=== PATIENT | male | born 1965 | race American Indian/Alaskan Native ===

== ENCOUNTER 2020-10-10 15:03 | Inpatient (IN) | payer OTHER, SELFPAY ==
[2020-10-10] MEDS ORDERED: LIDOCAINE VISCOUS 2% 15 ML ORAL LIQD PO ONE (16:29)
[2020-10-10] MEDS ORDERED: MORPHINE 4 MG/1 ML INJ IM ONE (16:30)
[2020-10-10] MEDS ORDERED: ONDANSETRON 4 MG/2 ML INJ IM ONE (16:30)
[2020-10-10] MEDS ORDERED: KETOROLAC 60 MG/2 ML INJ IM ONE (16:30)
--- NOTE | 2020-10-10 16:35 | Emergency Department Report ---
HPI - General Chief Complaint: Back Pain/Injury Time Seen by Provider: 10/10/20 16:15 - HPI HPI: Room 19 The patient is a 55-year-old male present with a chief complaint of sore throat and back pain. The patient was reportedly brought in from assisted living facility after complaining of back pain. The patient is nonverbal but is able to express his complaints through pointing and writing. Patient acknowledges he has lumbar back pain for between 3 to 6 months since a fall at that time. Patient also complains of a sore throat for approximately 2 weeks stating it hurts when he swallows. Patient acknowledges he has had a cough as well as a fever. Patient denies dysuria ED Past Medical Hx - Past Medical History Hx Diabetes: Yes Additional medical history: Pulmonary edema - Family History Family history: no significant - Social History Smoking Status: Unknown if ever smoked ED Review of Systems ROS: Stated complaint: BACK PAIN Other details as noted in HPI Comment: Unobtainable due to pts medical conditions (Nonverbal) Physical Exam - Physical Exam Vital Signs: Vital Signs 10/10/20 15:57 Temperature 98 F Pulse Rate 99 H Respiratory 16 Rate Blood Pressure 103/69 [left arm] O2 Sat by Pulse 99 Oximetry Physical Exam: GENERAL: The patient is well-developed thin kyphotic male lying on stretcher nonverbal not appearing to be in acute distress HEENT: Normocephalic. Atraumatic. Extraocular motions are intact. Patient has moist mucous membranes. Visualized portion of the oropharynx exhibits a pill erythema on the right side. No definite exudate appreciated NECK: Supple. Trachea midline CHEST/LUNGS: Clear to auscultation. There is no respiratory distress noted. HEART/CARDIOVASCULAR: Regular. There is no tachycardia. There is no gallop rub or murmur. ABDOMEN: Abdomen is soft, nontender. Patient has normal bowel sounds. There is no abdominal distention. SKIN: There is no rash. There is no edema. There is no diaphoresis. NEURO: The patient is awake and cooperative but nonverbal. MUSCULOSKELETAL: There is tenderness to palpation of the lumbar spine. No axial step-off. There is no evidence of acute injury. ED Course Vital Signs 10/10/20 15:57 Temperature 98 F Pulse Rate 99 H Respiratory 16 Rate Blood Pressure 103/69 [left arm] O2 Sat by Pulse 99 Oximetry ED Medical Decision Making - Lab Data Result diagrams: 10/10/20 16:31 10/10/20 16:31 Laboratory Tests 10/10/20 10/10/20 10/10/20 16:31 16:31 17:54 WBC 2.0 L RBC 2.64 L Hgb 8.0 L Hct 24.1 L MCV 91 MCH 30 MCHC 33 RDW 18.0 H Plt Count 134 L Add Manual Diff Complete Total Counted 100 Seg Neuts % (Manual) 86.0 H Lymphocytes % (Manual) 10.0 L Monocytes % (Manual) 2.0 Eosinophils % (Manual) 1.0 Basophils % (Manual) 1.0 Nucleated RBC % Not Reportable Seg Neutrophils # Man 1.7 L Band Neutrophils # 0.0 Lymphocytes # (Manual) 0.2 L Abs React Lymphs (Man) 0.0 Monocytes # (Manual) 0.0 Eosinophils # (Manual) 0.0 Basophils # (Manual) 0.0 Metamyelocytes # 0.0 Myelocytes # 0.0 Promyelocytes # 0.0 Blast Cells # 0.0 WBC Morphology Not Reportable Hypersegmented Neuts Not Reportable Hyposegmented Neuts Not Reportable Hypogranular Neuts Not Reportable Smudge Cells Not Reportable Toxic Granulation Not Reportable Toxic Vacuolation Not Reportable Dohle Bodies Not Reportable Pelger-Huet Anomaly Not Reportable Javon Rods Not Reportable Platelet Estimate Not Reportable Clumped Platelets Not Reportable Plt Clumps, EDTA Not Reportable Large Platelets Not Reportable Giant Platelets Not Reportable Platelet Satelliting Not Reportable Plt Morphology Comment Not Reportable RBC Morphology Not Reportable Dimorphic RBCs Not Reportable Polychromasia Not Reportable Hypochromasia Not Reportable Poikilocytosis Not Reportable Anisocytosis Rare Microcytosis Rare Macrocytosis Not Reportable Spherocytes Not Reportable Pappenheimer Bodies Not Reportable Sickle Cells Not Reportable Target Cells Not Reportable Tear Drop Cells Not Reportable Ovalocytes Not Reportable Helmet Cells Not Reportable [place] Bodies Not Reportable [place] Rings Not Reportable Drummond[place] Cells Not Reportable Bite Cells Not Reportable Crenated Cell Not Reportable Elliptocytes Not Reportable Acanthocytes (Spur) Not Reportable Rouleaux Not Reportable Hemoglobin C Crystals Not Reportable Schistocytes Rare Malaria parasites Not Reportable Lit Bodies Not Reportable Hem Pathologist Commnt No D-Dimer 2351.86 H Sodium 143 Potassium 5.6 H Chloride 113.3 H Carbon Dioxide 14 L Anion Gap 21 BUN 93 H Creatinine 2.5 H Estimated GFR 27 BUN/Creatinine Ratio 37 Glucose 82 Calcium 7.8 L - Radiology Data Radiology results: report reviewed (Chest x-ray, lateral soft tissue neck x-ray, lumbar spine x-ray), image reviewed (Chest x-ray, lateral soft tissue neck x- ray, lumbar spine x-ray) interpreted by me: Chest x-ray-left lower lobe opacity. No pneumothorax. Vertebral hardware in pl [address] Lateral soft tissue neck x-ray-no prevertebral swelling. No foreign body seen. Lumbar spine [id number] in place. No definite acute fractures visualized. Wedging of L4 [address] [address] XRay Report Signed Patient: CLARISSA MODI MR#: [id number] : 1965 Acct:[id number] Age/Sex: 55 / M ADM Date: 10/10/20 Loc: ED Attending Dr: Ordering Physician: SANDRA MUHAMMAD MD Date of Service: 10/10/20 Procedure(s): XR chest 1V ap Accession Number(s): [id number] cc: SANDRA MUHAMMAD MD Fluoro Time In Minutes: CHEST 1 VIEW 10/10/2020 4:07 PM INDICATION / CLINICAL INFORMATION: Cough. COMPARISON: None available. FINDINGS: SUPPORT DEVICES: None. HEART / MEDIASTINUM: No significant abnormality. LUNGS / PLEURA: Relatively dense opacity at the bases with changes being somewhat masslike on the left. No pneumothorax or pleural fluid. ADDITIONAL FINDINGS: No significant additional findings. IMPRESSION: Bibasilar opacity left greater than right worrisome for pneumonia in the setting of cough. Follow-up is recommended to ensure clearing and exclude an underlying mass. Signer Name: Brian Chao MD Signed: 10/10/2020 5:17 PM Workstation Name: [id number] Transcribed By: ES Dictated By: Brian Chao MD Electronically Authenticated By: Brian Chao MD Signed Date/Time: 10/10/201716 DD/ 10 TD/TT: Print Cancel [address] [address] XRay Report Signed Patient: CLARISSA MODI MR#: [id number] : 1965 Acct:[id number] Age/Sex: 55 / M ADM Date: 10/10/20 Loc: ED Attending Dr: Ordering Physician: SANDRA MUHAMMAD MD Date of Service: 10/10/20 Procedure(s): XR neck soft tissue Accession Number(s): [id number] cc: SANDRA MUHAMMAD MD Fluoro Time In Minutes: SOFT TISSUE NECK 2 VIEWS HISTORY: Odontophagia. FINDINGS: The soft tissues of the neck are unremarkable. There is no soft tissue gas or airway narrowing. Negative for radiopaque foreign body. A normal-appearing epiglottis is identified. IMPRESSION: Unremarkable soft tissue neck. Signer Name: Brian Chao MD Signed: 10/10/2020 5:13 PM Workstation Name: [email or web address] Transcribed By: ES Dictated By: Brian Chao MD Electronically Authenticated By: Brian Chao MD Signed Date/Time: 10/10/201712 DD/ 11 TD/TT: Print Cancel [address] [address] XRay Report Signed Patient: CLARISSA MODI MR#: [id number] : 1965 Acct:[id number] Age/Sex: 55 / M ADM Date: 10/10/20 Loc: ED Attending Dr: Ordering Physician: SANDRA MUHAMMAD MD Date of Service: 10/10/20 Procedure(s): XR spine lumbosacral 2-3V Accession Number(s): [id number] cc: SANDRA MUHAMMAD MD Fluoro Time In Minutes: LUMBAR SPINE 2 VIEWS INDICATION / CLINICAL INFORMATION: Pain, history of fall months ago COMPARISON: None available. FINDINGS: BONES / JOINT(S): Previous hardware placement at T10-T12. Vertebroplasty has been previously performed at L1 and L2. Prominent underlying osteopenia is present. There is mild wedging at the superior aspect of L3-L5 which is age indeterminate . SOFT TISSUES: No significant abnormality. ADDITIONAL FINDINGS: None. Signer Name: Brian Chao MD Signed: 10/10/2020 5:16 PM Workstation Name: [email or web address] Transcribed By: ES Dictated By: Brian Chao MD Electronically Authenticated By: Brian Chao MD Signed Date/Time: 10/10/201715 DD/ 12 TD/TT: Print Cancel - Differential Diagnosis Pharyngitis, epiglottitis, retropharyngeal abscess, subacute lumbar fractur Critical care attestation.: If time is entered above; I have spent that time in minutes in the direct care of this critically ill patient, excluding procedure time. ED Disposition Clinical Impression: Pneumonia, Suspected COVID-19 virus infection, Pancytopenia, Renal insufficiency, Hyperkalemia Disposition: OP ADMIT IP TO THIS HOSP Is pt being admited?: Yes Does the pt Need Aspirin: No Condition: Fair Instructions: Bacterial Pneumonia (ED) Referrals: PRIMARY CARE, [Primary Care Provider] - 3-5 Days Time of Disposition: 18:17 (Hospitalist paged (Dr. Dean))
[2020-10-10 16:41] LABS: Hematocrit 24.1 % (35.5-45.6); Mean Corpuscular HGB Conc 33 % (32-34); Mean Corpuscular Volume 91 fl (84-94); Platelet Count 134 K/mm3 (140-440); Red Blood Count 2.64 M/mm3 (3.65-5.03)
[2020-10-10 16:59] LABS: Calcium 7.8 mg/dL (8.4-10.2)
[2020-10-10 17:17] LABS: Anisocytosis RARE; Schistocytes Rare; Total Cells Counted 100
--- NOTE | 2020-10-10 17:18 | XRay Report ---
SOFT TISSUE NECK 2 VIEWS HISTORY: Odontophagia. FINDINGS: The soft tissues of the neck are unremarkable. There is no soft tissue gas or airway narrow ing. Negative for radiopaque foreign body. A normal-appearing epiglottis is identified. IMPRESSION: Unremarkable soft tissue neck. Signer Name: Brian Chao MD Signed: 10/10/2020 5:13 PM Workstation [facility]: [id number]
--- NOTE | 2020-10-10 17:20 | XRay Report ---
LUMBAR SPINE 2 VIEWS INDICATION / CLINICAL INFORMATION: Pain, history of fall months ago COMPARISON: None available. FINDINGS: BONES / JOINT(S): Previous hardware placement at T10-T12. Vertebroplasty has been previously performe d at L1 and L2. Prominent underlying osteopenia is present. There is mild wedging at the superior asp ect of L3-L5 which is age indeterminate. SOFT TISSUES: No significant abnormality. ADDITIONAL FINDINGS: None. Signer Name: Brian Chao MD Signed: 10/10/2020 5:16 PM Workstation Name: [id number]
--- NOTE | 2020-10-10 17:22 | XRay Report ---
CHEST 1 VIEW 10/10/2020 4:07 PM INDICATION / CLINICAL INFORMATION: Cough. COMPARISON: None available. FINDINGS: SUPPORT DEVICES: None. HEART / MEDIASTINUM: No significant abnormality. LUNGS / PLEURA: Relatively dense opacity at the bases with changes being somewhat masslike on the lef t. No pneumothorax or pleural fluid. ADDITIONAL FINDINGS: No significant additional findings. IMPRESSION: Bibasilar opacity left greater than right worrisome for pneumonia in the setting of cough . Follow-up is recommended to ensure clearing and exclude an underlying mass. Signer Name: Brian Chao MD Signed: 10/10/2020 5:17 PM Workstation Name: [id number]
[2020-10-10] MEDS ORDERED: INSULIN REGULAR, HUMAN 100 UNITS/1 ML IV ONE (17:34)
[2020-10-10] MEDS ORDERED: SODIUM POLYSTYRENE 15 GM/60 ML ORAL LIQD PO ONE (17:34)
[2020-10-10] MEDS ORDERED: DEXTROSE 50% IN WATER (25GM) 50 ML SYRINGE IV ONE (17:34)
[2020-10-10] MEDS ORDERED: cefTRIAXone/NS 1 GM/50 ML 1 GM/50 ML BAG IV ONE (17:35)
[2020-10-10] MEDS ORDERED: AZITHROMYCIN/NS 500 MG/250 ML 500 MG/250 ML BAG IV ONE (17:35)
[2020-10-10] MEDS ORDERED: CALCIUM GLUCONATE 1,000 MG in SODIUM CHLORIDE 0.9% 100 ML IV ONE (18:00)
[2020-10-10] MEDS ORDERED: SODIUM CHLORIDE 0.9% 1000 ML 1,000 ML ONE ×2 (19:19→19:23)
--- NOTE | 2020-10-10 19:45 | History and Physical Report ---
History of Present Illness Chief complaint: His back hurts and he has a sore throat and he is weak History of present illness: 55 YO Male Assisted Living Facility Resident with DM, Severe Malnutrition, who is nonverbal, and communicated by writing presents to ED for evaluation. Patient reports "sore throat and back pain". EMS was notified by assisted living facility staff. Upon arrival the patient was found to be in distress and subsequently transported to [facility] for further care and evaluation of the aforementioned symptoms. The patient was seen and evaluated in the emergency department. All lab and imaging studies reviewed. Patient underwent chest x- ray and was found to have bilateral pneumonia, acidosis, and acute kidney injury. Patient admitted to medical floor and initiated on pneumonia protocol as well as coronavirus protocol. No further history is obtainable. No prior admission for review. No medication listed at time of admission for reconciliation. No reports of fever, chills, chest pain, palpitations, productive cough, skin rash, recent ill contacts, or known exposure to COVID-19 as per assisted-living facility staff. Patient is able to maintain his airway without difficulty and has a positive gag reflex. Past History Past Medical History: diabetes, other (See HPI) Past Surgical History: No surgical history, Other (Reviewed) Social history: single. denies: smoking, alcohol abuse, prescription drug abuse Family history: hypertension Medications and Allergies Allergies Allergy/AdvReac Type Severity Reaction Status Date / Time No Known Allergies Allergy Unverified 10/10/20 15:05 Review of Systems ROS unobtainable: due to mental status Exam - Constitutional Vitals: Temp Pulse Resp BP Pulse Ox 98 F 99 H 16 103/69 99 10/10/20 15:57 10/10/20 15:57 10/10/20 15:57 10/10/20 15:57 10/10/20 15:57 General appearance: Present: mild distress, cachectic - EENT Eyes: Present: PERRL ENT: hearing intact, clear oral mucosa - Neck Neck: Present: supple, normal ROM - Respiratory Respiratory effort: normal Respiratory: bilateral: diminished, rhonchi - Cardiovascular Heart Sounds: Present: S1 & S2. Absent: rub, click - Extremities Extremities: pulses symmetrical, No edema Peripheral Pulses: within normal limits - Abdominal General gastrointestinal: Present: soft, non-tender, non-distended, normal bowel sounds Male genitourinary: Present: normal - Integumentary Integumentary: Present: clear, warm, dry - Musculoskeletal Musculoskeletal: gait normal, strength equal bilaterally - Psychiatric Psychiatric: appropriate mood/affect, intact judgment & insight - Neurologic Neurologic: CNII-XII intact, moves all extremities Results - Labs CBC & Chem 7: 10/10/20 16:31 10/10/20 17:54 Labs: Abnormal lab results 10/10/20 10/10/20 10/10/20 Range/Units 16:31 16:31 17:54 WBC 2.0 L (4.5-11.0) K/mm3 RBC 2.64 L (3.65-5.03) M/mm3 Hgb 8.0 L (11.8-15.2) gm/dl Hct 24.1 L (35.5-45.6) % RDW 18.0 H (13.2-15.2) % Plt Count 134 L (140-440) K/mm3 Seg Neuts % (Manual) 86.0 H (40.0-70.0) % Lymphocytes % (Manual) 10.0 L (13.4-35.0) % Seg Neutrophils # Man 1.7 L (1.8-7.7) K/mm3 Lymphocytes # (Manual) 0.2 L (1.2-5.4) K/mm3 D-Dimer 2351.86 H (0-234) ng/mlDDU Potassium 5.6 H (3.6-5.0) mmol/L Chloride 113.3 H (98-107) mmol/L Carbon Dioxide 14 L (22-30) mmol/L BUN 93 H (9-20) mg/dL Creatinine 2.5 H (0.8-1.3) mg/dL Calcium 7.8 L (8.4-10.2) mg/dL Assessment and Plan - Patient Problems (1) SIRS due to infectious process with organ dysfunction Current Visit: Yes Status: Acute Plan to address problem: CBC, CMP, IV fluid resuscitation therapy, IV antibiotic therapy, urinalysis, chest x-ray, blood cultures. (2) Acute kidney injury (NELSY) with acute tubular necrosis (ATN) Current Visit: Yes Status: Acute Plan to address problem: IV fluid resuscitation therapy as clinically indicated, encourage increased oral intake, BMP, repeat BMP in a.m. to monitor serum creatinine as well as GFR (3) Severe malnutrition Current Visit: Yes Status: Acute Plan to address problem: Encourage increased protein intake, dietary supplementation (4) Pneumonia Current Visit: Yes Status: Acute Plan to address problem: Pneumonia protocol: Chest x-ray, CBC, CMP, supplemental oxygen, nebulizer therapy, pulse oximetry. (5) Suspected COVID-19 virus infection Current Visit: Yes Status: Acute Plan to address problem: Coronavirus protocol: Contact precautions, isolation precautions, coronavirus PCR ordered and pending at time of admission, IV antibiotic therapy, IV steroid therapy. (6) DVT prophylaxis Current Visit: Yes Status: Acute Plan to address problem: SCDs bilateral lower extremities while in bed, patient is ambulatory
[2020-10-10] MEDS ORDERED: ONDANSETRON 4 MG/2 ML INJ IV PRN (19:46)
[2020-10-10] MEDS ORDERED: ALBUTEROL 2.5 MG/3 ML NEBU IH PRN (19:46)
[2020-10-10 20:08] LABS: C-Reactive Protein 5.6 mg/dL (0.00-1.30)
[2020-10-10] MEDS ORDERED: SODIUM CHLORIDE 0.9% 1000 ML 1,000 ML IV ONE ×2 (20:44)
[2020-10-10] MEDS ORDERED: NORepinephrine/NS 4 MG-250 ML 4 MG/250 ML BAG IV ONE (23:53)
[2020-10-11 06:03] LABS: Mean Corpuscular HGB Conc 32 % (32-34); Mean Corpuscular Volume 96 fl (84-94); Platelet Count 108 K/mm3 (140-440); Red Blood Count 2.31 M/mm3 (3.65-5.03); Red Cell Distribution Width 19.2 % (13.2-15.2)
[2020-10-11 06:17] LABS: Basophils % (Auto) 0.5 % (0.0-1.8); Eosinophils % (Auto) 1.6 % (0.0-4.3); Lymphocytes # (Auto) 0.1 K/mm3 (1.2-5.4); Lymphocytes % (Auto) 10.1 % (13.4-35.0); Monocytes % (Auto) 1.4 % (0.0-7.3)
[2020-10-11 06:23] LABS: Albumin 1.8 g/dL (3.9-5); Calcium 7.1 mg/dL (8.4-10.2)
--- NOTE | 2020-10-11 10:48 | Consultation ---
History of Present Illness - Reason for Consult Consult date: 10/11/20 COVID PUI Requesting physician: YANNI MOE - History of Present Illness The patient is a 55-year-old male with diabetes, malnutrition, resident of an assisted living facility was brought into the emergency room with complaints of sore throat and back pain. Chest x-ray showed bilateral pneumonia with labs showing evidence of acute kidney injury. Patient afebrile on admission, also not hypoxic. Labs showed leukopenia, hyperkalemia, creatinine 2.5, ferritin 08/17/2007, CRP 5.6, LDH 233, CRP 5.6 Review of Systems: reviewed in the chart, unable to obtain, minimize risk of transmission Past History Past Medical History: diabetes, other (See HPI) Past Surgical History: No surgical history, Other (Reviewed) Social history: single. denies: smoking, alcohol abuse, prescription drug abuse Family history: hypertension Medications and Allergies Allergies Allergy/AdvReac Type Severity Reaction Status Date / Time No Known Allergies Allergy Unverified 10/10/20 15:05 Active Meds: Active Medications Acetaminophen (Acetaminophen 325 Mg Tab) 650 mg PO Q4H PRN PRN Reason: Pain MILD(1-3)/Fever >100.5/KINNEY Albuterol (Albuterol 2.5 Mg/3 Ml Nebu) 2.5 mg IH Q4HRT PRN PRN Reason: Shortness Of Breath Ceftriaxone Sodium (Rocephin/Ns 2 Gm/100 Ml) 2 gm in 100 mls @ 200 mls/hr IV Q24H THEE; Protocol Azithromycin (Zithromax/Ns) 500 mg in 250 mls @ 250 mls/hr IV Q24H THEE; Protocol Methylprednisolone Sodium Succinate (Methylprednisolone Sod Succinate 40 Mg/1 Ml Inj) 40 mg IV Q8HR THEE Ondansetron HCl (Ondansetron 4 Mg/2 Ml Inj) 4 mg IV Q8H PRN PRN Reason: Nausea And Vomiting Sodium Chloride (Sodium Chloride 0.9% 10 Ml Flush Syringe) 10 ml IV BID THEE Sodium Chloride (Sodium Chloride 0.9% 10 Ml Flush Syringe) 10 ml IV PRN PRN PRN Reason: LINE FLUSH Physical Examination - Physical Exam Narrative exam: Physical Exam (reviewed in chart to minimize risk of transmission) Constitutional: deferred Head, Ears, Nose: deferred Eyes: deferred Neck: deferred Oral: deferred Cardiovascular: deferred Respiratory: deferred GI: deferred Musculoskeletal: deferred Skin: deferred Hem/Lymphatic: deferred Psych: deferred Neurological: deferred - Constitutional Vitals: Vital Signs Temp Pulse Resp BP Pulse Ox 98 F 72 9 L 107/76 100 10/10/20 15:57 10/11/20 10:01 10/11/20 10:01 10/11/20 10:01 10/11/20 10:01 Temperature -Last 24 Hours Temperature 98 F Results - Labs CBC & Chem 7: 10/11/20 05:40 10/11/20 05:40 Labs: Abnormal lab results 10/10/20 10/10/20 10/10/20 Range/Units 16:31 16:31 17:54 WBC 2.0 L (4.5-11.0) K/mm3 RBC 2.64 L (3.65-5.03) M/mm3 Hgb 8.0 L (11.8-15.2) gm/dl Hct 24.1 L (35.5-45.6) % MCV (84-94) fl RDW 18.0 H (13.2-15.2) % Plt Count 134 L (140-440) K/mm3 Lymph % (Auto) (13.4-35.0) % Lymph # (Auto) (1.2-5.4) K/mm3 Seg Neutrophils % (40.0-70.0) % Seg Neuts % (Manual) 86.0 H (40.0-70.0) % Lymphocytes % (Manual) 10.0 L (13.4-35.0) % Seg Neutrophils # (1.8-7.7) K/mm3 Seg Neutrophils # Man 1.7 L (1.8-7.7) K/mm3 Lymphocytes # (Manual) 0.2 L (1.2-5.4) K/mm3 D-Dimer 2351.86 H (0-234) ng/mlDDU Sodium (137-145) mmol/L Potassium 5.6 H (3.6-5.0) mmol/L Chloride 113.3 H (98-107) mmol/L Carbon Dioxide 14 L (22-30) mmol/L BUN 93 H (9-20) mg/dL Creatinine 2.5 H (0.8-1.3) mg/dL Calcium 7.8 L (8.4-10.2) mg/dL Ferritin (30.0-300.0) ng/mL AST (5-40) units/L ALT (7-56) units/L Alkaline Phosphatase (35-129) units/L Lactate Dehydrogenase (91-180) units/L C-Reactive Protein (0.00-1.30) mg/dL Albumin (3.9-5) g/dL 10/10/20 10/10/20 10/11/20 Range/Units 17:54 17:54 05:40 WBC 1.3 L* (4.5-11.0) K/mm3 RBC 2.31 L (3.65-5.03) M/mm3 Hgb 7.0 L (11.8-15.2) gm/dl Hct 22.0 L (35.5-45.6) % MCV 96 H (84-94) fl RDW 19.2 H (13.2-15.2) % Plt Count 108 L (140-440) K/mm3 Lymph % (Auto) 10.1 L (13.4-35.0) % Lymph # (Auto) 0.1 L (1.2-5.4) K/mm3 Seg Neutrophils % 86.4 H (40.0-70.0) % Seg Neuts % (Manual) (40.0-70.0) % Lymphocytes % (Manual) (13.4-35.0) % Seg Neutrophils # 1.1 L (1.8-7.7) K/mm3 Seg Neutrophils # Man (1.8-7.7) K/mm3 Lymphocytes # (Manual) (1.2-5.4) K/mm3 D-Dimer (0-234) ng/mlDDU Sodium (137-145) mmol/L Potassium (3.6-5.0) mmol/L Chloride (98-107) mmol/L Carbon Dioxide (22-30) mmol/L BUN (9-20) mg/dL Creatinine (0.8-1.3) mg/dL Calcium (8.4-10.2) mg/dL Ferritin 2608.0 H (30.0-300.0) ng/mL AST (5-40) units/L ALT (7-56) units/L Alkaline Phosphatase (35-129) units/L Lactate Dehydrogenase 233 H (91-180) units/L C-Reactive Protein 5.60 H (0.00-1.30) mg/dL Albumin (3.9-5) g/dL 10/11/20 Range/Units 05:40 WBC (4.5-11.0) K/mm3 RBC (3.65-5.03) M/mm3 Hgb (11.8-15.2) gm/dl Hct (35.5-45.6) % MCV (84-94) fl RDW (13.2-15.2) % Plt Count (140-440) K/mm3 Lymph % (Auto) (13.4-35.0) % Lymph # (Auto) (1.2-5.4) K/mm3 Seg Neutrophils % (40.0-70.0) % Seg Neuts % (Manual) (40.0-70.0) % Lymphocytes % (Manual) (13.4-35.0) % Seg Neutrophils # (1.8-7.7) K/mm3 Seg Neutrophils # Man (1.8-7.7) K/mm3 Lymphocytes # (Manual) (1.2-5.4) K/mm3 D-Dimer (0-234) ng/mlDDU Sodium 148 H (137-145) mmol/L Potassium (3.6-5.0) mmol/L Chloride 118.1 H (98-107) mmol/L Carbon Dioxide 16 L (22-30) mmol/L BUN 88 H (9-20) mg/dL Creatinine 2.7 H (0.8-1.3) mg/dL Calcium 7.1 L (8.4-10.2) mg/dL Ferritin (30.0-300.0) ng/mL AST 94 H (5-40) units/L ALT 198 H (7-56) units/L Alkaline Phosphatase 276 H (35-129) units/L Lactate Dehydrogenase (91-180) units/L C-Reactive Protein (0.00-1.30) mg/dL Albumin 1.8 L (3.9-5) g/dL - Imaging and Cardiology Chest x-ray: report reviewed, image reviewed (b/l PNA) Assessment and Plan Cultures: SARS CoV2 PCR: Pending HIV: Negative 10/10/2020 blood culture: In process A/P: 55-year-old male with diabetes, malnutrition, resident of an assisted living facility was brought into the emergency room with complaints of sore throat and back pain: #Bilateral pneumonia: Not hypoxic. Leukopenia. Agree with COVID-19 rule out. #Leukopenia: Etiology unclear. Baseline WBC is unknown. Could be related to acute infection. HIV negative. Also anemic with thrombocytopenia #NELSY: Renally dose antibiotics. #Transaminitis: With elevation of alkaline phosphatase. RUQ ultrasound ordered #Chronic malnutrition; BMI of 16.1 Recs: Follow-up COVID-19 PCR Empiric ceftriaxone, azithromycin for now Monitor WBC Follow-up cultures and procalcitonin RUQ ultrasound ordered If pancytopenia persists, consider hematology trupti Jane MD, FACP [facility] ([facility] O: [phone] F: [phone]
[2020-10-11 12:07] LABS: Bacteria,Urine 2+ /HPF (Negative); Bilirubin,Urine NEG (Negative); Blood,Urine SM (Negative); Color,Urine Yellow (Yellow); Mucus,Urine FEW /HPF; Urobilinogen,Urine < 2.0 mg/dL (<2.0)
--- NOTE | 2020-10-11 15:05 | Progress Note ---
Assessment and Plan - Patient Problems (1) SIRS due to infectious process with organ dysfunction Current Visit: Yes Status: Acute Plan to address problem: CBC, CMP, IV fluid resuscitation therapy, IV antibiotic therapy, urinalysis, chest x-ray, blood cultures. Continue IV fluids (2) Acute kidney injury (NELSY) with acute tubular necrosis (ATN) Current Visit: Yes Status: Acute Plan to address problem: IV fluids for now Started on IV half-normal saline at 125 cc an hour (3) Severe malnutrition Current Visit: Yes Status: Acute Plan to address problem: Encourage increased protein intake, dietary supplementation (4) Pneumonia Current Visit: Yes Status: Acute Plan to address problem: Pneumonia protocol: Chest x-ray, CBC, CMP, supplemental oxygen, nebulizer therap y, pulse oximetry. Continue Rocephin and Zithromax Coronavirus PCR negative (5) Suspected COVID-19 virus infection Current Visit: Yes Status: Acute Plan to address problem: Coronavirus PCR negative (6) DVT prophylaxis Current Visit: Yes Status: Acute Plan to address problem: SCDs bilateral lower extremities while in bed, patient is ambulatory Subjective Date of service: 10/11/20 Principal diagnosis: Altered sensorium Interval history: The patient is a 55-year-old male with diabetes, malnutrition, resident of an assisted living facility was brought into the emergency room with complaints of sore throat and back pain. Chest x-ray showed bilateral pneumonia with labs showing evidence of acute kidney injury. Patient afebrile on admission, also not hypoxic. Labs showed leukopenia, hyperkalemia, creatinine 2.5, ferritin 08/17/2007, CRP 5.6, LDH 233, CRP 5.6 10/11/2020 Covid test was negative 10/12/2020 Patient more alert and oriented Objective - Constitutional Vitals: Vital Signs - 12hr 10/11/20 10/11/20 10/11/20 03:16 03:30 03:46 Temperature Pulse Rate 67 63 66 Respiratory Rate Blood Pressure 107/71 117/75 102/71 O2 Sat by Pulse 100 100 Oximetry 10/11/20 10/11/20 10/11/20 04:00 04:16 04:31 Temperature Pulse Rate 66 72 68 Respiratory 17 19 Rate Blood Pressure 102/70 104/67 117/77 O2 Sat by Pulse 100 Oximetry 10/11/20 10/11/20 10/11/20 04:45 05:01 05:15 Temperature Pulse Rate 61 62 66 Respiratory Rate Blood Pressure 122/79 118/79 119/77 O2 Sat by Pulse Oximetry 10/11/20 10/11/20 10/11/20 05:31 05:45 06:01 Temperature Pulse Rate 66 62 64 Respiratory Rate Blood Pressure 122/79 122/79 110/75 O2 Sat by Pulse Oximetry 10/11/20 10/11/20 10/11/20 06:31 07:01 07:31 Temperature Pulse Rate 63 66 65 Respiratory 7 L Rate Blood Pressure 112/76 123/80 113/76 O2 Sat by Pulse Oximetry 10/11/20 10/11/20 10/11/20 08:30 08:31 09:01 Temperature 98.2 F Pulse Rate 65 70 Respiratory 7 L 10 L Rate Blood Pressure 118/79 116/76 O2 Sat by Pulse 100 100 Oximetry 10/11/20 10/11/20 10/11/20 09:31 10:01 10:31 Temperature Pulse Rate 71 72 71 Respiratory 11 L 9 L 12 Rate Blood Pressure 106/74 107/76 108/83 O2 Sat by Pulse 100 100 100 Oximetry 10/11/20 10/11/20 11:01 11:30 Temperature Pulse Rate 75 80 Respiratory 15 13 Rate Blood Pressure 113/76 107/76 O2 Sat by Pulse 100 100 Oximetry General appearance: Present: no acute distress, well-nourished - EENT Eyes: PERRL, EOM intact ENT: hearing intact, clear oral mucosa Ears: bilateral: normal - Neck Neck: supple, normal ROM - Respiratory Respiratory effort: normal Respiratory: bilateral: CTA - Breasts Breasts: normal - Cardiovascular Heart rate: 78 Rhythm: regular Heart Sounds: Present: S1 & S2. Absent: gallop, rub Extremities: pulses intact, No edema, normal color, Full ROM - Gastrointestinal General gastrointestinal: Present: soft, non-tender, non-distended, normal bowel sounds - Genitourinary Male genitourinary: normal - Integumentary Integumentary: clear, warm, dry - Musculoskeletal Musculoskeletal: 1, strength equal bilaterally - Neurologic Neurologic: moves all extremities - Psychiatric Psychiatric: memory intact, appropriate mood/affect, intact judgment & insight - Labs CBC & Chem 7: 10/12/20 06:18 10/12/20 06:18 Labs: Abnormal lab results 10/10/20 10/10/20 10/10/20 Range/Units 16:31 16:31 17:54 WBC 2.0 L (4.5-11.0) K/mm3 RBC 2.64 L (3.65-5.03) M/mm3 Hgb 8.0 L (11.8-15.2) gm/dl Hct 24.1 L (35.5-45.6) % MCV (84-94) fl RDW 18.0 H (13.2-15.2) % Plt Count 134 L (140-440) K/mm3 Lymph % (Auto) (13.4-35.0) % Lymph # (Auto) (1.2-5.4) K/mm3 Seg Neutrophils % (40.0-70.0) % Seg Neuts % (Manual) 86.0 H (40.0-70.0) % Lymphocytes % (Manual) 10.0 L (13.4-35.0) % Seg Neutrophils # (1.8-7.7) K/mm3 Seg Neutrophils # Man 1.7 L (1.8-7.7) K/mm3 Lymphocytes # (Manual) 0.2 L (1.2-5.4) K/mm3 D-Dimer 2351.86 H (0-234) ng/mlDDU Sodium (137-145) mmol/L Potassium 5.6 H (3.6-5.0) mmol/L Chloride 113.3 H (98-107) mmol/L Carbon Dioxide 14 L (22-30) mmol/L BUN 93 H (9-20) mg/dL Creatinine 2.5 H (0.8-1.3) mg/dL Calcium 7.8 L (8.4-10.2) mg/dL Ferritin (30.0-300.0) ng/mL AST (5-40) units/L ALT (7-56) units/L Alkaline Phosphatase (35-129) units/L Lactate Dehydrogenase (91-180) units/L C-Reactive Protein (0.00-1.30) mg/dL Albumin (3.9-5) g/dL Urine WBC (Auto) (0.0-6.0) /HPF 10/10/20 10/10/20 10/11/20 Range/Units 17:54 17:54 05:40 WBC 1.3 L* (4.5-11.0) K/mm3 RBC 2.31 L (3.65-5.03) M/mm3 Hgb 7.0 L (11.8-15.2) gm/dl Hct 22.0 L (35.5-45.6) % MCV 96 H (84-94) fl RDW 19.2 H (13.2-15.2) % Plt Count 108 L (140-440) K/mm3 Lymph % (Auto) 10.1 L (13.4-35.0) % Lymph # (Auto) 0.1 L (1.2-5.4) K/mm3 Seg Neutrophils % 86.4 H (40.0-70.0) % Seg Neuts % (Manual) (40.0-70.0) % Lymphocytes % (Manual) (13.4-35.0) % Seg Neutrophils # 1.1 L (1.8-7.7) K/mm3 Seg Neutrophils # Man (1.8-7.7) K/mm3 Lymphocytes # (Manual) (1.2-5.4) K/mm3 D-Dimer (0-234) ng/mlDDU Sodium (137-145) mmol/L Potassium (3.6-5.0) mmol/L Chloride (98-107) mmol/L Carbon Dioxide (22-30) mmol/L BUN (9-20) mg/dL Creatinine (0.8-1.3) mg/dL Calcium (8.4-10.2) mg/dL Ferritin 2608.0 H (30.0-300.0) ng/mL AST (5-40) units/L ALT (7-56) units/L Alkaline Phosphatase (35-129) units/L Lactate Dehydrogenase 233 H (91-180) units/L C-Reactive Protein 5.60 H (0.00-1.30) mg/dL Albumin (3.9-5) g/dL Urine WBC (Auto) (0.0-6.0) /HPF 10/11/20 10/11/20 Range/Units 05:40 Unknown WBC (4.5-11.0) K/mm3 RBC (3.65-5.03) M/mm3 Hgb (11.8-15.2) gm/dl Hct (35.5-45.6) % MCV (84-94) fl RDW (13.2-15.2) % Plt Count (140-440) K/mm3 Lymph % (Auto) (13.4-35.0) % Lymph # (Auto) (1.2-5.4) K/mm3 Seg Neutrophils % (40.0-70.0) % Seg Neuts % (Manual) (40.0-70.0) % Lymphocytes % (Manual) (13.4-35.0) % Seg Neutrophils # (1.8-7.7) K/mm3 Seg Neutrophils # Man (1.8-7.7) K/mm3 Lymphocytes # (Manual) (1.2-5.4) K/mm3 D-Dimer (0-234) ng/mlDDU Sodium 148 H (137-145) mmol/L Potassium (3.6-5.0) mmol/L Chloride 118.1 H (98-107) mmol/L Carbon Dioxide 16 L (22-30) mmol/L BUN 88 H (9-20) mg/dL Creatinine 2.7 H (0.8-1.3) mg/dL Calcium 7.1 L (8.4-10.2) mg/dL Ferritin (30.0-300.0) ng/mL AST 94 H (5-40) units/L ALT 198 H (7-56) units/L Alkaline Phosphatase 276 H (35-129) units/L Lactate Dehydrogenase (91-180) units/L C-Reactive Protein (0.00-1.30) mg/dL Albumin 1.8 L (3.9-5) g/dL Urine WBC (Auto) 36.0 H (0.0-6.0) /HPF
--- NOTE | 2020-10-11 16:54 | Vascular Lab Report ---
DUPLEX DOPPLER LOWER EXTREMITY VEINS, BILATERAL INDICATION / CLINICAL INFORMATION: Under suspicion for COVID pneumonia. Evaluate for DVT. TECHNIQUE: Duplex doppler imaging was performed through the veins of both lower extremities using rosa maria ous compression and other maneuvers. COMPARISON: None. FINDINGS: Right Common Femoral vein: Negative. Right Femoral vein: Negative. Right Popliteal vein: Negative. Right Calf veins: Negative. Left Common Femoral vein: Negative. Left Femoral vein: Negative. Left Popliteal vein: Negative. Left Calf veins: Negative. Additional findings: None. IMPRESSION: 1. No sonographic evidence for DVT in either lower extremity. Signer Name: Mel Lomeli MD Signed: 10/11/2020 4:49 PM Workstation Name: [id number]
--- NOTE | 2020-10-11 17:59 | Ultrasound Report ---
ULTRASOUND ABDOMEN, LIMITED (RIGHT UPPER QUADRANT) INDICATION: sepsis, elevated LFTs. COMPARISON: None available. FINDINGS: Pancreas: Visualized portion shows no significant abnormality. Liver: Normal. Gallbladder: Normal. Bile ducts: Normal. Common Bile Duct measures 2 mm. Free fluid: None. Additional Findings: Mild right-sided pelvicaliectasis and echogenic right kidney IMPRESSION: 1. Mild right pelvic caliectasis and echogenic right kidney characteristic for medical renal disease. Noncontrast abdominal and pelvic CT may be useful in order to exclude an obstructing kidney stone 2. No other sonographic abnormality of the right upper quadrant. Signer Name: Spencer Mack MD Signed: 10/11/2020 5:55 PM Workstation Name: [id number]
[2020-10-11] MEDS: cefTRIAXone/NS 2 GM/100 ML 2 GM/100 ML BAG IV SCH (19:50)
[2020-10-11] MEDS: AZITHROMYCIN/NS 500 MG/250 ML 500 MG/250 ML BAG IV SCH (20:21)
[2020-10-11] MEDS: methylPREDNISolone Sod Succinate 40 MG/1 ML INJ IV SCH (22:24)
[2020-10-12 07:00] LABS: Hematocrit 20.3 % (35.5-45.6); Hemoglobin 6.7 gm/dl (11.8-15.2); Mean Corpuscular HGB Conc 33 % (32-34); Mean Corpuscular Volume 91 fl (84-94); Platelet Count 109 K/mm3 (140-440); Red Blood Count 2.24 M/mm3 (3.65-5.03); Red Cell Distribution Width 19.2 % (13.2-15.2)
[2020-10-12 07:23] LABS: Albumin 1.7 g/dL (3.9-5); Calcium 6.7 mg/dL (8.4-10.2)
[2020-10-12] MEDS ORDERED: TBO-FILGRASTIM 300 MCG/0.5 ML SUB-Q ONE (10:48)
--- NOTE | 2020-10-12 11:03 | Progress Note ---
Assessment and Plan - Patient Problems (1) SIRS due to infectious process with organ dysfunction Current Visit: Yes Status: Acute Plan to address problem: CBC, CMP, IV fluid resuscitation therapy, IV antibiotic therapy, urinalysis, chest x-ray, blood cultures. Continue IV fluids (2) Acute kidney injury (NELSY) with acute tubular necrosis (ATN) Current Visit: Yes Status: Acute Plan to address problem: IV fluids for now Started on IV half-normal saline at 125 cc an hour Vasomotor nephropathy/ATN Recheck BUN/creatinine tomorrow (3) Severe malnutrition Current Visit: Yes Status: Acute Plan to address problem: Encourage increased protein intake, dietary supplementation (4) Pneumonia Current Visit: Yes Status: Acute Plan to address problem: Pneumonia protocol: Chest x-ray, CBC, CMP, supplemental oxygen, nebulizer therapy, pulse oximetry. Continue Rocephin and Zithromax Coronavirus PCR negative Transfer to non-Covid side of the floor (5) Suspected COVID-19 virus infection Current Visit: Yes Status: Acute Plan to address problem: Coronavirus PCR negative (6) DVT prophylaxis Current Visit: Yes Status: Acute Plan to address problem: SCDs bilateral lower extremities while in bed, patient is ambulatory Severe debility PT and OT requested Subjective Date of service: 10/12/20 Principal diagnosis: Altered sensorium Interval history: The patient is a 55-year-old male with diabetes, malnutrition, resident of an assisted living facility was brought into the emergency room with complaints of sore throat and back pain. Chest x-ray showed bilateral pneumonia with labs showing evidence of acute kidney injury. Patient afebrile on admission, also not hypoxic. Labs showed leukopenia, hyperkalemia, creatinine 2.5, ferritin 08/17/2007, CRP 5.6, LDH 233, CRP 5.6 10/11/2020 Covid test was negative 10/12/2020 Patient more alert and oriented Afebrile Objective - Constitutional Vitals: Vital Signs - 12hr 10/12/20 05:07 Temperature 97.6 F Pulse Rate 79 Respiratory 16 Rate Blood Pressure 102/70 O2 Sat by Pulse 100 Oximetry General appearance: Present: no acute distress, well-nourished - EENT Eyes: PERRL, EOM intact ENT: hearing intact, clear oral mucosa Ears: bilateral: normal - Neck Neck: supple, normal ROM - Respiratory Respiratory effort: normal Respiratory: bilateral: CTA - Breasts Breasts: normal - Cardiovascular Rhythm: regular Heart Sounds: Present: S1 & S2. Absent: gallop, rub Extremities: pulses intact, No edema, normal color, Full ROM - Gastrointestinal General gastrointestinal: Present: soft, non-tender, non-distended, normal bowel sounds - Genitourinary Male genitourinary: normal - Integumentary Integumentary: clear, warm, dry - Musculoskeletal Musculoskeletal: 1, strength equal bilaterally - Neurologic Neurologic: moves all extremities - Psychiatric Psychiatric: memory intact, appropriate mood/affect, intact judgment & insight - Labs CBC & Chem 7: 10/12/20 06:18 10/12/20 06:18 Labs: Abnormal lab results 10/11/20 10/11/20 10/12/20 Range/Units 21:10 Unknown 06:18 WBC 1.8 L* (4.5-11.0) K/mm3 RBC 2.24 L (3.65-5.03) M/mm3 Hgb 6.7 L (11.8-15.2) gm/dl Hct 20.3 L (35.5-45.6) % RDW 19.2 H (13.2-15.2) % Plt Count 109 L (140-440) K/mm3 Chloride (98-107) mmol/L Carbon Dioxide (22-30) mmol/L BUN (9-20) mg/dL Creatinine (0.8-1.3) mg/dL Glucose (75-100) mg/dL POC Glucose 166 H (70-105) mg/dL Calcium (8.4-10.2) mg/dL AST (5-40) units/L ALT (7-56) units/L Alkaline Phosphatase (35-129) units/L Albumin (3.9-5) g/dL Urine WBC (Auto) 36.0 H (0.0-6.0) /HPF 10/12/20 10/12/20 Range/Units 06:18 07:42 WBC (4.5-11.0) K/mm3 RBC (3.65-5.03) M/mm3 Hgb (11.8-15.2) gm/dl Hct (35.5-45.6) % RDW (13.2-15.2) % Plt Count (140-440) K/mm3 Chloride 114.8 H (98-107) mmol/L Carbon Dioxide 13 L (22-30) mmol/L BUN 92 H (9-20) mg/dL Creatinine 2.4 H (0.8-1.3) mg/dL Glucose 144 H (75-100) mg/dL POC Glucose 117 H (70-105) mg/dL Calcium 6.7 L (8.4-10.2) mg/dL AST 63 H (5-40) units/L ALT 155 H (7-56) units/L Alkaline Phosphatase 357 H (35-129) units/L Albumin 1.7 L (3.9-5) g/dL Urine WBC (Auto) (0.0-6.0) /HPF
[2020-10-12] MEDS: SODIUM CHLORIDE 0.45% 1000 ML 1,000 ML IV SCH ×2 (11:31→20:55)
[2020-10-12] MEDS: methylPREDNISolone Sod Succinate 40 MG/1 ML INJ IV SCH ×2 (15:13→21:35)
[2020-10-12] MEDS: cefTRIAXone/NS 2 GM/100 ML 2 GM/100 ML BAG IV SCH (20:51)
[2020-10-12] MEDS: AZITHROMYCIN/NS 500 MG/250 ML 500 MG/250 ML BAG IV SCH (21:36)
[2020-10-13] MEDS: methylPREDNISolone Sod Succinate 40 MG/1 ML INJ IV SCH ×4 (05:43→21:15)
[2020-10-13] MEDS: SODIUM CHLORIDE 0.45% 1000 ML 1,000 ML IV SCH ×2 (05:54→17:28)
[2020-10-13 09:15] LABS: Hematocrit 21.8 % (35.5-45.6); Mean Corpuscular HGB Conc 32 % (32-34); Mean Corpuscular Volume 93 fl (84-94); Platelet Count 109 K/mm3 (140-440); Red Blood Count 2.34 M/mm3 (3.65-5.03); Red Cell Distribution Width 19.4 % (13.2-15.2)
[2020-10-13 09:53] LABS: Albumin 1.6 g/dL (3.9-5); Calcium 6.5 mg/dL (8.4-10.2)
[2020-10-13 12:32] LABS: Total Cells Counted 100
[2020-10-13 12:48] LABS: Anisocytosis 1+; Platelet Estimate Consistent w Auto
[2020-10-13] MEDS: cefTRIAXone/NS 2 GM/100 ML 2 GM/100 ML BAG IV SCH (19:49)
[2020-10-13] MEDS: AZITHROMYCIN/NS 500 MG/250 ML 500 MG/250 ML BAG IV SCH (19:52)
[2020-10-14] MEDS: methylPREDNISolone Sod Succinate 40 MG/1 ML INJ IV SCH ×3 (05:12→21:05)
[2020-10-14] MEDS: SODIUM CHLORIDE 0.45% 1000 ML 1,000 ML IV SCH ×2 (05:56→13:20)
--- NOTE | 2020-10-14 07:25 | Progress Note ---
Assessment and Plan - Patient Problems (1) SIRS due to infectious process with organ dysfunction Current Visit: Yes Status: Acute Plan to address problem: CBC, CMP, IV fluid resuscitation therapy, IV antibiotic therapy, urinalysis, chest x-ray, blood cultures. Continue IV fluids (2) Acute kidney injury (NELSY) with acute tubular necrosis (ATN) Current Visit: Yes Status: Acute Plan to address problem: IV fluids for now Started on IV half-normal saline at 125 cc an hour Vasomotor nephropathy/ATN Recheck BUN/creatinine tomorrow bun/cr 93/2.5 to 61/1.5 (3) Severe malnutrition Current Visit: Yes Status: Acute Plan to address problem: Encourage increased protein intake, dietary supplementation (4) Pneumonia Current Visit: Yes Status: Acute Plan to address problem: Pneumonia protocol: Chest x-ray, CBC, CMP, supplemental oxygen, nebulizer therapy, pulse oximetry. Continue Rocephin and Zithromax Coronavirus PCR negative Transfer to non-Covid side of the floor (5) Suspected COVID-19 virus infection Current Visit: Yes Status: Acute Plan to address problem: Coronavirus PCR negative (6) DVT prophylaxis Current Visit: Yes Status: Acute Plan to address problem: SCDs bilateral lower extremities while in bed, patient is ambulatory Severe debility PT and OT requested Subjective Date of service: 10/13/20 Principal diagnosis: Altered sensorium Interval history: The patient is a 55-year-old male with diabetes, malnutrition, resident of an assisted living facility was brought into the emergency room with complaints of sore throat and back pain. Chest x-ray showed bilateral pneumonia with labs showing evidence of acute kidney injury. Patient afebrile on admission, also not hypoxic. Labs showed leukopenia, hyperkalemia, creatinine 2.5, ferritin 08/17/2007, CRP 5.6, LDH 233, CRP 5.6 10/11/2020 Covid test was negative 10/12/2020 Patient more alert and oriented Afebrile Objective - Constitutional Vitals: Vital Signs - 12hr 10/13/20 10/14/20 10/14/20 21:00 00:19 00:20 Temperature 98.0 F Pulse Rate 78 Respiratory 18 16 Rate Blood Pressure 137/94 O2 Sat by Pulse 95 Oximetry 10/14/20 04:56 Temperature 97.5 F L Pulse Rate 76 Respiratory 16 Rate Blood Pressure 122/85 O2 Sat by Pulse 99 Oximetry General appearance: Present: no acute distress, well-nourished - EENT Eyes: PERRL, EOM intact ENT: hearing intact, clear oral mucosa Ears: bilateral: normal - Neck Neck: supple, normal ROM - Respiratory Respiratory effort: normal Respiratory: bilateral: CTA - Breasts Breasts: normal - Cardiovascular Rhythm: regular Heart Sounds: Present: S1 & S2. Absent: gallop, rub Extremities: pulses intact, No edema, normal color, Full ROM - Gastrointestinal General gastrointestinal: Present: soft, non-tender, non-distended, normal bowel sounds - Genitourinary Male genitourinary: normal - Integumentary Integumentary: clear, warm, dry - Musculoskeletal Musculoskeletal: 1, strength equal bilaterally - Neurologic Neurologic: moves all extremities - Psychiatric Psychiatric: memory intact, appropriate mood/affect, intact judgment & insight - Labs CBC & Chem 7: 10/13/20 08:53 10/13/20 08:53 Labs: Abnormal lab results 10/13/20 10/13/20 Range/Units 08:53 08:53 WBC 3.0 L (4.5-11.0) K/mm3 RBC 2.34 L (3.65-5.03) M/mm3 Hgb 7.0 L (11.8-15.2) gm/dl Hct 21.8 L (35.5-45.6) % RDW 19.4 H (13.2-15.2) % Plt Count 109 L (140-440) K/mm3 Seg Neuts % (Manual) 99.0 H (40.0-70.0) % Nucleated RBC % 2.0 H (0.0-0.9) % Lymphocytes # (Manual) 0.0 L (1.2-5.4) K/mm3 Chloride 110.2 H (98-107) mmol/L Carbon Dioxide 17 L (22-30) mmol/L BUN 61 H (9-20) mg/dL Creatinine 1.5 H (0.8-1.3) mg/dL Glucose 104 H (75-100) mg/dL Calcium 6.5 L (8.4-10.2) mg/dL ALT 113 H (7-56) units/L Alkaline Phosphatase 292 H (35-129) units/L Albumin 1.6 L (3.9-5) g/dL
[2020-10-14] MEDS: ACETAMINOPHEN 325 MG TAB PO PRN (11:01)
--- NOTE | 2020-10-14 14:13 | Progress Note ---
Assessment and Plan Cultures: SARS CoV2 PCR: Negative HIV: Negative 10/10/2020 blood culture: Enterococcus species 2 out of 4 bottles 10/10/2020 urine culture: Magali A/P: 55-year-old male with diabetes, malnutrition, resident of an assisted living facility was brought into the emergency room with complaints of sore throat and back pain: #Enterococcus bacteremia: Source possibly for UTI ?. Should rule out endocarditis. #UTI: Urine culture grew Magali. Renal ultrasound with mild right pelvic caliectasis and echogenic right kidney. #Bilateral pneumonia: ?CAP vs aspiration. Not hypoxic. Leukopenia. SARS-CoV-2 PCR negative. Chest x-ray with bibasilar opacities left more than right. #Leukopenia: Improving, likely due to sepsis. Etiology unclear. Baseline WBC is unknown. HIV negative. Also anemic with thrombocytopenia #NELSY: Renally dose antibiotics. Improving. #Transaminitis: With elevation of alkaline phosphatase. RUQ ultrasound ordered #Chronic malnutrition; BMI of 16.1 Recs: -Repeat blood cultures -Obtain transthoracic echo, rule out endocarditis -Start vancomycin with PK consult, renally adjusted -Continue empiric ceftriaxone, azithromycin for now-total 5 days -Monitor WBC -Repeat procalcitonin -Fluconazole p.o. x3 days will follow María Lay MD [facility] ([facility]) Office [phone] Subjective Date of service: 10/14/20 Principal diagnosis: Altered sensorium Interval history: Patient is complaining of left-sided back pain, no fever Objective - Exam Narrative Exam: General appearance: Alert in NAD Eyes: anicteric sclerae, moist conjunctivae; no lid-lag; PERRLA HENT: Normocephalic, Atraumatic; normal external ears, nares open, oropharynx limited Neck: supple, tracheal midline, no JVD Lungs: Diminished breath sound bilaterally CV: RRR no murmur Abdomen: Nontender Extremities: no edema, no cyanosis Skin: No rash. Psych: no agitated Neuro: alert and oriented x 3. Moving all extermities - Constitutional Vitals: Vital Signs Temp Pulse Resp BP Pulse Ox 97.5 F L 84 18 104/69 100 10/14/20 12:06 10/14/20 12:06 10/14/20 12:06 10/14/20 12:06 10/14/20 12:06 Temperature -Last 24 Hours Temperature 97.5 F Temperature 97.5 F Temperature 98.0 F Temperature 97.2 F - Labs CBC & Chem 7: 10/13/20 08:53 10/13/20 08:53
[2020-10-14] MEDS ORDERED: VANCOMYCIN PHARMACY TO DOSE IV SCH (15:00)
[2020-10-14] MEDS ORDERED: VANCOMYCIN 1,250 MG in SODIUM CHLORIDE 0.9% 250ML 250 ML IV ONE (15:30)
[2020-10-14] MEDS: FLUCONAZOLE 200 MG TAB PO SCH (17:26)
[2020-10-14] MEDS: cefTRIAXone/NS 2 GM/100 ML 2 GM/100 ML BAG IV SCH (21:04)
[2020-10-14] MEDS: AZITHROMYCIN/NS 500 MG/250 ML 500 MG/250 ML BAG IV SCH (21:05)
[2020-10-15] MEDS: methylPREDNISolone Sod Succinate 40 MG/1 ML INJ IV SCH ×3 (05:36→22:39)
--- NOTE | 2020-10-15 07:31 | Progress Note ---
Assessment and Plan - Patient Problems (1) SIRS due to infectious process with organ dysfunction Current Visit: Yes Status: Acute Plan to address problem: CBC, CMP, IV fluid resuscitation therapy, IV antibiotic therapy, urinalysis, chest x-ray, blood cultures. Continue IV fluids (2) Acute kidney injury (NELSY) with acute tubular necrosis (ATN) Current Visit: Yes Status: Acute Plan to address problem: IV fluids for now Started on IV half-normal saline at 125 cc an hour Vasomotor nephropathy/ATN Recheck BUN/creatinine tomorrow Improved to 61/1.5 from 93/2.5 (3) Severe malnutrition Current Visit: Yes Status: Acute Plan to address problem: Encourage increased protein intake, dietary supplementation (4) Pneumonia Current Visit: Yes Status: Acute Plan to address problem: Pneumonia protocol: Chest x-ray, CBC, CMP, supplemental oxygen, nebulizer therapy, pulse oximetry. Continue Rocephin and Zithromax Coronavirus PCR negative Transfer to non-Covid side of the floor (5) Suspected COVID-19 virus infection Current Visit: Yes Status: Acute Plan to address problem: Coronavirus PCR negative (6) DVT prophylaxis Current Visit: Yes Status: Acute Plan to address problem: SCDs bilateral lower extremities while in bed, patient is ambulatory Severe debility PT and OT requested D/c when creatinine and debility improves Subjective Date of service: 10/14/20 Principal diagnosis: Altered sensorium Interval history: The patient is a 55-year-old male with diabetes, malnutrition, resident of an assisted living facility was brought into the emergency room with complaints of sore throat and back pain. Chest x-ray showed bilateral pneumonia with labs showing evidence of acute kidney injury. Patient afebrile on admission, also not hypoxic. Labs showed leukopenia, hyperkalemia, creatinine 2.5, ferritin 08/17/2007, CRP 5.6, LDH 233, CRP 5.6 10/11/2020 Covid test was negative 10/12/2020 Patient more alert and oriented Afebrile 10/13/20 Afebrile 10/14/20 Afebrile Objective - Constitutional Vitals: Vital Signs - 12hr 10/14/20 10/14/20 10/15/20 21:25 22:00 04:30 Temperature 97.5 F L 98.3 F Pulse Rate 79 80 Pulse Rate [ 84 Right Radial] Respiratory 16 20 20 Rate Blood Pressure 109/72 121/84 O2 Sat by Pulse 100 98 98 Oximetry General appearance: Present: no acute distress, well-nourished - EENT Eyes: PERRL, EOM intact ENT: hearing intact, clear oral mucosa Ears: bilateral: normal - Neck Neck: supple, normal ROM - Respiratory Respiratory effort: normal Respiratory: bilateral: CTA - Breasts Breasts: normal - Cardiovascular Heart rate: 76 Rhythm: regular Heart Sounds: Present: S1 & S2. Absent: gallop, rub Extremities: pulses intact, No edema, normal color, Full ROM - Gastrointestinal General gastrointestinal: Present: soft, non-tender, non-distended, normal bowel sounds - Genitourinary Male genitourinary: normal - Integumentary Integumentary: clear, warm, dry - Musculoskeletal Musculoskeletal: 1, strength equal bilaterally - Neurologic Neurologic: moves all extremities - Psychiatric Psychiatric: memory intact, appropriate mood/affect, intact judgment & insight - Labs CBC & Chem 7: 10/13/20 08:53 10/13/20 08:53
[2020-10-15 08:34] LABS: BUN/Creatinine Ratio 32; Blood Urea Nitrogen 32 mg/dL (9-20); Calcium 6.4 mg/dL (8.4-10.2); Hemolysis Index 7
[2020-10-15 08:43] LABS: Hematocrit 21.3 % (35.5-45.6); Mean Corpuscular HGB Conc 33 % (32-34); Mean Corpuscular Volume 91 fl (84-94); Platelet Count 105 K/mm3 (140-440); Red Blood Count 2.35 M/mm3 (3.65-5.03); Red Cell Distribution Width 18.9 % (13.2-15.2)
[2020-10-15] MEDS: FLUCONAZOLE 200 MG TAB PO SCH (09:42)
[2020-10-15] MEDS: SODIUM CHLORIDE 0.45% 1000 ML 1,000 ML IV SCH ×2 (09:43→22:49)
--- NOTE | 2020-10-15 11:02 | Progress Note ---
Assessment and Plan Cultures: SARS CoV2 PCR: Negative HIV: Negative 10/10/2020 blood culture: VRE 2 out of 4 bottles 10/10/2020 urine culture: Magali 10/14/2020 blood culture no growth today A/P: 55-year-old male with diabetes, malnutrition, resident of an assisted living facility was brought into the emergency room with complaints of sore throat and back pain: #VRE bacteremia: Source possibly for UTI ?. Should rule out endocarditis. #UTI: Urine culture grew Magali. Renal ultrasound with mild right pelvic caliectasis and echogenic right kidney. #Bilateral pneumonia: ?CAP vs aspiration. Not hypoxic. Leukopenia. SARS-CoV-2 PCR negative. Chest x-ray with bibasilar opacities left more than right. #Leukopenia: Improving, likely due to sepsis. Etiology unclear. Baseline WBC is unknown. HIV negative. Also anemic with thrombocytopenia #NELSY: Renally dose antibiotics. Improving. #Transaminitis: With elevation of alkaline phosphatase. RUQ ultrasound ordered #Chronic malnutrition; BMI of 16.1 Recs: -Follow-up repeat blood cultures -Obtain transthoracic echo, rule out endocarditis, pending -Stop vancomycin -Start daptomycin at 8 mg/kg daily, if endocarditis then will increase to 10 mg/kg daily -Cannot do linezolid due to pancytopenia -Continue empiric ceftriaxone, azithromycin for now-total 5 days -Fluconazole p.o. x3 days will follow María Lay MD [facility] ([facility]) Office [phone] Subjective Date of service: 10/15/20 Principal diagnosis: Altered sensorium Interval history: Patient feels better. no fever. Objective - Exam Narrative Exam: General appearance: Alert in NAD cachetic Eyes: anicteric sclerae, moist conjunctivae; no lid-lag; PERRLA HENT: Normocephalic, Atraumatic; normal external ears, nares open, oropharynx limited Neck: supple, tracheal midline, no JVD Lungs: Diminished breath sound bilaterally CV: RRR no murmur Abdomen: Nontender Extremities: left toes tenderness Skin: No rash. Psych: no agitated Neuro: alert and oriented x 3. Moving all extermities - Constitutional Vitals: Vital Signs Temp Pulse Resp BP Pulse Ox 98.3 F 80 20 121/84 98 10/15/20 04:30 10/15/20 04:30 10/15/20 04:30 10/15/20 04:30 10/15/20 04:30 Temperature -Last 24 Hours Temperature 98.3 F Temperature 97.5 F Temperature 97.4 F Temperature 97.5 F - Labs CBC & Chem 7: 10/15/20 07:57 10/15/20 07:57 Labs: Abnormal lab results 10/15/20 10/15/20 Range/Units 07:57 07:57 WBC 3.3 L (4.5-11.0) K/mm3 RBC 2.35 L (3.65-5.03) M/mm3 Hgb 7.0 L (11.8-15.2) gm/dl Hct 21.3 L (35.5-45.6) % RDW 18.9 H (13.2-15.2) % Plt Count 105 L (140-440) K/mm3 Chloride 112.8 H (98-107) mmol/L Carbon Dioxide 17 L (22-30) mmol/L BUN 32 H (9-20) mg/dL Glucose 125 H (75-100) mg/dL Calcium 6.4 L (8.4-10.2) mg/dL
[2020-10-15 11:06] LABS: Total Cells Counted 100
[2020-10-15 11:08] LABS: Hypochromasia Few; Platelet Estimate Consistent w Auto; Schistocytes Rare
--- NOTE | 2020-10-15 14:59 | Progress Note ---
Assessment and Plan Assessment and plan: -- SIRS due to infectious process with organ dysfunction Current Visit: Yes Status: Acute Plan to address problem: CBC, CMP, IV fluid resuscitation therapy, IV antibiotic therapy, urinalysis, chest x-ray, blood cultures. Continue IV fluids --VRE bacteremia; Current Visit: Yes Status: Acute Plan to address problem: Unable to treat with linezolid secondary to thrombocytopenia ID recommended daptomycin Closely monitor --UTI/ur cultures grew Magali Current Visit: Yes Status: Acute Plan to address problem: Continue Diflucan , supportive care --Acute kidney injury (NELSY) due to ATN Current Visit: Yes Status: Acute Plan to address problem: Resolved, closely monitor renal function Avoid nephrotoxins -- Severe malnutrition Current Visit: Yes Status: Acute Plan to address problem: Encourage increased protein intake, dietary supplementation --Pneumonia Current Visit: Yes Status: Acute Plan to address problem: Completed 5 days of Rocephin and Zithromax Coronavirus PCR negative Follow cultures -- COVID-19 negative Current Visit: Yes Status: Acute Plan to address problem: Coronavirus PCR negative -- DVT prophylaxis Current Visit: Yes Status: Acute Plan to address problem: SCDs bilateral lower extremities while in bed, patient is ambulatory We will closely monitor the patient and adjust management as needed Plan of care reviewed with the patient and his nurse History Interval history: I have seen and examined the patient at the bedside Patient's chart and medications reviewed Patient complains of some sore throat No nausea vomiting Vital signs noted Hospitalist Physical - Constitutional Vitals: Temp Pulse Resp BP Pulse Ox 98.3 F 80 20 121/84 98 10/15/20 04:30 10/15/20 04:30 10/15/20 04:30 10/15/20 04:30 10/15/20 04:30 General appearance: Present: no acute distress, well-nourished - EENT Eyes: Present: PERRL, EOM intact - Neck Neck: Present: supple, normal ROM - Respiratory Respiratory effort: normal Respiratory: bilateral: diminished, rhonchi, negative: rales, wheezing - Cardiovascular Rhythm: regular Heart Sounds: Present: S1 & S2 - Extremities Extremities: no ischemia, No edema - Abdominal General gastrointestinal: soft, non-tender, non-distended, normal bowel sounds - Integumentary Integumentary: Present: clear, warm - Psychiatric Psychiatric: appropriate mood/affect, cooperative - Neurologic Neurologic: CNII-XII intact, moves all extremities Results - Labs CBC & Chem 7: 10/15/20 07:57 10/15/20 07:57 Labs: Laboratory Last Values WBC 3.3 K/mm3 (4.5-11.0) L 10/15/20 07:57 RBC 2.35 M/mm3 (3.65-5.03) L 10/15/20 07:57 Hgb 7.0 gm/dl (11.8-15.2) L 10/15/20 07:57 Hct 21.3 % (35.5-45.6) L 10/15/20 07:57 MCV 91 fl (84-94) 10/15/20 07:57 MCH 30 pg (28-32) 10/15/20 07:57 MCHC 33 % (32-34) 10/15/20 07:57 RDW 18.9 % (13.2-15.2) H 10/15/20 07:57 Plt Count 105 K/mm3 (140-440) L 10/15/20 07:57 Lymph % (Auto) 10.1 % (13.4-35.0) L 10/11/20 05:40 [place] % (Auto) 1.4 % (0.0-7.3) 10/11/20 05:40 Eos % (Auto) 1.6 % (0.0-4.3) 10/11/20 05:40 Baso % (Auto) 0.5 % (0.0-1.8) 10/11/20 05:40 Lymph # (Auto) 0.1 K/mm3 (1.2-5.4) L 10/11/20 05:40 [place] # (Auto) 0.0 K/mm3 (0.0-0.8) 10/11/20 05:40 Eos # (Auto) 0.0 K/mm3 (0.0-0.4) 10/11/20 05:40 Baso # (Auto) 0.0 K/mm3 (0.0-0.1) 10/11/20 05:40 Add Manual Diff Complete 10/15/20 07:57 Total Counted 100 10/15/20 07:57 Seg Neutrophils % Facilities Maintenance Engineer 10/15/20 07:57 Seg Neuts % (Manual) 99.0 % (40.0-70.0) H 10/13/20 08:53 Lymphocytes % (Manual) 10.0 % (13.4-35.0) L 10/10/20 16:31 Monocytes % (Manual) 1.0 % (0.0-7.3) 10/13/20 08:53 Eosinophils % (Manual) 1.0 % (0.0-4.3) 10/10/20 16:31 Basophils % (Manual) 1.0 % (0.0-1.8) 10/10/20 16:31 Nucleated RBC % Not Reportable 10/15/20 07:57 Seg Neutrophils # 1.1 K/mm3 (1.8-7.7) L 10/11/20 05:40 Seg Neutrophils # Man 3.3 K/mm3 (1.8-7.7) 10/15/20 07:57 Band Neutrophils # 0.0 K/mm3 10/15/20 07:57 Lymphocytes # (Manual) 0.0 K/mm3 (1.2-5.4) L 10/15/20 07:57 Abs React Lymphs (Man) 0.0 K/mm3 10/15/20 07:57 Monocytes # (Manual) 0.0 K/mm3 (0.0-0.8) 10/15/20 07:57 Eosinophils # (Manual) 0.0 K/mm3 (0.0-0.4) 10/15/20 07:57 Basophils # (Manual) 0.0 K/mm3 (0.0-0.1) 10/15/20 07:57 Metamyelocytes # 0.0 K/mm3 10/15/20 07:57 Myelocytes # 0.0 K/mm3 10/15/20 07:57 Promyelocytes # 0.0 K/mm3 10/15/20 07:57 Blast Cells # 0.0 K/mm3 10/15/20 07:57 WBC Morphology Not Reportable 10/15/20 07:57 Hypersegmented Neuts Not Reportable 10/15/20 07:57 Hyposegmented Neuts Not Reportable 10/15/20 07:57 Hypogranular Neuts Not Reportable 10/15/20 07:57 Smudge Cells Not Reportable 10/15/20 07:57 Toxic Granulation Not Reportable 10/15/20 07:57 Toxic Vacuolation Not Reportable 10/15/20 07:57 Dohle Bodies Not Reportable 10/15/20 07:57 Pelger-Huet Anomaly Not Reportable 10/15/20 07:57 Javon Rods Not Reportable 10/15/20 07:57 Platelet Estimate Consistent w auto 10/15/20 07:57 Clumped Platelets Not Reportable 10/15/20 07:57 Plt Clumps, EDTA Not Reportable 10/15/20 07:57 Large Platelets Not Reportable 10/15/20 07:57 Giant Platelets Not Reportable 10/15/20 07:57 Platelet Satelliting Not Reportable 10/15/20 07:57 Plt Morphology Comment Not Reportable 10/15/20 07:57 RBC Morphology Not Reportable 10/15/20 07:57 Dimorphic RBCs Not Reportable 10/15/20 07:57 Polychromasia Not Reportable 10/15/20 07:57 Hypochromasia Few 10/15/20 07:57 Poikilocytosis Not Reportable 10/15/20 07:57 Anisocytosis Not Reportable 10/15/20 07:57 Microcytosis Not Reportable 10/15/20 07:57 Macrocytosis Not Reportable 10/15/20 07:57 Spherocytes Not Reportable 10/15/20 07:57 Pappenheimer Bodies Not Reportable 10/15/20 07:57 Sickle Cells Not Reportable 10/15/20 07:57 Target Cells Not Reportable 10/15/20 07:57 Tear Drop Cells Not Reportable 10/15/20 07:57 Ovalocytes Not Reportable 10/15/20 07:57 Helmet Cells Not Reportable 10/15/20 07:57 [place] Bodies Not Reportable 10/15/20 07:57 [place] Rings Not Reportable 10/15/20 07:57 [place] Cells Not Reportable 10/15/20 07:57 Bite Cells Not Reportable 10/15/20 07:57 Crenated Cell Not Reportable 10/15/20 07:57 Elliptocytes Not Reportable 10/15/20 07:57 Acanthocytes (Spur) Not Reportable 10/15/20 07:57 Rouleaux Not Reportable 10/15/20 07:57 Hemoglobin C Crystals Not Reportable 10/15/20 07:57 Schistocytes Rare 10/15/20 07:57 Malaria parasites Not Reportable 10/15/20 07:57 Lit Bodies Not Reportable 10/15/20 07:57 Hem Pathologist Commnt No 10/15/20 07:57 D-Dimer 2351.86 ng/mlDDU (0-234) H 10/10/20 17:54 Sodium 140 mmol/L (137-145) 10/15/20 07:57 Potassium 3.6 mmol/L (3.6-5.0) 10/15/20 07:57 Chloride 112.8 mmol/L (98-107) H 10/15/20 07:57 Carbon Dioxide 17 mmol/L (22-30) L 10/15/20 07:57 Anion Gap 14 mmol/L 10/15/20 07:57 BUN 32 mg/dL (9-20) H 10/15/20 07:57 Creatinine 1.0 mg/dL (0.8-1.3) 10/15/20 07:57 Estimated GFR > 60 ml/min 10/15/20 07:57 BUN/Creatinine Ratio 32 % 10/15/20 07:57 Glucose 125 mg/dL (75-100) H 10/15/20 07:57 POC Glucose 120 mg/dL (70-105) H 10/12/20 15:42 Calcium 6.4 mg/dL (8.4-10.2) L 10/15/20 07:57 Ferritin 2608.0 ng/mL (30.0-300.0) H 10/10/20 17:54 Total Bilirubin 0.20 mg/dL (0.1-1.2) 10/13/20 08:53 AST 37 units/L (5-40) 10/13/20 08:53 ALT 113 units/L (7-56) H 10/13/20 08:53 Alkaline Phosphatase 292 units/L (35-129) H 10/13/20 08:53 Lactate Dehydrogenase 233 units/L (91-180) H 10/10/20 17:54 C-Reactive Protein 5.60 mg/dL (0.00-1.30) H 10/10/20 17:54 Total Protein 7.8 g/dL (6.3-8.2) 10/13/20 08:53 Albumin 1.6 g/dL (3.9-5) L 10/13/20 08:53 Albumin/Globulin Ratio 0.3 % 10/13/20 08:53 Procalcitonin 0.61 ng/mL (<0.15) 10/14/20 14:54 Urine Color Yellow (Yellow) 10/11/20 Unknown Urine Turbidity Cloudy (Clear) 10/11/20 Unknown Urine pH 5.0 (5.0-7.0) 10/11/20 Unknown Ur Specific [place] 1.019 (1.003-1.030) 10/11/20 Unknown Urine Protein 30 mg/dl mg/dL (Negative) 10/11/20 Unknown Urine Glucose (UA) Neg mg/dL (Negative) 10/11/20 Unknown Urine Ketones Neg mg/dL (Negative) 10/11/20 Unknown Urine Blood Sm (Negative) 10/11/20 Unknown Urine Nitrite Neg (Negative) 10/11/20 Unknown Urine Bilirubin Neg (Negative) 10/11/20 Unknown Urine Urobilinogen < 2.0 mg/dL (<2.0) 10/11/20 Unknown Ur Leukocyte Esterase Tr (Negative) 10/11/20 Unknown Urine WBC (Auto) 36.0 /HPF (0.0-6.0) H 10/11/20 Unknown Urine RBC (Auto) 129.0 /HPF (0.0-6.0) 10/11/20 Unknown U Epithel Cells (Auto) 1.0 /HPF (0-13.0) 10/11/20 Unknown Urine Bacteria (Auto) 2+ /HPF (Negative) 10/11/20 Unknown Urine Mucus Few /HPF 10/11/20 Unknown Urine Yeast (Budding) 2+ /HPF 10/11/20 Unknown Coronavirus (PCR) Negative (Negative) 10/11/20 08:32 HIV 1&2 Antibody Rapid Non react (Non React) 10/10/20 17:54 HIV P24 Antigen Non react (Non React) 10/10/20 17:54 Blood Type B POSITIVE 10/11/20 13:07 Antibody Screen Negative 10/11/20 13:07 Microbiology: Microbiology 10/10/20 17:54 Peripheral/Venous Blood Culture - Preliminary Enterococcus Faecium 10/14/20 14:54 Peripheral/Venous Blood Culture - Preliminary Culture in Progress 10/14/20 14:54 Peripheral/Venous Blood Culture - Preliminary Culture in Progress 10/11/20 Unknown Urine,Clean Catch Urine Culture - Final Magali Albicans [place]/IV: Voiding Method Urinal Active Medications - Current Medications Current Medications: Generic Name Dose Route Start Last Admin Trade Name Freq PRN Reason Stop Dose Admin Acetaminophen 650 mg 10/10/20 19:46 10/14/20 11:01 Acetaminophen 325 Mg Tab PO 650 mg Q4H PRN Administration Pain MILD(1-3)/Fever >100.5/KINNEY Albuterol 2.5 mg 10/10/20 19:46 Albuterol 2.5 Mg/3 Ml Nebu IH Q4HRT PRN Shortness Of Breath Fluconazole 200 mg 10/14/20 15:00 10/15/20 09:42 Fluconazole 200 Mg Tab PO 10/17/20 14:59 200 mg QDAY THEE Administration Protocol Sodium Chloride 1,000 mls @ 125 mls/hr 10/12/20 11:00 10/15/20 09:43 Nacl 0.45% 1000 Ml IV 125 mls/hr DIRECT THEE Administration Daptomycin 560 mg/ Sodium 100 mls @ 200 mls/hr 10/15/20 12:30 10/15/20 13:05 Chloride IV 200 mls/hr Q24H THEE Administration Protocol Methylprednisolone Sodium Succinate 40 mg 10/10/20 22:00 10/15/20 14:54 Methylprednisolone Sod Succinate 40 Mg/1 Ml Inj IV 40 mg Q8HR THEE Administration Ondansetron HCl 4 mg 10/10/20 19:46 Ondansetron 4 Mg/2 Ml Inj IV Q8H PRN Nausea And Vomiting Phenol 1 spray 10/15/20 14:54 Phenol 1.4% 177 Ml Bottle MM PRN PRN Sore Throat Sodium Chloride 10 ml 10/10/20 22:00 10/15/20 13:02 Sodium Chloride 0.9% 10 Ml Flush Syringe IV Not Given BID THEE Sodium Chloride 10 ml 10/10/20 19:46 Sodium Chloride 0.9% 10 Ml Flush Syringe IV PRN PRN LINE FLUSH Nutrition/Malnutrition Assess - Dietary Evaluation Nutrition/Malnutrition Findings: Nutrition Notes Start: 10/11/20 12:16 Freq: Status: Active Protocol: Document 10/14/20 13:41 ERIC (Rec: 10/14/20 13:48 ERIC [id number]) Nutrition Notes Initial or Follow up Reassessment Current Diagnosis Acute Kidney Injury,Diabetes Other Pertinent Diagnosis SIRS, pneu, r/o COVID-19 Current Diet Consistent Carbohydrate Diet + Glucerna Labs/Tests BUN 61 Cr 1.5 Pertinent Medications reviewed Height 5 ft 6 in Weight 62.5 kg [place] Body Weight (kg) 64.54 BMI 22.2 Weight change and time frame Wt change noted Subjective/Other Information Spoke with pt via phone at 13: 39, however he tended to whisper. He reports "alright" appetite and unsure about receiving ONS. Percent of energy/protein needs met: 80% energy 85% pro (excludes ONS) Burn Absent Trauma Absent #1 Nutrition Diagnosis Malnutrition Diagnosis Progress(for reassessment Continues documentation) Is patient on ventilator? No Is Patient Ambulatory and/or Out of Bed Yes [facility] [ 1810.575 NUTR.[id number]] Kcal/Kg value to use for calculation 35 Approximate Energy Requirements Using 2188 kcal/Kg Calculation Used for Recommendations Kcal/kg Additional Notes Pro needs 1.2-1.5g/k-94g/ day Fluid needs 1ml/kcal Nutrition Intervention Change Diet Order: Continue current diet order Add Supplement/Snack (indicate name/kcal Glucerna TID /protein ) Provides kCal: 660 Provides Protein (gm) 30 Goal #1 PO intake of meals plus ONS to meet 75-100% energy and pro needs Goal #2 Wt maintenance and/or gain Follow-Up By: 10/17/20 Additional Comments F/U: intakes (meals, ONS)
[2020-10-15] MEDS ORDERED: VANCOMYCIN/NS 1 GM/250 ML 1 GM/250 ML BAG IV SCH (16:00)
[2020-10-15] MEDS: PHENOL 1.4% 177 ML BOTTLE MM PRN (22:48)
[2020-10-16] MEDS: methylPREDNISolone Sod Succinate 40 MG/1 ML INJ IV SCH ×3 (05:48→21:31)
[2020-10-16] MEDS: SODIUM CHLORIDE 0.45% 1000 ML 1,000 ML IV SCH ×3 (05:51→21:32)
[2020-10-16] MEDS: FLUCONAZOLE 200 MG TAB PO SCH (10:20)
--- NOTE | 2020-10-16 10:32 | Progress Note ---
Assessment and Plan Assessment and plan: --Sepsis due to persistent bacteremia Current Visit: Yes Status: Acute Plan to address problem: Continue daptomycin per ID Recommend FLORESITA to rule out endocarditis Cardiology consult requested FLORESITA . --VRE bacteremia; Current Visit: Yes Status: Acute Plan to address problem: Unable to treat with linezolid secondary to thrombocytopenia ID recommended daptomycin Closely monitor --Acute systolic CHF/ EF 20 to 25% antifailure medication with diuretic, beta-blockers, LALITHA inhibitors, input output monitoring, low-sodium diet,fluid restriction --History of recent spinal surgery: at [facility] T10 T12, L1-L2 surgery, surgical sutures on the back Wound care, continue antibiotics, request records from [facility] --UTI/ur cultures grew Magali Current Visit: Yes Status: Acute Plan to address problem: Continue Diflucan , supportive care/ --Acute kidney injury (NELSY) due to ATN Current Visit: Yes Status: Acute Plan to address problem: Resolved, closely monitor renal function Avoid nephrotoxins -- Severe malnutrition Current Visit: Yes Status: Acute Plan to address problem: Encourage increased protein intake, dietary supplementation --Pneumonia Current Visit: Yes Status: Acute Plan to address problem: Completed 5 days of Rocephin and Zithromax Coronavirus PCR negative Follow cultures -- COVID-19 negative Current Visit: Yes Status: Acute Plan to address problem: Coronavirus PCR negative -- DVT prophylaxis Current Visit: Yes Status: Acute Plan to address problem: SCDs bilateral lower extremities while in bed, patient is ambulatory We will closely monitor the patient and adjust management as needed Plan of care reviewed with the patient and his nurse I also discussed extensively with ID Dr. Lay 10/16/2020; sepsis secondary to VRE bacteremia, UTI and pneumonia Continue current antibiotics per ID, contact isolation due to VRE History Interval history: I have seen and examined the patient at the bedside Patient's chart and medications reviewed Patient complains of generalized weakness Looks chronically ill Vital signs noted Hospitalist Physical - Constitutional Vitals: Temp Pulse Resp BP Pulse Ox 97.4 F L 80 18 122/79 100 10/16/20 10:24 10/16/20 10:24 10/16/20 10:24 10/16/20 10:27 10/16/20 10:24 General appearance: Present: no acute distress, well-nourished, other (Cachectic chronically) - EENT Eyes: Present: PERRL, EOM intact - Neck Neck: Present: supple, normal ROM - Respiratory Respiratory effort: normal Respiratory: bilateral: diminished, negative: rales, rhonchi, wheezing - Cardiovascular Rhythm: regular Heart Sounds: Present: S1 & S2 - Extremities Extremities: no ischemia, No edema - Abdominal General gastrointestinal: soft, non-tender, non-distended, normal bowel sounds - Integumentary Integumentary: Present: clear, warm - Psychiatric Psychiatric: appropriate mood/affect, cooperative - Neurologic Neurologic: CNII-XII intact, moves all extremities Results - Labs CBC & Chem 7: 10/15/20 07:57 10/15/20 07:57 Labs: Laboratory Last Values WBC 3.3 K/mm3 (4.5-11.0) L 10/15/20 07:57 RBC 2.35 M/mm3 (3.65-5.03) L 10/15/20 07:57 Hgb 7.0 gm/dl (11.8-15.2) L 10/15/20 07:57 Hct 21.3 % (35.5-45.6) L 10/15/20 07:57 MCV 91 fl (84-94) 10/15/20 07:57 MCH 30 pg (28-32) 10/15/20 07:57 MCHC 33 % (32-34) 10/15/20 07:57 RDW 18.9 % (13.2-15.2) H 10/15/20 07:57 Plt Count 105 K/mm3 (140-440) L 10/15/20 07:57 Lymph % (Auto) 10.1 % (13.4-35.0) L 10/11/20 05:40 [place] % (Auto) 1.4 % (0.0-7.3) 10/11/20 05:40 Eos % (Auto) 1.6 % (0.0-4.3) 10/11/20 05:40 Baso % (Auto) 0.5 % (0.0-1.8) 10/11/20 05:40 Lymph # (Auto) 0.1 K/mm3 (1.2-5.4) L 10/11/20 05:40 [place] # (Auto) 0.0 K/mm3 (0.0-0.8) 10/11/20 05:40 Eos # (Auto) 0.0 K/mm3 (0.0-0.4) 10/11/20 05:40 Baso # (Auto) 0.0 K/mm3 (0.0-0.1) 10/11/20 05:40 Add Manual Diff Complete 10/15/20 07:57 Total Counted 100 10/15/20 07:57 Seg Neutrophils % [employer] 10/15/20 07:57 Seg Neuts % (Manual) 99.0 % (40.0-70.0) H 10/13/20 08:53 Lymphocytes % (Manual) 10.0 % (13.4-35.0) L 10/10/20 16:31 Monocytes % (Manual) 1.0 % (0.0-7.3) 10/13/20 08:53 Eosinophils % (Manual) 1.0 % (0.0-4.3) 10/10/20 16:31 Basophils % (Manual) 1.0 % (0.0-1.8) 10/10/20 16:31 Nucleated RBC % Not Reportable 10/15/20 07:57 Seg Neutrophils # 1.1 K/mm3 (1.8-7.7) L 10/11/20 05:40 Seg Neutrophils # Man 3.3 K/mm3 (1.8-7.7) 10/15/20 07:57 Band Neutrophils # 0.0 K/mm3 10/15/20 07:57 Lymphocytes # (Manual) 0.0 K/mm3 (1.2-5.4) L 10/15/20 07:57 Abs React Lymphs (Man) 0.0 K/mm3 10/15/20 07:57 Monocytes # (Manual) 0.0 K/mm3 (0.0-0.8) 10/15/20 07:57 Eosinophils # (Manual) 0.0 K/mm3 (0.0-0.4) 10/15/20 07:57 Basophils # (Manual) 0.0 K/mm3 (0.0-0.1) 10/15/20 07:57 Metamyelocytes # 0.0 K/mm3 10/15/20 07:57 Myelocytes # 0.0 K/mm3 10/15/20 07:57 Promyelocytes # 0.0 K/mm3 10/15/20 07:57 Blast Cells # 0.0 K/mm3 10/15/20 07:57 WBC Morphology Not Reportable 10/15/20 07:57 Hypersegmented Neuts Not Reportable 10/15/20 07:57 Hyposegmented Neuts Not Reportable 10/15/20 07:57 Hypogranular Neuts Not Reportable 10/15/20 07:57 Smudge Cells Not Reportable 10/15/20 07:57 Toxic Granulation Not Reportable 10/15/20 07:57 Toxic Vacuolation Not Reportable 10/15/20 07:57 Dohle Bodies Not Reportable 10/15/20 07:57 Pelger-Huet Anomaly Not Reportable 10/15/20 07:57 Javon Rods Not Reportable 10/15/20 07:57 Platelet Estimate Consistent w auto 10/15/20 07:57 Clumped Platelets Not Reportable 10/15/20 07:57 Plt Clumps, EDTA Not Reportable 10/15/20 07:57 Large Platelets Not Reportable 10/15/20 07:57 Giant Platelets Not Reportable 10/15/20 07:57 Platelet Satelliting Not Reportable 10/15/20 07:57 Plt Morphology Comment Not Reportable 10/15/20 07:57 RBC Morphology Not Reportable 10/15/20 07:57 Dimorphic RBCs Not Reportable 10/15/20 07:57 Polychromasia Not Reportable 10/15/20 07:57 Hypochromasia Few 10/15/20 07:57 Poikilocytosis Not Reportable 10/15/20 07:57 Anisocytosis Not Reportable 10/15/20 07:57 Microcytosis Not Reportable 10/15/20 07:57 Macrocytosis Not Reportable 10/15/20 07:57 Spherocytes Not Reportable 10/15/20 07:57 Pappenheimer Bodies Not Reportable 10/15/20 07:57 Sickle Cells Not Reportable 10/15/20 07:57 Target Cells Not Reportable 10/15/20 07:57 Tear Drop Cells Not Reportable 10/15/20 07:57 Ovalocytes Not Reportable 10/15/20 07:57 Helmet Cells Not Reportable 10/15/20 07:57 [place] Bodies Not Reportable 10/15/20 07:57 [place] Rings Not Reportable 10/15/20 07:57 Edna Cells Not Reportable 10/15/20 07:57 Bite Cells Not Reportable 10/15/20 07:57 Crenated Cell Not Reportable 10/15/20 07:57 Elliptocytes Not Reportable 10/15/20 07:57 Acanthocytes (Spur) Not Reportable 10/15/20 07:57 Rouleaux Not Reportable 10/15/20 07:57 Hemoglobin C Crystals Not Reportable 10/15/20 07:57 Schistocytes Rare 10/15/20 07:57 Malaria parasites Not Reportable 10/15/20 07:57 Lit Bodies Not Reportable 10/15/20 07:57 Hem Pathologist Commnt No 10/15/20 07:57 D-Dimer 2351.86 ng/mlDDU (0-234) H 10/10/20 17:54 Sodium 140 mmol/L (137-145) 10/15/20 07:57 Potassium 3.6 mmol/L (3.6-5.0) 10/15/20 07:57 Chloride 112.8 mmol/L (98-107) H 10/15/20 07:57 Carbon Dioxide 17 mmol/L (22-30) L 10/15/20 07:57 Anion Gap 14 mmol/L 10/15/20 07:57 BUN 32 mg/dL (9-20) H 10/15/20 07:57 Creatinine 1.0 mg/dL (0.8-1.3) 10/15/20 07:57 Estimated GFR > 60 ml/min 10/15/20 07:57 BUN/Creatinine Ratio 32 % 10/15/20 07:57 Glucose 125 mg/dL (75-100) H 10/15/20 07:57 POC Glucose 120 mg/dL (70-105) H 10/12/20 15:42 Calcium 6.4 mg/dL (8.4-10.2) L 10/15/20 07:57 Ferritin 2608.0 ng/mL (30.0-300.0) H 10/10/20 17:54 Total Bilirubin 0.20 mg/dL (0.1-1.2) 10/13/20 08:53 AST 37 units/L (5-40) 10/13/20 08:53 ALT 113 units/L (7-56) H 10/13/20 08:53 Alkaline Phosphatase 292 units/L (35-129) H 10/13/20 08:53 Lactate Dehydrogenase 233 units/L (91-180) H 10/10/20 17:54 Total Creatine Kinase 60 units/L (55-170) 10/16/20 08:16 C-Reactive Protein 5.60 mg/dL (0.00-1.30) H 10/10/20 17:54 Total Protein 7.8 g/dL (6.3-8.2) 10/13/20 08:53 Albumin 1.6 g/dL (3.9-5) L 10/13/20 08:53 Albumin/Globulin Ratio 0.3 % 10/13/20 08:53 Procalcitonin 0.61 ng/mL (<0.15) 10/14/20 14:54 Urine Color Yellow (Yellow) 10/11/20 Unknown Urine Turbidity Cloudy (Clear) 10/11/20 Unknown Urine pH 5.0 (5.0-7.0) 10/11/20 Unknown Ur Specific [place] 1.019 (1.003-1.030) 10/11/20 Unknown Urine Protein 30 mg/dl mg/dL (Negative) 10/11/20 Unknown Urine Glucose (UA) Neg mg/dL (Negative) 10/11/20 Unknown Urine Ketones Neg mg/dL (Negative) 10/11/20 Unknown Urine Blood Sm (Negative) 10/11/20 Unknown Urine Nitrite Neg (Negative) 10/11/20 Unknown Urine Bilirubin Neg (Negative) 10/11/20 Unknown Urine Urobilinogen < 2.0 mg/dL (<2.0) 10/11/20 Unknown Ur Leukocyte Esterase Tr (Negative) 10/11/20 Unknown Urine WBC (Auto) 36.0 /HPF (0.0-6.0) H 10/11/20 Unknown Urine RBC (Auto) 129.0 /HPF (0.0-6.0) 10/11/20 Unknown U Epithel Cells (Auto) 1.0 /HPF (0-13.0) 10/11/20 Unknown Urine Bacteria (Auto) 2+ /HPF (Negative) 10/11/20 Unknown Urine Mucus Few /HPF 10/11/20 Unknown Urine Yeast (Budding) 2+ /HPF 10/11/20 Unknown Coronavirus (PCR) Negative (Negative) 10/11/20 08:32 HIV 1&2 Antibody Rapid Non react (Non React) 10/10/20 17:54 HIV P24 Antigen Non react (Non React) 10/10/20 17:54 Blood Type B POSITIVE 10/11/20 13:07 Antibody Screen Negative 10/11/20 13:07 Microbiology: Microbiology 10/14/20 14:54 Peripheral/Venous Blood Culture - Preliminary NO GROWTH AFTER 24 HOURS 10/14/20 14:54 Peripheral/Venous Blood Culture - Preliminary NO GROWTH AFTER 24 HOURS 10/10/20 17:54 Peripheral/Venous Blood Culture - Preliminary Enterococcus Faecium [place]/IV: Voiding Method Urinal Active Medications - Current Medications Current Medications: Generic Name Dose Route Start Last Admin Trade Name Freq PRN Reason Stop Dose Admin Acetaminophen 650 mg 10/10/20 19:46 10/14/20 11:01 Acetaminophen 325 Mg Tab PO 650 mg Q4H PRN Administration Pain MILD(1-3)/Fever >100.5/KINNEY Albuterol 2.5 mg 10/10/20 19:46 Albuterol 2.5 Mg/3 Ml Nebu IH Q4HRT PRN Shortness Of Breath Fluconazole 200 mg 10/14/20 15:00 10/16/20 10:20 Fluconazole 200 Mg Tab PO 10/17/20 14:59 200 mg QDAY THEE Administration Protocol Sodium Chloride 1,000 mls @ 125 mls/hr 10/12/20 11:00 10/16/20 05:51 Nacl 0.45% 1000 Ml IV 125 mls/hr DIRECT THEE Administration Daptomycin 560 mg/ Sodium 100 mls @ 200 mls/hr 10/15/20 12:30 10/15/20 13:05 Chloride IV 200 mls/hr Q24H THEE Administration Protocol Methylprednisolone Sodium Succinate 40 mg 10/10/20 22:00 10/16/20 05:48 Methylprednisolone Sod Succinate 40 Mg/1 Ml Inj IV 40 mg Q8HR THEE Administration Ondansetron HCl 4 mg 10/10/20 19:46 Ondansetron 4 Mg/2 Ml Inj IV Q8H PRN Nausea And Vomiting Phenol 1 spray 10/15/20 14:54 10/15/20 22:48 Phenol 1.4% 177 Ml Bottle MM 1 spray PRN PRN Administration Sore Throat Sodium Chloride 10 ml 10/10/20 22:00 10/15/20 22:39 Sodium Chloride 0.9% 10 Ml Flush Syringe IV 10 ml BID THEE Administration Sodium Chloride 10 ml 10/10/20 19:46 Sodium Chloride 0.9% 10 Ml Flush Syringe IV PRN PRN LINE FLUSH Nutrition/Malnutrition Assess - Dietary Evaluation Nutrition/Malnutrition Findings: Nutrition Notes Start: 10/11/20 12:16 Freq: Status: Active Protocol: Document 10/14/20 13:41 ERIC (Rec: 10/14/20 13:48 ERIC [id number]) Nutrition Notes Initial or Follow up Reassessment Current Diagnosis Acute Kidney Injury,Diabetes Other Pertinent Diagnosis SIRS, pneu, r/o COVID-19 Current Diet Consistent Carbohydrate Diet + Glucerna Labs/Tests BUN 61 Cr 1.5 Pertinent Medications reviewed Height 5 ft 6 in Weight 62.5 kg [place] Body Weight (kg) 64.54 BMI 22.2 Weight change and time frame Wt change noted Subjective/Other Information Spoke with pt via phone at 13: 39, however he tended to whisper. He reports "alright" appetite and unsure about receiving ONS. Percent of energy/protein needs met: 80% energy 85% pro (excludes ONS) Burn Absent Trauma Absent #1 Nutrition Diagnosis Malnutrition Diagnosis Progress(for reassessment Continues documentation) Is patient on ventilator? No Is Patient Ambulatory and/or Out of Bed Yes REE-([facility]-ambulatory/OOB) [ 1810.575 [id number]] Kcal/Kg value to use for calculation 35 Approximate Energy Requirements Using 2188 kcal/Kg Calculation Used for Recommendations Kcal/kg Additional Notes Pro needs 1.2-1.5g/k-94g/ day Fluid needs 1ml/kcal Nutrition Intervention Change Diet Order: Continue current diet order Add Supplement/Snack (indicate name/kcal Glucerna TID /protein ) Provides kCal: 660 Provides Protein (gm) 30 Goal #1 PO intake of meals plus ONS to meet 75-100% energy and pro needs Goal #2 Wt maintenance and/or gain Follow-Up By: 10/17/20 Additional Comments F/U: intakes (meals, ONS)
--- NOTE | 2020-10-16 16:10 | Progress Note ---
Assessment and Plan Cultures: SARS CoV2 PCR: Negative HIV: Negative 10/10/2020 blood culture: VRE 2 out of 4 bottles 10/10/2020 urine culture: Magali 10/14/2020 blood culture no growth today 10/14/2020 blood culture: GPC 2 of 4 A/P: 55-year-old male with diabetes, malnutrition, resident of an assisted living facility was brought into the emergency room with complaints of sore throat and back pain: #VRE bacteremia: Very unclear source. ?recent T10-T12 fusion and L1-L2 surgery (noted surgical sutures on his back, pt is not able to elaborate, only reported surgery was done at [facility]. Should rule out endocarditis. Repeat blood cx positive. #UTI: Urine culture grew Magali. Renal ultrasound with mild right pelvic caliectasis and echogenic right kidney. #Bilateral pneumonia: ?CAP vs aspiration. Not hypoxic. Leukopenia. SARS-CoV-2 PCR negative. Chest x-ray with bibasilar opacities left more than right. #Leukopenia: Improving, likely due to sepsis. Etiology unclear. Baseline WBC is unknown. HIV negative. Also anemic with thrombocytopenia #NELSY: Renally dose antibiotics. Resolved. #Transaminitis: With elevation of alkaline phosphatase. RUQ ultrasound ordered #Chronic malnutrition; BMI of 16.1 Recs: -Cards for FLORESITA due to persistent blood cx positive and EF 20-25% ? endocarditis ? valve abscess -Request records from [facility] urgent -Obtain CT chest, abdomen and pelvis, bone window for hardware infection, discitis, abscess -Continue daptomycin at 8 mg/kg daily, if endocarditis then will increase to 10 mg/kg daily -Cannot do linezolid due to pancytopenia -Completed ceftriaxone, azithromycin for pneumonia -Completed Fluconazole p.o. x3 days for UTI -check HIV due to weight loss/ cachexia Discussed with Dr Eric will follow María Lay MD [facility] ([facility]) Office [phone] Subjective Date of service: 10/16/20 Principal diagnosis: Altered sensorium Interval history: Patient is more alert, c/o back pain, no fever Objective - Exam Narrative Exam: General appearance: Alert in NAD cachetic Eyes: anicteric sclerae, moist conjunctivae; no lid-lag; PERRLA HENT: Normocephalic, Atraumatic; normal external ears, nares open, oropharynx limited Neck: supple, tracheal midline, no JVD Lungs: Diminished breath sound bilaterally CV: RRR no murmur Abdomen: Nontender Extremities: left toes tenderness Skin: mid and lower back sutures parallel to the spine Psych: no agitated Neuro: alert and oriented x 3. Moving all extermities - Constitutional Vitals: Vital Signs Temp Pulse Resp BP Pulse Ox 97.4 F L 80 18 122/79 100 10/16/20 10:24 10/16/20 10:24 10/16/20 10:24 10/16/20 10:27 10/16/20 10:24 Temperature -Last 24 Hours Temperature 97.4 F Temperature 97.8 F Temperature 97.7 F Temperature 98.4 F - Labs CBC & Chem 7: 10/15/20 07:57 10/15/20 07:57
[2020-10-16] MEDS: PHENOL 1.4% 177 ML BOTTLE MM PRN (21:30)
[2020-10-17] MEDS: PHENOL 1.4% 177 ML BOTTLE MM PRN ×2 (04:38→22:55)
[2020-10-17] MEDS: SODIUM CHLORIDE 0.45% 1000 ML 1,000 ML IV SCH ×2 (06:15→22:55)
[2020-10-17] MEDS: methylPREDNISolone Sod Succinate 40 MG/1 ML INJ IV SCH ×3 (06:15→22:54)
--- NOTE | 2020-10-17 09:43 | Cat Scan Report ---
CT CHEST, ABDOMEN AND PELVIS WITH CONTRAST HISTORY: Severe sepsis and bacteremia COMPARISON: None TECHNIQUE: Routine chest, abdominal and pelvic CT exam performed following intravenous contrast admi nistration.. All CT scans at this location are performed using CT dose reduction for ALARA by means o f automated exposure control. FINDINGS: CT CHEST: Lungs: There are small left and tiny right pleural effusions with bibasilar atelectasis. There is ender e nodular enhancement along the margin of the left pleural effusion. There is no pneumothorax. Trachea and Bronchi: No significant abnormality. Heart and Pericardium: Mild coronary atherosclerotic calcifications. Vasculature: No significant abnormality. Lymphatics: No lymphadenopathy. CT ABDOMEN: Liver: No significant abnormality. Biliary: No significant abnormality. Spleen: No significant abnormality. Unenlarged. Pancreas: No significant abnormality. Adrenals: No significant abnormality. Kidneys: No significant abnormality. Lymphatics: No lymphadenopathy. Vasculature: No significant abnormality. Bowel/Peritoneum: No obstruction or free air. Small amount free fluid in the pelvis. No definite infl ammatory change. Diffuse subcutaneous anasarca. Normal appendix. CT PELVIC: : No significant abnormality. Lymphatics: No lymphadenopathy. Osseous Structures: There are multiple lucent lesions throughout the bones of the axial skeleton as w ell as diffuse osteopenia. There are multiple rib fractures bilaterally of varying age. There has bee n previous bone cage placement and fixation from the T10-T12 levels. There is a chronic pathologic fr acture of L5. Previous vertebroplasty at L1 and L2. Additional Findings: None IMPRESSION: 1. Multifocal lucent lesions and diffuse osteopenia in the visualized axial skeleton. Appearance is m ost suggestive of multiple myeloma. Diffuse metastatic disease could also produce this appearance. 2. Small left and tiny right pleural effusions. There is some nodular enhancement along the margin of the left pleural effusion that could indicate an infected or metastatic effusion. 3. Small amount of free fluid in pelvis is likely due to volume overload. There is also diffuse soft tissue anasarca. Signer Name: Alex Kim MD Signed: 10/17/2020 9:38 AM Workstation Name: [id number]
[2020-10-17] MEDS: FLUCONAZOLE 200 MG TAB PO SCH (10:15)
--- NOTE | 2020-10-17 10:48 | Progress Note ---
Assessment and Plan Assessment and plan: --Multiple myeloma vs metastatic disease Current Visit: Yes Status: Acute Plan to address problem: On CT chest/ abdomen and pelvis ,requested medical records from [facility] Patient unable to give proper history unable to contact family, --Sepsis due to persistent bacteremia Current Visit: Yes Status: Acute Plan to address problem: Continue daptomycin per ID Recommend FLORESITA to rule out endocarditis Cardiology consult requested FLORESITA . --VRE bacteremia; Current Visit: Yes Status: Acute Plan to address problem: Unable to treat with linezolid secondary to thrombocytopenia. ID recommended daptomycin Closely monitor --Acute systolic CHF/ EF 20 to 25% antifailure medication with diuretic, beta-blockers, LALITHA inhibitors, input output monitoring, low-sodium diet,fluid restriction --History of recent spinal surgery: at [facility] T10 T12, L1-L2 surgery, surgical sutures on the back Wound care, continue antibiotics, request records from [facility] --UTI/ur cultures grew Magali Current Visit: Yes Status: Acute Plan to address problem: Continue Diflucan , supportive care/ --Acute kidney injury (NELSY) due to ATN Current Visit: Yes Status: Acute Plan to address problem: Resolved, closely monitor renal function Avoid nephrotoxins -- Severe malnutrition Current Visit: Yes Status: Acute Plan to address problem: Encourage increased protein intake, dietary supplementation --Pneumonia Current Visit: Yes Status: Acute Plan to address problem: Completed 5 days of Rocephin and Zithromax Coronavirus PCR negative Follow cultures -- COVID-19 negative Current Visit: Yes Status: Acute Plan to address problem: Coronavirus PCR negative -- DVT prophylaxis Current Visit: Yes Status: Acute Plan to address problem: SCDs bilateral lower extremities while in bed, patient is ambulatory We will closely monitor the patient and adjust management as needed Plan of care reviewed with the patient and his nurse Fun House Attendant recommendations noted Follow cardiology evaluation recommendations 10/16/2020; sepsis secondary to VRE bacteremia, UTI and pneumonia Continue current antibiotics per ID, contact isolation due to VRE 10/17/2020; patient is more alert and awake today, feels better CT abdomen and pelvis findings noted continue current antibiotics Physical therapy, Occupational Therapy as tolerated History Interval history: I have seen and examined the patient at the bedside this morning Patient's chart and medications reviewed Patient is more alert and awake today Trying to communicate appropriately Has persistent bacteremia, on IV antibiotics Patient is afebrile Vital signs noted Hospitalist Physical - Constitutional Vitals: Temp Pulse Resp BP Pulse Ox 97.1 F L 88 16 113/75 98 10/16/20 22:19 10/16/20 22:19 10/16/20 22:19 10/16/20 22:19 10/16/20 22:19 General appearance: Present: no acute distress, cachectic, other (More alert and awake today) - EENT Eyes: Present: PERRL, EOM intact - Neck Neck: Present: supple, normal ROM - Respiratory Respiratory effort: normal Respiratory: bilateral: diminished, rhonchi, negative: rales, wheezing - Cardiovascular Rhythm: regular Heart Sounds: Present: S1 & S2 - Extremities Extremities: no ischemia, No edema - Abdominal General gastrointestinal: soft, non-tender, non-distended, normal bowel sounds - Integumentary Integumentary: Present: clear, warm - Psychiatric Psychiatric: appropriate mood/affect, cooperative - Neurologic Neurologic: CNII-XII intact, moves all extremities Results - Labs CBC & Chem 7: 10/15/20 07:57 10/15/20 07:57 Labs: Laboratory Last Values WBC 3.3 K/mm3 (4.5-11.0) L 10/15/20 07:57 RBC 2.35 M/mm3 (3.65-5.03) L 10/15/20 07:57 Hgb 7.0 gm/dl (11.8-15.2) L 10/15/20 07:57 Hct 21.3 % (35.5-45.6) L 10/15/20 07:57 MCV 91 fl (84-94) 10/15/20 07:57 MCH 30 pg (28-32) 10/15/20 07:57 MCHC 33 % (32-34) 10/15/20 07:57 RDW 18.9 % (13.2-15.2) H 10/15/20 07:57 Plt Count 105 K/mm3 (140-440) L 10/15/20 07:57 Lymph % (Auto) 10.1 % (13.4-35.0) L 10/11/20 05:40 [place] % (Auto) 1.4 % (0.0-7.3) 10/11/20 05:40 Eos % (Auto) 1.6 % (0.0-4.3) 10/11/20 05:40 Baso % (Auto) 0.5 % (0.0-1.8) 10/11/20 05:40 Lymph # (Auto) 0.1 K/mm3 (1.2-5.4) L 10/11/20 05:40 [place] # (Auto) 0.0 K/mm3 (0.0-0.8) 10/11/20 05:40 Eos # (Auto) 0.0 K/mm3 (0.0-0.4) 10/11/20 05:40 Baso # (Auto) 0.0 K/mm3 (0.0-0.1) 10/11/20 05:40 Add Manual Diff Complete 10/15/20 07:57 Total Counted 100 10/15/20 07:57 Seg Neutrophils % Crm Analyst 10/15/20 07:57 Seg Neuts % (Manual) 99.0 % (40.0-70.0) H 10/13/20 08:53 Lymphocytes % (Manual) 10.0 % (13.4-35.0) L 10/10/20 16:31 Monocytes % (Manual) 1.0 % (0.0-7.3) 10/13/20 08:53 Eosinophils % (Manual) 1.0 % (0.0-4.3) 10/10/20 16:31 Basophils % (Manual) 1.0 % (0.0-1.8) 10/10/20 16:31 Nucleated RBC % Not Reportable 10/15/20 07:57 Seg Neutrophils # 1.1 K/mm3 (1.8-7.7) L 10/11/20 05:40 Seg Neutrophils # Man 3.3 K/mm3 (1.8-7.7) 10/15/20 07:57 Band Neutrophils # 0.0 K/mm3 10/15/20 07:57 Lymphocytes # (Manual) 0.0 K/mm3 (1.2-5.4) L 10/15/20 07:57 Abs React Lymphs (Man) 0.0 K/mm3 10/15/20 07:57 Monocytes # (Manual) 0.0 K/mm3 (0.0-0.8) 10/15/20 07:57 Eosinophils # (Manual) 0.0 K/mm3 (0.0-0.4) 10/15/20 07:57 Basophils # (Manual) 0.0 K/mm3 (0.0-0.1) 10/15/20 07:57 Metamyelocytes # 0.0 K/mm3 10/15/20 07:57 Myelocytes # 0.0 K/mm3 10/15/20 07:57 Promyelocytes # 0.0 K/mm3 10/15/20 07:57 Blast Cells # 0.0 K/mm3 10/15/20 07:57 WBC Morphology Not Reportable 10/15/20 07:57 Hypersegmented Neuts Not Reportable 10/15/20 07:57 Hyposegmented Neuts Not Reportable 10/15/20 07:57 Hypogranular Neuts Not Reportable 10/15/20 07:57 Smudge Cells Not Reportable 10/15/20 07:57 Toxic Granulation Not Reportable 10/15/20 07:57 Toxic Vacuolation Not Reportable 10/15/20 07:57 Dohle Bodies Not Reportable 10/15/20 07:57 Pelger-Huet Anomaly Not Reportable 10/15/20 07:57 Javon Rods Not Reportable 10/15/20 07:57 Platelet Estimate Consistent w auto 10/15/20 07:57 Clumped Platelets Not Reportable 10/15/20 07:57 Plt Clumps, EDTA Not Reportable 10/15/20 07:57 Large Platelets Not Reportable 10/15/20 07:57 Giant Platelets Not Reportable 10/15/20 07:57 Platelet Satelliting Not Reportable 10/15/20 07:57 Plt Morphology Comment Not Reportable 10/15/20 07:57 RBC Morphology Not Reportable 10/15/20 07:57 Dimorphic RBCs Not Reportable 10/15/20 07:57 Polychromasia Not Reportable 10/15/20 07:57 Hypochromasia Few 10/15/20 07:57 Poikilocytosis Not Reportable 10/15/20 07:57 Anisocytosis Not Reportable 10/15/20 07:57 Microcytosis Not Reportable 10/15/20 07:57 Macrocytosis Not Reportable 10/15/20 07:57 Spherocytes Not Reportable 10/15/20 07:57 Pappenheimer Bodies Not Reportable 10/15/20 07:57 Sickle Cells Not Reportable 10/15/20 07:57 Target Cells Not Reportable 10/15/20 07:57 Tear Drop Cells Not Reportable 10/15/20 07:57 Ovalocytes Not Reportable 10/15/20 07:57 Helmet Cells Not Reportable 10/15/20 07:57 [place] Bodies Not Reportable 10/15/20 07:57 [place] Rings Not Reportable 10/15/20 07:57 Edna Cells Not Reportable 10/15/20 07:57 Bite Cells Not Reportable 10/15/20 07:57 Crenated Cell Not Reportable 10/15/20 07:57 Elliptocytes Not Reportable 10/15/20 07:57 Acanthocytes (Spur) Not Reportable 10/15/20 07:57 Rouleaux Not Reportable 10/15/20 07:57 Hemoglobin C Crystals Not Reportable 10/15/20 07:57 Schistocytes Rare 10/15/20 07:57 Malaria parasites Not Reportable 10/15/20 07:57 Lit Bodies Not Reportable 10/15/20 07:57 Hem Pathologist Commnt No 10/15/20 07:57 D-Dimer 2351.86 ng/mlDDU (0-234) H 10/10/20 17:54 Sodium 140 mmol/L (137-145) 10/15/20 07:57 Potassium 3.6 mmol/L (3.6-5.0) 10/15/20 07:57 Chloride 112.8 mmol/L (98-107) H 10/15/20 07:57 Carbon Dioxide 17 mmol/L (22-30) L 10/15/20 07:57 Anion Gap 14 mmol/L 10/15/20 07:57 BUN 32 mg/dL (9-20) H 10/15/20 07:57 Creatinine 1.0 mg/dL (0.8-1.3) 10/15/20 07:57 Estimated GFR > 60 ml/min 10/15/20 07:57 BUN/Creatinine Ratio 32 % 10/15/20 07:57 Glucose 125 mg/dL (75-100) H 10/15/20 07:57 POC Glucose 120 mg/dL (70-105) H 10/12/20 15:42 Calcium 6.4 mg/dL (8.4-10.2) L 10/15/20 07:57 Ferritin 2608.0 ng/mL (30.0-300.0) H 10/10/20 17:54 Total Bilirubin 0.20 mg/dL (0.1-1.2) 10/13/20 08:53 AST 37 units/L (5-40) 10/13/20 08:53 ALT 113 units/L (7-56) H 10/13/20 08:53 Alkaline Phosphatase 292 units/L (35-129) H 10/13/20 08:53 Lactate Dehydrogenase 233 units/L (91-180) H 10/10/20 17:54 Total Creatine Kinase 60 units/L (55-170) 10/16/20 08:16 C-Reactive Protein 0.40 mg/dL (0.00-1.30) 10/16/20 17:23 Total Protein 7.8 g/dL (6.3-8.2) 10/13/20 08:53 Albumin 1.6 g/dL (3.9-5) L 10/13/20 08:53 Albumin/Globulin Ratio 0.3 % 10/13/20 08:53 Procalcitonin 0.61 ng/mL (<0.15) 10/14/20 14:54 Urine Color Yellow (Yellow) 10/11/20 Unknown Urine Turbidity Cloudy (Clear) 10/11/20 Unknown Urine pH 5.0 (5.0-7.0) 10/11/20 Unknown Ur Specific [place] 1.019 (1.003-1.030) 10/11/20 Unknown Urine Protein 30 mg/dl mg/dL (Negative) 10/11/20 Unknown Urine Glucose (UA) Neg mg/dL (Negative) 10/11/20 Unknown Urine Ketones Neg mg/dL (Negative) 10/11/20 Unknown Urine Blood Sm (Negative) 10/11/20 Unknown Urine Nitrite Neg (Negative) 10/11/20 Unknown Urine Bilirubin Neg (Negative) 10/11/20 Unknown Urine Urobilinogen < 2.0 mg/dL (<2.0) 10/11/20 Unknown Ur Leukocyte Esterase Tr (Negative) 10/11/20 Unknown Urine WBC (Auto) 36.0 /HPF (0.0-6.0) H 10/11/20 Unknown Urine RBC (Auto) 129.0 /HPF (0.0-6.0) 10/11/20 Unknown U Epithel Cells (Auto) 1.0 /HPF (0-13.0) 10/11/20 Unknown Urine Bacteria (Auto) 2+ /HPF (Negative) 10/11/20 Unknown Urine Mucus Few /HPF 10/11/20 Unknown Urine Yeast (Budding) 2+ /HPF 10/11/20 Unknown Coronavirus (PCR) Negative (Negative) 10/11/20 08:32 HIV 1&2 Antibody Rapid Non react (Non React) 10/16/20 17:23 HIV P24 Antigen Non react (Non React) 10/16/20 17:23 Blood Type B POSITIVE 10/11/20 13:07 Antibody Screen Negative 10/11/20 13:07 Microbiology: Microbiology 10/14/20 14:54 Peripheral/Venous Blood Culture - Preliminary NO GROWTH AFTER 48 HOURS 10/14/20 14:54 Peripheral/Venous Blood Culture - Preliminary 10/10/20 17:54 Peripheral/Venous Blood Culture - Preliminary Enterococcus Faecium [place]/IV: Voiding Method Indwelling Catheter Active Medications - Current Medications Current Medications: Generic Name Dose Route Start Last Admin Trade Name Freq PRN Reason Stop Dose Admin Acetaminophen 650 mg 10/10/20 19:46 10/14/20 11:01 Acetaminophen 325 Mg Tab PO 650 mg Q4H PRN Administration Pain MILD(1-3)/Fever >100.5/KINNEY Albuterol 2.5 mg 10/10/20 19:46 Albuterol 2.5 Mg/3 Ml Nebu IH Q4HRT PRN Shortness Of Breath Fluconazole 200 mg 10/14/20 15:00 10/17/20 10:15 Fluconazole 200 Mg Tab PO 10/17/20 14:59 200 mg QDAY THEE Administration Protocol Sodium Chloride 1,000 mls @ 125 mls/hr 10/12/20 11:00 10/17/20 06:15 Nacl 0.45% 1000 Ml IV 125 mls/hr DIRECT THEE Administration Daptomycin 560 mg/ Sodium 100 mls @ 200 mls/hr 10/15/20 12:30 10/16/20 12:53 Chloride IV 200 mls/hr Q24H THEE Administration Protocol Methylprednisolone Sodium Succinate 40 mg 10/10/20 22:00 10/17/20 06:15 Methylprednisolone Sod Succinate 40 Mg/1 Ml Inj IV 40 mg Q8HR THEE Administration Ondansetron HCl 4 mg 10/10/20 19:46 Ondansetron 4 Mg/2 Ml Inj IV Q8H PRN Nausea And Vomiting Phenol 1 spray 10/15/20 14:54 10/17/20 04:38 Phenol 1.4% 177 Ml Bottle MM 1 spray PRN PRN Administration Sore Throat Sodium Chloride 10 ml 10/10/20 22:00 10/17/20 10:15 Sodium Chloride 0.9% 10 Ml Flush Syringe IV 10 ml BID THEE Administration Sodium Chloride 10 ml 10/10/20 19:46 Sodium Chloride 0.9% 10 Ml Flush Syringe IV PRN PRN LINE FLUSH Nutrition/Malnutrition Assess - Dietary Evaluation Nutrition/Malnutrition Findings: Nutrition Notes Start: 10/11/20 12:16 Freq: Status: Active Protocol: Document 10/14/20 13:41 ERIC (Rec: 10/14/20 13:48 ERIC [id number]) Nutrition Notes Initial or Follow up Reassessment Current Diagnosis Acute Kidney Injury,Diabetes Other Pertinent Diagnosis SIRS, pneu, r/o COVID-19 Current Diet Consistent Carbohydrate Diet + Glucerna Labs/Tests BUN 61 Cr 1.5 Pertinent Medications reviewed Height 5 ft 6 in Weight 62.5 kg [place] Body Weight (kg) 64.54 BMI 22.2 Weight change and time frame Wt change noted Subjective/Other Information Spoke with pt via phone at 13: 39, however he tended to whisper. He reports "alright" appetite and unsure about receiving ONS. Percent of energy/protein needs met: 80% energy 85% pro (excludes ONS) Burn Absent Trauma Absent #1 Nutrition Diagnosis Malnutrition Diagnosis Progress(for reassessment Continues documentation) Is patient on ventilator? No Is Patient Ambulatory and/or Out of Bed Yes REE-([place] or-ambulatory/OOB) [ 1810.575 [id number]] Kcal/Kg value to use for calculation 35 Approximate Energy Requirements Using 2188 kcal/Kg Calculation Used for Recommendations Kcal/kg Additional Notes Pro needs 1.2-1.5g/k-94g/ day Fluid needs 1ml/kcal Nutrition Intervention Change Diet Order: Continue current diet order Add Supplement/Snack (indicate name/kcal Glucerna TID /protein ) Provides kCal: 660 Provides Protein (gm) 30 Goal #1 PO intake of meals plus ONS to meet 75-100% energy and pro needs Goal #2 Wt maintenance and/or gain Follow-Up By: 10/17/20 Additional Comments F/U: intakes (meals, ONS)
--- NOTE | 2020-10-17 11:48 | Consultation ---
History of Present Illness Consult date: 10/17/20 Consult reason: congestive heart failure, other (r/o Endocarditis) History of present illness: Patient is a frail, 55-year old M admitted to this hospital with pneumonia and bacteremia of unclear source. COVID 19 test was negative. Initial labs shows multiple metabolic abnormalities including severe leukopenia, anemia with a HCT 21.3, low platelets, and acute renal failure. Infectious disease is following and requests a FLORESITA for rule out endocarditis due to persistent positive blood cultures. An echocardiogram this admission showed a dilated left ventricular, decrease systolic function, ejection fraction 20-25%. The duration of this cardiomyopathy is uncertain. Patient denies prior cardiac history and denies prior cardiac workup. Denies chest pain, denies unusual shortness of breath and there is no edema. Past History Past Medical History: diabetes Past Surgical History: No surgical history Social history: single. denies: smoking, alcohol abuse, prescription drug abuse Family history: hypertension Medications and Allergies Allergies Allergy/AdvReac Type Severity Reaction Status Date / Time No Known Allergies Allergy Verified 10/14/20 21:11 Home Medications Medication Instructions Recorded Confirmed Last Taken Type No Known Home Medications [No 10/11/20 10/11/20 Unknown History Reported Home Medications] Active Meds: Active Medications Acetaminophen (Acetaminophen 325 Mg Tab) 650 mg PO Q4H PRN PRN Reason: Pain MILD(1-3)/Fever >100.5/KINNEY Last Admin: 10/14/20 11:01 Dose: 650 mg Documented by: Albuterol (Albuterol 2.5 Mg/3 Ml Nebu) 2.5 mg IH Q4HRT PRN PRN Reason: Shortness Of Breath Fluconazole (Fluconazole 200 Mg Tab) 200 mg PO QDAY THEE; Protocol Stop: 10/17/20 14:59 Last Admin: 10/17/20 10:15 Dose: 200 mg Documented by: Sodium Chloride (Nacl 0.45% 1000 Ml) 1,000 mls @ 125 mls/hr IV DIRECT THEE Last Admin: 10/17/20 06:15 Dose: 125 mls/hr Documented by: Daptomycin 560 mg/ Sodium (Chloride) 100 mls @ 200 mls/hr IV Q24H THEE; Protocol Last Admin: 10/16/20 12:53 Dose: 200 mls/hr Documented by: Methylprednisolone Sodium Succinate (Methylprednisolone Sod Succinate 40 Mg/1 Ml Inj) 40 mg IV Q8HR [facility] Last Admin: 10/17/20 06:15 Dose: 40 mg Documented by: Ondansetron HCl (Ondansetron 4 Mg/2 Ml Inj) 4 mg IV Q8H PRN PRN Reason: Nausea And Vomiting Phenol (Phenol 1.4% 177 Ml Bottle) 1 spray MM PRN PRN PRN Reason: Sore Throat Last Admin: 10/17/20 04:38 Dose: 1 spray Documented by: Sodium Chloride (Sodium Chloride 0.9% 10 Ml Flush Syringe) 10 ml IV BID [facility] Last Admin: 10/17/20 10:15 Dose: 10 ml Documented by: Sodium Chloride (Sodium Chloride 0.9% 10 Ml Flush Syringe) 10 ml IV PRN PRN PRN Reason: LINE FLUSH Review of Systems Cardiovascular: no chest pain, no palpitations, no edema, no syncope, no lightheadedness, no shortness of breath, no dyspnea on exertion Physical Examination Vital Signs Temp Pulse Resp BP Pulse Ox 98 F 99 H 16 103/69 99 10/10/20 15:57 10/10/20 15:57 10/10/20 15:57 10/10/20 15:57 10/10/20 15:57 General appearance: no acute distress, cachectic HEENT: Positive: PERRL Neck: Positive: trachea midline Cardiac: Positive: Reg Rate and Rhythm Lungs: Positive: Decreased Breath Sounds Neuro: Positive: Weakness Extremities: Absent: edema Results 10/15/20 07:57 10/15/20 07:57 Assessment and Plan Dilated Cardiomyopathy, uncertain duration LVEF 20-25% by echo this admission Pancytopenia Bacteremia Pneumonia negative COVID 19 test Malnutrition GDMT for dilated cardiomyopathy as toleratead. Will arrange a FLORESITA to be done tomorrow for rule out endocarditis.
--- NOTE | 2020-10-17 15:39 | Progress Note ---
Assessment and Plan Cultures: SARS CoV2 PCR: Negative HIV: Negative 10/10/2020 blood culture: VRE 2 out of 4 bottles 10/10/2020 urine culture: Magali 10/14/2020 blood culture no growth today 10/14/2020 blood culture: GPC 3 of 4 A/P: 55-year-old male with diabetes, malnutrition, resident of an assisted living facility was brought into the emergency room with complaints of sore throat and back pain: #VRE bacteremia: Very unclear source. ?recent T10-T12 fusion and L1-L2 surgery (noted surgical sutures on his back, pt is not able to elaborate, only reported surgery was done at [facility]. Should rule out endocarditis. Repeat blood cx positive. CT shows a bone cage and fixation from T10-T12, chronic pathologic fracture L5. No obvious discitis, osteomyelitis, abscess. #UTI: Urine culture grew Magali. Renal ultrasound with mild right pelvic caliectasis and echogenic right kidney. #Bilateral pneumonia: ?CAP vs aspiration. Not hypoxic. Leukopenia. SARS-CoV-2 PCR negative. Chest x-ray with bibasilar opacities left more than right. #Pancytopenia: suspect multiple myeloma. CT with multifocal lucent lesions, L5 pathologic fracture. Baseline WBC is unknown. HIV negative x 2 . #NELSY: Renally dose antibiotics. Resolved. #Transaminitis: With elevation of alkaline phosphatase. RUQ ultrasound ordered #Chronic malnutrition; BMI of 16.1 Recs: -Repeat blood cx today -Hem consult re: pancytopenia, suspect MM -Cards for FLORESITA due to persistent blood cx positive and EF 20-25% ? endocarditis ? valve abscess -Ordered MRI lumbar and thoracic spine eval for abscess/osteo/discitis -Ordered CT head-patient c/o headache and double vision -Request records from [facility] urgent - pending -Continue daptomycin at 8 mg/kg daily, if endocarditis then will increase to 10 mg/kg daily -Cannot do linezolid due to pancytopenia -Completed ceftriaxone, azithromycin for pneumonia -Completed Fluconazole p.o. x3 days for UTI -Anticipate to d/c on daptomycin 600 mg IV daily total 14 days, may need to be extended Discussed with Dr Eric will follow María Lay MD [facility] ([facility]) Office [phone] Subjective Date of service: 10/17/20 Principal diagnosis: Altered sensorium Interval history: Patient is more alert, c/o back pain, headache and double vision. No fever. Objective - Exam Narrative Exam: General appearance: Alert in NAD cachetic Eyes: anicteric sclerae, moist conjunctivae; no lid-lag; PERRLA HENT: Normocephalic, Atraumatic; normal external ears, nares open, oropharynx limited Neck: supple, tracheal midline, no JVD Lungs: Diminished breath sound bilaterally CV: RRR no murmur Abdomen: Nontender Extremities: left toes tenderness Skin: mid and lower back sutures parallel to the spine Psych: no agitated Neuro: alert and oriented x 3. Moving all extermities - Constitutional Vitals: Vital Signs Temp Pulse Resp BP Pulse Ox 97.9 F 87 19 111/79 100 10/17/20 12:33 10/17/20 12:33 10/17/20 12:33 10/17/20 12:33 10/17/20 12:33 Temperature -Last 24 Hours Temperature 97.9 F Temperature 97.7 F Temperature 97.1 F - Labs CBC & Chem 7: 10/15/20 07:57 10/15/20 07:57
[2020-10-17] MEDS: carvediloL 3.125 MG TAB PO SCH (22:54)
[2020-10-18 06:36] LABS: Hematocrit 20.8 % (35.5-45.6); Mean Corpuscular HGB Conc 34 % (32-34); Mean Corpuscular Volume 91 fl (84-94); Platelet Count 102 K/mm3 (140-440); Red Blood Count 2.29 M/mm3 (3.65-5.03); Red Cell Distribution Width 18.9 % (13.2-15.2)
[2020-10-18 06:54] LABS: Alanine Aminotransferase 187 units/L (7-56); Albumin 1.7 g/dL (3.9-5); Blood Urea Nitrogen 18 mg/dL (9-20); Calcium 6.1 mg/dL (8.4-10.2); Hemolysis Index 7
[2020-10-18 06:56] LABS: BUN/Creatinine Ratio 30
[2020-10-18] MEDS ORDERED: propofoL 200 MG/20 ML VIAL IV ONE ×2 (07:36)
[2020-10-18] MEDS: methylPREDNISolone Sod Succinate 40 MG/1 ML INJ IV SCH ×3 (07:47→21:49)
[2020-10-18] MEDS: SODIUM CHLORIDE 0.9% 1000 ML 1,000 ML IV SCH ×2 (07:50→11:36)
--- NOTE | 2020-10-18 07:59 | Anesthesia Consultation ---
Anesthesia Consult and Med Hx Date of service: 10/18/20 - Airway Anesthetic Teeth Evaluation: Poor (some missing teeth) ROM Head & Neck: Adequate Mental/Hyoid Distance: Adequate Mallampati Class: Class II Intubation Access Assessment: Probably Good - Pre-Operative Health Status ASA Pre-Surgery Classification: ASA4 Proposed Anesthetic Plan: MAC - Pulmonary Hx Pneumonia: Yes - Cardiovascular System Hx Hypertension: Yes Hx Coronary Artery Disease: No (dilated cardiomyopathy EF 20-25%) - Central Nervous System Hx Back Pain: Yes Hx Psychiatric Problems: Yes (nonverbal) - Gastrointestinal Hx Gastroesophageal Reflux Disease: Yes - Endocrine Hx End Stage Renal Disease: No (eleveted BUN) Hx Non-Insulin Dependent Diabetes: Yes - Other Systems Hx Obesity: No (cachectic)
--- NOTE | 2020-10-18 07:59 | Anesthesia Day of Surgery ---
Anesthesia Day of Surgery - Day of Surgery Patient Examined: Yes Patient H&P Reviewed: Yes Patient is NPO: Yes
[2020-10-18] MEDS ORDERED: BENZOCAINE 20% TOP SPRAY 0.5 ML UNIT DOSE MM NR (08:00)
[2020-10-18 09:15] LABS: Anisocytosis 1+; Total Cells Counted 100
[2020-10-18 09:16] LABS: Platelet Estimate Consistent w Auto
--- NOTE | 2020-10-18 09:19 | Post Anesthesia Evaluation ---
- Post Anesthesia Evaluation Patient Participated: Yes Airway Patent: Yes Stable Respiratory Function: Yes Nausea/Vomiting: No Temp > 96.8F: Yes Pain Manageable: Yes Adequeate Hydration: Yes Anesthesia Complications: No Block Receding Appropriately: Not Applicable Patient on Ventilator: No
--- NOTE | 2020-10-18 10:52 | Progress Note ---
Assessment and Plan Dilated Cardiomyopathy, uncertain duration LVEF 20-25% by echo this admission Pancytopenia Bacteremia FLORESITA done today: no evidence of vegetations Pneumonia negative COVID 19 test Malnutrition Continue GDMT for dilated cardiomyopathy as tolerated. Otherwise, conservative cardiac management. Subjective Date of service: 10/18/20 Principal diagnosis: Altered sensorium Interval history: FLORESITA was completed without complications, showing no evidence of vegetations. Objective Vital Signs Temp Temp Pulse Pulse Pulse Resp Resp 10/18/20 08:50 67 15 10/18/20 08:35 76 19 10/18/20 08:20 97.7 F 73 19 10/18/20 08:10 64 10/18/20 05:58 97.8 F 65 16 10/17/20 22:20 98.5 F 77 16 10/17/20 17:24 98.0 F 19 10/17/20 12:33 97.9 F 87 19 Resp BP BP BP Pulse Ox Pulse Ox Pulse Ox 10/18/20 08:50 144/87 100 10/18/20 08:35 121/86 100 10/18/20 08:20 114/79 100 10/18/20 08:10 18 139/91 100 10/18/20 05:58 119/79 99 10/17/20 22:20 118/78 100 10/17/20 17:24 117/80 94 10/17/20 12:33 111/79 100 - Physical Examination General: No Apparent Distress, Cachectic HEENT: Positive: PERRL Neck: Positive: trachea midline Cardiac: Positive: Reg Rate and Rhythm Lungs: Positive: Decreased Breath Sounds Neuro: Positive: Weakness Extremities: Absent: edema - Labs and Meds Cardiac Enzymes 10/18/20 Range/Units 06:04 AST 52 H (5-40) units/L CBC 10/18/20 Range/Units 06:04 WBC 3.2 L (4.5-11.0) K/mm3 RBC 2.29 L (3.65-5.03) M/mm3 Hgb 7.0 L (11.8-15.2) gm/dl Hct 20.8 L (35.5-45.6) % Plt Count 102 L (140-440) K/mm3 Comprehensive Metabolic Panel 10/18/20 Range/Units 06:04 Sodium 136 L (137-145) mmol/L Potassium 3.5 L (3.6-5.0) mmol/L Chloride 108.4 H (98-107) mmol/L Carbon Dioxide 18 L (22-30) mmol/L BUN 18 (9-20) mg/dL Creatinine 0.6 L (0.8-1.3) mg/dL Glucose 132 H (75-100) mg/dL Calcium 6.1 L (8.4-10.2) mg/dL AST 52 H (5-40) units/L ALT 187 H (7-56) units/L Alkaline Phosphatase 267 H (35-129) units/L Total Protein 5.9 L D (6.3-8.2) g/dL Albumin 1.7 L (3.9-5) g/dL
--- NOTE | 2020-10-18 11:29 | Electrocardiograph Report ---
[facility] Test Date: 2020-10-17 Test Time: 12:19:05 Pat Name: CLARISSA MODI Department: Room: A387 1 Gender: M Gasket Former: KELI : 1965 Requested By: JOSE LUIS CAMPBELL Order Number: [id number] Reading MD: Alexis Owens Measurements Intervals [place] Rate: 83 P: 35 DC: 146 QRS: 5 QRSD: 86 T: -59 QT: 383 QTc: 450 Interpretive Statements Sinus rhythm No previous ECG available for comparison Electronically Signed On 10-18-2020 11:28:39 EDT by Alexis Owens
[2020-10-18] MEDS: carvediloL 3.125 MG TAB PO SCH ×2 (11:34→21:49)
[2020-10-18] MEDS: LISINOPRIL 5 MG TAB PO SCH (11:34)
--- NOTE | 2020-10-18 11:48 | Magnetic Resonance Report ---
MRI LUMBAR SPINE WITHOUT AND WITH CONTRAST 10/18/2020 INDICATION / CLINICAL INFORMATION: peristent VRE bacteremia of unclear source. Back pain. Clariscan 12 cc IV COMPARISON: CT abdomen 10/17/2020 FINDINGS: GENERAL OBSERVATIONS: Unenhanced and enhanced MR images of the lumbar spine were obtained. As seen on the abdominal CT, there is been prior procedures. There is been a laminectomy and fusion from T11 through L1, with vertebral body spacer spanning the T12 level. Bilateral pedicle screws are present at T11 and L1. Chronic compression deformities and evidence of prior vertebroplasty procedure is noted at the L2 and L3 levels. There is prominent compression deformity of the L5 vertebral body, with underlying bone marrow signal consistent with acute compression deformity and/or underlying lesion. There is no evidence of inflammatory change. There is no evidence of osteomyelitis. There is no evide nce of paraspinal or epidural fluid collection. [id number] disc ANALYSIS: L5-S1: Moderate diffuse disc bulging and facet degenerative changes. There is no evidence of signific ant central canal narrowing. L4-5: Mild symmetric diffuse disc bulging. L3-4: Mild symmetric diffuse disc bulging. L2-3: Mild symmetric diffuse disc bulging. BONE MARROW: In addition to the postoperative changes and L5 abnormality described above, bone marrow signal heterogeneity is present, which corresponds to the multiple there is a small lucency seen on the abdominal CT. This is consistent with multiple myeloma or metastatic disease. SPINAL CORD/CAUDA EQUINA: Unremarkable PARASPINAL SOFT TISSUES: No significant abnormality. IMPRESSION: Postoperative and degenerative changes. Compression deformities at several levels, most prominently a t L5. No evidence of stenosis or direct nerve root compression. No evidence of inflammation or infection. Lumbar Signer Name: Chandana Guallpa MD Signed: 10/18/2020 11:42 AM Workstation Name: [email or web address]
--- NOTE | 2020-10-18 12:34 | Cat Scan Report ---
CT HEAD WITHOUT CONTRAST INDICATION / CLINICAL INFORMATION: patient with AMS, headache and double vision. TECHNIQUE: All CT scans at this location are performed using CT dose reduction for ALARA by means of automated e xposure control. COMPARISON: None available. FINDINGS: HEMORRHAGE: No evidence of intracranial hemorrhage or extra-axial fluid collection. EXTRA-AXIAL SPACES: Cortical sulci, sylvian fissures and basilar cisterns have an unremarkable appear ance. VENTRICULAR SYSTEM: The third and lateral ventricles are of normal size and configuration. CEREBRAL PARENCHYMA: No areas of abnormal brain parenchymal attenuation are identified. There is no i ndication of recent infarction. MIDLINE SHIFT OR HERNIATION: There is no mass effect. CEREBELLUM / BRAINSTEM: Brainstem and cerebellum have an unremarkable appearance. MIDLINE STRUCTURES:No abnormalities of the pituitary gland or pineal region are identified. INTRACRANIAL VESSELS:No abnormalities are identified on this noncontrast head CT. ORBITS: visualized portions of the orbits have an unremarkable appearance. SOFT TISSUES of HEAD: No significant abnormality. CALVARIUM: Evaluation of bone windows reveals no abnormalities. PARANASAL SINUSES / MASTOID AIR CELLS: Visualized portions of the paranasal sinuses are free from inf lammatory mucosal disease. Mastoid air cells are normally pneumatized. IMPRESSION: 1. No intracranial abnormality identified on head CT without contrast.. Signer Name: Aaron Beach MD Signed: 10/18/2020 12:29 PM Workstation Name: [id number]
--- NOTE | 2020-10-18 14:14 | Progress Note ---
Assessment and Plan Cultures: SARS CoV2 PCR: Negative HIV: Negative 10/10/2020 blood culture: VRE 2 out of 4 bottles 10/10/2020 urine culture: Magali 10/14/2020 blood culture no growth today 10/14/2020 blood culture: GPC 3 of 4 A/P: 55-year-old male with diabetes, malnutrition, resident of an assisted living facility was brought into the emergency room with complaints of sore throat and back pain: #VRE bacteremia: Very unclear source. ?recent T10-T12 fusion and L1-L2 surgery (noted surgical sutures on his back, pt is not able to elaborate, only reported surgery was done at [facility]. Should rule out endocarditis. FLORESITA negative. Repeat blood cx positive. CT shows a bone cage and fixation from T10-T12, c hronic pathologic fracture L5. No obvious discitis, osteomyelitis, abscess. MRI no abscess, discitis, osteomyelitis +compression deformities at several levels, mainly L5. #UTI: Urine culture grew Magali. Renal ultrasound with mild right pelvic caliectasis and echogenic right kidney. #Bilateral pneumonia: ?CAP vs aspiration. Not hypoxic. Leukopenia. SARS-CoV-2 PCR negative. Chest x-ray with bibasilar opacities left more than right. #Pancytopenia: suspect multiple myeloma. CT with multifocal lucent lesions, L5 pathologic fracture. Baseline WBC is unknown. HIV negative x 2 . #NELSY: Renally dose antibiotics. Resolved. #Transaminitis: With elevation of alkaline phosphatase. RUQ ultrasound ordered #Chronic malnutrition; BMI of 16.1. HIV neg x 2. #Headache, double vision: resolved. CT head unremarkable. Recs: -Repeat blood cx today- ordered -Hem consult re: pancytopenia, suspect MM -Request records from [facility] urgent - pending/discussed with accredited legal secretary -Continue daptomycin at 8 mg/kg daily -Cannot do linezolid due to pancytopenia -Completed ceftriaxone, azithromycin for pneumonia -Completed Fluconazole p.o. x3 days for UTI -Anticipate to d/c on daptomycin 600 mg IV daily total 14 days till 11/01/2020. Order sent to housing case manager. F/u repeat blood cx today, if positive duration may change. Discussed with Dr Eric will follow María Lay MD [facility] ([facility]) Office [phone] Subjective Date of service: 10/18/20 Principal diagnosis: Altered sensorium Interval history: Patient feels ok, c/o back pain. No fever. Objective - Exam Narrative Exam: General appearance: Alert in NAD cachetic Eyes: anicteric sclerae, moist conjunctivae; no lid-lag; PERRLA HENT: Normocephalic, Atraumatic; normal external ears, nares open, oropharynx limited Neck: supple, tracheal midline, no JVD Lungs: Diminished breath sound bilaterally CV: RRR no murmur Abdomen: Nontender Extremities: left toes tenderness Skin: mid and lower back sutures parallel to the spine Psych: no agitated Neuro: alert and oriented x 3. Moving all extermities - Constitutional Vitals: Vital Signs Temp Pulse Resp BP Pulse Ox 97.7 F 80 18 125/89 100 10/18/20 08:20 10/18/20 11:34 10/18/20 10:00 10/18/20 11:34 10/18/20 08:50 Temperature -Last 24 Hours Temperature [Post-Procedure] 97.7 F Temperature 97.8 F Temperature 98.5 F Temperature 98.0 F - Labs CBC & Chem 7: 10/18/20 06:04 10/18/20 06:04 Labs: Abnormal lab results 10/18/20 10/18/20 Range/Units 06:04 06:04 WBC 3.2 L (4.5-11.0) K/mm3 RBC 2.29 L (3.65-5.03) M/mm3 Hgb 7.0 L (11.8-15.2) gm/dl Hct 20.8 L (35.5-45.6) % RDW 18.9 H (13.2-15.2) % Plt Count 102 L (140-440) K/mm3 Seg Neuts % (Manual) 97.0 H (40.0-70.0) % Nucleated RBC % 15.0 H (0.0-0.9) % Lymphocytes # (Manual) 0.0 L (1.2-5.4) K/mm3 Sodium 136 L (137-145) mmol/L Potassium 3.5 L (3.6-5.0) mmol/L Chloride 108.4 H (98-107) mmol/L Carbon Dioxide 18 L (22-30) mmol/L Creatinine 0.6 L (0.8-1.3) mg/dL Glucose 132 H (75-100) mg/dL Calcium 6.1 L (8.4-10.2) mg/dL Magnesium 1.20 L (1.7-2.3) mg/dL AST 52 H (5-40) units/L ALT 187 H (7-56) units/L Alkaline Phosphatase 267 H (35-129) units/L Total Protein 5.9 L D (6.3-8.2) g/dL Albumin 1.7 L (3.9-5) g/dL
--- NOTE | 2020-10-18 16:08 | Magnetic Resonance Report ---
MRI THORACIC SPINE 10/18/2020 INDICATION / CLINICAL INFORMATION: peristent VRE bacteremia of unclear source. COMPARISON: CT chest 10/17/2020 FINDINGS: GENERAL OBSERVATIONS: Unenhanced and enhanced MR images of the thoracic spine were obtained. There is been prior surgical fusion from T10 to T12, with spacer spanning T11 vertebral body. There is evidence of compression deformity at the T6 level, which is lost approximately 40% of its he ight. Bone marrow signal changes suggest acute compression deformity with the presence of an underlyi ng lesion. There is also some mild compression of the upper endplate of the T4 vertebral body, with bone marrow signal change consistent with bone marrow edema and recent compression deformity. There is bone marrow lesion at the T9 vertebral body level, and some smaller areas of bone marrow sig nal abnormality at T8, T4. It should be consistent with metastatic disease or myeloma. There is no evidence of spinal cord compression or intrinsic spinal cord abnormality. There is no beatriz dence of epidural fluid or soft tissue abnormality. Postcontrast images demonstrate no evidence of epidural or spinal cord enhancement. There is no evidence of inflammatory change or infection. PARASPINAL SOFT TISSUES: No significant abnormality. Small bilateral pleural effusions are noted, only partially imaged on this spine protocol. IMPRESSION: No evidence of spinal cord compression or intrinsic spinal cord abnormality. Signer Name: Chandana Guallpa MD Signed: 10/18/2020 4:03 PM Workstation Name: [id number]
[2020-10-18] MEDS: ASPIRIN EC 81 MG TAB PO SCH (18:03)
[2020-10-18] MEDS: SPIRONOLACTONE 25 MG TAB PO SCH (18:06)
--- NOTE | 2020-10-18 18:15 | Progress Note ---
Assessment and Plan Assessment and plan: --Sepsis due to persistent bacteremia Current Visit: Yes Status: Acute Continue daptomycin per ID FLORESITA negative for endocarditis Cardiology consult appreciated --VRE bacteremia; Current Visit: Yes Status: Acute Unable to treat with linezolid secondary to thrombocytopenia. ID recommended daptomycin for total 14 days ending 11/01/2020 --Acute systolic CHF/ EF 20 to 25% Current Visit: Yes Status: Acute antifailure medication with diuretic, beta-blockers, LALITHA inhibitors, input output monitoring, low-sodium diet,fluid restriction. Cardiology consult noted and appreciated --History of recent spinal surgery: at [facility] Current Visit: Yes Status: chr T10 T12, L1-L2 surgery, surgical sutures on the back Wound care, continue antibiotics, request records from [facility] --UTI/ur cultures grew Magali Current Visit: Yes Status: Acute Continue Diflucan , supportive care/ --Acute kidney injury (NELSY) due to ATN Current Visit: Yes Status: Acute Resolved, closely monitor renal function Avoid nephrotoxins --Multiple myeloma vs metastatic disease[on CT chest and abdomen] Current Visit: Yes Status: Acute requested medical records from [facility] Patient unable to give proper history unable to contact family, Hematology consult inpatient versus outpatient -- Severe protein calorie malnutrition Current Visit: Yes Status: Acute Albumin 1.7 nutrition supplements ,, nutrition consult --Pneumonia Current Visit: Yes Status: Acute Completed 5 days of Rocephin and Zithromax Coronavirus PCR negative Follow cultures -- COVID-19 negative Current Visit: Yes Status: Acute Coronavirus PCR negative -- DVT prophylaxis Current Visit: Yes Status: Acute SCDs bilateral lower extremities while in bed, patient is ambulatory We will closely monitor the patient and adjust management as needed Plan of care reviewed with the patient and his nurse [employer] recommendations noted Follow cardiology evaluation recommendations 10/16/2020; sepsis secondary to VRE bacteremia, UTI and pneumonia Continue current antibiotics per ID, contact isolation due to VRE 10/17/2020; patient is more alert and awake today, feels better CT abdomen and pelvis findings noted continue current antibiotics Physical therapy, Occupational Therapy as tolerated 10/18/2020; cardiology evaluations appreciated FLORESITA negative for endocarditis, cardiology started goal-directed CHF treatment History Interval history: I have seen and examined the patient at the bedside Patient feels slightly better more alert and awake cheerful Not in acute distress However patient has persistent bacteremia on antibiotics Still awaiting records from [facility] Vital signs noted Hospitalist Physical - Constitutional Vitals: Temp Pulse Resp BP Pulse Ox 98.0 F 74 18 99/69 100 10/18/20 11:32 10/18/20 18:06 10/18/20 11:32 10/18/20 18:06 10/18/20 11:32 General appearance: Present: no acute distress, cachectic, other (More alert and awake today) - EENT Eyes: Present: PERRL, EOM intact - Neck Neck: Present: supple, normal ROM - Respiratory Respiratory effort: normal Respiratory: bilateral: diminished, negative: rales, rhonchi, wheezing - Cardiovascular Rhythm: regular Heart Sounds: Present: S1 & S2 - Extremities Extremities: no ischemia, No edema - Abdominal General gastrointestinal: soft, non-tender, non-distended, normal bowel sounds - Integumentary Integumentary: Present: clear, warm - Psychiatric Psychiatric: appropriate mood/affect, cooperative - Neurologic Neurologic: CNII-XII intact, moves all extremities Results - Labs CBC & Chem 7: 10/18/20 06:04 10/18/20 06:04 Labs: Laboratory Last Values WBC 3.2 K/mm3 (4.5-11.0) L 10/18/20 06:04 RBC 2.29 M/mm3 (3.65-5.03) L 10/18/20 06:04 Hgb 7.0 gm/dl (11.8-15.2) L 10/18/20 06:04 Hct 20.8 % (35.5-45.6) L 10/18/20 06:04 MCV 91 fl (84-94) 10/18/20 06:04 MCH 31 pg (28-32) 10/18/20 06:04 MCHC 34 % (32-34) 10/18/20 06:04 RDW 18.9 % (13.2-15.2) H 10/18/20 06:04 Plt Count 102 K/mm3 (140-440) L 10/18/20 06:04 Lymph % (Auto) 10.1 % (13.4-35.0) L 10/11/20 05:40 [place] % (Auto) 1.4 % (0.0-7.3) 10/11/20 05:40 Eos % (Auto) 1.6 % (0.0-4.3) 10/11/20 05:40 Baso % (Auto) 0.5 % (0.0-1.8) 10/11/20 05:40 Lymph # (Auto) 0.1 K/mm3 (1.2-5.4) L 10/11/20 05:40 [place] # (Auto) 0.0 K/mm3 (0.0-0.8) 10/11/20 05:40 Eos # (Auto) 0.0 K/mm3 (0.0-0.4) 10/11/20 05:40 Baso # (Auto) 0.0 K/mm3 (0.0-0.1) 10/11/20 05:40 Add Manual Diff Complete 10/18/20 06:04 Total Counted 100 10/18/20 06:04 Seg Neutrophils % [employer] 10/18/20 06:04 Seg Neuts % (Manual) 97.0 % (40.0-70.0) H 10/18/20 06:04 Lymphocytes % (Manual) 10.0 % (13.4-35.0) L 10/10/20 16:31 Monocytes % (Manual) 3.0 % (0.0-7.3) 10/18/20 06:04 Eosinophils % (Manual) 1.0 % (0.0-4.3) 10/10/20 16:31 Basophils % (Manual) 1.0 % (0.0-1.8) 10/10/20 16:31 Nucleated RBC % 15.0 % (0.0-0.9) H 10/18/20 06:04 Seg Neutrophils # 1.1 K/mm3 (1.8-7.7) L 10/11/20 05:40 Seg Neutrophils # Man 3.1 K/mm3 (1.8-7.7) 10/18/20 06:04 Band Neutrophils # 0.0 K/mm3 10/18/20 06:04 Lymphocytes # (Manual) 0.0 K/mm3 (1.2-5.4) L 10/18/20 06:04 Abs React Lymphs (Man) 0.0 K/mm3 10/18/20 06:04 Monocytes # (Manual) 0.1 K/mm3 (0.0-0.8) 10/18/20 06:04 Eosinophils # (Manual) 0.0 K/mm3 (0.0-0.4) 10/18/20 06:04 Basophils # (Manual) 0.0 K/mm3 (0.0-0.1) 10/18/20 06:04 Metamyelocytes # 0.0 K/mm3 10/18/20 06:04 Myelocytes # 0.0 K/mm3 10/18/20 06:04 Promyelocytes # 0.0 K/mm3 10/18/20 06:04 Blast Cells # 0.0 K/mm3 10/18/20 06:04 WBC Morphology Not Reportable 10/18/20 06:04 Hypersegmented Neuts Not Reportable 10/18/20 06:04 Hyposegmented Neuts Not Reportable 10/18/20 06:04 Hypogranular Neuts Not Reportable 10/18/20 06:04 Smudge Cells Not Reportable 10/18/20 06:04 Toxic Granulation Not Reportable 10/18/20 06:04 Toxic Vacuolation Not Reportable 10/18/20 06:04 Dohle Bodies Not Reportable 10/18/20 06:04 Pelger-Huet Anomaly Not Reportable 10/18/20 06:04 Javon Rods Not Reportable 10/18/20 06:04 Platelet Estimate Consistent w auto 10/18/20 06:04 Clumped Platelets Not Reportable 10/18/20 06:04 Plt Clumps, EDTA Not Reportable 10/18/20 06:04 Large Platelets Not Reportable 10/18/20 06:04 Giant Platelets Not Reportable 10/18/20 06:04 Platelet Satelliting Not Reportable 10/18/20 06:04 Plt Morphology Comment Not Reportable 10/18/20 06:04 RBC Morphology Not Reportable 10/18/20 06:04 Dimorphic RBCs Not Reportable 10/18/20 06:04 Polychromasia Not Reportable 10/18/20 06:04 Hypochromasia Not Reportable 10/18/20 06:04 Poikilocytosis Not Reportable 10/18/20 06:04 Anisocytosis 1+ 10/18/20 06:04 Microcytosis Not Reportable 10/18/20 06:04 Macrocytosis Not Reportable 10/18/20 06:04 Spherocytes Not Reportable 10/18/20 06:04 Pappenheimer Bodies Not Reportable 10/18/20 06:04 Sickle Cells Not Reportable 10/18/20 06:04 Target Cells Not Reportable 10/18/20 06:04 Tear Drop Cells Not Reportable 10/18/20 06:04 Ovalocytes Not Reportable 10/18/20 06:04 Helmet Cells Not Reportable 10/18/20 06:04 [place] Bodies Not Reportable 10/18/20 06:04 [place] Rings Not Reportable 10/18/20 06:04 Edna Cells Not Reportable 10/18/20 06:04 Bite Cells Not Reportable 10/18/20 06:04 Crenated Cell Not Reportable 10/18/20 06:04 Elliptocytes Not Reportable 10/18/20 06:04 Acanthocytes (Spur) Not Reportable 10/18/20 06:04 Rouleaux Not Reportable 10/18/20 06:04 Hemoglobin C Crystals Not Reportable 10/18/20 06:04 Schistocytes Not Reportable 10/18/20 06:04 Malaria parasites Not Reportable 10/18/20 06:04 Lit Bodies Not Reportable 10/18/20 06:04 Hem Pathologist Commnt No 10/18/20 06:04 D-Dimer 2351.86 ng/mlDDU (0-234) H 10/10/20 17:54 Sodium 136 mmol/L (137-145) L 10/18/20 06:04 Potassium 3.5 mmol/L (3.6-5.0) L 10/18/20 06:04 Chloride 108.4 mmol/L (98-107) H 10/18/20 06:04 Carbon Dioxide 18 mmol/L (22-30) L 10/18/20 06:04 Anion Gap 13 mmol/L 10/18/20 06:04 BUN 18 mg/dL (9-20) 10/18/20 06:04 Creatinine 0.6 mg/dL (0.8-1.3) L 10/18/20 06:04 Estimated GFR > 60 ml/min 10/18/20 06:04 BUN/Creatinine Ratio 30 % 10/18/20 06:04 Glucose 132 mg/dL (75-100) H 10/18/20 06:04 POC Glucose 120 mg/dL (70-105) H 10/12/20 15:42 Calcium 6.1 mg/dL (8.4-10.2) L 10/18/20 06:04 Magnesium 1.20 mg/dL (1.7-2.3) L 10/18/20 06:04 Ferritin 2608.0 ng/mL (30.0-300.0) H 10/10/20 17:54 Total Bilirubin 0.20 mg/dL (0.1-1.2) 10/18/20 06:04 AST 52 units/L (5-40) H 10/18/20 06:04 ALT 187 units/L (7-56) H 10/18/20 06:04 Alkaline Phosphatase 267 units/L (35-129) H 10/18/20 06:04 Lactate Dehydrogenase 233 units/L (91-180) H 10/10/20 17:54 Total Creatine Kinase 60 units/L (55-170) 10/16/20 08:16 C-Reactive Protein 0.40 mg/dL (0.00-1.30) 10/16/20 17:23 Total Protein 5.9 g/dL (6.3-8.2) L D 10/18/20 06:04 Albumin 1.7 g/dL (3.9-5) L 10/18/20 06:04 Albumin/Globulin Ratio 0.4 % 10/18/20 06:04 Procalcitonin 0.61 ng/mL (<0.15) 10/14/20 14:54 Urine Color Yellow (Yellow) 10/11/20 Unknown Urine Turbidity Cloudy (Clear) 10/11/20 Unknown Urine pH 5.0 (5.0-7.0) 10/11/20 Unknown Ur Specific Norden 1.019 (1.003-1.030) 10/11/20 Unknown Urine Protein 30 mg/dl mg/dL (Negative) 10/11/20 Unknown Urine Glucose (UA) Neg mg/dL (Negative) 10/11/20 Unknown Urine Ketones Neg mg/dL (Negative) 10/11/20 Unknown Urine Blood Sm (Negative) 10/11/20 Unknown Urine Nitrite Neg (Negative) 10/11/20 Unknown Urine Bilirubin Neg (Negative) 10/11/20 Unknown Urine Urobilinogen < 2.0 mg/dL (<2.0) 10/11/20 Unknown Ur Leukocyte Esterase Tr (Negative) 10/11/20 Unknown Urine WBC (Auto) 36.0 /HPF (0.0-6.0) H 10/11/20 Unknown Urine RBC (Auto) 129.0 /HPF (0.0-6.0) 10/11/20 Unknown U Epithel Cells (Auto) 1.0 /HPF (0-13.0) 10/11/20 Unknown Urine Bacteria (Auto) 2+ /HPF (Negative) 10/11/20 Unknown Urine Mucus Few /HPF 10/11/20 Unknown Urine Yeast (Budding) 2+ /HPF 10/11/20 Unknown Coronavirus (PCR) Negative (Negative) 10/11/20 08:32 HIV 1&2 Antibody Rapid Non react (Non React) 10/16/20 17:23 HIV P24 Antigen Non react (Non React) 10/16/20 17:23 Blood Type B POSITIVE 10/11/20 13:07 Antibody Screen Negative 10/11/20 13:07 Microbiology: Microbiology 10/18/20 15:04 Peripheral/Venous Blood Culture - Preliminary Culture in Progress 10/18/20 15:04 Peripheral/Venous Blood Culture - Preliminary Culture in Progress [place]/IV: Voiding Method Indwelling Catheter Active Medications - Current Medications Current Medications: Generic Name Dose Route Start Last Admin Trade Name Freq PRN Reason Stop Dose Admin Acetaminophen 650 mg 10/10/20 19:46 10/14/20 11:01 Acetaminophen 325 Mg Tab PO 650 mg Q4H PRN Administration Pain MILD(1-3)/Fever >100.5/KINNEY Albuterol 2.5 mg 10/10/20 19:46 Albuterol 2.5 Mg/3 Ml Nebu IH Q4HRT PRN Shortness Of Breath Aspirin 81 mg 10/18/20 15:00 10/18/20 18:03 Aspirin Ec 81 Mg Tab PO 81 mg QDAY THEE Administration Carvedilol 3.125 mg 10/17/20 22:00 10/18/20 11:34 Carvedilol 3.125 Mg Tab PO 3.125 mg BID THEE Administration Sodium Chloride 1,000 mls @ 125 mls/hr 10/12/20 11:00 10/17/20 22:55 Nacl 0.45% 1000 Ml IV 125 mls/hr DIRECT THEE Administration Daptomycin 560 mg/ Sodium 100 mls @ 200 mls/hr 10/15/20 12:30 10/18/20 11:35 Chloride IV 200 mls/hr Q24H THEE Administration Protocol Sodium Chloride 1,000 mls @ 42 mls/hr 10/18/20 07:30 10/18/20 11:36 Nacl 0.9% 1000 Ml IV 10/19/20 07:29 42 mls/hr DIRECT THEE Administration Lisinopril 2.5 mg 10/18/20 10:00 10/18/20 11:34 Lisinopril 5 Mg Tab PO 2.5 mg QDAY THEE Administration Methylprednisolone Sodium Succinate 40 mg 10/10/20 22:00 10/18/20 13:30 Methylprednisolone Sod Succinate 40 Mg/1 Ml Inj IV 40 mg Q8HR THEE Administration Ondansetron HCl 4 mg 10/10/20 19:46 Ondansetron 4 Mg/2 Ml Inj IV Q8H PRN Nausea And Vomiting Phenol 1 spray 10/15/20 14:54 10/17/20 22:55 Phenol 1.4% 177 Ml Bottle MM 1 spray PRN PRN Administration Sore Throat Sodium Chloride 10 ml 10/10/20 22:00 10/18/20 11:34 Sodium Chloride 0.9% 10 Ml Flush Syringe IV 10 ml BID THEE Administration Sodium Chloride 10 ml 10/10/20 19:46 Sodium Chloride 0.9% 10 Ml Flush Syringe IV PRN PRN LINE FLUSH Spironolactone 25 mg 10/18/20 15:00 10/18/20 18:06 Spironolactone 25 Mg Tab PO Not Given QDAY THEE Nutrition/Malnutrition Assess - Dietary Evaluation Nutrition/Malnutrition Findings: Nutrition Notes Start: 10/11/20 12:16 Freq: Status: Active Protocol: Document 10/17/20 12:36 (Rec: 10/17/20 13:20 [email or web address]) Nutrition Notes Initial or Follow up Reassessment Current Diagnosis Acute Kidney Injury,Diabetes Other Pertinent Diagnosis SIRS, pneu, r/o COVID-19 Current Diet Consistent Carbohydrate Diet + Glucerna Labs/Tests 10/15: BUN 32 Pertinent Medications 1/2 NS at 125 ml/hr Height 5 ft 6 in Weight 69.5 kg Hydro Body Weight (kg) 64.54 BMI 24.7 Weight change and time frame Wt change noted. Will follow for trends Subjective/Other Information Pt did not answer phone. RN reports pt intake is "fair" and noted Glucerna not yet consumed. RN unsure of ONS intakes from yesterday. Percent of energy/protein needs met: 72%/81% (excludes ONS) Burn Absent Trauma Absent Current % PO Fair (50-74%) Minimum of two criteria Yes Body Fat Depletion Moderate depletion (severe) Protein-Calorie Malnutrition Severe #1 Nutrition Diagnosis Malnutrition Diagnosis Progress(for reassessment Continues documentation) Is patient on ventilator? No Is Patient Ambulatory and/or Out of Bed Yes REE-(Beadle-St. Jeor-ambulatory/OOB) [ 1901.575 [id number]] Kcal/Kg value to use for calculation 31 Approximate Energy Requirements Using 2155 kcal/Kg Calculation Used for Recommendations Kcal/kg Additional Notes Pro needs 1.2-1.5g/k-104g /day Fluid needs 1ml/kcal Nutrition Intervention Change Diet Order: Continue current diet order Add Supplement/Snack (indicate name/kcal Glucerna TID /protein ) Provides kCal: 660 Provides Protein (gm) 30 Goal #1 PO intake of meals plus ONS to meet 75-100% energy and pro needs Goal #2 Wt maintenance and/or gain Follow-Up By: 10/21/20 Additional Comments FU for intakes
[2020-10-18] MEDS ORDERED: POTASSIUM CHLORIDE ER 20 MEQ TAB PO ONE (18:31)
[2020-10-18] MEDS ORDERED: MAGNESIUM SULFATE 4 GM/100 ML BAG IV ONE (18:31)
[2020-10-18] MEDS: PHENOL 1.4% 177 ML BOTTLE MM PRN (21:53)
[2020-10-19] MEDS: ACETAMINOPHEN 325 MG TAB PO PRN (05:48)
[2020-10-19] MEDS: methylPREDNISolone Sod Succinate 40 MG/1 ML INJ IV SCH ×3 (05:48→22:13)
--- NOTE | 2020-10-19 09:53 | Progress Note ---
Assessment and Plan Assessment and plan: --Sepsis due to persistent bacteremia Current Visit: Yes Status: Acute Continue daptomycin per ID FLORESITA negative for endocarditis Cardiology consult appreciated --VRE bacteremia; Current Visit: Yes Status: Acute Unable to treat with linezolid secondary to thrombocytopenia. ID recommended daptomycin for total 14 days ending 11/01/2020 --Acute systolic CHF/ EF 20 to 25% Current Visit: Yes Status: Acute antifailure medication with diuretic, beta-blockers, LALITHA inhibitors, input output monitoring, low-sodium diet,fluid restriction. Cardiology consult noted and appreciated --History of recent spinal surgery: at [facility] Current Visit: Yes Status: chr T10 T12, L1-L2 surgery, surgical sutures on the back Wound care, continue antibiotics, request records from [facility] --UTI/ur cultures grew Magali Current Visit: Yes Status: Acute Continue Diflucan , supportive care/ --Acute kidney injury (NELSY) due to ATN Current Visit: Yes Status: Acute Resolved, closely monitor renal function Avoid nephrotoxins --Multiple myeloma vs metastatic disease[on CT chest and abdomen] Current Visit: Yes Status: Acute requested medical records from [facility] Patient unable to give proper history unable to contact family, Hematology consult inpatient versus outpatient -- Severe protein calorie malnutrition Current Visit: Yes Status: Acute Albumin 1.7 nutrition supplements ,, nutrition consult --Pneumonia Current Visit: Yes Status: Acute Completed 5 days of Rocephin and Zithromax Coronavirus PCR negative Follow cultures -- COVID-19 negative Current Visit: Yes Status: Acute Coronavirus PCR negative -- DVT prophylaxis Current Visit: Yes Status: Acute SCDs bilateral lower extremities while in bed, patient is ambulatory We will closely monitor the patient and adjust management as needed Plan of care reviewed with the patient and his nurse Wool Hat Flanger recommendations noted Follow cardiology evaluation recommendations 10/16/2020; sepsis secondary to VRE bacteremia, UTI and pneumonia Continue current antibiotics per ID, contact isolation due to VRE 10/17/2020; patient is more alert and awake today, feels better CT abdomen and pelvis findings noted continue current antibiotics Physical therapy, Occupational Therapy as tolerated 10/18/2020; cardiology evaluations appreciated FLORESITA negative for endocarditis, cardiology started goal-directed CHF treatment 10/19/2020; persistent bacteremia, FLORESITA negative for endocarditis Continue ID cardiology recommendations Patient complains of some sore throat, Cepacol throat spray and Cepacol lozenges History Interval history: I have seen and examined the patient at the bedside Patient's chart and medications reviewed Persistent bacteremia FLORESITA negative for endocarditis Patient feels slightly better still has sore throat Hospitalist Physical - Constitutional Vitals: Temp Pulse Resp BP Pulse Ox 97.4 F L 75 18 121/63 100 10/19/20 05:47 10/19/20 05:47 10/19/20 05:47 10/19/20 05:47 10/19/20 05:47 General appearance: Present: no acute distress, cachectic, other (More alert and awake today) - EENT Eyes: Present: PERRL, EOM intact - Neck Neck: Present: supple, normal ROM - Respiratory Respiratory effort: normal Respiratory: bilateral: diminished, negative: rales, rhonchi - Cardiovascular Rhythm: regular Heart Sounds: Present: S1 & S2 - Extremities Extremities: no ischemia, pulses intact - Abdominal General gastrointestinal: soft, non-tender, non-distended, normal bowel sounds - Integumentary Integumentary: Present: clear, warm - Psychiatric Psychiatric: appropriate mood/affect, cooperative - Neurologic Neurologic: CNII-XII intact, moves all extremities Results - Labs CBC & Chem 7: 10/18/20 06:04 10/19/20 10:19 Labs: Laboratory Last Values WBC 3.2 K/mm3 (4.5-11.0) L 10/18/20 06:04 RBC 2.29 M/mm3 (3.65-5.03) L 10/18/20 06:04 Hgb 7.0 gm/dl (11.8-15.2) L 10/18/20 06:04 Hct 20.8 % (35.5-45.6) L 10/18/20 06:04 MCV 91 fl (84-94) 10/18/20 06:04 MCH 31 pg (28-32) 10/18/20 06:04 MCHC 34 % (32-34) 10/18/20 06:04 RDW 18.9 % (13.2-15.2) H 10/18/20 06:04 Plt Count 102 K/mm3 (140-440) L 10/18/20 06:04 Lymph % (Auto) 10.1 % (13.4-35.0) L 10/11/20 05:40 [place] % (Auto) 1.4 % (0.0-7.3) 10/11/20 05:40 Eos % (Auto) 1.6 % (0.0-4.3) 10/11/20 05:40 Baso % (Auto) 0.5 % (0.0-1.8) 10/11/20 05:40 Lymph # (Auto) 0.1 K/mm3 (1.2-5.4) L 10/11/20 05:40 [place] # (Auto) 0.0 K/mm3 (0.0-0.8) 10/11/20 05:40 Eos # (Auto) 0.0 K/mm3 (0.0-0.4) 10/11/20 05:40 Baso # (Auto) 0.0 K/mm3 (0.0-0.1) 10/11/20 05:40 Add Manual Diff Complete 10/18/20 06:04 Total Counted 100 10/18/20 06:04 Seg Neutrophils % [facility] 10/18/20 06:04 Seg Neuts % (Manual) 97.0 % (40.0-70.0) H 10/18/20 06:04 Lymphocytes % (Manual) 10.0 % (13.4-35.0) L 10/10/20 16:31 Monocytes % (Manual) 3.0 % (0.0-7.3) 10/18/20 06:04 Eosinophils % (Manual) 1.0 % (0.0-4.3) 10/10/20 16:31 Basophils % (Manual) 1.0 % (0.0-1.8) 10/10/20 16:31 Nucleated RBC % 15.0 % (0.0-0.9) H 10/18/20 06:04 Seg Neutrophils # 1.1 K/mm3 (1.8-7.7) L 10/11/20 05:40 Seg Neutrophils # Man 3.1 K/mm3 (1.8-7.7) 10/18/20 06:04 Band Neutrophils # 0.0 K/mm3 10/18/20 06:04 Lymphocytes # (Manual) 0.0 K/mm3 (1.2-5.4) L 10/18/20 06:04 Abs React Lymphs (Man) 0.0 K/mm3 10/18/20 06:04 Monocytes # (Manual) 0.1 K/mm3 (0.0-0.8) 10/18/20 06:04 Eosinophils # (Manual) 0.0 K/mm3 (0.0-0.4) 10/18/20 06:04 Basophils # (Manual) 0.0 K/mm3 (0.0-0.1) 10/18/20 06:04 Metamyelocytes # 0.0 K/mm3 10/18/20 06:04 Myelocytes # 0.0 K/mm3 10/18/20 06:04 Promyelocytes # 0.0 K/mm3 10/18/20 06:04 Blast Cells # 0.0 K/mm3 10/18/20 06:04 WBC Morphology Not Reportable 10/18/20 06:04 Hypersegmented Neuts Not Reportable 10/18/20 06:04 Hyposegmented Neuts Not Reportable 10/18/20 06:04 Hypogranular Neuts Not Reportable 10/18/20 06:04 Smudge Cells Not Reportable 10/18/20 06:04 Toxic Granulation Not Reportable 10/18/20 06:04 Toxic Vacuolation Not Reportable 10/18/20 06:04 Dohle Bodies Not Reportable 10/18/20 06:04 Pelger-Huet Anomaly Not Reportable 10/18/20 06:04 Javon Rods Not Reportable 10/18/20 06:04 Platelet Estimate Consistent w auto 10/18/20 06:04 Clumped Platelets Not Reportable 10/18/20 06:04 Plt Clumps, EDTA Not Reportable 10/18/20 06:04 Large Platelets Not Reportable 10/18/20 06:04 Giant Platelets Not Reportable 10/18/20 06:04 Platelet Satelliting Not Reportable 10/18/20 06:04 Plt Morphology Comment Not Reportable 10/18/20 06:04 RBC Morphology Not Reportable 10/18/20 06:04 Dimorphic RBCs Not Reportable 10/18/20 06:04 Polychromasia Not Reportable 10/18/20 06:04 Hypochromasia Not Reportable 10/18/20 06:04 Poikilocytosis Not Reportable 10/18/20 06:04 Anisocytosis 1+ 10/18/20 06:04 Microcytosis Not Reportable 10/18/20 06:04 Macrocytosis Not Reportable 10/18/20 06:04 Spherocytes Not Reportable 10/18/20 06:04 Pappenheimer Bodies Not Reportable 10/18/20 06:04 Sickle Cells Not Reportable 10/18/20 06:04 Target Cells Not Reportable 10/18/20 06:04 Tear Drop Cells Not Reportable 10/18/20 06:04 Ovalocytes Not Reportable 10/18/20 06:04 Helmet Cells Not Reportable 10/18/20 06:04 Arora-Branford Bodies Not Reportable 10/18/20 06:04 Galax Rings Not Reportable 10/18/20 06:04 Edna Cells Not Reportable 10/18/20 06:04 Bite Cells Not Reportable 10/18/20 06:04 Crenated Cell Not Reportable 10/18/20 06:04 Elliptocytes Not Reportable 10/18/20 06:04 Acanthocytes (Spur) Not Reportable 10/18/20 06:04 Rouleaux Not Reportable 10/18/20 06:04 Hemoglobin C Crystals Not Reportable 10/18/20 06:04 Schistocytes Not Reportable 10/18/20 06:04 Malaria parasites Not Reportable 10/18/20 06:04 Lit Bodies Not Reportable 10/18/20 06:04 Hem Pathologist Commnt No 10/18/20 06:04 D-Dimer 2351.86 ng/mlDDU (0-234) H 10/10/20 17:54 Sodium 136 mmol/L (137-145) L 10/18/20 06:04 Potassium 3.5 mmol/L (3.6-5.0) L 10/18/20 06:04 Chloride 108.4 mmol/L (98-107) H 10/18/20 06:04 Carbon Dioxide 18 mmol/L (22-30) L 10/18/20 06:04 Anion Gap 13 mmol/L 10/18/20 06:04 BUN 18 mg/dL (9-20) 10/18/20 06:04 Creatinine 0.6 mg/dL (0.8-1.3) L 10/18/20 06:04 Estimated GFR > 60 ml/min 10/18/20 06:04 BUN/Creatinine Ratio 30 % 10/18/20 06:04 Glucose 132 mg/dL (75-100) H 10/18/20 06:04 POC Glucose 120 mg/dL (70-105) H 10/12/20 15:42 Calcium 6.1 mg/dL (8.4-10.2) L 10/18/20 06:04 Magnesium 1.20 mg/dL (1.7-2.3) L 10/18/20 06:04 Ferritin 2608.0 ng/mL (30.0-300.0) H 10/10/20 17:54 Total Bilirubin 0.20 mg/dL (0.1-1.2) 10/18/20 06:04 AST 52 units/L (5-40) H 10/18/20 06:04 ALT 187 units/L (7-56) H 10/18/20 06:04 Alkaline Phosphatase 267 units/L (35-129) H 10/18/20 06:04 Lactate Dehydrogenase 233 units/L (91-180) H 10/10/20 17:54 Total Creatine Kinase 60 units/L (55-170) 10/16/20 08:16 C-Reactive Protein 0.40 mg/dL (0.00-1.30) 10/16/20 17:23 Total Protein 5.9 g/dL (6.3-8.2) L D 10/18/20 06:04 Albumin 1.7 g/dL (3.9-5) L 10/18/20 06:04 Albumin/Globulin Ratio 0.4 % 10/18/20 06:04 Procalcitonin 0.61 ng/mL (<0.15) 10/14/20 14:54 Urine Color Yellow (Yellow) 10/11/20 Unknown Urine Turbidity Cloudy (Clear) 10/11/20 Unknown Urine pH 5.0 (5.0-7.0) 10/11/20 Unknown Ur Specific [place] 1.019 (1.003-1.030) 10/11/20 Unknown Urine Protein 30 mg/dl mg/dL (Negative) 10/11/20 Unknown Urine Glucose (UA) Neg mg/dL (Negative) 10/11/20 Unknown Urine Ketones Neg mg/dL (Negative) 10/11/20 Unknown Urine Blood Sm (Negative) 10/11/20 Unknown Urine Nitrite Neg (Negative) 10/11/20 Unknown Urine Bilirubin Neg (Negative) 10/11/20 Unknown Urine Urobilinogen < 2.0 mg/dL (<2.0) 10/11/20 Unknown Ur Leukocyte Esterase Tr (Negative) 10/11/20 Unknown Urine WBC (Auto) 36.0 /HPF (0.0-6.0) H 10/11/20 Unknown Urine RBC (Auto) 129.0 /HPF (0.0-6.0) 10/11/20 Unknown U Epithel Cells (Auto) 1.0 /HPF (0-13.0) 10/11/20 Unknown Urine Bacteria (Auto) 2+ /HPF (Negative) 10/11/20 Unknown Urine Mucus Few /HPF 10/11/20 Unknown Urine Yeast (Budding) 2+ /HPF 10/11/20 Unknown Coronavirus (PCR) Negative (Negative) 10/11/20 08:32 HIV 1&2 Antibody Rapid Non react (Non React) 10/16/20 17:23 HIV P24 Antigen Non react (Non React) 10/16/20 17:23 Blood Type B POSITIVE 10/11/20 13:07 Antibody Screen Negative 10/11/20 13:07 Microbiology: Microbiology 10/18/20 15:04 Peripheral/Venous Blood Culture - Preliminary Culture in Progress 10/18/20 15:04 Peripheral/Venous Blood Culture - Preliminary Culture in Progress [place]/IV: Voiding Method Indwelling Catheter Active Medications - Current Medications Current Medications: Generic Name Dose Route Start Last Admin Trade Name Freq PRN Reason Stop Dose Admin Acetaminophen 650 mg 10/10/20 19:46 10/19/20 05:48 Acetaminophen 325 Mg Tab PO 650 mg Q4H PRN Administration Pain MILD(1-3)/Fever >100.5/KINNEY Albuterol 2.5 mg 10/10/20 19:46 Albuterol 2.5 Mg/3 Ml Nebu IH Q4HRT PRN Shortness Of Breath Aspirin 81 mg 10/18/20 15:00 10/18/20 18:03 Aspirin Ec 81 Mg Tab PO 81 mg QDAY THEE Administration Carvedilol 3.125 mg 10/17/20 22:00 10/18/20 21:49 Carvedilol 3.125 Mg Tab PO 3.125 mg BID THEE Administration Sodium Chloride 1,000 mls @ 125 mls/hr 10/12/20 11:00 10/17/20 22:55 Nacl 0.45% 1000 Ml IV 125 mls/hr DIRECT THEE Administration Daptomycin 560 mg/ Sodium 100 mls @ 200 mls/hr 10/15/20 12:30 10/18/20 11:35 Chloride IV 200 mls/hr Q24H THEE Administration Protocol Lisinopril 2.5 mg 10/18/20 10:00 10/18/20 11:34 Lisinopril 5 Mg Tab PO 2.5 mg QDAY THEE Administration Methylprednisolone Sodium Succinate 40 mg 10/10/20 22:00 10/19/20 05:48 Methylprednisolone Sod Succinate 40 Mg/1 Ml Inj IV 40 mg Q8HR THEE Administration Ondansetron HCl 4 mg 10/10/20 19:46 Ondansetron 4 Mg/2 Ml Inj IV Q8H PRN Nausea And Vomiting Phenol 1 spray 10/15/20 14:54 10/18/20 21:53 Phenol 1.4% 177 Ml Bottle MM 1 spray PRN PRN Administration Sore Throat Sodium Chloride 10 ml 10/10/20 22:00 10/18/20 21:49 Sodium Chloride 0.9% 10 Ml Flush Syringe IV 10 ml BID THEE Administration Sodium Chloride 10 ml 10/10/20 19:46 Sodium Chloride 0.9% 10 Ml Flush Syringe IV PRN PRN LINE FLUSH Spironolactone 25 mg 10/18/20 15:00 10/18/20 18:06 Spironolactone 25 Mg Tab PO Not Given QDAY THEE Nutrition/Malnutrition Assess - Dietary Evaluation Nutrition/Malnutrition Findings: Nutrition Notes Start: 10/11/20 12:16 Freq: Status: Active Protocol: Document 10/17/20 12:36 (Rec: 10/17/20 13:20 [id number]) Nutrition Notes Initial or Follow up Reassessment Current Diagnosis Acute Kidney Injury,Diabetes Other Pertinent Diagnosis SIRS, pneu, r/o COVID-19 Current Diet Consistent Carbohydrate Diet + Glucerna Labs/Tests 10/15: BUN 32 Pertinent Medications 1/2 NS at 125 ml/hr Height 5 ft 6 in Weight 69.5 kg [place] Body Weight (kg) 64.54 BMI 24.7 Weight change and time frame Wt change noted. Will follow for trends Subjective/Other Information Pt did not answer phone. RN reports pt intake is "fair" and noted Glucerna not yet consumed. RN unsure of ONS intakes from yesterday. Percent of energy/protein needs met: 72%/81% (excludes ONS) Burn Absent Trauma Absent Current % PO Fair (50-74%) Minimum of two criteria Yes Body Fat Depletion Moderate depletion (severe) Protein-Calorie Malnutrition Severe #1 Nutrition Diagnosis Malnutrition Diagnosis Progress(for reassessment Continues documentation) Is patient on ventilator? No Is Patient Ambulatory and/or Out of Bed Yes REE-([facility]-ambulatory/OOB) [ 1901.575 [id number]] Kcal/Kg value to use for calculation 31 Approximate Energy Requirements Using 2155 kcal/Kg Calculation Used for Recommendations Kcal/kg Additional Notes Pro needs 1.2-1.5g/k-104g /day Fluid needs 1ml/kcal Nutrition Intervention Change Diet Order: Continue current diet order Add Supplement/Snack (indicate name/kcal Glucerna TID /protein ) Provides kCal: 660 Provides Protein (gm) 30 Goal #1 PO intake of meals plus ONS to meet 75-100% energy and pro needs Goal #2 Wt maintenance and/or gain Follow-Up By: 10/21/20 Additional Comments FU for intakes
--- NOTE | 2020-10-19 10:32 | Progress Note ---
Assessment and Plan 1. Chronic combined systolic and diastolic heart failure 2. Dilated cardiomyopathy left ventricular ejection fraction 20 to 25% 3. Bilateral pneumonitis 4. Chronic malnutrition 5. Altered mental status Plan. Continue guideline directed medical therapy for chronic combined systolic diastolic heart failure management of infectious process and pneumonia as per infectious disease note. Subjective Date of service: 10/19/20 Principal diagnosis: Altered sensorium Interval history: Patient is alert, ill looking and communicates poorly. Denies any specific symptoms Objective Vital Signs Temp Pulse Resp BP BP Pulse Ox 10/19/20 05:47 97.4 F L 75 18 121/63 100 10/18/20 21:49 80 10/18/20 21:41 97.4 F L 78 18 102/67 100 10/18/20 18:06 74 99/69 10/18/20 11:34 80 125/89 10/18/20 11:32 98.0 F 79 18 125/89 100 - Physical Examination General: No Apparent Distress, Cachectic HEENT: Positive: PERRL, Mucus Membranes Moist Neck: Positive: trachea midline. Negative: JVD/HJR Cardiac: Positive: Regular Rate, irregularly irregular, S3, PMI, Dilated, Laterally Displaced Lungs: Positive: clear to auscultation, No Wheeze, Rales, Rhonchi Neuro: Positive: Weakness Abdomen: Positive: Soft, Active Bowel Sounds Extremities: Absent: edema
[2020-10-19] MEDS: SPIRONOLACTONE 25 MG TAB PO SCH (11:00)
[2020-10-19] MEDS: carvediloL 3.125 MG TAB PO SCH ×2 (11:00→22:13)
[2020-10-19] MEDS: LISINOPRIL 5 MG TAB PO SCH (11:01)
[2020-10-19] MEDS: ASPIRIN EC 81 MG TAB PO SCH (11:06)
[2020-10-20] MEDS: methylPREDNISolone Sod Succinate 40 MG/1 ML INJ IV SCH ×3 (05:36→21:12)
[2020-10-20 05:47] LABS: Hemoglobin 6.4 gm/dl (11.8-15.2); Mean Corpuscular HGB Conc 34 % (32-34); Mean Corpuscular Volume 91 fl (84-94); Platelet Count 108 K/mm3 (140-440); Red Cell Distribution Width 18.9 % (13.2-15.2)
[2020-10-20 06:00] LABS: Alanine Aminotransferase 267 units/L (7-56); Albumin 1.7 g/dL (3.9-5); Blood Urea Nitrogen 15 mg/dL (9-20); Hemolysis Index 7
[2020-10-20 06:01] LABS: BUN/Creatinine Ratio 25
[2020-10-20 06:03] LABS: Hematocrit 19.1 % (35.5-45.6)
[2020-10-20] MEDS ORDERED: SODIUM CHLORIDE 0.9% 500 ML 500 ML IV ONE (06:09)
[2020-10-20 07:03] LABS: Total Cells Counted 100
[2020-10-20 07:04] LABS: Anisocytosis 1+; Platelet Estimate Consistent w Auto
[2020-10-20] MEDS: SPIRONOLACTONE 25 MG TAB PO SCH (10:02)
[2020-10-20] MEDS: LISINOPRIL 5 MG TAB PO SCH (10:02)
[2020-10-20] MEDS: carvediloL 3.125 MG TAB PO SCH ×2 (10:02→21:11)
[2020-10-20] MEDS: ASPIRIN EC 81 MG TAB PO SCH (10:07)
[2020-10-20] MEDS: BENZOCAINE/MENTHOL LOZENGE MM PRN ×2 (10:12→18:33)
--- NOTE | 2020-10-20 10:27 | Progress Note ---
Assessment and Plan 1. Chronic combined systolic and diastolic heart failure 2. Dilated cardiomyopathy left ventricular ejection fraction 20 to 25% 3. Bilateral pneumonitis 4. Chronic malnutrition 5. Altered mental status Plan. Continue guideline directed medical therapy for chronic combined systolic diastolic heart failure management of infectious process and pneumonia as per infectious disease note. Subjective Date of service: 10/20/20 Principal diagnosis: Altered sensorium Interval history: Patient is alert, ill looking and communicates poorly. Denies any specific symptoms Objective Vital Signs Temp Pulse Resp Resp BP BP Pulse Ox 10/20/20 08:48 97.8 F 77 20 112/72 100 10/20/20 06:02 97.9 F 71 20 120/72 98 10/19/20 22:13 67 115/76 10/19/20 22:03 97.8 F 67 18 115/76 100 10/19/20 22:00 17 18 100 10/19/20 18:42 97.7 F 52 L 20 133/80 97 10/19/20 11:01 115/69 10/19/20 11:00 115/69 10/19/20 10:58 20 10/19/20 10:57 97.5 F L 66 115/69 92 - Physical Examination General: No Apparent Distress, Cachectic HEENT: Positive: PERRL, Mucus Membranes Moist Neck: Positive: trachea midline. Negative: JVD/HJR Cardiac: Positive: Regular Rate, S1/S2, S3, PMI, Dilated, Laterally Displaced Lungs: Positive: clear to auscultation, No Wheeze, Rales, Rhonchi Neuro: Positive: Weakness Abdomen: Positive: Soft, Active Bowel Sounds Extremities: Absent: edema - Labs and Meds Cardiac Enzymes 10/20/20 Range/Units 04:51 AST 71 H (5-40) units/L CBC 10/20/20 Range/Units 04:51 WBC 4.1 L (4.5-11.0) K/mm3 RBC 2.10 L (3.65-5.03) M/mm3 Hgb 6.4 L (11.8-15.2) gm/dl Hct 19.1 L* (35.5-45.6) % Plt Count 108 L (140-440) K/mm3 Comprehensive Metabolic Panel 10/19/20 10/20/20 Range/Units 10:19 04:51 Sodium 139 (137-145) mmol/L Potassium 3.7 3.8 (3.6-5.0) mmol/L Chloride 108.5 H (98-107) mmol/L Carbon Dioxide 20 L (22-30) mmol/L BUN 15 (9-20) mg/dL Creatinine 0.6 L (0.8-1.3) mg/dL Glucose 150 H (75-100) mg/dL Calcium 6.0 L (8.4-10.2) mg/dL AST 71 H (5-40) units/L ALT 267 H (7-56) units/L Alkaline Phosphatase 318 H (35-129) units/L Total Protein 5.9 L (6.3-8.2) g/dL Albumin 1.7 L (3.9-5) g/dL
[2020-10-20] MEDS ORDERED: SODIUM CHLORIDE 0.9% 500 ML 500 ML ONE (11:37)
--- NOTE | 2020-10-20 13:13 | Progress Note ---
Assessment and Plan Cultures: SARS CoV2 PCR: Negative HIV: Negative 10/10/2020 blood culture: VRE 2 out of 4 bottles 10/10/2020 urine culture: Magali 10/14/2020 blood culture no growth today 10/14/2020 blood culture: GPC 3 of 4 10/18/2020 blood culture: No growth today A/P: 55-year-old male with diabetes, malnutrition, resident of an assisted living facility was brought into the emergency room with complaints of sore throat and back pain: #VRE bacteremia: Very unclear source. ?recent T10-T12 fusion and L1-L2 surgery (noted surgical sutures on his back, pt is not able to elaborate, only reported surgery was done at [facility]. FLORESITA negative. Repeat blood cx 10/14 positive. Repeat blood cx 10/[address] shows a bone cage and fixation from T10-T12, chronic pathologic fracture L5. No obvious discitis, osteomyelitis, abscess. MRI no abscess, discitis, osteomyelitis +compression deformities at several levels, mainly L5. #UTI: Urine culture grew Magali. Renal ultrasound with mild right pelvic caliectasis and echogenic right kidney. #Bilateral pneumonia: ?CAP vs aspiration. Not hypoxic. Leukopenia. SARS-CoV-2 PCR negative. Chest x-ray with bibasilar opacities left more than right. #Pancytopenia: suspect multiple myeloma. CT with multifocal lucent lesions, L5 pathologic fracture. Baseline WBC is unknown. HIV negative x 2 . Severe anemia now receiving blood transfusions. #NELSY: Renally dose antibiotics. Resolved. #Transaminitis: With elevation of alkaline phosphatase. RUQ ultrasound ordered #Chronic malnutrition; BMI of 16.1. HIV neg x 2. #Headache, double vision: resolved. CT head unremarkable. Recs: -Hem consult re: pancytopenia, suspect MM now with severe anemia -Request records from [facility] urgent - pending/discussed with accordion maker -Continue daptomycin at 8 mg/kg daily -Cannot do linezolid due to pancytopenia -Completed ceftriaxone, azithromycin for pneumonia -Completed Fluconazole p.o. x3 days for UTI -Anticipate to d/c on daptomycin 600 mg IV daily total 14 days till 11/01/2020. Order sent to mattress spring encaser. will follow María Lay MD [facility] ([facility]) Office [phone] Subjective Date of service: 10/20/20 Principal diagnosis: Altered sensorium Interval history: Patient feels ok, remains c/o back pain. No fever. Received blood transfusion Objective - Exam Narrative Exam: General appearance: Alert in NAD cachetic Eyes: anicteric sclerae, moist conjunctivae; no lid-lag; PERRLA HENT: Normocephalic, Atraumatic; normal external ears, nares open, oropharynx limited Neck: supple, tracheal midline, no JVD Lungs: Diminished breath sound bilaterally CV: RRR no murmur Abdomen: Nontender Extremities: left toes tenderness Skin: mid and lower back sutures parallel to the spine Psych: no agitated Neuro: alert and oriented x 3. Moving all extermities - Constitutional Vitals: Vital Signs Temp Pulse Resp BP Pulse Ox 98.6 F 70 20 130/91 99 10/20/20 12:35 10/20/20 12:35 10/20/20 12:35 10/20/20 12:35 10/20/20 12:35 Temperature -Last 24 Hours Temperature 98.6 F Temperature 98.7 F Temperature 97.8 F Temperature 97.9 F Temperature 97.8 F Temperature 97.7 F - Labs CBC & Chem 7: 10/20/20 04:51 10/20/20 04:51 Labs: Abnormal lab results 10/20/20 10/20/20 10/20/20 Range/Units 04:51 04:51 06:26 WBC 4.1 L (4.5-11.0) K/mm3 RBC 2.10 L (3.65-5.03) M/mm3 Hgb 6.4 L (11.8-15.2) gm/dl Hct 19.1 L* (35.5-45.6) % RDW 18.9 H (13.2-15.2) % Plt Count 108 L (140-440) K/mm3 Seg Neuts % (Manual) 98.0 H (40.0-70.0) % Lymphocytes % (Manual) 2.0 L (13.4-35.0) % Nucleated RBC % 6.0 H (0.0-0.9) % Lymphocytes # (Manual) 0.1 L (1.2-5.4) K/mm3 Chloride 108.5 H (98-107) mmol/L Carbon Dioxide 20 L (22-30) mmol/L Creatinine 0.6 L (0.8-1.3) mg/dL Glucose 150 H (75-100) mg/dL Calcium 6.0 L (8.4-10.2) mg/dL AST 71 H (5-40) units/L ALT 267 H (7-56) units/L Alkaline Phosphatase 318 H (35-129) units/L Total Protein 5.9 L (6.3-8.2) g/dL Albumin 1.7 L (3.9-5) g/dL Crossmatch See Detail
--- NOTE | 2020-10-20 17:41 | Progress Note ---
Assessment and Plan Assessment and plan: --Anemia; Hb 6.4 today baseline 7.0 Current Visit: Yes Status: Acute type and cross, transfuse 1 unit PRBC, check H&H, transfuse additional as needed Hematology consult --Sepsis due to persistent bacteremia Current Visit: Yes Status: Acute Continue daptomycin per ID FLORESITA negative for endocarditis Cardiology consult appreciated --VRE bacteremia; Current Visit: Yes Status: Acute Unable to treat with linezolid secondary to thrombocytopenia. ID recommended daptomycin for total 14 days ending 11/01/2020 --Pancytopenia; Current Visit: Yes Status: Acute probably due to underlying HIV/sepsis/persistent bacteremia Treat the underlying cause Hematology consult inpatient versus outpatient --Acute systolic CHF/ EF 20 to 25% Current Visit: Yes Status: Acute antifailure medication with diuretic, beta-blockers, LALITHA inhibitors, input output monitoring, low-sodium diet,fluid restriction. Cardiology consult noted and appreciated --History of recent spinal surgery: at [facility] Current Visit: Yes Status: chr T10 T12, L1-L2 surgery, surgical sutures on the back Wound care, continue antibiotics, request records from [facility] --UTI/ur cultures grew Magali Current Visit: Yes Status: Acute Continue Diflucan , supportive care/ --Acute kidney injury (NELSY) due to ATN Current Visit: Yes Status: Acute Resolved, closely monitor renal function Avoid nephrotoxins --Multiple myeloma vs metastatic disease[on CT chest and abdomen] Current Visit: Yes Status: Acute requested medical records from [facility] Patient unable to give proper history unable to contact family, Hematology consult inpatient versus outpatient -- Severe protein calorie malnutrition Current Visit: Yes Status: Acute Albumin 1.7 nutrition supplements ,, nutrition consult --Pneumonia Current Visit: Yes Status: Acute Completed 5 days of Rocephin and Zithromax Coronavirus PCR negative Follow cultures -- COVID-19 negative Current Visit: Yes Status: Acute Coronavirus PCR negative -- DVT prophylaxis Current Visit: Yes Status: Acute SCDs bilateral lower extremities while in bed, patient is ambulatory We will closely monitor the patient and adjust management as needed Plan of care reviewed with the patient and his nurse Sales Special Agent recommendations noted Follow cardiology evaluation recommendations 10/16/2020; sepsis secondary to VRE bacteremia, UTI and pneumonia Continue current antibiotics per ID, contact isolation due to VRE 10/17/2020; patient is more alert and awake today, feels better CT abdomen and pelvis findings noted continue current antibiotics Physical therapy, Occupational Therapy as tolerated 10/18/2020; cardiology evaluations appreciated FLORESITA negative for endocarditis, cardiology started goal-directed CHF treatment 10/19/2020; persistent bacteremia, FLORESITA negative for endocarditis Continue ID cardiology recommendations Patient complains of some sore throat, Cepacol throat spray and Cepacol lozenges 10/20/2020; anemia, hemoglobin 6.4, transfuse 1 unit PRBC Closely monitor H&H transfuse additional PRBC as needed Pancytopenia, hematology consult inpatient versus outpatient History Interval history: I have seen and examined the patient at the bedside Patient's chart and medications reviewed Persistent bacteremia FLORESITA negative for endocarditis Anemia, Hb of 6.4 Patient needs 1 unit PRBC transfusion Hospitalist Physical - Constitutional Vitals: Temp Pulse Resp BP Pulse Ox 98.5 F 71 20 128/87 99 10/20/20 15:35 10/20/20 15:35 10/20/20 15:35 10/20/20 15:35 10/20/20 15:35 General appearance: Present: no acute distress, cachectic, other (More alert and awake today) - EENT Eyes: Present: PERRL, EOM intact - Neck Neck: Present: supple, normal ROM - Respiratory Respiratory effort: normal Respiratory: bilateral: diminished, negative: rales, rhonchi, wheezing - Cardiovascular Rhythm: regular Heart Sounds: Present: S1 & S2 - Extremities Extremities: no ischemia, No edema - Abdominal General gastrointestinal: soft, non-tender, non-distended, normal bowel sounds - Integumentary Integumentary: Present: clear, warm - Psychiatric Psychiatric: appropriate mood/affect, cooperative - Neurologic Neurologic: CNII-XII intact, moves all extremities Results - Labs CBC & Chem 7: 10/21/20 04:33 10/21/20 04:33 Labs: Laboratory Last Values WBC 4.1 K/mm3 (4.5-11.0) L 10/20/20 04:51 RBC 2.10 M/mm3 (3.65-5.03) L 10/20/20 04:51 Hgb 6.4 gm/dl (11.8-15.2) L 10/20/20 04:51 Hct 19.1 % (35.5-45.6) L* 10/20/20 04:51 MCV 91 fl (84-94) 10/20/20 04:51 MCH 31 pg (28-32) 10/20/20 04:51 MCHC 34 % (32-34) 10/20/20 04:51 RDW 18.9 % (13.2-15.2) H 10/20/20 04:51 Plt Count 108 K/mm3 (140-440) L 10/20/20 04:51 Lymph % (Auto) 10.1 % (13.4-35.0) L 10/11/20 05:40 [place] % (Auto) 1.4 % (0.0-7.3) 10/11/20 05:40 Eos % (Auto) 1.6 % (0.0-4.3) 10/11/20 05:40 Baso % (Auto) 0.5 % (0.0-1.8) 10/11/20 05:40 Lymph # (Auto) 0.1 K/mm3 (1.2-5.4) L 10/11/20 05:40 [place] # (Auto) 0.0 K/mm3 (0.0-0.8) 10/11/20 05:40 Eos # (Auto) 0.0 K/mm3 (0.0-0.4) 10/11/20 05:40 Baso # (Auto) 0.0 K/mm3 (0.0-0.1) 10/11/20 05:40 Add Manual Diff Complete 10/20/20 04:51 Total Counted 100 10/20/20 04:51 Seg Neutrophils % Steam Box Tender 10/20/20 04:51 Seg Neuts % (Manual) 98.0 % (40.0-70.0) H 10/20/20 04:51 Lymphocytes % (Manual) 2.0 % (13.4-35.0) L 10/20/20 04:51 Monocytes % (Manual) 3.0 % (0.0-7.3) 10/18/20 06:04 Eosinophils % (Manual) 1.0 % (0.0-4.3) 10/10/20 16:31 Basophils % (Manual) 1.0 % (0.0-1.8) 10/10/20 16:31 Nucleated RBC % 6.0 % (0.0-0.9) H 10/20/20 04:51 Seg Neutrophils # 1.1 K/mm3 (1.8-7.7) L 10/11/20 05:40 Seg Neutrophils # Man 4.0 K/mm3 (1.8-7.7) 10/20/20 04:51 Band Neutrophils # 0.0 K/mm3 10/20/20 04:51 Lymphocytes # (Manual) 0.1 K/mm3 (1.2-5.4) L 10/20/20 04:51 Abs React Lymphs (Man) 0.0 K/mm3 10/20/20 04:51 Monocytes # (Manual) 0.0 K/mm3 (0.0-0.8) 10/20/20 04:51 Eosinophils # (Manual) 0.0 K/mm3 (0.0-0.4) 10/20/20 04:51 Basophils # (Manual) 0.0 K/mm3 (0.0-0.1) 10/20/20 04:51 Metamyelocytes # 0.0 K/mm3 10/20/20 04:51 Myelocytes # 0.0 K/mm3 10/20/20 04:51 Promyelocytes # 0.0 K/mm3 10/20/20 04:51 Blast Cells # 0.0 K/mm3 10/20/20 04:51 WBC Morphology Not Reportable 10/20/20 04:51 Hypersegmented Neuts Not Reportable 10/20/20 04:51 Hyposegmented Neuts Not Reportable 10/20/20 04:51 Hypogranular Neuts Not Reportable 10/20/20 04:51 Smudge Cells Not Reportable 10/20/20 04:51 Toxic Granulation Not Reportable 10/20/20 04:51 Toxic Vacuolation Not Reportable 10/20/20 04:51 Dohle Bodies Not Reportable 10/20/20 04:51 Pelger-Huet Anomaly Not Reportable 10/20/20 04:51 Javon Rods Not Reportable 10/20/20 04:51 Platelet Estimate Consistent w auto 10/20/20 04:51 Clumped Platelets Not Reportable 10/20/20 04:51 Plt Clumps, EDTA Not Reportable 10/20/20 04:51 Large Platelets Not Reportable 10/20/20 04:51 Giant Platelets Not Reportable 10/20/20 04:51 Platelet Satelliting Not Reportable 10/20/20 04:51 Plt Morphology Comment Not Reportable 10/20/20 04:51 RBC Morphology Not Reportable 10/20/20 04:51 Dimorphic RBCs Not Reportable 10/20/20 04:51 Polychromasia Not Reportable 10/20/20 04:51 Hypochromasia Not Reportable 10/20/20 04:51 Poikilocytosis Not Reportable 10/20/20 04:51 Anisocytosis 1+ 10/20/20 04:51 Microcytosis Not Reportable 10/20/20 04:51 Macrocytosis Not Reportable 10/20/20 04:51 Spherocytes Not Reportable 10/20/20 04:51 Pappenheimer Bodies Not Reportable 10/20/20 04:51 Sickle Cells Not Reportable 10/20/20 04:51 Target Cells Not Reportable 10/20/20 04:51 Tear Drop Cells Not Reportable 10/20/20 04:51 Ovalocytes Not Reportable 10/20/20 04:51 Helmet Cells Not Reportable 10/20/20 04:51 [place] Bodies Not Reportable 10/20/20 04:51 [place] Rings Not Reportable 10/20/20 04:51 Edna Cells Not Reportable 10/20/20 04:51 Bite Cells Not Reportable 10/20/20 04:51 Crenated Cell Not Reportable 10/20/20 04:51 Elliptocytes Not Reportable 10/20/20 04:51 Acanthocytes (Spur) Not Reportable 10/20/20 04:51 Rouleaux Not Reportable 10/20/20 04:51 Hemoglobin C Crystals Not Reportable 10/20/20 04:51 Schistocytes Not Reportable 10/20/20 04:51 Malaria parasites Not Reportable 10/20/20 04:51 Lit Bodies Not Reportable 10/20/20 04:51 Hem Pathologist Commnt No 10/20/20 04:51 D-Dimer 2351.86 ng/mlDDU (0-234) H 10/10/20 17:54 Sodium 139 mmol/L (137-145) 10/20/20 04:51 Potassium 3.8 mmol/L (3.6-5.0) 10/20/20 04:51 Chloride 108.5 mmol/L (98-107) H 10/20/20 04:51 Carbon Dioxide 20 mmol/L (22-30) L 10/20/20 04:51 Anion Gap 14 mmol/L 10/20/20 04:51 BUN 15 mg/dL (9-20) 10/20/20 04:51 Creatinine 0.6 mg/dL (0.8-1.3) L 10/20/20 04:51 Estimated GFR > 60 ml/min 10/20/20 04:51 BUN/Creatinine Ratio 25 % 10/20/20 04:51 Glucose 150 mg/dL (75-100) H 10/20/20 04:51 POC Glucose 120 mg/dL (70-105) H 10/12/20 15:42 Calcium 6.0 mg/dL (8.4-10.2) L 10/20/20 04:51 Magnesium 1.50 mg/dL (1.7-2.3) L 10/19/20 10:19 Ferritin 2608.0 ng/mL (30.0-300.0) H 10/10/20 17:54 Total Bilirubin < 0.20 mg/dL (0.1-1.2) 10/20/20 04:51 AST 71 units/L (5-40) H 10/20/20 04:51 ALT 267 units/L (7-56) H 10/20/20 04:51 Alkaline Phosphatase 318 units/L (35-129) H 10/20/20 04:51 Lactate Dehydrogenase 233 units/L (91-180) H 10/10/20 17:54 Total Creatine Kinase 60 units/L (55-170) 10/16/20 08:16 C-Reactive Protein 0.40 mg/dL (0.00-1.30) 10/16/20 17:23 Total Protein 5.9 g/dL (6.3-8.2) L 10/20/20 04:51 Albumin 1.7 g/dL (3.9-5) L 10/20/20 04:51 Albumin/Globulin Ratio 0.4 % 10/20/20 04:51 Procalcitonin 0.61 ng/mL (<0.15) 10/14/20 14:54 Urine Color Yellow (Yellow) 10/11/20 Unknown Urine Turbidity Cloudy (Clear) 10/11/20 Unknown Urine pH 5.0 (5.0-7.0) 10/11/20 Unknown Ur Specific [place] 1.019 (1.003-1.030) 10/11/20 Unknown Urine Protein 30 mg/dl mg/dL (Negative) 10/11/20 Unknown Urine Glucose (UA) Neg mg/dL (Negative) 10/11/20 Unknown Urine Ketones Neg mg/dL (Negative) 10/11/20 Unknown Urine Blood Sm (Negative) 10/11/20 Unknown Urine Nitrite Neg (Negative) 10/11/20 Unknown Urine Bilirubin Neg (Negative) 10/11/20 Unknown Urine Urobilinogen < 2.0 mg/dL (<2.0) 10/11/20 Unknown Ur Leukocyte Esterase Tr (Negative) 10/11/20 Unknown Urine WBC (Auto) 36.0 /HPF (0.0-6.0) H 10/11/20 Unknown Urine RBC (Auto) 129.0 /HPF (0.0-6.0) 10/11/20 Unknown U Epithel Cells (Auto) 1.0 /HPF (0-13.0) 10/11/20 Unknown Urine Bacteria (Auto) 2+ /HPF (Negative) 10/11/20 Unknown Urine Mucus Few /HPF 10/11/20 Unknown Urine Yeast (Budding) 2+ /HPF 10/11/20 Unknown Coronavirus (PCR) Negative (Negative) 10/11/20 08:32 HIV 1&2 Antibody Rapid Non react (Non React) 10/16/20 17:23 HIV P24 Antigen Non react (Non React) 10/16/20 17:23 Blood Type B POSITIVE 10/20/20 06:26 Antibody Screen Negative 10/20/20 06:26 Crossmatch See Detail 10/20/20 06:26 Microbiology: Microbiology 10/10/20 17:54 Peripheral/Venous Blood Culture - Final Enterococcus Faecium 10/18/20 19:50 Urine,Clean Catch Urine Culture - Preliminary 10/18/20 15:04 Peripheral/Venous Blood Culture - Preliminary NO GROWTH AFTER 48 HOURS 10/18/20 15:04 Peripheral/Venous Blood Culture - Preliminary NO GROWTH AFTER 48 HOURS 10/10/20 17:54 Peripheral/Venous Blood Culture - Preliminary Enterococcus Faecium 10/14/20 14:54 Peripheral/Venous Blood Culture - Preliminary 10/14/20 14:54 Peripheral/Venous Blood Culture - Preliminary [place]/IV: Voiding Method Indwelling Catheter Active Medications - Current Medications Current Medications: Generic Name Dose Route Start Last Admin Trade Name Freq PRN Reason Stop Dose Admin Acetaminophen 650 mg 10/10/20 19:46 10/19/20 05:48 Acetaminophen 325 Mg Tab PO 650 mg Q4H PRN Administration Pain MILD(1-3)/Fever >100.5/KINNEY Albuterol 2.5 mg 10/10/20 19:46 Albuterol 2.5 Mg/3 Ml Nebu IH Q4HRT PRN Shortness Of Breath Aspirin 81 mg 10/18/20 15:00 10/20/20 10:07 Aspirin Ec 81 Mg Tab PO 81 mg QDAY THEE Administration Benzocaine/Menthol 1 each 10/19/20 17:49 10/20/20 10:12 Benzocaine/Menthol Lozenge MM 1 each Q2HR PRN Administration Sore Throat Carvedilol 3.125 mg 10/17/20 22:00 10/20/20 10:02 Carvedilol 3.125 Mg Tab PO Not Given BID THEE Sodium Chloride 1,000 mls @ 125 mls/hr 10/12/20 11:00 10/17/20 22:55 Nacl 0.45% 1000 Ml IV 125 mls/hr DIRECT THEE Administration Daptomycin 560 mg/ Sodium 100 mls @ 200 mls/hr 10/15/20 12:30 10/20/20 16:01 Chloride IV 200 mls/hr Q24H THEE Administration Protocol Lisinopril 2.5 mg 10/18/20 10:00 10/20/20 10:02 Lisinopril 5 Mg Tab PO Not Given QDAY THEE Methylprednisolone Sodium Succinate 40 mg 10/10/20 22:00 10/20/20 16:01 Methylprednisolone Sod Succinate 40 Mg/1 Ml Inj IV Not Given Q8HR THEE Ondansetron HCl 4 mg 10/10/20 19:46 Ondansetron 4 Mg/2 Ml Inj IV Q8H PRN Nausea And Vomiting Phenol 1 spray 10/15/20 14:54 10/18/20 21:53 Phenol 1.4% 177 Ml Bottle MM 1 spray PRN PRN Administration Sore Throat Sodium Chloride 10 ml 10/10/20 22:00 10/20/20 10:08 Sodium Chloride 0.9% 10 Ml Flush Syringe IV 10 ml BID THEE Administration Sodium Chloride 10 ml 10/10/20 19:46 Sodium Chloride 0.9% 10 Ml Flush Syringe IV PRN PRN LINE FLUSH Spironolactone 25 mg 10/18/20 15:00 10/20/20 10:02 Spironolactone 25 Mg Tab PO Not Given QDAY THEE Nutrition/Malnutrition Assess - Dietary Evaluation Nutrition/Malnutrition Findings: Nutrition Notes Start: 10/11/20 12:16 Freq: Status: Active Protocol: Document 10/17/20 12:36 (Rec: 10/17/20 13:20 [id number]) Nutrition Notes Initial or Follow up Reassessment Current Diagnosis Acute Kidney Injury,Diabetes Other Pertinent Diagnosis SIRS, pneu, r/o COVID-19 Current Diet Consistent Carbohydrate Diet + Glucerna Labs/Tests 10/15: BUN 32 Pertinent Medications 1/2 NS at 125 ml/hr Height 5 ft 6 in Weight 69.5 kg [place] Body Weight (kg) 64.54 BMI 24.7 Weight change and time frame Wt change noted. Will follow for trends Subjective/Other Information Pt did not answer phone. RN reports pt intake is "fair" and noted Glucerna not yet consumed. RN unsure of ONS intakes from yesterday. Percent of energy/protein needs met: 72%/81% (excludes ONS) Burn Absent Trauma Absent Current % PO Fair (50-74%) Minimum of two criteria Yes Body Fat Depletion Moderate depletion (severe) Protein-Calorie Malnutrition Severe #1 Nutrition Diagnosis Malnutrition Diagnosis Progress(for reassessment Continues documentation) Is patient on ventilator? No Is Patient Ambulatory and/or Out of Bed Yes [facility]) [ [id number] [id number]] Kcal/Kg value to use for calculation 31 Approximate Energy Requirements Using 2155 kcal/Kg Calculation Used for Recommendations Kcal/kg Additional Notes Pro needs 1.2-1.5g/k-104g /day Fluid needs 1ml/kcal Nutrition Intervention Change Diet Order: Continue current diet order Add Supplement/Snack (indicate name/kcal Glucerna TID /protein ) Provides kCal: 660 Provides Protein (gm) 30 Goal #1 PO intake of meals plus ONS to meet 75-100% energy and pro needs Goal #2 Wt maintenance and/or gain Follow-Up By: 10/21/20 Additional Comments FU for intakes
[2020-10-20 19:51] LABS: Hematocrit 24.2 % (35.5-45.6); Hemoglobin 8.2 gm/dl (11.8-15.2)
[2020-10-20] MEDS: HYPROMELLOSE 0.5% OPHTH SOLN 15 ML OU PRN (22:53)
[2020-10-21 04:52] LABS: Hematocrit 23.4 % (35.5-45.6); Mean Corpuscular HGB Conc 34 % (32-34); Mean Corpuscular Volume 91 fl (84-94); Platelet Count 103 K/mm3 (140-440); Red Blood Count 2.57 M/mm3 (3.65-5.03); Red Cell Distribution Width 17.5 % (13.2-15.2)
[2020-10-21 05:16] LABS: Alanine Aminotransferase 248 units/L (7-56); Albumin 1.6 g/dL (3.9-5); Blood Urea Nitrogen 14 mg/dL (9-20); Calcium 6.2 mg/dL (8.4-10.2); Hemolysis Index 6
[2020-10-21] MEDS: methylPREDNISolone Sod Succinate 40 MG/1 ML INJ IV SCH (05:45)
[2020-10-21 05:52] LABS: BUN/Creatinine Ratio 23
[2020-10-21 09:45] LABS: Total Cells Counted 100
[2020-10-21 09:46] LABS: Anisocytosis 1+
[2020-10-21 09:47] LABS: Large Platelets Few; Platelet Estimate Consistent w Auto
--- NOTE | 2020-10-21 10:28 | Progress Note ---
Assessment and Plan Assessment and plan: --Hypophosphatemia; Phos; 1.4[range 2.5-4.5] Current Visit: Yes Status: Acute Replenished with IV sodium phosphate Monitor electrolytes --Hypomagnesemia; Mg 1.1[range1.7 - 2.3] Current Visit: Yes Status: Acute Replenished with IV mag self as well as maintenance p.o. Mag-Ox --Pancytopenia; Current Visit: Yes Status: Acute probably due to underlying HIV/sepsis/persistent bacteremia Treat the underlying cause Hematology consult requested --Anemia; Hb 6.4 -8.0 Current Visit: Yes Status: Acute Received 1 unit PRBC transfusion check H&H, transfuse additional as needed. Hematology consult --Sepsis due to persistent bacteremia Current Visit: Yes Status: Acute Continue daptomycin per ID FLORESITA negative for endocarditis Cardiology consult appreciated --VRE bacteremia; Current Visit: Yes Status: Acute Unclear source/recent spinal surgery T10-T12, L1-L2, details not available Records requested from [facility] Unable to treat with linezolid secondary due to thrombocytopenia. ID recommended daptomycin for total 14 days ending 11/01/2020 Dapto is only choice of medication, and no other alternatives per ID Discussed with ID as well as case management --History of recent spinal surgery: at [facility] Current Visit: Yes Status: chr T10 T12, L1-L2 surgery, surgical sutures on the back Wound care, continue antibiotics, request records from [facility] --Acute systolic CHF/ EF 20 to 25% Current Visit: Yes Status: Acute antifailure medication with diuretic, beta-blockers, LALITHA inhibitors, input output monitoring, low-sodium diet,fluid restriction. Cardiology consult noted and appreciated --UTI/ur cultures grew Mgaali Current Visit: Yes Status: Acute Continue Diflucan , supportive care/ --Acute kidney injury (NELSY) due to ATN Current Visit: Yes Status: Acute Resolved, closely monitor renal function Avoid nephrotoxins --Multiple myeloma vs metastatic disease[on CT chest and abdomen] Current Visit: Yes Status: Acute Along with pancytopenia requested medical records from [facility] Patient unable to give proper history unable to contact family, Hematology consult requested Dr. Eber Koehler -- Severe protein calorie malnutrition Current Visit: Yes Status: Acute Albumin 1.7 nutrition supplements ,, nutrition consult --Pneumonia Current Visit: Yes Status: Acute Completed 5 days of Rocephin and Zithromax Coronavirus PCR negative Follow cultures -- COVID-19 negative Current Visit: Yes Status: Acute Coronavirus PCR negative -- DVT prophylaxis Current Visit: Yes Status: Acute SCDs bilateral lower extremities while in bed, patient is ambulatory We will closely monitor the patient and adjust management as needed Plan of care reviewed with the patient and his nurse Medical Biller/Coder recommendations noted 10/16/2020; sepsis secondary to VRE bacteremia, UTI and pneumonia Continue current antibiotics per ID, contact isolation due to VRE 10/17/2020; patient is more alert and awake today, feels better CT abdomen and pelvis findings noted continue current antibiotics Physical therapy, Occupational Therapy as tolerated 10/18/2020; cardiology evaluations appreciated FLORESITA negative for endocarditis, cardiology started goal-directed CHF treatment 10/19/2020; persistent bacteremia, FLORESITA negative for endocarditis Continue ID cardiology recommendations Patient complains of some sore throat, Cepacol throat spray and Cepacol lozenges 10/20/2020; anemia, hemoglobin 6.4, transfuse 1 unit PRBC Closely monitor H&H transfuse additional PRBC as needed Pancytopenia, hematology consult inpatient versus outpatient 10/21/2020; patient's hemoglobin increased to 8.0 Severe hypophosphatemia, hypomagnesemia replenished Also consulted media sales representative Dr. Yusuf Koehler History Interval history: I seen and examined the patient at the bedside Patient's chart and medications reviewed Patient received 1 unit PRBC yesterday with hemoglobin improving to 8 Patient has no new complaints Vital signs noted Hospitalist Physical - Constitutional Vitals: Temp Pulse Resp BP Pulse Ox 98.0 F 63 18 123/79 97 10/21/20 06:44 10/21/20 06:44 10/21/20 06:44 10/21/20 06:44 10/21/20 06:44 General appearance: Present: no acute distress, cachectic, other (More alert and awake today) - EENT Eyes: Present: PERRL, EOM intact - Neck Neck: Present: supple, normal ROM - Respiratory Respiratory effort: normal Respiratory: bilateral: diminished, rhonchi, negative: rales, wheezing - Cardiovascular Rhythm: regular Heart Sounds: Present: S1 & S2 - Extremities Extremities: no ischemia, No edema - Abdominal General gastrointestinal: soft, non-tender, non-distended, normal bowel sounds - Integumentary Integumentary: Present: clear, warm - Psychiatric Psychiatric: appropriate mood/affect, cooperative - Neurologic Neurologic: CNII-XII intact, moves all extremities Results - Labs CBC & Chem 7: 10/21/20 04:33 10/21/20 04:33 Labs: Laboratory Last Values WBC 4.7 K/mm3 (4.5-11.0) 10/21/20 04:33 RBC 2.57 M/mm3 (3.65-5.03) L 10/21/20 04:33 Hgb 8.0 gm/dl (11.8-15.2) L 10/21/20 04:33 Hct 23.4 % (35.5-45.6) L 10/21/20 04:33 MCV 91 fl (84-94) 10/21/20 04:33 MCH 31 pg (28-32) 10/21/20 04:33 MCHC 34 % (32-34) 10/21/20 04:33 RDW 17.5 % (13.2-15.2) H 10/21/20 04:33 Plt Count 103 K/mm3 (140-440) L 10/21/20 04:33 Lymph % (Auto) 10.1 % (13.4-35.0) L 10/11/20 05:40 [place] % (Auto) 1.4 % (0.0-7.3) 10/11/20 05:40 Eos % (Auto) 1.6 % (0.0-4.3) 10/11/20 05:40 Baso % (Auto) 0.5 % (0.0-1.8) 10/11/20 05:40 Lymph # (Auto) 0.1 K/mm3 (1.2-5.4) L 10/11/20 05:40 [place] # (Auto) 0.0 K/mm3 (0.0-0.8) 10/11/20 05:40 Eos # (Auto) 0.0 K/mm3 (0.0-0.4) 10/11/20 05:40 Baso # (Auto) 0.0 K/mm3 (0.0-0.1) 10/11/20 05:40 Add Manual Diff Complete 10/21/20 04:33 Total Counted 100 10/21/20 04:33 Seg Neutrophils % Photograph Finisher 10/21/20 04:33 Seg Neuts % (Manual) 98.0 % (40.0-70.0) H 10/21/20 04:33 Band Neutrophils % 1.0 % 10/21/20 04:33 Lymphocytes % (Manual) 1.0 % (13.4-35.0) L 10/21/20 04:33 Monocytes % (Manual) 3.0 % (0.0-7.3) 10/18/20 06:04 Eosinophils % (Manual) 1.0 % (0.0-4.3) 10/10/20 16:31 Basophils % (Manual) 1.0 % (0.0-1.8) 10/10/20 16:31 Nucleated RBC % 10.0 % (0.0-0.9) H 10/21/20 04:33 Seg Neutrophils # 1.1 K/mm3 (1.8-7.7) L 10/11/20 05:40 Seg Neutrophils # Man 4.6 K/mm3 (1.8-7.7) 10/21/20 04:33 Band Neutrophils # 0.0 K/mm3 10/21/20 04:33 Lymphocytes # (Manual) 0.0 K/mm3 (1.2-5.4) L 10/21/20 04:33 Abs React Lymphs (Man) 0.0 K/mm3 10/21/20 04:33 Monocytes # (Manual) 0.0 K/mm3 (0.0-0.8) 10/21/20 04:33 Eosinophils # (Manual) 0.0 K/mm3 (0.0-0.4) 10/21/20 04:33 Basophils # (Manual) 0.0 K/mm3 (0.0-0.1) 10/21/20 04:33 Metamyelocytes # 0.0 K/mm3 10/21/20 04:33 Myelocytes # 0.0 K/mm3 10/21/20 04:33 Promyelocytes # 0.0 K/mm3 10/21/20 04:33 Blast Cells # 0.0 K/mm3 10/21/20 04:33 WBC Morphology Not Reportable 10/21/20 04:33 Hypersegmented Neuts Not Reportable 10/21/20 04:33 Hyposegmented Neuts Not Reportable 10/21/20 04:33 Hypogranular Neuts Not Reportable 10/21/20 04:33 Smudge Cells Not Reportable 10/21/20 04:33 Toxic Granulation Not Reportable 10/21/20 04:33 Toxic Vacuolation Not Reportable 10/21/20 04:33 Dohle Bodies Not Reportable 10/21/20 04:33 Pelger-Huet Anomaly Not Reportable 10/21/20 04:33 Javon Rods Not Reportable 10/21/20 04:33 Platelet Estimate Consistent w auto 10/21/20 04:33 Clumped Platelets Not Reportable 10/21/20 04:33 Plt Clumps, EDTA Not Reportable 10/21/20 04:33 Large Platelets Few 10/21/20 04:33 Giant Platelets Not Reportable 10/21/20 04:33 Platelet Satelliting Not Reportable 10/21/20 04:33 Plt Morphology Comment Not Reportable 10/21/20 04:33 RBC Morphology Not Reportable 10/21/20 04:33 Dimorphic RBCs Not Reportable 10/21/20 04:33 Polychromasia Rare 10/21/20 04:33 Hypochromasia Not Reportable 10/21/20 04:33 Poikilocytosis Not Reportable 10/21/20 04:33 Anisocytosis 1+ 10/21/20 04:33 Microcytosis Not Reportable 10/21/20 04:33 Macrocytosis Not Reportable 10/21/20 04:33 Spherocytes Not Reportable 10/21/20 04:33 Pappenheimer Bodies Not Reportable 10/21/20 04:33 Sickle Cells Not Reportable 10/21/20 04:33 Target Cells Not Reportable 10/21/20 04:33 Tear Drop Cells Not Reportable 10/21/20 04:33 Ovalocytes Not Reportable 10/21/20 04:33 Helmet Cells Not Reportable 10/21/20 04:33 Arora-Castor Bodies Not Reportable 10/21/20 04:33 [place] Rings Not Reportable 10/21/20 04:33 [place] Cells Not Reportable 10/21/20 04:33 Bite Cells Not Reportable 10/21/20 04:33 Crenated Cell Not Reportable 10/21/20 04:33 Elliptocytes Not Reportable 10/21/20 04:33 Acanthocytes (Spur) Not Reportable 10/21/20 04:33 Rouleaux Not Reportable 10/21/20 04:33 Hemoglobin C Crystals Not Reportable 10/21/20 04:33 Schistocytes Not Reportable 10/21/20 04:33 Malaria parasites Not Reportable 10/21/20 04:33 Lit Bodies Not Reportable 10/21/20 04:33 Hem Pathologist Commnt No 10/21/20 04:33 D-Dimer 2351.86 ng/mlDDU (0-234) H 10/10/20 17:54 Sodium 135 mmol/L (137-145) L 10/21/20 04:33 Potassium 4.0 mmol/L (3.6-5.0) 10/21/20 04:33 Chloride 105.0 mmol/L (98-107) 10/21/20 04:33 Carbon Dioxide 20 mmol/L (22-30) L 10/21/20 04:33 Anion Gap 14 mmol/L 10/21/20 04:33 BUN 14 mg/dL (9-20) 10/21/20 04:33 Creatinine 0.6 mg/dL (0.8-1.3) L 10/21/20 04:33 Estimated GFR > 60 ml/min 10/21/20 04:33 BUN/Creatinine Ratio 23 % 10/21/20 04:33 Glucose 160 mg/dL (75-100) H 10/21/20 04:33 POC Glucose 120 mg/dL (70-105) H 10/12/20 15:42 Calcium 6.2 mg/dL (8.4-10.2) L 10/21/20 04:33 Phosphorus 1.40 mg/dL (2.5-4.5) L 10/21/20 04:33 Magnesium 1.10 mg/dL (1.7-2.3) L 10/21/20 04:33 Ferritin 2608.0 ng/mL (30.0-300.0) H 10/10/20 17:54 Total Bilirubin 0.20 mg/dL (0.1-1.2) 10/21/20 04:33 AST 78 units/L (5-40) H 10/21/20 04:33 ALT 248 units/L (7-56) H 10/21/20 04:33 Alkaline Phosphatase 332 units/L (35-129) H 10/21/20 04:33 Lactate Dehydrogenase 233 units/L (91-180) H 10/10/20 17:54 Total Creatine Kinase 60 units/L (55-170) 10/16/20 08:16 C-Reactive Protein 0.40 mg/dL (0.00-1.30) 10/16/20 17:23 Total Protein 5.8 g/dL (6.3-8.2) L 10/21/20 04:33 Albumin 1.6 g/dL (3.9-5) L 10/21/20 04:33 Albumin/Globulin Ratio 0.4 % 10/21/20 04:33 Procalcitonin 0.61 ng/mL (<0.15) 10/14/20 14:54 Urine Color Yellow (Yellow) 10/11/20 Unknown Urine Turbidity Cloudy (Clear) 10/11/20 Unknown Urine pH 5.0 (5.0-7.0) 10/11/20 Unknown Ur Specific [place] 1.019 (1.003-1.030) 10/11/20 Unknown Urine Protein 30 mg/dl mg/dL (Negative) 10/11/20 Unknown Urine Glucose (UA) Neg mg/dL (Negative) 10/11/20 Unknown Urine Ketones Neg mg/dL (Negative) 10/11/20 Unknown Urine Blood Sm (Negative) 10/11/20 Unknown Urine Nitrite Neg (Negative) 10/11/20 Unknown Urine Bilirubin Neg (Negative) 10/11/20 Unknown Urine Urobilinogen < 2.0 mg/dL (<2.0) 10/11/20 Unknown Ur Leukocyte Esterase Tr (Negative) 10/11/20 Unknown Urine WBC (Auto) 36.0 /HPF (0.0-6.0) H 10/11/20 Unknown Urine RBC (Auto) 129.0 /HPF (0.0-6.0) 10/11/20 Unknown U Epithel Cells (Auto) 1.0 /HPF (0-13.0) 10/11/20 Unknown Urine Bacteria (Auto) 2+ /HPF (Negative) 10/11/20 Unknown Urine Mucus Few /HPF 10/11/20 Unknown Urine Yeast (Budding) 2+ /HPF 10/11/20 Unknown Coronavirus (PCR) Negative (Negative) 10/11/20 08:32 HIV 1&2 Antibody Rapid Non react (Non React) 10/16/20 17:23 HIV P24 Antigen Non react (Non React) 10/16/20 17:23 Blood Type B POSITIVE 10/20/20 06:26 Antibody Screen Negative 10/20/20 06:26 Crossmatch See Detail 10/20/20 06:26 Microbiology: Microbiology 10/10/20 17:54 Peripheral/Venous Blood Culture - Final Enterococcus Faecium 10/18/20 19:50 Urine,Clean Catch Urine Culture - Preliminary 10/18/20 15:04 Peripheral/Venous Blood Culture - Preliminary NO GROWTH AFTER 48 HOURS 10/18/20 15:04 Peripheral/Venous Blood Culture - Preliminary NO GROWTH AFTER 48 HOURS [place]/IV: Voiding Method Indwelling Catheter Active Medications - Current Medications Current Medications: Generic Name Dose Route Start Last Admin Trade Name Freq PRN Reason Stop Dose Admin Acetaminophen 650 mg 10/10/20 19:46 10/19/20 05:48 Acetaminophen 325 Mg Tab PO 650 mg Q4H PRN Administration Pain MILD(1-3)/Fever >100.5/KINNEY Albuterol 2.5 mg 10/10/20 19:46 Albuterol 2.5 Mg/3 Ml Nebu IH Q4HRT PRN Shortness Of Breath Artificial Tears 2 drops 10/20/20 18:29 10/20/20 22:53 Hypromellose 0.5% Ophth Soln 15 Ml OU 2 drops Q4H PRN Administration Dry Eye(s) Aspirin 81 mg 10/18/20 15:00 10/20/20 10:07 Aspirin Ec 81 Mg Tab PO 81 mg QDAY THEE Administration Benzocaine/Menthol 1 each 10/19/20 17:49 10/20/20 18:33 Benzocaine/Menthol Lozenge MM 1 each Q2HR PRN Administration Sore Throat Carvedilol 3.125 mg 10/17/20 22:00 10/20/20 21:11 Carvedilol 3.125 Mg Tab PO 3.125 mg BID THEE Administration Sodium Chloride 1,000 mls @ 125 mls/hr 10/12/20 11:00 10/17/20 22:55 Nacl 0.45% 1000 Ml IV 125 mls/hr DIRECT THEE Administration Daptomycin 560 mg/ Sodium 100 mls @ 200 mls/hr 10/15/20 12:30 10/20/20 16:01 Chloride IV 11/01/20 12:59 200 mls/hr Q24H THEE Administration Protocol Lisinopril 2.5 mg 10/18/20 10:00 10/20/20 10:02 Lisinopril 5 Mg Tab PO Not Given QDAY THEE Methylprednisolone Sodium Succinate 40 mg 10/10/20 22:00 10/21/20 05:45 Methylprednisolone Sod Succinate 40 Mg/1 Ml Inj IV 40 mg Q8HR THEE Administration Ondansetron HCl 4 mg 10/10/20 19:46 Ondansetron 4 Mg/2 Ml Inj IV Q8H PRN Nausea And Vomiting Phenol 1 spray 10/15/20 14:54 10/18/20 21:53 Phenol 1.4% 177 Ml Bottle MM 1 spray PRN PRN Administration Sore Throat Sodium Chloride 10 ml 10/10/20 22:00 10/20/20 21:12 Sodium Chloride 0.9% 10 Ml Flush Syringe IV 10 ml BID THEE Administration Sodium Chloride 10 ml 10/10/20 19:46 Sodium Chloride 0.9% 10 Ml Flush Syringe IV PRN PRN LINE FLUSH Spironolactone 25 mg 10/18/20 15:00 10/20/20 10:02 Spironolactone 25 Mg Tab PO Not Given QDAY [facility] Nutrition/Malnutrition Assess - Dietary Evaluation Nutrition/Malnutrition Findings: Nutrition Notes Start: 10/11/20 12:16 Freq: Status: Active Protocol: Document 10/17/20 12:36 (Rec: 10/17/20 13:20 [id number]) Nutrition Notes Initial or Follow up Reassessment Current Diagnosis Acute Kidney Injury,Diabetes Other Pertinent Diagnosis SIRS, pneu, r/o COVID-19 Current Diet Consistent Carbohydrate Diet + Glucerna Labs/Tests 10/15: BUN 32 Pertinent Medications 1/2 NS at 125 ml/hr Height 5 ft 6 in Weight 69.5 kg [place] Body Weight (kg) 64.54 BMI 24.7 Weight change and time frame Wt change noted. Will follow for trends Subjective/Other Information Pt did not answer phone. RN reports pt intake is "fair" and noted Glucerna not yet consumed. RN unsure of ONS intakes from yesterday. Percent of energy/protein needs met: 72%/81% (excludes ONS) Burn Absent Trauma Absent Current % PO Fair (50-74%) Minimum of two criteria Yes Body Fat Depletion Moderate depletion (severe) Protein-Calorie Malnutrition Severe #1 Nutrition Diagnosis Malnutrition Diagnosis Progress(for reassessment Continues documentation) Is patient on ventilator? No Is Patient Ambulatory and/or Out of Bed Yes REE-([place]-St. Jeor-ambulatory/OOB) [ 1901.575 [id number]] Kcal/Kg value to use for calculation 31 Approximate Energy Requirements Using 2155 kcal/Kg Calculation Used for Recommendations Kcal/kg Additional Notes Pro needs 1.2-1.5g/k-104g /day Fluid needs 1ml/kcal Nutrition Intervention Change Diet Order: Continue current diet order Add Supplement/Snack (indicate name/kcal Glucerna TID /protein ) Provides kCal: 660 Provides Protein (gm) 30 Goal #1 PO intake of meals plus ONS to meet 75-100% energy and pro needs Goal #2 Wt maintenance and/or gain Follow-Up By: 10/21/20 Additional Comments FU for intakes
--- NOTE | 2020-10-21 10:57 | Progress Note ---
Assessment and Plan - Patient Problems (1) Dilated cardiomyopathy Current Visit: Yes Status: Acute Plan to address problem: We will continue guideline directed medical therapy for chronic left ventricular systolic failure. Subjective Date of service: 10/21/20 Principal diagnosis: Altered sensorium Interval history: No new cardiac complaints, patient is comfortable, telemetry shows a stable sinus rhythm at 75, blood pressure is systolic of 123. Objective Vital Signs Temp Pulse Resp BP Pulse Ox 10/21/20 06:44 98.0 F 63 18 123/79 97 10/20/20 22:00 100 10/20/20 21:48 98.2 F 76 18 118/78 98 10/20/20 21:11 78 122/78 10/20/20 15:35 98.5 F 71 20 128/87 99 10/20/20 15:05 98.2 F 76 20 122/78 98 10/20/20 14:35 98.5 F 73 18 128/85 98 10/20/20 14:05 98 F 79 20 124/88 97 10/20/20 13:35 98.2 F 72 20 127/86 99 10/20/20 13:05 98.7 F 79 20 117/80 98 10/20/20 12:35 98.6 F 70 20 130/91 99 10/20/20 12:20 98.7 F 79 20 116/80 95 - Physical Examination General: No Apparent Distress, Cachectic HEENT: Positive: PERRL, Mucus Membranes Moist Neck: Positive: trachea midline. Negative: JVD/HJR Cardiac: Positive: Reg Rate and Rhythm Lungs: Positive: Decreased Breath Sounds Neuro: Positive: Weakness Abdomen: Positive: Soft, Active Bowel Sounds Skin: Positive: Clear Extremities: Absent: edema - Labs and Meds Cardiac Enzymes 10/21/20 Range/Units 04:33 AST 78 H (5-40) units/L CBC 10/20/20 10/21/20 Range/Units 19:11 04:33 WBC 4.7 (4.5-11.0) K/mm3 RBC 2.57 L (3.65-5.03) M/mm3 Hgb 8.2 L 8.0 L (11.8-15.2) gm/dl Hct 24.2 L 23.4 L (35.5-45.6) % Plt Count 103 L (140-440) K/mm3 Comprehensive Metabolic Panel 10/21/20 Range/Units 04:33 Sodium 135 L (137-145) mmol/L Potassium 4.0 (3.6-5.0) mmol/L Chloride 105.0 (98-107) mmol/L Carbon Dioxide 20 L (22-30) mmol/L BUN 14 (9-20) mg/dL Creatinine 0.6 L (0.8-1.3) mg/dL Glucose 160 H (75-100) mg/dL Calcium 6.2 L (8.4-10.2) mg/dL AST 78 H (5-40) units/L ALT 248 H (7-56) units/L Alkaline Phosphatase 332 H (35-129) units/L Total Protein 5.8 L (6.3-8.2) g/dL Albumin 1.6 L (3.9-5) g/dL
[2020-10-21] MEDS: SPIRONOLACTONE 25 MG TAB PO SCH (11:42)
[2020-10-21] MEDS: carvediloL 3.125 MG TAB PO SCH ×2 (11:42→22:22)
[2020-10-21] MEDS: LISINOPRIL 5 MG TAB PO SCH (11:43)
[2020-10-21] MEDS: ASPIRIN EC 81 MG TAB PO SCH (11:43)
--- NOTE | 2020-10-21 13:59 | Progress Note ---
Assessment and Plan Cultures: SARS CoV2 PCR: Negative HIV: Negative 10/10/2020 blood culture: VRE 2 out of 4 bottles 10/10/2020 urine culture: Magali 10/14/2020 blood culture no growth today 10/14/2020 blood culture: GPC 3 of 4 10/18/2020 blood culture: No growth today A/P: 55-year-old male with diabetes, malnutrition, resident of an assisted living facility was brought into the emergency room with complaints of sore throat and back pain: #VRE bacteremia: Very unclear source. ?recent T10-T12 fusion and L1-L2 surgery (noted surgical sutures on his back, pt is not able to elaborate, only reported surgery was done at [facility]. FLORESITA negative. Repeat blood cx 10/14 positive. Repeat blood cx 10/[address] shows a bone cage and fixation from T10-T12, chronic pathologic fracture L5. No obvious discitis, osteomyelitis, abscess. MRI no abscess, discitis, osteomyelitis +compression deformities at several levels, mainly L5. #UTI: Urine culture grew Magali. Renal ultrasound with mild right pelvic caliectasis and echogenic right kidney. #Bilateral pneumonia: ?CAP vs aspiration. Not hypoxic. Leukopenia. SARS-CoV-2 PCR negative. Chest x-ray with bibasilar opacities left more than right. #Pancytopenia: suspect multiple myeloma. CT with multifocal lucent lesions, L5 pathologic fracture. Baseline WBC is unknown. HIV negative x 2 . Severe anemia now receiving blood transfusions. #NELSY: Renally dose antibiotics. Resolved. #Transaminitis: With elevation of alkaline phosphatase. RUQ ultrasound ordered #Chronic malnutrition; BMI of 16.1. HIV neg x 2. #Headache, double vision: resolved. CT head unremarkable. Recs: -Hem consult re: pancytopenia, suspect MM now with severe anemia -Request records from [facility] urgent - pending/discussed with press secretary -Continue daptomycin at 8 mg/kg daily -Cannot do linezolid due to pancytopenia -Completed ceftriaxone, azithromycin for pneumonia -Completed Fluconazole p.o. x3 days for UTI -Anticipate to d/c on daptomycin 600 mg IV daily total 14 days till 11/01/2020. Order sent to case resolution specialist. Unfortunately as the VRE is resistant to both vancomycin and penicillins, and patient unable to tolerate Zyvox with pancytopenia daptomycin is the only treatment option available. D/W Dr. Jeaneth De Luna MD [facility], [place], [facility] ([facility]) O: [phone] F: [phone] Subjective Date of service: 10/21/20 Principal diagnosis: Altered sensorium Interval history: No new issues, afebrile with a white count improving to 4.7. Hemoglobin improving as well. Objective - Exam Narrative Exam: General appearance: Alert in NAD cachetic Eyes: anicteric sclerae, moist conjunctivae; no lid-lag; PERRLA HENT: Normocephalic, Atraumatic; normal external ears, nares open, oropharynx limited Neck: supple, tracheal midline, no JVD Lungs: Diminished breath sound bilaterally CV: RRR no murmur Abdomen: Nontender Extremities: left toes tenderness Skin: mid and lower back sutures parallel to the spine Psych: no agitated Neuro: alert and oriented x 3. Moving all extermities - Constitutional Vitals: Vital Signs Temp Pulse Resp BP Pulse Ox 97.6 F 77 18 125/82 98 10/21/20 11:26 10/21/20 11:26 10/21/20 11:26 10/21/20 11:42 10/21/20 11:26 Temperature -Last 24 Hours Temperature 97.6 F Temperature 98.0 F Temperature 98.2 F Temperature 98.5 F Temperature 98.2 F Temperature 98.5 F Temperature 98 F - Labs CBC & Chem 7: 10/21/20 04:33 10/21/20 04:33 Labs: Abnormal lab results 10/20/20 10/20/20 10/21/20 Range/Units 06:26 19:11 04:33 RBC 2.57 L (3.65-5.03) M/mm3 Hgb 8.2 L 8.0 L (11.8-15.2) gm/dl Hct 24.2 L 23.4 L (35.5-45.6) % RDW 17.5 H (13.2-15.2) % Plt Count 103 L (140-440) K/mm3 Seg Neuts % (Manual) 98.0 H (40.0-70.0) % Lymphocytes % (Manual) 1.0 L (13.4-35.0) % Nucleated RBC % 10.0 H (0.0-0.9) % Lymphocytes # (Manual) 0.0 L (1.2-5.4) K/mm3 Sodium (137-145) mmol/L Carbon Dioxide (22-30) mmol/L Creatinine (0.8-1.3) mg/dL Glucose (75-100) mg/dL Calcium (8.4-10.2) mg/dL Phosphorus (2.5-4.5) mg/dL Magnesium (1.7-2.3) mg/dL AST (5-40) units/L ALT (7-56) units/L Alkaline Phosphatase (35-129) units/L Total Protein (6.3-8.2) g/dL Albumin (3.9-5) g/dL Crossmatch See Detail 10/21/20 Range/Units 04:33 RBC (3.65-5.03) M/mm3 Hgb (11.8-15.2) gm/dl Hct (35.5-45.6) % RDW (13.2-15.2) % Plt Count (140-440) K/mm3 Seg Neuts % (Manual) (40.0-70.0) % Lymphocytes % (Manual) (13.4-35.0) % Nucleated RBC % (0.0-0.9) % Lymphocytes # (Manual) (1.2-5.4) K/mm3 Sodium 135 L (137-145) mmol/L Carbon Dioxide 20 L (22-30) mmol/L Creatinine 0.6 L (0.8-1.3) mg/dL Glucose 160 H (75-100) mg/dL Calcium 6.2 L (8.4-10.2) mg/dL Phosphorus 1.40 L (2.5-4.5) mg/dL Magnesium 1.10 L (1.7-2.3) mg/dL AST 78 H (5-40) units/L ALT 248 H (7-56) units/L Alkaline Phosphatase 332 H (35-129) units/L Total Protein 5.8 L (6.3-8.2) g/dL Albumin 1.6 L (3.9-5) g/dL Crossmatch
[2020-10-21] MEDS ORDERED: MAGNESIUM SULFATE 4 GM/100 ML BAG IV ONE (17:00)
[2020-10-21] MEDS ORDERED: SODIUM PHOSPHATE 45 MMOL in SODIUM CHLORIDE 0.9% 500 ML 500 ML IV ONE (17:00)
[2020-10-21] MEDS ORDERED: methylPREDNISolone Sod Succinate 40 MG/1 ML INJ IV SCH (22:00)
--- NOTE | 2020-10-22 01:09 | Hem/Onc Consultation ---
History of Present Illness - History of Present Illness heme/onc prelim eval 55yo disabled man, nonverbal, ?stroke eval for back pain, found to have lytic bone lesions on Chest CT found ot have bacteremia and pneumonia since admission he has been receiving IV Abx DATA REVIEWED BELOW IMP: heme malignancy suspected, myeloma is possible immunocompromised-presumed pneumonia disabled man, borderline candidate for anti-tumor therapy PLAN: request bone marrow biopsy steroid pulse labs to include SPEP and kappa/lambda Laboratory Last Values WBC 4.7 K/mm3 (4.5-11.0) 10/21/20 04:33 Hgb 8.0 gm/dl (11.8-15.2) L 10/21/20 04:33 Hct 23.4 % (35.5-45.6) L 10/21/20 04:33 Plt Count 103 K/mm3 (140-440) L 10/21/20 04:33 Creatinine 0.6 mg/dL (0.8-1.3) L 10/21/20 04:33 Total Bilirubin 0.20 mg/dL (0.1-1.2) 10/21/20 04:33 AST 78 units/L (5-40) H 10/21/20 04:33 ALT 248 units/L (7-56) H 10/21/20 04:33 Alkaline Phosphatase 332 units/L (35-129) H 10/21/20 04:33 Lactate Dehydrogenase 233 units/L (91-180) H 10/10/20 17:54 Albumin 1.6 g/dL (3.9-5) L 10/21/20 04:33 Antibody Screen Negative 10/20/20 06:26 Crossmatch See Detail 10/20/20 06:26 . Past History Past Medical History: diabetes Past Surgical History: No surgical history Social history: single. denies: smoking, alcohol abuse, prescription drug abuse Family history: hypertension Medications and Allergies Allergies Allergy/AdvReac Type Severity Reaction Status Date / Time No Known Allergies Allergy Verified 10/14/20 21:11 Home Medications Medication Instructions Recorded Confirmed Last Taken Type No Known Home Medications [No 10/11/20 10/11/20 Unknown History Reported Home Medications] Active Meds: Active Medications Acetaminophen (Acetaminophen 325 Mg Tab) 650 mg PO Q4H PRN PRN Reason: Pain MILD(1-3)/Fever >100.5/KINNEY Last Admin: 10/19/20 05:48 Dose: 650 mg Documented by: Albuterol (Albuterol 2.5 Mg/3 Ml Nebu) 2.5 mg IH Q4HRT PRN PRN Reason: Shortness Of Breath Artificial Tears (Hypromellose 0.5% Ophth Soln 15 Ml) 2 drops OU Q4H PRN PRN Reason: Dry Eye(s) Last Admin: 10/20/20 22:53 Dose: 2 drops Documented by: Aspirin (Aspirin Ec 81 Mg Tab) 81 mg PO QDAY [facility] Last Admin: 10/21/20 11:43 Dose: 81 mg Documented by: Benzocaine/Menthol (Benzocaine/Menthol Lozenge) 1 each MM Q2HR PRN PRN Reason: Sore Throat Last Admin: 10/20/20 18:33 Dose: 1 each Documented by: Carvedilol (Carvedilol 3.125 Mg Tab) 3.125 mg PO BID [facility] Last Admin: 10/21/20 22:22 Dose: 3.125 mg Documented by: Sodium Chloride (Nacl 0.45% 1000 Ml) 1,000 mls @ 125 mls/hr IV DIRECT [facility] Last Admin: 10/17/20 22:55 Dose: 125 mls/hr Documented by: Daptomycin 560 mg/ Sodium (Chloride) 100 mls @ 200 mls/hr IV Q24H [facility]; Protocol Stop: 11/01/20 12:59 Last Admin: 10/21/20 12:23 Dose: 200 mls/hr Documented by: Lisinopril (Lisinopril 5 Mg Tab) 2.5 mg PO QDAY [facility] Last Admin: 10/21/20 11:43 Dose: 2.5 mg Documented by: Magnesium Oxide (Magnesium Oxide 400 Mg Tab) 400 mg PO QDAY [facility] Methylprednisolone Sodium Succinate (Methylprednisolone Sod Succinate 40 Mg/1 Ml Inj) 40 mg IV Q12HR [facility] Last Admin: 10/21/20 22:21 Dose: 40 mg Documented by: Ondansetron HCl (Ondansetron 4 Mg/2 Ml Inj) 4 mg IV Q8H PRN PRN Reason: Nausea And Vomiting Phenol (Phenol 1.4% 177 Ml Bottle) 1 spray MM PRN PRN PRN Reason: Sore Throat Last Admin: 10/18/20 21:53 Dose: 1 spray Documented by: Sodium Chloride (Sodium Chloride 0.9% 10 Ml Flush Syringe) 10 ml IV BID [facility] Last Admin: 10/21/20 22:23 Dose: 10 ml Documented by: Sodium Chloride (Sodium Chloride 0.9% 10 Ml Flush Syringe) 10 ml IV PRN PRN PRN Reason: LINE FLUSH Spironolactone (Spironolactone 25 Mg Tab) 25 mg PO QDAY [facility] Last Admin: 10/21/20 11:42 Dose: 25 mg Documented by: Exam - Constitutional Vitals: Last Vital Signs Temp 97.8 F 10/21/20 23:16 Pulse 71 10/21/20 23:16 Resp 18 10/21/20 23:44 BP 130/83 10/21/20 23:16 Pulse Ox 99 10/21/20 23:16 Results - Labs lab Results: Laboratory Results - last 24 hr 10/21/20 10/21/20 04:33 04:33 WBC 4.7 RBC 2.57 L Hgb 8.0 L Hct 23.4 L MCV 91 MCH 31 MCHC 34 RDW 17.5 H Plt Count 103 L Add Manual Diff Complete Total Counted 100 Seg Neutrophils % Discharge Coordinator Seg Neuts % (Manual) 98.0 H Band Neutrophils % 1.0 Lymphocytes % (Manual) 1.0 L Nucleated RBC % 10.0 H Seg Neutrophils # Man 4.6 Band Neutrophils # 0.0 Lymphocytes # (Manual) 0.0 L Abs React Lymphs (Man) 0.0 Monocytes # (Manual) 0.0 Eosinophils # (Manual) 0.0 Basophils # (Manual) 0.0 Metamyelocytes # 0.0 Myelocytes # 0.0 Promyelocytes # 0.0 Blast Cells # 0.0 WBC Morphology Not Reportable Hypersegmented Neuts Not Reportable Hyposegmented Neuts Not Reportable Hypogranular Neuts Not Reportable Smudge Cells Not Reportable Toxic Granulation Not Reportable Toxic Vacuolation Not Reportable Dohle Bodies Not Reportable Pelger-Huet Anomaly Not Reportable Javon Rods Not Reportable Platelet Estimate Consistent w auto Clumped Platelets Not Reportable Plt Clumps, EDTA Not Reportable Large Platelets Few Giant Platelets Not Reportable Platelet Satelliting Not Reportable Plt Morphology Comment Not Reportable RBC Morphology Not Reportable Dimorphic RBCs Not Reportable Polychromasia Rare Hypochromasia Not Reportable Poikilocytosis Not Reportable Anisocytosis 1+ Microcytosis Not Reportable Macrocytosis Not Reportable Spherocytes Not Reportable Pappenheimer Bodies Not Reportable Sickle Cells Not Reportable Target Cells Not Reportable Tear Drop Cells Not Reportable Ovalocytes Not Reportable Helmet Cells Not Reportable [place] Bodies Not Reportable [place] Rings Not Reportable [place] Cells Not Reportable Bite Cells Not Reportable Crenated Cell Not Reportable Elliptocytes Not Reportable Acanthocytes (Spur) Not Reportable Rouleaux Not Reportable Hemoglobin C Crystals Not Reportable Schistocytes Not Reportable Malaria parasites Not Reportable Lit Bodies Not Reportable Hem Pathologist Commnt No Sodium 135 L Potassium 4.0 Chloride 105.0 Carbon Dioxide 20 L Anion Gap 14 BUN 14 Creatinine 0.6 L Estimated GFR > 60 BUN/Creatinine Ratio 23 Glucose 160 H Calcium 6.2 L Phosphorus 1.40 L Magnesium 1.10 L Total Bilirubin 0.20 AST 78 H ALT 248 H Alkaline Phosphatase 332 H Total Protein 5.8 L Albumin 1.6 L Albumin/Globulin Ratio 0.4
--- NOTE | 2020-10-22 09:09 | Progress Note ---
Assessment and Plan Assessment and plan: --Multiple myeloma vs metastatic disease[on CT chest and abdomen] Current Visit: Yes Status: Acute Along with pancytopenia requested medical records from [facility] Hematology evaluation recommendation noted and appreciated Requested bone marrow biopsy and further tests --Hypophosphatemia; Phos; 1.4[range 2.5-4.5] Current Visit: Yes Status: Acute Replenished with IV sodium phosphate Monitor electrolytes --Hypomagnesemia; Mg 1.1[range1.7 - 2.3] Current Visit: Yes Status: Acute Replenished with IV mag self as well as maintenance p.o. Mag-Ox --Pancytopenia; Current Visit: Yes Status: Acute probably due to underlying HIV/sepsis/persistent bacteremia Treat the underlying cause Hematology consult requested --Anemia; Hb 6.4 -8.0 Current Visit: Yes Status: Acute Received 1 unit PRBC transfusion check H&H, transfuse additional as needed. Hematology consult --Sepsis due to persistent bacteremia Current Visit: Yes Status: Acute Continue daptomycin per ID FLORESITA negative for endocarditis Cardiology consult appreciated --VRE bacteremia; Current Visit: Yes Status: Acute Unclear source/recent spinal surgery T10-T12, L1-L2, details not available Records requested from [facility] Unable to treat with linezolid secondary due to thrombocytopenia. ID recommended daptomycin for total 14 days ending 11/01/2020 Dapto is only choice of medication, and no other alternatives per ID Discussed with ID as well as case management --History of recent spinal surgery: at [facility] Current Visit: Yes Status: chr T10 T12, L1-L2 surgery, surgical sutures on the back Wound care, continue antibiotics, request records from [facility] --Acute systolic CHF/ EF 20 to 25% Current Visit: Yes Status: Acute antifailure medication with diuretic, beta-blockers, LALITHA inhibitors, input output monitoring, low-sodium diet,fluid restriction. Cardiology consult noted and appreciated --UTI/ur cultures grew Magali Current Visit: Yes Status: Acute Continue Diflucan , supportive care/ --Acute kidney injury (NELSY) due to ATN Current Visit: Yes Status: Acute Resolved, closely monitor renal function Avoid nephrotoxins -- Severe protein calorie malnutrition Current Visit: Yes Status: Acute Albumin 1.7 nutrition supplements ,, nutrition consult --Pneumonia Current Visit: Yes Status: Acute Completed 5 days of Rocephin and Zithromax Coronavirus PCR negative Follow cultures -- COVID-19 negative Current Visit: Yes Status: Acute Coronavirus PCR negative -- DVT prophylaxis Current Visit: Yes Status: Acute SCDs bilateral lower extremities while in bed, patient is ambulatory We will closely monitor the patient and adjust management as needed Plan of care reviewed with the patient and his nurse [facility] recommendations noted 10/16/2020; sepsis secondary to VRE bacteremia, UTI and pneumonia Continue current antibiotics per ID, contact isolation due to VRE 10/17/2020; patient is more alert and awake today, feels better CT abdomen and pelvis findings noted continue current antibiotics Physical therapy, Occupational Therapy as tolerated 10/18/2020; cardiology evaluations appreciated FLORESITA negative for endocarditis, cardiology started goal-directed CHF treatment 10/19/2020; persistent bacteremia, FLORESITA negative for endocarditis Continue ID cardiology recommendations Patient complains of some sore throat, Cepacol throat spray and Cepacol lozenges 10/20/2020; anemia, hemoglobin 6.4, transfuse 1 unit PRBC Closely monitor H&H transfuse additional PRBC as needed Pancytopenia, hematology consult inpatient versus outpatient 10/21/2020; patient's hemoglobin increased to 8.0 Severe hypophosphatemia, hypomagnesemia replenished Also consulted barn manager Dr. Yusuf Koehler 10/22/2020; hematology evaluation noted and appreciated bone marrow biopsy requested And work-up for multiple myeloma in process History Interval history: I have seen and examined the patient at the bedside this morning Patient's chart and medications reviewed Patient is scheduled for bone marrow biopsy Work-up of multiple myeloma in progress Hematology evaluation recommendations noted and appreciated Vital signs reviewed Hospitalist Physical - Constitutional Vitals: Temp Pulse Resp BP Pulse Ox 97.8 F 71 18 130/83 99 10/21/20 23:16 10/21/20 23:16 10/21/20 23:44 10/21/20 23:16 10/21/20 23:16 General appearance: Present: no acute distress, cachectic, other (More alert and awake today) - EENT Eyes: Present: PERRL, EOM intact - Neck Neck: Present: supple, normal ROM - Respiratory Respiratory effort: normal Respiratory: bilateral: diminished, negative: rales, rhonchi, wheezing - Cardiovascular Rhythm: regular Heart Sounds: Present: S1 & S2 - Extremities Extremities: no ischemia, No edema - Abdominal General gastrointestinal: soft, non-tender, non-distended - Integumentary Integumentary: Present: clear, warm - Psychiatric Psychiatric: appropriate mood/affect, cooperative - Neurologic Neurologic: CNII-XII intact, moves all extremities Results - Labs CBC & Chem 7: 10/22/20 08:59 10/22/20 08:59 Labs: Laboratory Last Values WBC 4.7 K/mm3 (4.5-11.0) 10/21/20 04:33 RBC 2.57 M/mm3 (3.65-5.03) L 10/21/20 04:33 Hgb 8.0 gm/dl (11.8-15.2) L 10/21/20 04:33 Hct 23.4 % (35.5-45.6) L 10/21/20 04:33 MCV 91 fl (84-94) 10/21/20 04:33 MCH 31 pg (28-32) 10/21/20 04:33 MCHC 34 % (32-34) 10/21/20 04:33 RDW 17.5 % (13.2-15.2) H 10/21/20 04:33 Plt Count 103 K/mm3 (140-440) L 10/21/20 04:33 Lymph % (Auto) 10.1 % (13.4-35.0) L 10/11/20 05:40 [place] % (Auto) 1.4 % (0.0-7.3) 10/11/20 05:40 Eos % (Auto) 1.6 % (0.0-4.3) 10/11/20 05:40 Baso % (Auto) 0.5 % (0.0-1.8) 10/11/20 05:40 Lymph # (Auto) 0.1 K/mm3 (1.2-5.4) L 10/11/20 05:40 [place] # (Auto) 0.0 K/mm3 (0.0-0.8) 10/11/20 05:40 Eos # (Auto) 0.0 K/mm3 (0.0-0.4) 10/11/20 05:40 Baso # (Auto) 0.0 K/mm3 (0.0-0.1) 10/11/20 05:40 Add Manual Diff Complete 10/21/20 04:33 Total Counted 100 10/21/20 04:33 Seg Neutrophils % Aviation Electronics Technician 10/21/20 04:33 Seg Neuts % (Manual) 98.0 % (40.0-70.0) H 10/21/20 04:33 Band Neutrophils % 1.0 % 10/21/20 04:33 Lymphocytes % (Manual) 1.0 % (13.4-35.0) L 10/21/20 04:33 Monocytes % (Manual) 3.0 % (0.0-7.3) 10/18/20 06:04 Eosinophils % (Manual) 1.0 % (0.0-4.3) 10/10/20 16:31 Basophils % (Manual) 1.0 % (0.0-1.8) 10/10/20 16:31 Nucleated RBC % 10.0 % (0.0-0.9) H 10/21/20 04:33 Seg Neutrophils # 1.1 K/mm3 (1.8-7.7) L 10/11/20 05:40 Seg Neutrophils # Man 4.6 K/mm3 (1.8-7.7) 10/21/20 04:33 Band Neutrophils # 0.0 K/mm3 10/21/20 04:33 Lymphocytes # (Manual) 0.0 K/mm3 (1.2-5.4) L 10/21/20 04:33 Abs React Lymphs (Man) 0.0 K/mm3 10/21/20 04:33 Monocytes # (Manual) 0.0 K/mm3 (0.0-0.8) 10/21/20 04:33 Eosinophils # (Manual) 0.0 K/mm3 (0.0-0.4) 10/21/20 04:33 Basophils # (Manual) 0.0 K/mm3 (0.0-0.1) 10/21/20 04:33 Metamyelocytes # 0.0 K/mm3 10/21/20 04:33 Myelocytes # 0.0 K/mm3 10/21/20 04:33 Promyelocytes # 0.0 K/mm3 10/21/20 04:33 Blast Cells # 0.0 K/mm3 10/21/20 04:33 WBC Morphology Not Reportable 10/21/20 04:33 Hypersegmented Neuts Not Reportable 10/21/20 04:33 Hyposegmented Neuts Not Reportable 10/21/20 04:33 Hypogranular Neuts Not Reportable 10/21/20 04:33 Smudge Cells Not Reportable 10/21/20 04:33 Toxic Granulation Not Reportable 10/21/20 04:33 Toxic Vacuolation Not Reportable 10/21/20 04:33 Dohle Bodies Not Reportable 10/21/20 04:33 Pelger-Huet Anomaly Not Reportable 10/21/20 04:33 Javon Rods Not Reportable 10/21/20 04:33 Platelet Estimate Consistent w auto 10/21/20 04:33 Clumped Platelets Not Reportable 10/21/20 04:33 Plt Clumps, EDTA Not Reportable 10/21/20 04:33 Large Platelets Few 10/21/20 04:33 Giant Platelets Not Reportable 10/21/20 04:33 Platelet Satelliting Not Reportable 10/21/20 04:33 Plt Morphology Comment Not Reportable 10/21/20 04:33 RBC Morphology Not Reportable 10/21/20 04:33 Dimorphic RBCs Not Reportable 10/21/20 04:33 Polychromasia Rare 10/21/20 04:33 Hypochromasia Not Reportable 10/21/20 04:33 Poikilocytosis Not Reportable 10/21/20 04:33 Anisocytosis 1+ 10/21/20 04:33 Microcytosis Not Reportable 10/21/20 04:33 Macrocytosis Not Reportable 10/21/20 04:33 Spherocytes Not Reportable 10/21/20 04:33 Pappenheimer Bodies Not Reportable 10/21/20 04:33 Sickle Cells Not Reportable 10/21/20 04:33 Target Cells Not Reportable 10/21/20 04:33 Tear Drop Cells Not Reportable 10/21/20 04:33 Ovalocytes Not Reportable 10/21/20 04:33 Helmet Cells Not Reportable 10/21/20 04:33 Arora-[place] Bodies Not Reportable 10/21/20 04:33 [place] Rings Not Reportable 10/21/20 04:33 Saline Cells Not Reportable 10/21/20 04:33 Bite Cells Not Reportable 10/21/20 04:33 Crenated Cell Not Reportable 10/21/20 04:33 Elliptocytes Not Reportable 10/21/20 04:33 Acanthocytes (Spur) Not Reportable 10/21/20 04:33 Rouleaux Not Reportable 10/21/20 04:33 Hemoglobin C Crystals Not Reportable 10/21/20 04:33 Schistocytes Not Reportable 10/21/20 04:33 Malaria parasites Not Reportable 10/21/20 04:33 Lit Bodies Not Reportable 10/21/20 04:33 Hem Pathologist Commnt No 10/21/20 04:33 D-Dimer 2351.86 ng/mlDDU (0-234) H 10/10/20 17:54 Sodium 135 mmol/L (137-145) L 10/21/20 04:33 Potassium 4.0 mmol/L (3.6-5.0) 10/21/20 04:33 Chloride 105.0 mmol/L (98-107) 10/21/20 04:33 Carbon Dioxide 20 mmol/L (22-30) L 10/21/20 04:33 Anion Gap 14 mmol/L 10/21/20 04:33 BUN 14 mg/dL (9-20) 10/21/20 04:33 Creatinine 0.6 mg/dL (0.8-1.3) L 10/21/20 04:33 Estimated GFR > 60 ml/min 10/21/20 04:33 BUN/Creatinine Ratio 23 % 10/21/20 04:33 Glucose 160 mg/dL (75-100) H 10/21/20 04:33 POC Glucose 120 mg/dL (70-105) H 10/12/20 15:42 Calcium 6.2 mg/dL (8.4-10.2) L 10/21/20 04:33 Phosphorus 1.40 mg/dL (2.5-4.5) L 10/21/20 04:33 Magnesium 1.10 mg/dL (1.7-2.3) L 10/21/20 04:33 Ferritin 2608.0 ng/mL (30.0-300.0) H 10/10/20 17:54 Total Bilirubin 0.20 mg/dL (0.1-1.2) 10/21/20 04:33 AST 78 units/L (5-40) H 10/21/20 04:33 ALT 248 units/L (7-56) H 10/21/20 04:33 Alkaline Phosphatase 332 units/L (35-129) H 10/21/20 04:33 Lactate Dehydrogenase 233 units/L (91-180) H 10/10/20 17:54 Total Creatine Kinase 60 units/L (55-170) 10/16/20 08:16 C-Reactive Protein 0.40 mg/dL (0.00-1.30) 10/16/20 17:23 Total Protein 5.8 g/dL (6.3-8.2) L 10/21/20 04:33 Albumin 1.6 g/dL (3.9-5) L 10/21/20 04:33 Albumin/Globulin Ratio 0.4 % 10/21/20 04:33 Procalcitonin 0.61 ng/mL (<0.15) 10/14/20 14:54 Urine Color Yellow (Yellow) 10/11/20 Unknown Urine Turbidity Cloudy (Clear) 10/11/20 Unknown Urine pH 5.0 (5.0-7.0) 10/11/20 Unknown Ur Specific [place] 1.019 (1.003-1.030) 10/11/20 Unknown Urine Protein 30 mg/dl mg/dL (Negative) 10/11/20 Unknown Urine Glucose (UA) Neg mg/dL (Negative) 10/11/20 Unknown Urine Ketones Neg mg/dL (Negative) 10/11/20 Unknown Urine Blood Sm (Negative) 10/11/20 Unknown Urine Nitrite Neg (Negative) 10/11/20 Unknown Urine Bilirubin Neg (Negative) 10/11/20 Unknown Urine Urobilinogen < 2.0 mg/dL (<2.0) 10/11/20 Unknown Ur Leukocyte Esterase Tr (Negative) 10/11/20 Unknown Urine WBC (Auto) 36.0 /HPF (0.0-6.0) H 10/11/20 Unknown Urine RBC (Auto) 129.0 /HPF (0.0-6.0) 10/11/20 Unknown U Epithel Cells (Auto) 1.0 /HPF (0-13.0) 10/11/20 Unknown Urine Bacteria (Auto) 2+ /HPF (Negative) 10/11/20 Unknown Urine Mucus Few /HPF 10/11/20 Unknown Urine Yeast (Budding) 2+ /HPF 10/11/20 Unknown Coronavirus (PCR) Negative (Negative) 10/11/20 08:32 HIV 1&2 Antibody Rapid Non react (Non React) 10/16/20 17:23 HIV P24 Antigen Non react (Non React) 10/16/20 17:23 Blood Type B POSITIVE 10/20/20 06:26 Antibody Screen Negative 10/20/20 06:26 Crossmatch See Detail 10/20/20 06:26 Microbiology: Microbiology 10/18/20 15:04 Peripheral/Venous Blood Culture - Preliminary NO GROWTH AFTER 72 HOURS 10/18/20 15:04 Peripheral/Venous Blood Culture - Preliminary NO GROWTH AFTER 72 HOURS [place]/IV: Voiding Method Indwelling Catheter Active Medications - Current Medications Current Medications: Generic Name Dose Route Start Last Admin Trade Name Freq PRN Reason Stop Dose Admin Acetaminophen 650 mg 10/10/20 19:46 10/19/20 05:48 Acetaminophen 325 Mg Tab PO 650 mg Q4H PRN Administration Pain MILD(1-3)/Fever >100.5/KINNEY Albuterol 2.5 mg 10/10/20 19:46 Albuterol 2.5 Mg/3 Ml Nebu IH Q4HRT PRN Shortness Of Breath Artificial Tears 2 drops 10/20/20 18:29 10/20/20 22:53 Hypromellose 0.5% Ophth Soln 15 Ml OU 2 drops Q4H PRN Administration Dry Eye(s) Aspirin 81 mg 10/18/20 15:00 10/21/20 11:43 Aspirin Ec 81 Mg Tab PO 81 mg QDAY THEE Administration Benzocaine/Menthol 1 each 10/19/20 17:49 10/20/20 18:33 Benzocaine/Menthol Lozenge MM 1 each Q2HR PRN Administration Sore Throat Carvedilol 3.125 mg 10/17/20 22:00 10/21/20 22:22 Carvedilol 3.125 Mg Tab PO 3.125 mg BID THEE Administration Sodium Chloride 1,000 mls @ 125 mls/hr 10/12/20 11:00 10/17/20 22:55 Nacl 0.45% 1000 Ml IV 125 mls/hr DIRECT THEE Administration Daptomycin 560 mg/ Sodium 100 mls @ 200 mls/hr 10/15/20 12:30 10/21/20 12:23 Chloride IV 11/01/20 12:59 200 mls/hr Q24H THEE Administration Protocol Lisinopril 2.5 mg 10/18/20 10:00 10/21/20 11:43 Lisinopril 5 Mg Tab PO 2.5 mg QDAY THEE Administration Magnesium Oxide 400 mg 10/22/20 10:00 Magnesium Oxide 400 Mg Tab PO QDAY THEE Methylprednisolone Sodium Succinate 70 mg 10/22/20 10:00 Methylprednisolone Sod Succinate 125 Mg/2 Ml Inj IV 10/24/20 09:59 Q12H THEE Ondansetron HCl 4 mg 10/10/20 19:46 Ondansetron 4 Mg/2 Ml Inj IV Q8H PRN Nausea And Vomiting Phenol 1 spray 10/15/20 14:54 10/18/20 21:53 Phenol 1.4% 177 Ml Bottle MM 1 spray PRN PRN Administration Sore Throat Sodium Chloride 10 ml 10/10/20 22:00 10/21/20 22:23 Sodium Chloride 0.9% 10 Ml Flush Syringe IV 10 ml BID THEE Administration Sodium Chloride 10 ml 10/10/20 19:46 Sodium Chloride 0.9% 10 Ml Flush Syringe IV PRN PRN LINE FLUSH Spironolactone 25 mg 10/18/20 15:00 10/21/20 11:42 Spironolactone 25 Mg Tab PO 25 mg QDAY THEE Administration Nutrition/Malnutrition Assess - Dietary Evaluation Nutrition/Malnutrition Findings: Nutrition Notes Start: 10/11/20 12:16 Freq: Status: Active Protocol: Document 10/21/20 13:24 (Rec: 10/21/20 13:30 [email or web address]) Nutrition Notes Initial or Follow up Reassessment Current Diagnosis Acute Kidney Injury,Diabetes Other Pertinent Diagnosis SIRS, pneu Current Diet Consistent Carbohydrate Diet + Glucerna Labs/Tests Na 135 Phos 1.4 Mg 1.1 Pertinent Medications Reviewed Height 5 ft 6 in Weight 71.4 kg [place] Body Weight (kg) 64.54 BMI 25.4 Weight change and time frame New wt obtained Weight Status Appropriate Subjective/Other Information FU for intakes. Pt states he eats about 50% of meals and is drinking all of ONS. Pt states he wants to gain weight . Percent of energy/protein needs met: 79%/90% (including ONS) Burn Absent Trauma Absent GI Symptoms None Current % PO Fair (50-74%) Minimum of two criteria Yes Body Fat Depletion Moderate depletion (severe) Protein-Calorie Malnutrition Severe #1 Nutrition Diagnosis Malnutrition Diagnosis Progress(for reassessment Continues documentation) Is patient on ventilator? No Is Patient Ambulatory and/or Out of Bed Yes REE-([place]-St. Jeor-ambulatory/OOB) [ 1926.275 NUTR.[id number]] Kcal/Kg value to use for calculation 30 Approximate Energy Requirements Using 2142 kcal/Kg Calculation Used for Recommendations Kcal/kg Additional Notes Pro needs 1.2-1.5g/k-104g /day Fluid needs 1ml/kcal Nutrition Intervention Change Diet Order: Continue current diet order Add Supplement/Snack (indicate name/kcal Glucerna TID /protein ) Provides kCal: 660 Provides Protein (gm) 30 Goal #1 PO intake of meals plus ONS to meet 75-100% energy and pro needs Goal #2 Wt maintenance and/or gain Follow-Up By: 10/23/20 Additional Comments FU for intakes
[2020-10-22] MEDS: carvediloL 3.125 MG TAB PO SCH ×2 (09:28→22:06)
[2020-10-22] MEDS: ASPIRIN EC 81 MG TAB PO SCH (09:28)
[2020-10-22] MEDS: SPIRONOLACTONE 25 MG TAB PO SCH (09:28)
[2020-10-22] MEDS: MAGNESIUM OXIDE 400 MG TAB PO SCH (09:28)
[2020-10-22] MEDS: LISINOPRIL 5 MG TAB PO SCH (09:29)
[2020-10-22 09:46] LABS: Hematocrit 25.5 % (35.5-45.6); Hemoglobin 8.6 gm/dl (11.8-15.2); Mean Corpuscular HGB Conc 34 % (32-34); Mean Corpuscular Volume 92 fl (84-94); Platelet Count 112 K/mm3 (140-440); Red Blood Count 2.78 M/mm3 (3.65-5.03)
[2020-10-22 10:01] LABS: INR 1.01 (0.87-1.13)
[2020-10-22 10:02] LABS: Partial Thromboplastin Time 26.8 Sec. (24.2-36.6)
[2020-10-22 10:05] LABS: Alanine Aminotransferase 278 units/L (7-56); Albumin 1.7 g/dL (3.9-5); Blood Urea Nitrogen 13 mg/dL (9-20); Hemolysis Index 1
[2020-10-22 10:19] LABS: BUN/Creatinine Ratio 26
--- NOTE | 2020-10-22 10:38 | Progress Note ---
Assessment and Plan Dilated Cardiomyopathy, uncertain duration LVEF 20-25% by echo this admission Severe Anemia Bacteremia FLORESITA done this admission reports no evidence of vegetations Pneumonia negative COVID 19 test Malnutrition Continue GDMT for dilated cardiomyopathy as tolerated. Otherwise, conservative cardiac management. Subjective Date of service: 10/22/20 Principal diagnosis: Altered sensorium Interval history: Patient is resting in bed comfortably. No cardiac complaints. Objective Vital Signs Temp Pulse Resp BP BP Pulse Ox 10/21/20 23:44 18 10/21/20 23:16 97.8 F 71 18 130/83 99 10/21/20 22:22 71 130/83 10/21/20 16:40 98.1 F 74 18 135/86 99 10/21/20 11:42 125/82 10/21/20 11:26 97.6 F 77 18 125/82 98 - Physical Examination General: No Apparent Distress, Cachectic HEENT: Positive: PERRL Neck: Positive: trachea midline Cardiac: Positive: Reg Rate and Rhythm Lungs: Positive: Decreased Breath Sounds Neuro: Positive: Weakness Extremities: Absent: edema - Labs and Meds Cardiac Enzymes 10/22/20 Range/Units 08:59 AST 81 H (5-40) units/L Coagulation 10/22/20 Range/Units 09:09 PT 13.2 (12.2-14.9) Sec. INR 1.01 (0.87-1.13) APTT 26.8 (24.2-36.6) Sec. CBC 10/22/20 Range/Units 08:59 WBC 4.1 L (4.5-11.0) K/mm3 RBC 2.78 L (3.65-5.03) M/mm3 Hgb 8.6 L (11.8-15.2) gm/dl Hct 25.5 L (35.5-45.6) % Plt Count 112 L (140-440) K/mm3 Comprehensive Metabolic Panel 10/22/20 Range/Units 08:59 Sodium 137 (137-145) mmol/L Potassium 3.8 (3.6-5.0) mmol/L Chloride 104.0 (98-107) mmol/L Carbon Dioxide 24 (22-30) mmol/L BUN 13 (9-20) mg/dL Creatinine 0.5 L (0.8-1.3) mg/dL Glucose 127 H (75-100) mg/dL Calcium 6.0 L (8.4-10.2) mg/dL AST 81 H (5-40) units/L ALT 278 H (7-56) units/L Alkaline Phosphatase 378 H (35-129) units/L Total Protein 6.1 L (6.3-8.2) g/dL Albumin 1.7 L (3.9-5) g/dL
[2020-10-22] MEDS: methylPREDNISolone Sod Succinate 125 MG/2 ML INJ IV SCH ×2 (11:18→22:06)
[2020-10-22 11:35] LABS: Total Cells Counted 100
[2020-10-22 11:38] LABS: Anisocytosis Few; Platelet Estimate Consistent w Auto; Poikilocytosis Few
[2020-10-22] MEDS: ACETAMINOPHEN 325 MG TAB PO PRN (12:32)
--- NOTE | 2020-10-22 13:21 | Progress Note ---
Assessment and Plan Cultures: SARS CoV2 PCR: Negative HIV: Negative 10/10/2020 blood culture: VRE 2 out of 4 bottles 10/10/2020 urine culture: Magali 10/14/2020 blood culture no growth today 10/14/2020 blood culture: GPC 3 of 4 10/18/2020 blood culture: No growth today A/P: 55-year-old male with diabetes, malnutrition, resident of an assisted living facility was brought into the emergency room with complaints of sore throat and back pain: #VRE bacteremia: Very unclear source. ?recent T10-T12 fusion and L1-L2 surgery (noted surgical sutures on his back, pt is not able to elaborate, only reported surgery was done at [facility]. FLORESITA negative. Repeat blood cx 10/14 positive. Repeat blood cx 10/[address] shows a bone cage and fixation from T10-T12, chronic pathologic fracture L5. No obvious discitis, osteomyelitis, abscess. MRI no abscess, discitis, osteomyelitis +compression deformities at several levels, mainly L5. #UTI: Urine culture grew Magali. Renal ultrasound with mild right pelvic caliectasis and echogenic right kidney. #Bilateral pneumonia: ?CAP vs aspiration. Not hypoxic. Leukopenia. SARS-CoV-2 PCR negative. Chest x-ray with bibasilar opacities left more than right. #Pancytopenia: suspect multiple myeloma. CT with multifocal lucent lesions, L5 pathologic fracture. Baseline WBC is unknown. HIV negative x 2 . Severe anemia now receiving blood transfusions. #NELSY: Renally dose antibiotics. Resolved. #Transaminitis: With elevation of alkaline phosphatase. RUQ ultrasound ordered #Chronic malnutrition; BMI of 16.1. HIV neg x 2. #Headache, double vision: resolved. CT head unremarkable. Recs: -Request records from [facility] -Continue daptomycin at 8 mg/kg daily -Cannot do linezolid due to pancytopenia -Completed ceftriaxone, azithromycin for pneumonia -Anticipate to d/c on daptomycin 600 mg IV daily total 14 days till 11/01/2020. Order sent to manager of case. Unfortunately as the VRE is resistant to both vancomycin and penicillins, and patient unable to tolerate Zyvox with pancytopenia daptomycin is the only treatment option available. Ophelia De Luna MD [facility] ([facility] O: [phone] F: [phone] Subjective Date of service: 10/22/20 Principal diagnosis: Altered sensorium Interval history: Afebrile, white count 4.1. Objective - Exam Narrative Exam: General appearance: Alert in NAD cachetic Eyes: anicteric sclerae, moist conjunctivae; no lid-lag; PERRLA HENT: Normocephalic, Atraumatic; normal external ears, nares open, oropharynx limited Neck: supple, tracheal midline, no JVD Lungs: Diminished breath sound bilaterally CV: RRR no murmur Abdomen: Nontender Extremities: left toes tenderness Skin: mid and lower back sutures parallel to the spine Psych: no agitated Neuro: alert and oriented x 3. Moving all extermities - Constitutional Vitals: Vital Signs Temp Pulse Resp BP Pulse Ox 97.8 F 71 18 130/83 99 10/21/20 23:16 10/21/20 23:16 10/21/20 23:44 10/21/20 23:16 10/21/20 23:16 Temperature -Last 24 Hours Temperature 97.8 F Temperature 98.1 F - Labs CBC & Chem 7: 10/22/20 08:59 10/22/20 08:59 Labs: Abnormal lab results 10/22/20 10/22/20 Range/Units 08:59 08:59 WBC 4.1 L (4.5-11.0) K/mm3 RBC 2.78 L (3.65-5.03) M/mm3 Hgb 8.6 L (11.8-15.2) gm/dl Hct 25.5 L (35.5-45.6) % RDW 18.0 H (13.2-15.2) % Plt Count 112 L (140-440) K/mm3 Seg Neuts % (Manual) 100.0 H (40.0-70.0) % Nucleated RBC % 10.0 H (0.0-0.9) % Lymphocytes # (Manual) 0.0 L (1.2-5.4) K/mm3 Creatinine 0.5 L (0.8-1.3) mg/dL Glucose 127 H (75-100) mg/dL Calcium 6.0 L (8.4-10.2) mg/dL Magnesium 1.60 L (1.7-2.3) mg/dL AST 81 H (5-40) units/L ALT 278 H (7-56) units/L Alkaline Phosphatase 378 H (35-129) units/L Total Protein 6.1 L (6.3-8.2) g/dL Albumin 1.7 L (3.9-5) g/dL
--- NOTE | 2020-10-22 14:12 | Hem/Onc Progress Note ---
Subjective Date of service: 10/22/20 Interval history: Seen via televisit 55yo disabled man, nonverbal, ?stroke eval for back pain, found to have lytic bone lesions on Chest CT found to have bacteremia and pneumonia since admission he has been receiving IV Abx DATA REVIEWED BELOW IMP: heme malignancy suspected, myeloma is possible immunocompromised-presumed pneumonia disabled man, borderline candidate for anti-tumor therapy PLAN: request bone marrow biopsy steroid pulse SPEP and kappa/lambda -pending Bone survey for myeloma work-up B2M in the am Objective - Constitutional Vitals: Last Vital Signs Temp 97.8 F 10/21/20 23:16 Pulse 71 10/21/20 23:16 Resp 18 10/21/20 23:44 BP 130/83 10/21/20 23:16 Pulse Ox 99 10/21/20 23:16 - Labs Lab Results: Laboratory Results - last 24 hr 10/22/20 10/22/20 10/22/20 08:59 08:59 09:09 WBC 4.1 L RBC 2.78 L Hgb 8.6 L Hct 25.5 L MCV 92 MCH 31 MCHC 34 RDW 18.0 H Plt Count 112 L Add Manual Diff Complete Total Counted 100 Seg Neutrophils % Weigher Operator Seg Neuts % (Manual) 100.0 H Nucleated RBC % 10.0 H Seg Neutrophils # Man 4.1 Band Neutrophils # 0.0 Lymphocytes # (Manual) 0.0 L Abs React Lymphs (Man) 0.0 Monocytes # (Manual) 0.0 Eosinophils # (Manual) 0.0 Basophils # (Manual) 0.0 Metamyelocytes # 0.0 Myelocytes # 0.0 Promyelocytes # 0.0 Blast Cells # 0.0 WBC Morphology Not Reportable Hypersegmented Neuts Not Reportable Hyposegmented Neuts Not Reportable Hypogranular Neuts Not Reportable Smudge Cells Not Reportable Toxic Granulation Not Reportable Toxic Vacuolation Not Reportable Dohle Bodies Not Reportable Pelger-Huet Anomaly Not Reportable Javon Rods Not Reportable Platelet Estimate Consistent w auto Clumped Platelets Not Reportable Plt Clumps, EDTA Not Reportable Large Platelets Not Reportable Giant Platelets Not Reportable Platelet Satelliting Not Reportable Plt Morphology Comment Not Reportable RBC Morphology Not Reportable Dimorphic RBCs Not Reportable Polychromasia Not Reportable Hypochromasia Not Reportable Poikilocytosis Few Anisocytosis Few Microcytosis Not Reportable Macrocytosis Not Reportable Spherocytes Not Reportable Pappenheimer Bodies Not Reportable Sickle Cells Not Reportable Target Cells Not Reportable Tear Drop Cells Not Reportable Ovalocytes Not Reportable Helmet Cells Not Reportable Arora-[place] Bodies Not Reportable [place] Rings Not Reportable [place] Cells Not Reportable Bite Cells Not Reportable Crenated Cell Not Reportable Elliptocytes Not Reportable Acanthocytes (Spur) Not Reportable Rouleaux Not Reportable Hemoglobin C Crystals Not Reportable Schistocytes Not Reportable Malaria parasites Not Reportable Lit Bodies Not Reportable Hem Pathologist Commnt No PT 13.2 INR 1.01 APTT 26.8 Sodium 137 Potassium 3.8 Chloride 104.0 Carbon Dioxide 24 Anion Gap 13 BUN 13 Creatinine 0.5 L Estimated GFR > 60 BUN/Creatinine Ratio 26 Glucose 127 H Calcium 6.0 L Phosphorus 2.50 D Magnesium 1.60 L Total Bilirubin < 0.20 AST 81 H ALT 278 H Alkaline Phosphatase 378 H Total Protein 6.1 L Albumin 1.7 L Albumin/Globulin Ratio 0.4 Medications & Allergies - Medications Allergies/Adverse Reactions: Allergies No Known Allergies Allergy (Verified 10/14/20 21:11) Home Medications: Home Medications Medication Instructions Recorded Confirmed Last Taken Type No Known Home Medications [No 10/11/20 10/11/20 Unknown History Reported Home Medications] Active Medications: Generic Name Dose Route Start Last Admin Trade Name Freq PRN Reason Stop Dose Admin Acetaminophen 650 mg 10/10/20 19:46 10/22/20 12:32 Acetaminophen 325 Mg Tab PO 650 mg Q4H PRN Administration Pain MILD(1-3)/Fever >100.5/KINNEY Albuterol 2.5 mg 10/10/20 19:46 Albuterol 2.5 Mg/3 Ml Nebu IH Q4HRT PRN Shortness Of Breath Artificial Tears 2 drops 10/20/20 18:29 10/20/20 22:53 Hypromellose 0.5% Ophth Soln 15 Ml OU 2 drops Q4H PRN Administration Dry Eye(s) Aspirin 81 mg 10/18/20 15:00 10/22/20 09:28 Aspirin Ec 81 Mg Tab PO Not Given QDAY THEE Benzocaine/Menthol 1 each 10/19/20 17:49 10/20/20 18:33 Benzocaine/Menthol Lozenge MM 1 each Q2HR PRN Administration Sore Throat Carvedilol 3.125 mg 10/17/20 22:00 10/22/20 09:28 Carvedilol 3.125 Mg Tab PO Not Given BID THEE Sodium Chloride 1,000 mls @ 125 mls/hr 10/12/20 11:00 10/17/20 22:55 Nacl 0.45% 1000 Ml IV 125 mls/hr DIRECT THEE Administration Daptomycin 560 mg/ Sodium 100 mls @ 200 mls/hr 10/15/20 12:30 10/22/20 12:31 Chloride IV 11/01/20 12:59 200 mls/hr Q24H THEE Administration Protocol Lisinopril 2.5 mg 10/18/20 10:00 10/22/20 09:29 Lisinopril 5 Mg Tab PO Not Given QDAY [facility] Magnesium Oxide 400 mg 10/22/20 10:00 10/22/20 09:28 Magnesium Oxide 400 Mg Tab PO Not Given QDAY [facility] Methylprednisolone Sodium Succinate 70 mg 10/22/20 10:00 10/22/20 11:18 Methylprednisolone Sod Succinate 125 Mg/2 Ml Inj IV 10/24/20 09:59 70 mg Q12H THEE Administration Ondansetron HCl 4 mg 10/10/20 19:46 Ondansetron 4 Mg/2 Ml Inj IV Q8H PRN Nausea And Vomiting Phenol 1 spray 10/15/20 14:54 10/18/20 21:53 Phenol 1.4% 177 Ml Bottle MM 1 spray PRN PRN Administration Sore Throat Sodium Chloride 10 ml 10/10/20 22:00 10/22/20 11:19 Sodium Chloride 0.9% 10 Ml Flush Syringe IV 10 ml BID THEE Administration Sodium Chloride 10 ml 10/10/20 19:46 Sodium Chloride 0.9% 10 Ml Flush Syringe IV PRN PRN LINE FLUSH Spironolactone 25 mg 10/18/20 15:00 10/22/20 09:28 Spironolactone 25 Mg Tab PO Not Given QDAY [facility]
--- NOTE | 2020-10-22 17:24 | XRay Report ---
METASTATIC BONE SURVEY 21 VIEWS INDICATION/CLINICAL INFORMATION: suspected myeloma COMPARISON: No relevant prior imaging study available. FINDINGS: BONES AND JOINTS: Scattered lucent lesions are seen along the skull measuring up to 9 mm along the sk ull vertex. There is a suspicious complex lucent lesion involving the right scapula and extending to the glenohumeral joint, measuring 6.0 x 5.4 cm. Multiple suspicious punctate lucent lesions are seen along the ribs with larger lesions noted along the lower ribs bilaterally with secondary pathologic f ractures. A medical field representative lesion located posteriorly along the right 10th rib measures 3.1 x 2.1 cm. Multiple subcentimeter lucent lesions are seen along the femoral and humeral shafts as well as along the humeral head/ . Subcentimeter lucent lesions are also seen along the right scapula. Posterior and interbody fusion of T10-T12 appears unremarkable with multilevel kyphoplasty/vertebroplasty changes along the lower th oracic and upper lumbar spine. A severe compression deformity of L5 is noted. There is mild cervical and lumbar spondylosis. There is mild osteoarthritis of the knees. SOFT TISSUES: Small pleural effusions are noted. No other significant abnormality. ADDITIONAL FINDINGS: No other significant findings. IMPRESSION: Multiple suspicious bone lesions as above are most concerning for multiple myeloma. Metastatic diseas e from a different primary neoplasm is also a consideration. Signer Name: Carlos A San MD Signed: 10/22/2020 5:20 PM Workstation Name: [id number]
--- NOTE | 2020-10-23 08:20 | Progress Note ---
Assessment and Plan Dilated Cardiomyopathy, uncertain duration LVEF 20-25% by echo this admission Severe Anemia Bacteremia FLORESITA done this admission reports no evidence of vegetations Pneumonia negative COVID 19 test Malnutrition Continue GDMT for dilated cardiomyopathy as tolerated. Otherwise, conservative cardiac management. Subjective Date of service: 10/23/20 Principal diagnosis: Altered sensorium Interval history: Patient is resting in bed comfortably. No interval cardiac changes. Workup of multiple myeloma in progress. Objective Vital Signs Temp Pulse Resp BP Pulse Ox 10/23/20 06:26 97.7 F 79 20 128/89 98 10/22/20 23:16 97.6 F 91 H 18 105/72 97 10/22/20 20:46 18 10/22/20 14:01 97.7 F 76 18 121/79 98 - Physical Examination General: No Apparent Distress, Cachectic HEENT: Positive: PERRL Neck: Positive: trachea midline Cardiac: Positive: Reg Rate and Rhythm Neuro: Positive: Weakness Abdomen: Positive: Soft, Active Bowel Sounds Skin: Positive: Clear Extremities: Absent: edema - Labs and Meds Cardiac Enzymes 10/22/20 Range/Units 08:59 AST 81 H (5-40) units/L Coagulation 10/22/20 Range/Units 09:09 PT 13.2 (12.2-14.9) Sec. INR 1.01 (0.87-1.13) APTT 26.8 (24.2-36.6) Sec. CBC 10/22/20 Range/Units 08:59 WBC 4.1 L (4.5-11.0) K/mm3 RBC 2.78 L (3.65-5.03) M/mm3 Hgb 8.6 L (11.8-15.2) gm/dl Hct 25.5 L (35.5-45.6) % Plt Count 112 L (140-440) K/mm3 Comprehensive Metabolic Panel 10/22/20 Range/Units 08:59 Sodium 137 (137-145) mmol/L Potassium 3.8 (3.6-5.0) mmol/L Chloride 104.0 (98-107) mmol/L Carbon Dioxide 24 (22-30) mmol/L BUN 13 (9-20) mg/dL Creatinine 0.5 L (0.8-1.3) mg/dL Glucose 127 H (75-100) mg/dL Calcium 6.0 L (8.4-10.2) mg/dL AST 81 H (5-40) units/L ALT 278 H (7-56) units/L Alkaline Phosphatase 378 H (35-129) units/L Total Protein 6.1 L (6.3-8.2) g/dL Albumin 1.7 L (3.9-5) g/dL
--- NOTE | 2020-10-23 09:57 | Hem/Onc Progress Note ---
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, L spine tumor no specific T spine tumor described IMP: multiple myeloma presumed immunocompromised-presumed pneumonia good enough candidate for anti-myeloma therapy he will need anti-myeloma therapy soon, maybe including radiation REC/PLAN: bone marrow biopsy when possible receiving IV Abx for presumed pneumonia continue steroid pulse inpatient SPEP and kappa/lambda pending anticipate he will need in-person heme/onc after discharge Laboratory Last Values WBC 4.1 K/mm3 (4.5-11.0) L 10/22/20 08:59 Hgb 8.6 gm/dl (11.8-15.2) L 10/22/20 08:59 Hct 25.5 % (35.5-45.6) L 10/22/20 08:59 Plt Count 112 K/mm3 (140-440) L 10/22/20 08:59 PT 13.2 Sec. (12.2-14.9) 10/22/20 09:09 INR 1.01 (0.87-1.13) 10/22/20 09:09 APTT 26.8 Sec. (24.2-36.6) 10/22/20 09:09 Total Bilirubin < 0.20 mg/dL (0.1-1.2) 10/22/20 08:59 AST 81 units/L (5-40) H 10/22/20 08:59 ALT 278 units/L (7-56) H 10/22/20 08:59 Alkaline Phosphatase 378 units/L (35-129) H 10/22/20 08:59 Lactate Dehydrogenase 233 units/L (91-180) H 10/10/20 17:54 Crossmatch See Detail 10/20/20 06:26 Objective - Constitutional Vitals: Last Vital Signs Temp 97.7 F 10/23/20 06:26 Pulse 79 10/23/20 06:26 Resp 20 10/23/20 06:26 BP 128/89 10/23/20 06:26 Pulse Ox 98 10/23/20 06:26 - Labs Lab Results: Laboratory Results - last 24 hr 10/21/20 10/22/20 10/22/20 10:00 08:59 08:59 WBC 4.1 L RBC 2.78 L Hgb 8.6 L Hct 25.5 L MCV 92 MCH 31 MCHC 34 RDW 18.0 H Plt Count 112 L Add Manual Diff Complete Total Counted 100 Seg Neutrophils % Certified Court/Medical Interpreter Seg Neuts % (Manual) 100.0 H Nucleated RBC % 10.0 H Seg Neutrophils # Man 4.1 Band Neutrophils # 0.0 Lymphocytes # (Manual) 0.0 L Abs React Lymphs (Man) 0.0 Monocytes # (Manual) 0.0 Eosinophils # (Manual) 0.0 Basophils # (Manual) 0.0 Metamyelocytes # 0.0 Myelocytes # 0.0 Promyelocytes # 0.0 Blast Cells # 0.0 WBC Morphology Not Reportable Hypersegmented Neuts Not Reportable Hyposegmented Neuts Not Reportable Hypogranular Neuts Not Reportable Smudge Cells Not Reportable Toxic Granulation Not Reportable Toxic Vacuolation Not Reportable Dohle Bodies Not Reportable Pelger-Huet Anomaly Not Reportable Javon Rods Not Reportable Platelet Estimate Consistent w auto Clumped Platelets Not Reportable Plt Clumps, EDTA Not Reportable Large Platelets Not Reportable Giant Platelets Not Reportable Platelet Satelliting Not Reportable Plt Morphology Comment Not Reportable RBC Morphology Not Reportable Dimorphic RBCs Not Reportable Polychromasia Not Reportable Hypochromasia Not Reportable Poikilocytosis Few Anisocytosis Few Microcytosis Not Reportable Macrocytosis Not Reportable Spherocytes Not Reportable Pappenheimer Bodies Not Reportable Sickle Cells Not Reportable Target Cells Not Reportable Tear Drop Cells Not Reportable Ovalocytes Not Reportable Helmet Cells Not Reportable Arora-[place] Bodies Not Reportable [place] Rings Not Reportable [place] Cells Not Reportable Bite Cells Not Reportable Crenated Cell Not Reportable Elliptocytes Not Reportable Acanthocytes (Spur) Not Reportable Rouleaux Not Reportable Hemoglobin C Crystals Not Reportable Schistocytes Not Reportable Malaria parasites Not Reportable Lit Bodies Not Reportable Hem Pathologist Commnt No PT INR APTT Sodium 137 Potassium 3.8 Chloride 104.0 Carbon Dioxide 24 Anion Gap 13 BUN 13 Creatinine 0.5 L Estimated GFR > 60 BUN/Creatinine Ratio 26 Glucose 127 H Calcium 6.0 L Phosphorus 2.50 D Magnesium 1.60 L Total Bilirubin < 0.20 AST 81 H ALT 278 H Alkaline Phosphatase 378 H Total Creatine Kinase Total Protein 6.1 L Albumin 1.7 L Albumin/Globulin Ratio 0.4 Coronavirus (PCR) Negative 10/22/20 10/23/20 09:09 05:12 WBC RBC Hgb Hct MCV MCH MCHC RDW Plt Count Add Manual Diff Total Counted Seg Neutrophils % Seg Neuts % (Manual) Nucleated RBC % Seg Neutrophils # Man Band Neutrophils # Lymphocytes # (Manual) Abs React Lymphs (Man) Monocytes # (Manual) Eosinophils # (Manual) Basophils # (Manual) Metamyelocytes # Myelocytes # Promyelocytes # Blast Cells # WBC Morphology Hypersegmented Neuts Hyposegmented Neuts Hypogranular Neuts Smudge Cells Toxic Granulation Toxic Vacuolation Dohle Bodies Pelger-Huet Anomaly Javon Rods Platelet Estimate Clumped Platelets Plt Clumps, EDTA Large Platelets Giant Platelets Platelet Satelliting Plt Morphology Comment RBC Morphology Dimorphic RBCs Polychromasia Hypochromasia Poikilocytosis Anisocytosis Microcytosis Macrocytosis Spherocytes Pappenheimer Bodies Sickle Cells Target Cells Tear Drop Cells Ovalocytes Helmet Cells Arora-[place] Bodies [place] Rings [place] Cells Bite Cells Crenated Cell Elliptocytes Acanthocytes (Spur) Rouleaux Hemoglobin C Crystals Schistocytes Malaria parasites Lit Bodies Hem Pathologist Commnt PT 13.2 INR 1.01 APTT 26.8 Sodium Potassium Chloride Carbon Dioxide Anion Gap BUN Creatinine Estimated GFR BUN/Creatinine Ratio Glucose Calcium Phosphorus Magnesium Total Bilirubin AST ALT Alkaline Phosphatase Total Creatine Kinase 49 L Total Protein Albumin Albumin/Globulin Ratio Coronavirus (PCR) Medications & Allergies - Medications Allergies/Adverse Reactions: Allergies No Known Allergies Allergy (Verified 10/14/20 21:11) Home Medications: Home Medications Medication Instructions Recorded Confirmed Last Taken Type No Known Home Medications [No 10/11/20 10/11/20 Unknown History Reported Home Medications] Active Medications: Generic Name Dose Route Start Last Admin Trade Name Freq PRN Reason Stop Dose Admin Acetaminophen 650 mg 10/10/20 19:46 10/22/20 12:32 Acetaminophen 325 Mg Tab PO 650 mg Q4H PRN Administration Pain MILD(1-3)/Fever >100.5/KINNEY Albuterol 2.5 mg 10/10/20 19:46 Albuterol 2.5 Mg/3 Ml Nebu IH Q4HRT PRN Shortness Of Breath Artificial Tears 2 drops 10/20/20 18:29 10/20/20 22:53 Hypromellose 0.5% Ophth Soln 15 Ml OU 2 drops Q4H PRN Administration Dry Eye(s) Aspirin 81 mg 10/18/20 15:00 10/22/20 09:28 Aspirin Ec 81 Mg Tab PO Not Given QDAY THEE Benzocaine/Menthol 1 each 10/19/20 17:49 10/20/20 18:33 Benzocaine/Menthol Lozenge MM 1 each Q2HR PRN Administration Sore Throat Carvedilol 3.125 mg 10/17/20 22:00 10/22/20 22:06 Carvedilol 3.125 Mg Tab PO 3.125 mg BID THEE Administration Sodium Chloride 1,000 mls @ 125 mls/hr 10/12/20 11:00 10/17/20 22:55 Nacl 0.45% 1000 Ml IV 125 mls/hr DIRECT THEE Administration Daptomycin 560 mg/ Sodium 100 mls @ 200 mls/hr 10/15/20 12:30 10/22/20 12:31 Chloride IV 11/01/20 12:59 200 mls/hr Q24H THEE Administration Protocol Lisinopril 2.5 mg 10/18/20 10:00 10/22/20 09:29 Lisinopril 5 Mg Tab PO Not Given QDAY THEE Magnesium Oxide 400 mg 10/22/20 10:00 10/22/20 09:28 Magnesium Oxide 400 Mg Tab PO Not Given QDAY THEE Methylprednisolone Sodium Succinate 70 mg 10/22/20 10:00 10/22/20 22:06 Methylprednisolone Sod Succinate 125 Mg/2 Ml Inj IV 10/24/20 09:59 70 mg Q12H THEE Administration Ondansetron HCl 4 mg 10/10/20 19:46 Ondansetron 4 Mg/2 Ml Inj IV Q8H PRN Nausea And Vomiting Phenol 1 spray 10/15/20 14:54 10/18/20 21:53 Phenol 1.4% 177 Ml Bottle MM 1 spray PRN PRN Administration Sore Throat Sodium Chloride 10 ml 10/10/20 22:00 10/22/20 22:07 Sodium Chloride 0.9% 10 Ml Flush Syringe IV 10 ml BID THEE Administration Sodium Chloride 10 ml 10/10/20 19:46 Sodium Chloride 0.9% 10 Ml Flush Syringe IV PRN PRN LINE FLUSH Spironolactone 25 mg 10/18/20 15:00 10/22/20 09:28 Spironolactone 25 Mg Tab PO Not Given QDAY THEE
[2020-10-23] MEDS ORDERED: ONDANSETRON 4 MG/2 ML INJ IV NR (13:40)
[2020-10-23] MEDS ORDERED: HYDROmorphone 1 MG/1 ML INJ IV NR (13:42)
[2020-10-23] MEDS ORDERED: LIDOCAINE (1%) 10 MG/1 ML VIAL 20 ML MDV ONE (14:15)
[2020-10-23] MEDS: methylPREDNISolone Sod Succinate 125 MG/2 ML INJ IV SCH ×2 (14:55→22:08)
[2020-10-23] MEDS: carvediloL 3.125 MG TAB PO SCH ×2 (14:55→22:09)
[2020-10-23] MEDS: ASPIRIN EC 81 MG TAB PO SCH ×2 (14:55→15:16)
[2020-10-23] MEDS: MAGNESIUM OXIDE 400 MG TAB PO SCH ×2 (14:55→15:17)
[2020-10-23] MEDS: SPIRONOLACTONE 25 MG TAB PO SCH ×2 (14:55→15:17)
[2020-10-23] MEDS: LISINOPRIL 5 MG TAB PO SCH ×2 (14:55→15:16)
[2020-10-23] MEDS: BENZOCAINE/MENTHOL LOZENGE MM PRN (15:16)
--- NOTE | 2020-10-23 15:40 | Cat Scan Report ---
CT-GUIDED BONE MARROW ASPIRATION AND BIOPSY INDICATION : Heme malignancy PROCEDURE: The risks (including but not limited to bleeding and infection) and benefits were explain ed to the patient and informed consent was obtained. All CT examinations performed at this facility utilize dose modulation, iterative reconstruction or weight-based dosing, when appropriate, to reduce radiation dose to as low as reasonably achievable. A time out procedure was performed. The procedu re site was prepped and draped in the usual sterile fashion and lidocaine was used for local anesthes ia. Under CT guidance, the right posterior iliac wing was selected for biopsy. An 11 gauge needle was ad vanced to the posterior margin of the iliac wing, cortex breached, and aspiration attempted. No bone marrow aspirate could be obtained after multiple attempts. The needle was then advanced and a bone ma rrow biopsy was obtained measuring approximately 2 cm. Samples were given directly to the pathology tech who was present during the exam. The patient tolerated the procedure well with no complications. IMPRESSION: Technically successful bone marrow aspirate and biopsy. Please note that a dry Bone marro w tap was obtained. Multiple attempts to aspirate bone marrow were made. A 2 cm bone core was ole kessler Signer Name: Donny Obando Jr, MD Signed: 10/23/2020 3:16 PM Workstation Name: [id number]
[2020-10-23] MEDS: HYPROMELLOSE 0.5% OPHTH SOLN 15 ML OU PRN (15:47)
[2020-10-23] MEDS: ACETAMINOPHEN 325 MG TAB PO PRN (16:28)
--- NOTE | 2020-10-23 16:30 | Progress Note ---
Assessment and Plan Cultures: SARS CoV2 PCR: Negative HIV: Negative 10/10/2020 blood culture: VRE 2 out of 4 bottles 10/10/2020 urine culture: Magali 10/14/2020 blood culture no growth today 10/14/2020 blood culture: GPC 3 of 4 10/18/2020 blood culture: No growth today A/P: 55-year-old male with diabetes, malnutrition, resident of an assisted living facility was brought into the emergency room with complaints of sore throat and back pain: #VRE bacteremia: Very unclear source. ?recent T10-T12 fusion and L1-L2 surgery (noted surgical sutures on his back, pt is not able to elaborate, only reported surgery was done at [facility]. FLORESITA negative. Repeat blood cx 10/14 positive. Repeat blood cx 10/[address] shows a bone cage and fixation from T10-T12, chronic pathologic fracture L5. No obvious discitis, osteomyelitis, abscess. MRI no abscess, discitis, osteomyelitis +compression deformities at several levels, mainly L5. #UTI: Urine culture grew Magali. Renal ultrasound with mild right pelvic caliectasis and echogenic right kidney. #Bilateral pneumonia: ?CAP vs aspiration. Not hypoxic. Leukopenia. SARS-CoV-2 PCR negative. Chest x-ray with bibasilar opacities left more than right. #Pancytopenia: suspect multiple myeloma. CT with multifocal lucent lesions, L5 pathologic fracture. Baseline WBC is unknown. HIV negative x 2 . Severe anemia now receiving blood transfusions. #NELSY: Renally dose antibiotics. Resolved. #Transaminitis: With elevation of alkaline phosphatase. RUQ ultrasound ordered #Chronic malnutrition; BMI of 16.1. HIV neg x 2. #Headache, double vision: resolved. CT head unremarkable. Recs: -Request records from [facility] -Continue daptomycin at 8 mg/kg daily -Cannot do linezolid due to pancytopenia -Completed ceftriaxone, azithromycin for pneumonia -Anticipate to d/c on daptomycin 600 mg IV daily total 14 days till 11/01/2020. Order sent to medical case worker. Unfortunately as the VRE is resistant to both vancomycin and penicillins, and patient unable to tolerate Zyvox with pancytopenia daptomycin is the only treatment option available. -s/p bone marrow biopsy. Appreciate heme/onc involvement in the case. Ophelia De Luna MD [facility] ([facility]) O: [phone] F: [phone] Subjective Date of service: 10/23/20 Principal diagnosis: Altered sensorium Interval history: Afebrile, white count 4.1. Objective - Exam Narrative Exam: General appearance: Alert in NAD cachetic Eyes: anicteric sclerae, moist conjunctivae; no lid-lag; PERRLA HENT: Normocephalic, Atraumatic; normal external ears, nares open, oropharynx limited Neck: supple, tracheal midline, no JVD Lungs: Diminished breath sound bilaterally CV: RRR no murmur Abdomen: Nontender Extremities: left toes tenderness Skin: mid and lower back sutures parallel to the spine Psych: no agitated Neuro: alert and oriented x 3. Moving all extermities - Constitutional Vitals: Vital Signs Temp Pulse Resp BP Pulse Ox 97.7 F 59 L 14 137/86 98 10/23/20 14:30 10/23/20 14:45 10/23/20 14:45 10/23/20 14:45 10/23/20 14:45 Temperature -Last 24 Hours Temperature [Post-Procedure] 97.7 F Temperature [Pre-Procedure] 97.8 F Temperature 99.0 F Temperature 97.7 F Temperature 97.6 F - Labs CBC & Chem 7: 10/22/20 08:59 10/22/20 08:59 Labs: Abnormal lab results 10/23/20 10/23/20 Range/Units 05:12 12:07 POC Glucose 106 H (70-105) mg/dL Total Creatine Kinase 49 L (55-170) units/L
--- NOTE | 2020-10-23 18:17 | Progress Note ---
Assessment and Plan Assessment and plan: --Multiple myeloma vs metastatic disease[on CT chest and abdomen] Current Visit: Yes Status: Acute Along with pancytopenia requested medical records from [facility] Hematology evaluation recommendation noted and appreciated Requested bone marrow biopsy and further tests --Hypophosphatemia; Phos; 1.4[range 2.5-4.5] Current Visit: Yes Status: Acute Replenished with IV sodium phosphate Monitor electrolytes --Hypomagnesemia; Mg 1.1[range1.7 - 2.3] Current Visit: Yes Status: Acute Replenished with IV mag self as well as maintenance p.o. Mag-Ox --Pancytopenia; Current Visit: Yes Status: Acute probably due to underlying HIV/sepsis/persistent bacteremia Treat the underlying cause Hematology consult requested --Anemia; Hb 6.4 -8.0 Current Visit: Yes Status: Acute Received 1 unit PRBC transfusion check H&H, transfuse additional as needed. Hematology consult --Sepsis due to persistent bacteremia Current Visit: Yes Status: Acute Continue daptomycin per ID FLORESITA negative for endocarditis Cardiology consult appreciated --VRE bacteremia; Current Visit: Yes Status: Acute Unclear source/recent spinal surgery T10-T12, L1-L2, details not available Records requested from [facility] Unable to treat with linezolid secondary due to thrombocytopenia. ID recommended daptomycin for total 14 days ending 11/01/2020 Dapto is only choice of medication, and no other alternatives per ID Discussed with ID as well as case management --History of recent spinal surgery: at [facility] Current Visit: Yes Status: chr T10 T12, L1-L2 surgery, surgical sutures on the back Wound care, continue antibiotics, request records from [facility] --Acute systolic CHF/ EF 20 to 25% Current Visit: Yes Status: Acute antifailure medication with diuretic, beta-blockers, LALITHA inhibitors, input output monitoring, low-sodium diet,fluid restriction. Cardiology consult noted and appreciated --UTI/ur cultures grew Magali Current Visit: Yes Status: Acute Continue Diflucan , supportive care/ --Acute kidney injury (NELSY) due to ATN Current Visit: Yes Status: Acute Resolved, closely monitor renal function Avoid nephrotoxins -- Severe protein calorie malnutrition Current Visit: Yes Status: Acute Albumin 1.7 nutrition supplements ,, nutrition consult --Pneumonia Current Visit: Yes Status: Acute Completed 5 days of Rocephin and Zithromax Coronavirus PCR negative Follow cultures -- COVID-19 negative Current Visit: Yes Status: Acute Coronavirus PCR negative -- DVT prophylaxis Current Visit: Yes Status: Acute SCDs bilateral lower extremities while in bed, patient is ambulatory We will closely monitor the patient and adjust management as needed Plan of care reviewed with the patient and his nurse [employer] Supervisor recommendations noted 10/16/2020; sepsis secondary to VRE bacteremia, UTI and pneumonia Continue current antibiotics per ID, contact isolation due to VRE 10/17/2020; patient is more alert and awake today, feels better CT abdomen and pelvis findings noted continue current antibiotics Physical therapy, Occupational Therapy as tolerated 10/18/2020; cardiology evaluations appreciated FLORESITA negative for endocarditis, cardiology started goal-directed CHF treatment 10/19/2020; persistent bacteremia, FLORESITA negative for endocarditis Continue ID cardiology recommendations Patient complains of some sore throat, Cepacol throat spray and Cepacol lozenges 10/20/2020; anemia, hemoglobin 6.4, transfuse 1 unit PRBC Closely monitor H&H transfuse additional PRBC as needed Pancytopenia, hematology consult inpatient versus outpatient 10/21/2020; patient's hemoglobin increased to 8.0 Severe hypophosphatemia, hypomagnesemia replenished Also consulted laborer tin can Dr. Yusuf Koehler 10/22/2020; hematology evaluation noted and appreciated bone marrow biopsy requested And work-up for multiple myeloma in process 10/23/2020; continue current management, disposition per ID and hematology History Interval history: I have seen and examined the patient at the bedside Patient feels slightly better complains of generalized body pains Anxious to go home Vital signs noted Hospitalist Physical - Constitutional Vitals: Temp Pulse Resp BP Pulse Ox 97.6 F 80 18 122/78 97 10/23/20 17:27 10/23/20 17:27 10/23/20 17:27 10/23/20 17:27 10/23/20 17:27 General appearance: Present: no acute distress, cachectic - EENT Eyes: Present: PERRL, EOM intact - Neck Neck: Present: supple, normal ROM - Respiratory Respiratory effort: normal Respiratory: bilateral: diminished, negative: rales, rhonchi, wheezing - Cardiovascular Rhythm: regular Heart Sounds: Present: S1 & S2 - Extremities Extremities: no ischemia, No edema - Abdominal General gastrointestinal: soft, non-tender, non-distended, normal bowel sounds - Integumentary Integumentary: Present: clear, warm - Psychiatric Psychiatric: appropriate mood/affect, cooperative - Neurologic Neurologic: CNII-XII intact, moves all extremities Results - Labs CBC & Chem 7: 10/24/20 13:50 10/24/20 13:50 Labs: Laboratory Last Values WBC 4.1 K/mm3 (4.5-11.0) L 10/22/20 08:59 RBC 2.78 M/mm3 (3.65-5.03) L 10/22/20 08:59 Hgb 8.6 gm/dl (11.8-15.2) L 10/22/20 08:59 Hct 25.5 % (35.5-45.6) L 10/22/20 08:59 MCV 92 fl (84-94) 10/22/20 08:59 MCH 31 pg (28-32) 10/22/20 08:59 MCHC 34 % (32-34) 10/22/20 08:59 RDW 18.0 % (13.2-15.2) H 10/22/20 08:59 Plt Count 112 K/mm3 (140-440) L 10/22/20 08:59 Lymph % (Auto) 10.1 % (13.4-35.0) L 10/11/20 05:40 [place] % (Auto) 1.4 % (0.0-7.3) 10/11/20 05:40 Eos % (Auto) 1.6 % (0.0-4.3) 10/11/20 05:40 Baso % (Auto) 0.5 % (0.0-1.8) 10/11/20 05:40 Lymph # (Auto) 0.1 K/mm3 (1.2-5.4) L 10/11/20 05:40 [place] # (Auto) 0.0 K/mm3 (0.0-0.8) 10/11/20 05:40 Eos # (Auto) 0.0 K/mm3 (0.0-0.4) 10/11/20 05:40 Baso # (Auto) 0.0 K/mm3 (0.0-0.1) 10/11/20 05:40 Add Manual Diff Complete 10/22/20 08:59 Total Counted 100 10/22/20 08:59 Seg Neutrophils % Hydraulic Boom Operator 10/22/20 08:59 Seg Neuts % (Manual) 100.0 % (40.0-70.0) H 10/22/20 08:59 Band Neutrophils % 1.0 % 10/21/20 04:33 Lymphocytes % (Manual) 1.0 % (13.4-35.0) L 10/21/20 04:33 Monocytes % (Manual) 3.0 % (0.0-7.3) 10/18/20 06:04 Eosinophils % (Manual) 1.0 % (0.0-4.3) 10/10/20 16:31 Basophils % (Manual) 1.0 % (0.0-1.8) 10/10/20 16:31 Nucleated RBC % 10.0 % (0.0-0.9) H 10/22/20 08:59 Seg Neutrophils # 1.1 K/mm3 (1.8-7.7) L 10/11/20 05:40 Seg Neutrophils # Man 4.1 K/mm3 (1.8-7.7) 10/22/20 08:59 Band Neutrophils # 0.0 K/mm3 10/22/20 08:59 Lymphocytes # (Manual) 0.0 K/mm3 (1.2-5.4) L 10/22/20 08:59 Abs React Lymphs (Man) 0.0 K/mm3 10/22/20 08:59 Monocytes # (Manual) 0.0 K/mm3 (0.0-0.8) 10/22/20 08:59 Eosinophils # (Manual) 0.0 K/mm3 (0.0-0.4) 10/22/20 08:59 Basophils # (Manual) 0.0 K/mm3 (0.0-0.1) 10/22/20 08:59 Metamyelocytes # 0.0 K/mm3 10/22/20 08:59 Myelocytes # 0.0 K/mm3 10/22/20 08:59 Promyelocytes # 0.0 K/mm3 10/22/20 08:59 Blast Cells # 0.0 K/mm3 10/22/20 08:59 WBC Morphology Not Reportable 10/22/20 08:59 Hypersegmented Neuts Not Reportable 10/22/20 08:59 Hyposegmented Neuts Not Reportable 10/22/20 08:59 Hypogranular Neuts Not Reportable 10/22/20 08:59 Smudge Cells Not Reportable 10/22/20 08:59 Toxic Granulation Not Reportable 10/22/20 08:59 Toxic Vacuolation Not Reportable 10/22/20 08:59 Dohle Bodies Not Reportable 10/22/20 08:59 Pelger-Huet Anomaly Not Reportable 10/22/20 08:59 Javon Rods Not Reportable 10/22/20 08:59 Platelet Estimate Consistent w auto 10/22/20 08:59 Clumped Platelets Not Reportable 10/22/20 08:59 Plt Clumps, EDTA Not Reportable 10/22/20 08:59 Large Platelets Not Reportable 10/22/20 08:59 Giant Platelets Not Reportable 10/22/20 08:59 Platelet Satelliting Not Reportable 10/22/20 08:59 Plt Morphology Comment Not Reportable 10/22/20 08:59 RBC Morphology Not Reportable 10/22/20 08:59 Dimorphic RBCs Not Reportable 10/22/20 08:59 Polychromasia Not Reportable 10/22/20 08:59 Hypochromasia Not Reportable 10/22/20 08:59 Poikilocytosis Few 10/22/20 08:59 Anisocytosis Few 10/22/20 08:59 Microcytosis Not Reportable 10/22/20 08:59 Macrocytosis Not Reportable 10/22/20 08:59 Spherocytes Not Reportable 10/22/20 08:59 Pappenheimer Bodies Not Reportable 10/22/20 08:59 Sickle Cells Not Reportable 10/22/20 08:59 Target Cells Not Reportable 10/22/20 08:59 Tear Drop Cells Not Reportable 10/22/20 08:59 Ovalocytes Not Reportable 10/22/20 08:59 Helmet Cells Not Reportable 10/22/20 08:59 Arora-[place] Bodies Not Reportable 10/22/20 08:59 [place] Rings Not Reportable 10/22/20 08:59 Edna Cells Not Reportable 10/22/20 08:59 Bite Cells Not Reportable 10/22/20 08:59 Crenated Cell Not Reportable 10/22/20 08:59 Elliptocytes Not Reportable 10/22/20 08:59 Acanthocytes (Spur) Not Reportable 10/22/20 08:59 Rouleaux Not Reportable 10/22/20 08:59 Hemoglobin C Crystals Not Reportable 10/22/20 08:59 Schistocytes Not Reportable 10/22/20 08:59 Malaria parasites Not Reportable 10/22/20 08:59 Lit Bodies Not Reportable 10/22/20 08:59 Hem Pathologist Commnt No 10/22/20 08:59 PT 13.2 Sec. (12.2-14.9) 10/22/20 09:09 INR 1.01 (0.87-1.13) 10/22/20 09:09 APTT 26.8 Sec. (24.2-36.6) 10/22/20 09:09 D-Dimer 2351.86 ng/mlDDU (0-234) H 10/10/20 17:54 Sodium 137 mmol/L (137-145) 10/22/20 08:59 Potassium 3.8 mmol/L (3.6-5.0) 10/22/20 08:59 Chloride 104.0 mmol/L (98-107) 10/22/20 08:59 Carbon Dioxide 24 mmol/L (22-30) 10/22/20 08:59 Anion Gap 13 mmol/L 10/22/20 08:59 BUN 13 mg/dL (9-20) 10/22/20 08:59 Creatinine 0.5 mg/dL (0.8-1.3) L 10/22/20 08:59 Estimated GFR > 60 ml/min 10/22/20 08:59 BUN/Creatinine Ratio 26 % 10/22/20 08:59 Glucose 127 mg/dL (75-100) H 10/22/20 08:59 POC Glucose 106 mg/dL (70-105) H 10/23/20 12:07 Calcium 6.0 mg/dL (8.4-10.2) L 10/22/20 08:59 Phosphorus 2.50 mg/dL (2.5-4.5) D 10/22/20 08:59 Magnesium 1.60 mg/dL (1.7-2.3) L 10/22/20 08:59 Ferritin 2608.0 ng/mL (30.0-300.0) H 10/10/20 17:54 Total Bilirubin < 0.20 mg/dL (0.1-1.2) 10/22/20 08:59 AST 81 units/L (5-40) H 10/22/20 08:59 ALT 278 units/L (7-56) H 10/22/20 08:59 Alkaline Phosphatase 378 units/L (35-129) H 10/22/20 08:59 Lactate Dehydrogenase 233 units/L (91-180) H 10/10/20 17:54 Total Creatine Kinase 49 units/L (55-170) L 10/23/20 05:12 C-Reactive Protein 0.40 mg/dL (0.00-1.30) 10/16/20 17:23 Total Protein 6.1 g/dL (6.3-8.2) L 10/22/20 08:59 Albumin 1.7 g/dL (3.9-5) L 10/22/20 08:59 Albumin/Globulin Ratio 0.4 % 10/22/20 08:59 Procalcitonin 0.61 ng/mL (<0.15) 10/14/20 14:54 Urine Color Yellow (Yellow) 10/11/20 Unknown Urine Turbidity Cloudy (Clear) 10/11/20 Unknown Urine pH 5.0 (5.0-7.0) 10/11/20 Unknown Ur Specific [place] 1.019 (1.003-1.030) 10/11/20 Unknown Urine Protein 30 mg/dl mg/dL (Negative) 10/11/20 Unknown Urine Glucose (UA) Neg mg/dL (Negative) 10/11/20 Unknown Urine Ketones Neg mg/dL (Negative) 10/11/20 Unknown Urine Blood Sm (Negative) 10/11/20 Unknown Urine Nitrite Neg (Negative) 10/11/20 Unknown Urine Bilirubin Neg (Negative) 10/11/20 Unknown Urine Urobilinogen < 2.0 mg/dL (<2.0) 10/11/20 Unknown Ur Leukocyte Esterase Tr (Negative) 10/11/20 Unknown Urine WBC (Auto) 36.0 /HPF (0.0-6.0) H 10/11/20 Unknown Urine RBC (Auto) 129.0 /HPF (0.0-6.0) 10/11/20 Unknown U Epithel Cells (Auto) 1.0 /HPF (0-13.0) 10/11/20 Unknown Urine Bacteria (Auto) 2+ /HPF (Negative) 10/11/20 Unknown Urine Mucus Few /HPF 10/11/20 Unknown Urine Yeast (Budding) 2+ /HPF 10/11/20 Unknown Coronavirus (PCR) Negative (Negative) 10/21/20 10:00 HIV 1&2 Antibody Rapid Non react (Non React) 10/16/20 17:23 HIV P24 Antigen Non react (Non React) 10/16/20 17:23 Blood Type B POSITIVE 10/20/20 06:26 Antibody Screen Negative 10/20/20 06:26 Crossmatch See Detail 10/20/20 06:26 Microbiology: Microbiology 10/18/20 15:04 Peripheral/Venous Blood Culture - Final NO GROWTH AFTER 5 DAYS 10/18/20 15:04 Peripheral/Venous Blood Culture - Final NO GROWTH AFTER 5 DAYS [place]/IV: Voiding Method Indwelling Catheter Active Medications - Current Medications Current Medications: Generic Name Dose Route Start Last Admin Trade Name Freq PRN Reason Stop Dose Admin Acetaminophen 650 mg 10/10/20 19:46 10/23/20 16:28 Acetaminophen 325 Mg Tab PO 650 mg Q4H PRN Administration Pain MILD(1-3)/Fever >100.5/KINNEY Albuterol 2.5 mg 10/10/20 19:46 Albuterol 2.5 Mg/3 Ml Nebu IH Q4HRT PRN Shortness Of Breath Artificial Tears 2 drops 10/20/20 18:29 10/23/20 15:47 Hypromellose 0.5% Ophth Soln 15 Ml OU 2 drops Q4H PRN Administration Dry Eye(s) Aspirin 81 mg 10/18/20 15:00 10/23/20 15:16 Aspirin Ec 81 Mg Tab PO 81 mg QDAY THEE Administration Benzocaine/Menthol 1 each 10/19/20 17:49 10/23/20 15:16 Benzocaine/Menthol Lozenge MM 1 each Q2HR PRN Administration Sore Throat Carvedilol 3.125 mg 10/17/20 22:00 10/23/20 14:55 Carvedilol 3.125 Mg Tab PO Not Given BID THEE Sodium Chloride 1,000 mls @ 125 mls/hr 10/12/20 11:00 10/17/20 22:55 Nacl 0.45% 1000 Ml IV 125 mls/hr DIRECT THEE Administration Daptomycin 560 mg/ Sodium 100 mls @ 200 mls/hr 10/15/20 12:30 10/23/20 15:44 Chloride IV 11/01/20 12:59 200 mls/hr Q24H THEE Administration Protocol Lisinopril 2.5 mg 10/18/20 10:00 10/23/20 15:16 Lisinopril 5 Mg Tab PO 2.5 mg QDAY THEE Administration Magnesium Oxide 400 mg 10/22/20 10:00 10/23/20 15:17 Magnesium Oxide 400 Mg Tab PO 400 mg QDAY THEE Administration Methylprednisolone Sodium Succinate 70 mg 10/22/20 10:00 10/23/20 14:55 Methylprednisolone Sod Succinate 125 Mg/2 Ml Inj IV 10/24/20 09:59 Not Given Q12H THEE Ondansetron HCl 4 mg 10/10/20 19:46 Ondansetron 4 Mg/2 Ml Inj IV Q8H PRN Nausea And Vomiting Phenol 1 spray 10/15/20 14:54 10/18/20 21:53 Phenol 1.4% 177 Ml Bottle MM 1 spray PRN PRN Administration Sore Throat Sodium Chloride 10 ml 10/10/20 22:00 10/22/20 22:07 Sodium Chloride 0.9% 10 Ml Flush Syringe IV 10 ml BID THEE Administration Sodium Chloride 10 ml 10/10/20 19:46 Sodium Chloride 0.9% 10 Ml Flush Syringe IV PRN PRN LINE FLUSH Spironolactone 25 mg 10/18/20 15:00 10/23/20 15:17 Spironolactone 25 Mg Tab PO 25 mg QDAY THEE Administration Nutrition/Malnutrition Assess - Dietary Evaluation Nutrition/Malnutrition Findings: Nutrition Notes Start: 10/11/20 12:16 Freq: Status: Active Protocol: Document 10/23/20 11:36 CHARLES (Rec: 10/23/20 11:40 CHARLES [id number]) Nutrition Notes Initial or Follow up Reassessment Current Diagnosis Acute Kidney Injury,Diabetes Other Pertinent Diagnosis SIRS, pneu Current Diet Consistent Carbohydrate Diet + Glucerna Labs/Tests 10/22: Mg 1.6 Pertinent Medications Reviewed Height 5 ft 6 in Weight 71 kg [place] Body Weight (kg) 64.54 BMI 25.2 Weight Status Appropriate Subjective/Other Information FU for intakes. Pt did not answer phone. Per chart, pt is eating 75-100% of meals. Percent of energy/protein needs met: 100%/100% Burn Absent Trauma Absent Current % PO Good (75-100%) Minimum of two criteria Yes Body Fat Depletion Moderate depletion (severe) Protein-Calorie Malnutrition Severe #1 Nutrition Diagnosis Malnutrition Diagnosis Progress(for reassessment Continues documentation) Is patient on ventilator? No Is Patient Ambulatory and/or Out of Bed Yes REE-([place]. or-ambulatory/OOB) [ 1921.075 [id number]] Kcal/Kg value to use for calculation 30 Approximate Energy Requirements Using 2130 kcal/Kg Calculation Used for Recommendations Kcal/kg Additional Notes Pro needs 1.2-1.5g/k-104g /day Fluid needs 1ml/kcal Nutrition Intervention Change Diet Order: Continue current diet order Add Supplement/Snack (indicate name/kcal Glucerna TID /protein ) Provides kCal: 660 Provides Protein (gm) 30 Goal #1 PO intake of meals plus ONS to meet 75-100% energy and pro needs Goal #2 Wt maintenance and/or gain Follow-Up By: 10/25/20 Additional Comments FU for stable intakes
[2020-10-23] MEDS: SODIUM CHLORIDE 0.45% 1000 ML 1,000 ML IV SCH (22:17)
--- NOTE | 2020-10-24 09:44 | Progress Note ---
Assessment and Plan Dilated Cardiomyopathy, uncertain duration LVEF 20-25% by echo this admission Severe Anemia Bacteremia FLORESITA done this admission reports no evidence of vegetations Pneumonia negative COVID 19 test Malnutrition Suspected multiple myeloma Continue GDMT for dilated cardiomyopathy as tolerated. Otherwise, conservative cardiac management. Subjective Date of service: 10/24/20 Principal diagnosis: Altered sensorium Interval history: No cardiac events. Objective Vital Signs Temp Temp Temp Pulse Pulse Pulse Pulse 10/24/20 04:46 98.6 F 74 10/23/20 21:32 98.0 F 10/23/20 17:28 10/23/20 17:27 97.6 F 80 10/23/20 14:45 59 L 10/23/20 14:30 97.7 F 77 10/23/20 14:15 65 10/23/20 14:10 69 10/23/20 14:04 97.8 F 69 10/23/20 10:40 99.0 F 64 Resp Resp Resp Resp BP BP BP 10/24/20 04:46 15 112/76 10/23/20 21:32 16 122/76 10/23/20 17:28 18 10/23/20 17:27 18 122/78 10/23/20 14:45 14 137/86 10/23/20 14:30 18 142/101 10/23/20 14:15 19 147/96 10/23/20 14:10 13 148/92 10/23/20 14:04 14 10/23/20 10:40 18 139/87 BP Pulse Ox Pulse Ox Pulse Ox Pulse Ox 10/24/20 04:46 99 10/23/20 21:32 10/23/20 17:28 10/23/20 17:27 97 10/23/20 14:45 98 10/23/20 14:30 100 10/23/20 14:15 100 10/23/20 14:10 100 10/23/20 14:04 148/98 100 10/23/20 10:40 99 - Physical Examination General: No Apparent Distress, Cachectic HEENT: Positive: PERRL Neck: Positive: trachea midline Cardiac: Positive: Reg Rate and Rhythm Neuro: Positive: Weakness Extremities: Absent: edema
[2020-10-24] MEDS: LISINOPRIL 5 MG TAB PO SCH (09:45)
[2020-10-24] MEDS: SPIRONOLACTONE 25 MG TAB PO SCH (09:46)
[2020-10-24] MEDS: ASPIRIN EC 81 MG TAB PO SCH (09:46)
[2020-10-24] MEDS: MAGNESIUM OXIDE 400 MG TAB PO SCH (09:46)
[2020-10-24] MEDS: carvediloL 3.125 MG TAB PO SCH ×2 (09:46→22:43)
[2020-10-24] MEDS: BENZOCAINE/MENTHOL LOZENGE MM PRN (09:47)
[2020-10-24] MEDS: ACETAMINOPHEN 325 MG TAB PO PRN (09:47)
--- NOTE | 2020-10-24 10:20 | Progress Note ---
Assessment and Plan Assessment and plan: --Sepsis due to persistent bacteremia Current Visit: Yes Status: Acute Continue daptomycin per ID FLORESITA negative for endocarditis --VRE bacteremia; Current Visit: Yes Status: Acute Unclear source/recent spinal surgery T10-T12, L1-L2, details not available Records requested from [facility] Unable to treat with linezolid secondary due to thrombocytopenia. ID recommended daptomycin for total 14 days ending 11/01/2020 Dapto is only choice of medication, and no other alternatives per ID Discussed with ID as well as case management --Multiple myeloma Current Visit: Yes Status: Acute Management per hematology Status post bone marrow biopsy Closely monitor --Hypocalcemia; Current Visit: Yes Status: Acute Replenished with calcium gluconate, and oral supplements Closely monitor levels --Hypophosphatemia; Current Visit: Yes Status: Acute Closely monitor electrolytes and adjust as needed --Hypomagnesemia; Current Visit: Yes Status: Acute Closely monitor electrolytes and replenish as needed --Pancytopenia; Current Visit: Yes Status: Acute probably due to underlying HIV/sepsis/persistent bacteremia Treat the underlying cause Hematology consult requested --Anemia; Hb 6.4 -8.0 Current Visit: Yes Status: Acute Received 1 unit PRBC transfusion check H&H, transfuse additional as needed. Hematology consult --History of recent spinal surgery: at [facility] Current Visit: Yes Status: chr T10 T12, L1-L2 surgery, surgical sutures on the back Wound care, continue antibiotics, request records from [facility] --Acute systolic CHF/ EF 20 to 25% Current Visit: Yes Status: Acute antifailure medication with diuretic, beta-blockers, LALITHA inhibitors, input output monitoring, low-sodium diet,fluid restriction. Cardiology consult noted and appreciated --UTI/ur cultures grew Magali Current Visit: Yes Status: Acute Continue Diflucan , supportive care/ --Acute kidney injury (NELSY) due to ATN Current Visit: Yes Status: Acute Resolved, closely monitor renal function Avoid nephrotoxins -- Severe protein calorie malnutrition Current Visit: Yes Status: Acute Albumin 1.7 nutrition supplements ,, nutrition consult --Pneumonia Current Visit: Yes Status: Acute Completed 5 days of Rocephin and Zithromax -- COVID-19 negative Current Visit: Yes Status: Acute Coronavirus PCR negative -- DVT prophylaxis Current Visit: Yes Status: Acute SCDs bilateral lower extremities while in bed, patient is ambulatory We will closely monitor the patient and adjust management as needed Plan of care reviewed with the patient and his nurse Sash Assembler recommendations noted 10/16/2020; sepsis secondary to VRE bacteremia, UTI and pneumonia Continue current antibiotics per ID, contact isolation due to VRE 10/17/2020; patient is more alert and awake today, feels better CT abdomen and pelvis findings noted continue current antibiotics Physical therapy, Occupational Therapy as tolerated 10/18/2020; cardiology evaluations appreciated FLORESITA negative for endocarditis, cardiology started goal-directed CHF treatment 10/19/2020; persistent bacteremia, FLORESITA negative for endocarditis Continue ID cardiology recommendations Patient complains of some sore throat, Cepacol throat spray and Cepacol lozenges 10/20/2020; anemia, hemoglobin 6.4, transfuse 1 unit PRBC Closely monitor H&H transfuse additional PRBC as needed Pancytopenia, hematology consult inpatient versus outpatient 10/21/2020; patient's hemoglobin increased to 8.0 Severe hypophosphatemia, hypomagnesemia replenished Also consulted network operations analyst Dr. Yusuf Koehler 10/22/2020; hematology evaluation noted and appreciated bone marrow biopsy requested And work-up for multiple myeloma in process 10/23/2020; continue current management, disposition per ID and hematology 10/24/2020; multiple myeloma management per hematology Persistent sepsis VRE, management per ID, long-term antibiotics Stop date 11/01/2020 History Interval history: I seen and examined the patient at the bedside Patient's chart and medications reviewed. Patient is anxious to go home, Explained to him in detail the treatment plan Complains of generalized weakness and some body pains Vital signs reviewed Hospitalist Physical - Constitutional Vitals: Temp Pulse Resp BP Pulse Ox 98.6 F 74 15 112/76 99 10/24/20 04:46 10/24/20 04:46 10/24/20 04:46 10/24/20 04:46 10/24/20 04:46 General appearance: Present: no acute distress, cachectic, other (Chronically ill looking) - EENT Eyes: Present: PERRL, EOM intact - Neck Neck: Present: supple, normal ROM - Respiratory Respiratory effort: normal Respiratory: bilateral: diminished, negative: rales, rhonchi, wheezing - Cardiovascular Rhythm: regular Heart Sounds: Present: S1 & S2 - Extremities Extremities: no ischemia, No edema - Abdominal General gastrointestinal: soft, non-tender, non-distended, normal bowel sounds - Integumentary Integumentary: Present: clear, warm - Psychiatric Psychiatric: appropriate mood/affect, cooperative - Neurologic Neurologic: moves all extremities Results - Labs CBC & Chem 7: 10/24/20 13:50 10/24/20 13:50 Labs: Laboratory Last Values WBC 4.1 K/mm3 (4.5-11.0) L 10/22/20 08:59 RBC 2.78 M/mm3 (3.65-5.03) L 10/22/20 08:59 Hgb 8.6 gm/dl (11.8-15.2) L 10/22/20 08:59 Hct 25.5 % (35.5-45.6) L 10/22/20 08:59 MCV 92 fl (84-94) 10/22/20 08:59 MCH 31 pg (28-32) 10/22/20 08:59 MCHC 34 % (32-34) 10/22/20 08:59 RDW 18.0 % (13.2-15.2) H 10/22/20 08:59 Plt Count 112 K/mm3 (140-440) L 10/22/20 08:59 Lymph % (Auto) 10.1 % (13.4-35.0) L 10/11/20 05:40 Bradford % (Auto) 1.4 % (0.0-7.3) 10/11/20 05:40 Eos % (Auto) 1.6 % (0.0-4.3) 10/11/20 05:40 Baso % (Auto) 0.5 % (0.0-1.8) 10/11/20 05:40 Lymph # (Auto) 0.1 K/mm3 (1.2-5.4) L 10/11/20 05:40 Bradford # (Auto) 0.0 K/mm3 (0.0-0.8) 10/11/20 05:40 Eos # (Auto) 0.0 K/mm3 (0.0-0.4) 10/11/20 05:40 Baso # (Auto) 0.0 K/mm3 (0.0-0.1) 10/11/20 05:40 Add Manual Diff Complete 10/22/20 08:59 Total Counted 100 10/22/20 08:59 Seg Neutrophils % Tape Stringer 10/22/20 08:59 Seg Neuts % (Manual) 100.0 % (40.0-70.0) H 10/22/20 08:59 Band Neutrophils % 1.0 % 10/21/20 04:33 Lymphocytes % (Manual) 1.0 % (13.4-35.0) L 10/21/20 04:33 Monocytes % (Manual) 3.0 % (0.0-7.3) 10/18/20 06:04 Eosinophils % (Manual) 1.0 % (0.0-4.3) 10/10/20 16:31 Basophils % (Manual) 1.0 % (0.0-1.8) 10/10/20 16:31 Nucleated RBC % 10.0 % (0.0-0.9) H 10/22/20 08:59 Seg Neutrophils # 1.1 K/mm3 (1.8-7.7) L 10/11/20 05:40 Seg Neutrophils # Man 4.1 K/mm3 (1.8-7.7) 10/22/20 08:59 Band Neutrophils # 0.0 K/mm3 10/22/20 08:59 Lymphocytes # (Manual) 0.0 K/mm3 (1.2-5.4) L 10/22/20 08:59 Abs React Lymphs (Man) 0.0 K/mm3 10/22/20 08:59 Monocytes # (Manual) 0.0 K/mm3 (0.0-0.8) 10/22/20 08:59 Eosinophils # (Manual) 0.0 K/mm3 (0.0-0.4) 10/22/20 08:59 Basophils # (Manual) 0.0 K/mm3 (0.0-0.1) 10/22/20 08:59 Metamyelocytes # 0.0 K/mm3 10/22/20 08:59 Myelocytes # 0.0 K/mm3 10/22/20 08:59 Promyelocytes # 0.0 K/mm3 10/22/20 08:59 Blast Cells # 0.0 K/mm3 10/22/20 08:59 WBC Morphology Not Reportable 10/22/20 08:59 Hypersegmented Neuts Not Reportable 10/22/20 08:59 Hyposegmented Neuts Not Reportable 10/22/20 08:59 Hypogranular Neuts Not Reportable 10/22/20 08:59 Smudge Cells Not Reportable 10/22/20 08:59 Toxic Granulation Not Reportable 10/22/20 08:59 Toxic Vacuolation Not Reportable 10/22/20 08:59 Dohle Bodies Not Reportable 10/22/20 08:59 Pelger-Huet Anomaly Not Reportable 10/22/20 08:59 Javon Rods Not Reportable 10/22/20 08:59 Platelet Estimate Consistent w auto 10/22/20 08:59 Clumped Platelets Not Reportable 10/22/20 08:59 Plt Clumps, EDTA Not Reportable 10/22/20 08:59 Large Platelets Not Reportable 10/22/20 08:59 Giant Platelets Not Reportable 10/22/20 08:59 Platelet Satelliting Not Reportable 10/22/20 08:59 Plt Morphology Comment Not Reportable 10/22/20 08:59 RBC Morphology Not Reportable 10/22/20 08:59 Dimorphic RBCs Not Reportable 10/22/20 08:59 Polychromasia Not Reportable 10/22/20 08:59 Hypochromasia Not Reportable 10/22/20 08:59 Poikilocytosis Few 10/22/20 08:59 Anisocytosis Few 10/22/20 08:59 Microcytosis Not Reportable 10/22/20 08:59 Macrocytosis Not Reportable 10/22/20 08:59 Spherocytes Not Reportable 10/22/20 08:59 Pappenheimer Bodies Not Reportable 10/22/20 08:59 Sickle Cells Not Reportable 10/22/20 08:59 Target Cells Not Reportable 10/22/20 08:59 Tear Drop Cells Not Reportable 10/22/20 08:59 Ovalocytes Not Reportable 10/22/20 08:59 Helmet Cells Not Reportable 10/22/20 08:59 Arora-[place] Bodies Not Reportable 10/22/20 08:59 [place] Rings Not Reportable 10/22/20 08:59 Edna Cells Not Reportable 10/22/20 08:59 Bite Cells Not Reportable 10/22/20 08:59 Crenated Cell Not Reportable 10/22/20 08:59 Elliptocytes Not Reportable 10/22/20 08:59 Acanthocytes (Spur) Not Reportable 10/22/20 08:59 Rouleaux Not Reportable 10/22/20 08:59 Hemoglobin C Crystals Not Reportable 10/22/20 08:59 Schistocytes Not Reportable 10/22/20 08:59 Malaria parasites Not Reportable 10/22/20 08:59 Lit Bodies Not Reportable 10/22/20 08:59 Hem Pathologist Commnt No 10/22/20 08:59 PT 13.2 Sec. (12.2-14.9) 10/22/20 09:09 INR 1.01 (0.87-1.13) 10/22/20 09:09 APTT 26.8 Sec. (24.2-36.6) 10/22/20 09:09 D-Dimer 2351.86 ng/mlDDU (0-234) H 10/10/20 17:54 Sodium 137 mmol/L (137-145) 10/22/20 08:59 Potassium 3.8 mmol/L (3.6-5.0) 10/22/20 08:59 Chloride 104.0 mmol/L (98-107) 10/22/20 08:59 Carbon Dioxide 24 mmol/L (22-30) 10/22/20 08:59 Anion Gap 13 mmol/L 10/22/20 08:59 BUN 13 mg/dL (9-20) 10/22/20 08:59 Creatinine 0.5 mg/dL (0.8-1.3) L 10/22/20 08:59 Estimated GFR > 60 ml/min 10/22/20 08:59 BUN/Creatinine Ratio 26 % 10/22/20 08:59 Glucose 127 mg/dL (75-100) H 10/22/20 08:59 POC Glucose 123 mg/dL (70-105) H 10/23/20 21:32 Calcium 6.0 mg/dL (8.4-10.2) L 10/22/20 08:59 Phosphorus 2.50 mg/dL (2.5-4.5) D 10/22/20 08:59 Magnesium 1.60 mg/dL (1.7-2.3) L 10/22/20 08:59 Ferritin 2608.0 ng/mL (30.0-300.0) H 10/10/20 17:54 Total Bilirubin < 0.20 mg/dL (0.1-1.2) 10/22/20 08:59 AST 81 units/L (5-40) H 10/22/20 08:59 ALT 278 units/L (7-56) H 10/22/20 08:59 Alkaline Phosphatase 378 units/L (35-129) H 10/22/20 08:59 Lactate Dehydrogenase 233 units/L (91-180) H 10/10/20 17:54 Total Creatine Kinase 49 units/L (55-170) L 10/23/20 05:12 C-Reactive Protein 0.40 mg/dL (0.00-1.30) 10/16/20 17:23 Total Protein 6.1 g/dL (6.3-8.2) L 10/22/20 08:59 Albumin 1.7 g/dL (3.9-5) L 10/22/20 08:59 Albumin/Globulin Ratio 0.4 % 10/22/20 08:59 Procalcitonin 0.61 ng/mL (<0.15) 10/14/20 14:54 Urine Color Yellow (Yellow) 10/11/20 Unknown Urine Turbidity Cloudy (Clear) 10/11/20 Unknown Urine pH 5.0 (5.0-7.0) 10/11/20 Unknown Ur Specific [place] 1.019 (1.003-1.030) 10/11/20 Unknown Urine Protein 30 mg/dl mg/dL (Negative) 10/11/20 Unknown Urine Glucose (UA) Neg mg/dL (Negative) 10/11/20 Unknown Urine Ketones Neg mg/dL (Negative) 10/11/20 Unknown Urine Blood Sm (Negative) 10/11/20 Unknown Urine Nitrite Neg (Negative) 10/11/20 Unknown Urine Bilirubin Neg (Negative) 10/11/20 Unknown Urine Urobilinogen < 2.0 mg/dL (<2.0) 10/11/20 Unknown Ur Leukocyte Esterase Tr (Negative) 10/11/20 Unknown Urine WBC (Auto) 36.0 /HPF (0.0-6.0) H 10/11/20 Unknown Urine RBC (Auto) 129.0 /HPF (0.0-6.0) 10/11/20 Unknown U Epithel Cells (Auto) 1.0 /HPF (0-13.0) 10/11/20 Unknown Urine Bacteria (Auto) 2+ /HPF (Negative) 10/11/20 Unknown Urine Mucus Few /HPF 10/11/20 Unknown Urine Yeast (Budding) 2+ /HPF 10/11/20 Unknown Coronavirus (PCR) Negative (Negative) 10/21/20 10:00 HIV 1&2 Antibody Rapid Non react (Non React) 10/16/20 17:23 HIV P24 Antigen Non react (Non React) 10/16/20 17:23 Miscellaneous Test Flexitest 1 H 10/22/20 Unknown Blood Type B POSITIVE 10/20/20 06:26 Antibody Screen Negative 10/20/20 06:26 Crossmatch See Detail 10/20/20 06:26 Microbiology: Microbiology 10/18/20 15:04 Peripheral/Venous Blood Culture - Final NO GROWTH AFTER 5 DAYS 10/18/20 15:04 Peripheral/Venous Blood Culture - Final NO GROWTH AFTER 5 DAYS [place]ina/IV: Voiding Method Urinal Active Medications - Current Medications Current Medications: Generic Name Dose Route Start Last Admin Trade Name Freq PRN Reason Stop Dose Admin Acetaminophen 650 mg 10/10/20 19:46 10/24/20 09:47 Acetaminophen 325 Mg Tab PO 650 mg Q4H PRN Administration Pain MILD(1-3)/Fever >100.5/KINNEY Albuterol 2.5 mg 10/10/20 19:46 Albuterol 2.5 Mg/3 Ml Nebu IH Q4HRT PRN Shortness Of Breath Artificial Tears 2 drops 10/20/20 18:29 10/23/20 15:47 Hypromellose 0.5% Ophth Soln 15 Ml OU 2 drops Q4H PRN Administration Dry Eye(s) Aspirin 81 mg 10/18/20 15:00 10/24/20 09:46 Aspirin Ec 81 Mg Tab PO 81 mg QDAY THEE Administration Benzocaine/Menthol 1 each 10/19/20 17:49 10/24/20 09:47 Benzocaine/Menthol Lozenge MM 1 each Q2HR PRN Administration Sore Throat Carvedilol 3.125 mg 10/17/20 22:00 10/24/20 09:46 Carvedilol 3.125 Mg Tab PO 3.125 mg BID THEE Administration Sodium Chloride 1,000 mls @ 125 mls/hr 10/12/20 11:00 10/23/20 22:17 Nacl 0.45% 1000 Ml IV 125 mls/hr DIRECT THEE Administration Daptomycin 560 mg/ Sodium 100 mls @ 200 mls/hr 10/15/20 12:30 10/23/20 15:44 Chloride IV 11/01/20 12:59 200 mls/hr Q24H THEE Administration Protocol Lisinopril 2.5 mg 10/18/20 10:00 10/24/20 09:45 Lisinopril 5 Mg Tab PO 2.5 mg QDAY THEE Administration Magnesium Oxide 400 mg 10/22/20 10:00 10/24/20 09:46 Magnesium Oxide 400 Mg Tab PO 400 mg QDAY THEE Administration Ondansetron HCl 4 mg 10/10/20 19:46 Ondansetron 4 Mg/2 Ml Inj IV Q8H PRN Nausea And Vomiting Phenol 1 spray 10/15/20 14:54 10/18/20 21:53 Phenol 1.4% 177 Ml Bottle MM 1 spray PRN PRN Administration Sore Throat Sodium Chloride 10 ml 10/10/20 22:00 10/24/20 09:45 Sodium Chloride 0.9% 10 Ml Flush Syringe IV 10 ml BID THEE Administration Sodium Chloride 10 ml 10/10/20 19:46 Sodium Chloride 0.9% 10 Ml Flush Syringe IV PRN PRN LINE FLUSH Spironolactone 25 mg 10/18/20 15:00 10/24/20 09:46 Spironolactone 25 Mg Tab PO 25 mg QDAY THEE Administration Nutrition/Malnutrition Assess - Dietary Evaluation Nutrition/Malnutrition Findings: Nutrition Notes Start: 10/11/20 12:16 Freq: Status: Active Protocol: Document 10/23/20 11:36 (Rec: 10/23/20 11:40 CHARLES [id number]) Nutrition Notes Initial or Follow up Reassessment Current Diagnosis Acute Kidney Injury,Diabetes Other Pertinent Diagnosis SIRS, pneu Current Diet Consistent Carbohydrate Diet + Glucerna Labs/Tests 10/22: Mg 1.6 Pertinent Medications Reviewed Height 5 ft 6 in Weight 71 kg [place] Body Weight (kg) 64.54 BMI 25.2 Weight Status Appropriate Subjective/Other Information FU for intakes. Pt did not answer phone. Per chart, pt is eating 75-100% of meals. Percent of energy/protein needs met: 100%/100% Burn Absent Trauma Absent Current % PO Good (75-100%) Minimum of two criteria Yes Body Fat Depletion Moderate depletion (severe) Protein-Calorie Malnutrition Severe #1 Nutrition Diagnosis Malnutrition Diagnosis Progress(for reassessment Continues documentation) Is patient on ventilator? No Is Patient Ambulatory and/or Out of Bed Yes REE-([place]-St. Jeor-ambulatory/OOB) [ 1921.075 [id number]] Kcal/Kg value to use for calculation 30 Approximate Energy Requirements Using 2130 kcal/Kg Calculation Used for Recommendations Kcal/kg Additional Notes Pro needs 1.2-1.5g/k-104g /day Fluid needs 1ml/kcal Nutrition Intervention Change Diet Order: Continue current diet order Add Supplement/Snack (indicate name/kcal Glucerna TID /protein ) Provides kCal: 660 Provides Protein (gm) 30 Goal #1 PO intake of meals plus ONS to meet 75-100% energy and pro needs Goal #2 Wt maintenance and/or gain Follow-Up By: 10/25/20 Additional Comments FU for stable intakes
--- NOTE | 2020-10-24 13:50 | Progress Note ---
Assessment and Plan Cultures: SARS CoV2 PCR: Negative HIV: Negative 10/10/2020 blood culture: VRE 2 out of 4 bottles 10/10/2020 urine culture: Magali 10/14/2020 blood culture no growth today 10/14/2020 blood culture: GPC 3 of 4 10/18/2020 blood culture: No growth today A/P: 55-year-old male with diabetes, malnutrition, resident of an assisted living facility was brought into the emergency room with complaints of sore throat and back pain: #VRE bacteremia: Very unclear source. ?recent T10-T12 fusion and L1-L2 surgery (noted surgical sutures on his back, pt is not able to elaborate, only reported surgery was done at [facility]. FLORESITA negative. Repeat blood cx 10/14 positive. Repeat blood cx 10/[address] shows a bone cage and fixation from T10-T12, chronic pathologic fracture L5. No obvious discitis, osteomyelitis, abscess. MRI no abscess, discitis, osteomyelitis +compression deformities at several levels, mainly L5. #UTI: Urine culture grew Magali. Renal ultrasound with mild right pelvic caliectasis and echogenic right kidney. #Bilateral pneumonia: ?CAP vs aspiration. Not hypoxic. Leukopenia. SARS-CoV-2 PCR negative. Chest x-ray with bibasilar opacities left more than right. #Pancytopenia: suspect multiple myeloma. CT with multifocal lucent lesions, L5 pathologic fracture. Baseline WBC is unknown. HIV negative x 2 . Severe anemia now receiving blood transfusions. #NELSY: Renally dose antibiotics. Resolved. #Transaminitis: With elevation of alkaline phosphatase. RUQ ultrasound ordered #Chronic malnutrition; BMI of 16.1. HIV neg x 2. #Headache, double vision: resolved. CT head unremarkable. Recs: -Request records from [facility] -Continue daptomycin at 8 mg/kg daily -Cannot do linezolid due to pancytopenia -Completed ceftriaxone, azithromycin for pneumonia -Anticipate to d/c on daptomycin 600 mg IV daily total 14 days till 11/01/2020. Order sent to medical case worker. Unfortunately as the VRE is resistant to both vancomycin and penicillins, and patient unable to tolerate Zyvox with pancytopenia daptomycin is the only treatment option available. -s/p bone marrow biopsy. Appreciate heme/onc involvement in the case. Ophelia De Luna MD [facility] ([facility]) O: [phone] F: [phone] Subjective Date of service: 10/24/20 Principal diagnosis: Altered sensorium Interval history: Afebrile, no other acute changes. Objective - Exam Narrative Exam: General appearance: Alert in NAD cachetic Eyes: anicteric sclerae, moist conjunctivae; no lid-lag; PERRLA HENT: Normocephalic, Atraumatic; normal external ears, nares open, oropharynx limited Neck: supple, tracheal midline, no JVD Lungs: Diminished breath sound bilaterally CV: RRR no murmur Abdomen: Nontender Extremities: left toes tenderness Skin: mid and lower back sutures parallel to the spine Psych: no agitated Neuro: alert and oriented x 3. Moving all extermities - Constitutional Vitals: Vital Signs Temp Pulse Resp BP Pulse Ox 97.5 F L 81 18 117/78 99 10/24/20 11:32 10/24/20 11:32 10/24/20 11:32 10/24/20 11:32 10/24/20 11:32 Temperature -Last 24 Hours Temperature [Post-Procedure] 97.7 F Temperature [Pre-Procedure] 97.8 F Temperature 97.5 F Temperature 98.6 F Temperature 98.0 F Temperature 97.6 F - Labs CBC & Chem 7: 10/22/20 08:59 10/22/20 08:59 Labs: Abnormal lab results 10/22/20 10/23/20 10/24/20 Range/Units Unknown 21:32 07:27 POC Glucose 123 H 173 H (70-105) mg/dL Miscellaneous Test Flexitest 1 H 10/24/20 Range/Units 11:33 POC Glucose 166 H (70-105) mg/dL Miscellaneous Test
[2020-10-24 14:37] LABS: Alanine Aminotransferase 192 units/L (7-56); Albumin 1.8 g/dL (3.9-5); Blood Urea Nitrogen 14 mg/dL (9-20); Hemolysis Index 12
[2020-10-24 14:44] LABS: BUN/Creatinine Ratio 28
[2020-10-24 14:46] LABS: Calcium 5.9 mg/dL (8.4-10.2)
[2020-10-24 14:56] LABS: Hematocrit 20.7 % (35.5-45.6); Hemoglobin 7.3 gm/dl (11.8-15.2); Mean Corpuscular HGB Conc 35 % (32-34); Mean Corpuscular Volume 91 fl (84-94); Platelet Count 116 K/mm3 (140-440); Red Blood Count 2.28 M/mm3 (3.65-5.03); Red Cell Distribution Width 17.2 % (13.2-15.2)
[2020-10-24] MEDS ORDERED: CALCIUM GLUCONATE 2,000 MG in SODIUM CHLORIDE 0.9% 100 ML IV ONE (16:55)
[2020-10-24 19:32] LABS: Band Neutrophils # (Manual) 0.1 K/mm3; Total Cells Counted 100
[2020-10-24 19:34] LABS: Large Platelets Rare; Platelet Estimate Cons
[2020-10-24] MEDS: CALCIUM CARBONATE 1250 MG TAB PO SCH (22:43)
[2020-10-25 07:52] LABS: Hematocrit 20.9 % (35.5-45.6); Hemoglobin 7.1 gm/dl (11.8-15.2); Mean Corpuscular HGB Conc 34 % (32-34); Mean Corpuscular Volume 93 fl (84-94); Platelet Count 111 K/mm3 (140-440); Red Blood Count 2.26 M/mm3 (3.65-5.03); Red Cell Distribution Width 17.9 % (13.2-15.2)
[2020-10-25 08:11] LABS: Alanine Aminotransferase 162 units/L (7-56); Albumin 1.6 g/dL (3.9-5); Blood Urea Nitrogen 10 mg/dL (9-20); Calcium 6.4 mg/dL (8.4-10.2); Hemolysis Index 7
[2020-10-25 08:15] LABS: BUN/Creatinine Ratio 25
--- NOTE | 2020-10-25 08:38 | Progress Note ---
Assessment and Plan Dilated Cardiomyopathy, uncertain duration LVEF 20-25% by echo this admission Severe Anemia Bacteremia FLORESITA done this admission reports no evidence of vegetations Pneumonia negative COVID 19 test Malnutrition Suspected multiple myeloma Continue GDMT for dilated cardiomyopathy as tolerated. Otherwise, conservative cardiac management. Subjective Date of service: 10/25/20 Principal diagnosis: Altered sensorium Interval history: No cardiac events. Objective Vital Signs Temp Pulse Resp BP Pulse Ox 10/25/20 04:33 98.1 F 16 135/87 10/24/20 21:28 98.0 F 86 20 123/84 99 10/24/20 16:44 98.2 F 78 18 130/78 94 10/24/20 11:32 97.5 F L 81 18 117/78 99 - Physical Examination General: No Apparent Distress, Cachectic HEENT: Positive: PERRL Neck: Positive: trachea midline Cardiac: Positive: Reg Rate and Rhythm Neuro: Positive: Weakness Extremities: Absent: edema - Labs and Meds Cardiac Enzymes 10/24/20 10/25/20 Range/Units 13:50 06:46 AST 45 H 34 (5-40) units/L CBC 10/24/20 10/25/20 Range/Units 13:50 06:46 WBC 2.9 L 2.0 L (4.5-11.0) K/mm3 RBC 2.28 L 2.26 L (3.65-5.03) M/mm3 Hgb 7.3 L 7.1 L (11.8-15.2) gm/dl Hct 20.7 L 20.9 L (35.5-45.6) % Plt Count 116 L 111 L (140-440) K/mm3 Comprehensive Metabolic Panel 10/24/20 10/25/20 Range/Units 13:50 06:46 Sodium 135 L 136 L (137-145) mmol/L Potassium 3.8 3.8 (3.6-5.0) mmol/L Chloride 102.9 100.7 (98-107) mmol/L Carbon Dioxide 22 28 (22-30) mmol/L BUN 14 10 (9-20) mg/dL Creatinine 0.5 L 0.4 L (0.8-1.3) mg/dL Glucose 153 H 73 L (75-100) mg/dL Calcium 5.9 L* 6.4 L (8.4-10.2) mg/dL AST 45 H 34 (5-40) units/L ALT 192 H 162 H (7-56) units/L Alkaline Phosphatase 321 H 278 H (35-129) units/L Total Protein 5.6 L 5.5 L (6.3-8.2) g/dL Albumin 1.8 L 1.6 L (3.9-5) g/dL
[2020-10-25] MEDS: LISINOPRIL 5 MG TAB PO SCH (09:44)
[2020-10-25] MEDS: SPIRONOLACTONE 25 MG TAB PO SCH (09:44)
[2020-10-25 09:45] LABS: Anisocytosis 1+; Platelet Estimate Consistent w Auto; Total Cells Counted 100
[2020-10-25] MEDS: carvediloL 3.125 MG TAB PO SCH ×2 (09:45→23:08)
[2020-10-25] MEDS: ASPIRIN EC 81 MG TAB PO SCH (09:45)
[2020-10-25] MEDS: BENZOCAINE/MENTHOL LOZENGE MM PRN (09:45)
[2020-10-25] MEDS: CALCIUM CARBONATE 1250 MG TAB PO SCH ×2 (09:45→21:29)
[2020-10-25] MEDS: MAGNESIUM OXIDE 400 MG TAB PO SCH (09:45)
[2020-10-25] MEDS ORDERED: SODIUM CHLORIDE 0.9% 500 ML 500 ML IV NR (11:17)
[2020-10-25] MEDS ORDERED: ACETAMINOPHEN 325 MG TAB PO PRN ×3 (11:20→11:32)
[2020-10-25] MEDS ORDERED: diphenhydrAMINE 50 MG/ML VIAL IV PRN (11:22)
--- NOTE | 2020-10-25 11:27 | Hem/Onc Progress Note ---
Subjective Interval history: heme/onc data review 55yo disabled man with new dx pf presumed multiple myeloma eval for back pain, found to have lytic bone lesions on Chest CT found to have bacteremia and pneumonia since admission he has been receiving IV Abx say he's hungry seems better than he was a few days ago PMH: walks with a walker not sure whether he ever had a stroke or maybe disabled by myeloma EXAM: NAD hard to understand his speech able to move both arms well DATA REVIEWED BELOW bone survey c/w multiple myeloma rib tumors and 6cm R scapula tumor, L spine tumor no specific T spine tumor described\ kappa 986 k/l ratio 298 BMBx prelim-hypocellular; pending final interpretation IMP: presumed multiple myeloma --this is likely the main reason he is sick immunocompromised-presumed pneumonia good enough candidate for anti-myeloma therapy, needs it soon severe anemia due to multiple myeloma; RBC transfusion dependence REC/PLAN: await bone marrow biopsy interp RBC transfusion today receiving IV Abx for presumed pneumonia continue steroid pulse inpatient--then stop at discharge SPEP pending anticipate he will need in-person heme/onc after discharge Active Medications Daptomycin 560 mg/ Sodium (Chloride) 100 mls @ 200 mls/hr IV Q24H [facility]; Protocol Stop: 11/01/20 12:59 Last Admin: 10/24/20 12:40 Dose: 200 mls/hr Documented by: Laboratory Last Values WBC 2.0 K/mm3 (4.5-11.0) L 10/25/20 06:46 Hgb 7.1 gm/dl (11.8-15.2) L 10/25/20 06:46 Hct 20.9 % (35.5-45.6) L 10/25/20 06:46 Plt Count 111 K/mm3 (140-440) L 10/25/20 06:46 Creatinine 0.4 mg/dL (0.8-1.3) L 10/25/20 06:46 Calcium 6.4 mg/dL (8.4-10.2) L 10/25/20 06:46 Alkaline Phosphatase 278 units/L (35-129) H 10/25/20 06:46 Lactate Dehydrogenase 233 units/L (91-180) H 10/10/20 17:54 Crossmatch See Detail 10/20/20 06:26 Objective - Constitutional Vitals: Last Vital Signs Temp 98.1 F 10/25/20 04:33 Pulse 86 10/24/20 21:28 Resp 16 10/25/20 04:33 BP 135/87 10/25/20 04:33 Pulse Ox 99 10/24/20 21:28 - Labs Lab Results: Laboratory Results - last 24 hr 10/22/20 10/24/20 10/24/20 Unknown 07:27 11:33 WBC RBC Hgb Hct MCV MCH MCHC RDW Plt Count Add Manual Diff Total Counted Seg Neutrophils % Seg Neuts % (Manual) Band Neutrophils % Lymphocytes % (Manual) Monocytes % (Manual) Eosinophils % (Manual) Metamyelocytes % Nucleated RBC % Seg Neutrophils # Man Band Neutrophils # Lymphocytes # (Manual) Abs React Lymphs (Man) Monocytes # (Manual) Eosinophils # (Manual) Basophils # (Manual) Metamyelocytes # Myelocytes # Promyelocytes # Blast Cells # WBC Morphology Hypersegmented Neuts Hyposegmented Neuts Hypogranular Neuts Smudge Cells Toxic Granulation Toxic Vacuolation Dohle Bodies Pelger-Huet Anomaly Javon Rods Platelet Estimate Clumped Platelets Plt Clumps, EDTA Large Platelets Giant Platelets Platelet Satelliting Plt Morphology Comment RBC Morphology Dimorphic RBCs Polychromasia Hypochromasia Poikilocytosis Anisocytosis Microcytosis Macrocytosis Spherocytes Pappenheimer Bodies Sickle Cells Target Cells Tear Drop Cells Ovalocytes Helmet Cells Arora-Colon Bodies [place] Rings Cofield Cells Bite Cells Crenated Cell Elliptocytes Acanthocytes (Spur) Rouleaux Hemoglobin C Crystals Schistocytes Malaria parasites Lit Bodies Hem Pathologist Commnt Sodium Potassium Chloride Carbon Dioxide Anion Gap BUN Creatinine Estimated GFR BUN/Creatinine Ratio Glucose POC Glucose 173 H 166 H Calcium Phosphorus Magnesium Total Bilirubin AST ALT Alkaline Phosphatase Total Protein Albumin Albumin/Globulin Ratio Miscellaneous Test Flexitest 1 H 10/24/20 10/24/20 10/24/20 13:50 13:50 16:44 WBC 2.9 L RBC 2.28 L Hgb 7.3 L Hct 20.7 L MCV 91 MCH 32 MCHC 35 H RDW 17.2 H Plt Count 116 L Add Manual Diff Complete Total Counted 100 Seg Neutrophils % Critical Care Registered Nurse Seg Neuts % (Manual) 94.0 H Band Neutrophils % 4.0 Lymphocytes % (Manual) 1.0 L Monocytes % (Manual) Eosinophils % (Manual) Metamyelocytes % 1.0 Nucleated RBC % 8.0 H Seg Neutrophils # Man 2.7 Band Neutrophils # 0.1 Lymphocytes # (Manual) 0.0 L Abs React Lymphs (Man) 0.0 Monocytes # (Manual) 0.0 Eosinophils # (Manual) 0.0 Basophils # (Manual) 0.0 Metamyelocytes # 0.0 Myelocytes # 0.0 Promyelocytes # 0.0 Blast Cells # 0.0 WBC Morphology Not Reportable Hypersegmented Neuts Not Reportable Hyposegmented Neuts Not Reportable Hypogranular Neuts Not Reportable Smudge Cells Not Reportable Toxic Granulation Not Reportable Toxic Vacuolation Not Reportable Dohle Bodies Not Reportable Pelger-Huet Anomaly Not Reportable Javon Rods Not Reportable Platelet Estimate Cons Clumped Platelets Not Reportable Plt Clumps, EDTA Not Reportable Large Platelets Rare Giant Platelets Not Reportable Platelet Satelliting Not Reportable Plt Morphology Comment Not Reportable RBC Morphology Not Reportable Dimorphic RBCs Not Reportable Polychromasia Not Reportable Hypochromasia Not Reportable Poikilocytosis Not Reportable Anisocytosis Not Reportable Microcytosis Not Reportable Macrocytosis Not Reportable Spherocytes Not Reportable Pappenheimer Bodies Not Reportable Sickle Cells Not Reportable Target Cells Not Reportable Tear Drop Cells Not Reportable Ovalocytes Not Reportable Helmet Cells Not Reportable Arora-Colon Bodies Not Reportable [place] Rings Not Reportable Edna Cells Not Reportable Bite Cells Not Reportable Crenated Cell Not Reportable Elliptocytes Not Reportable Acanthocytes (Spur) Not Reportable Rouleaux Not Reportable Hemoglobin C Crystals Not Reportable Schistocytes Not Reportable Malaria parasites Not Reportable Lit Bodies Not Reportable Hem Pathologist Commnt No Sodium 135 L Potassium 3.8 Chloride 102.9 Carbon Dioxide 22 Anion Gap 14 BUN 14 Creatinine 0.5 L Estimated GFR > 60 BUN/Creatinine Ratio 28 Glucose 153 H POC Glucose 131 H Calcium 5.9 L* Phosphorus Magnesium Total Bilirubin < 0.20 AST 45 H ALT 192 H Alkaline Phosphatase 321 H Total Protein 5.6 L Albumin 1.8 L Albumin/Globulin Ratio 0.5 Miscellaneous Test 10/25/20 10/25/20 10/25/20 06:46 06:46 08:13 WBC 2.0 L RBC 2.26 L Hgb 7.1 L Hct 20.9 L MCV 93 MCH 31 MCHC 34 RDW 17.9 H Plt Count 111 L Add Manual Diff Complete Total Counted 100 Seg Neutrophils % Critical Care Registered Nurse Seg Neuts % (Manual) 96.0 H Band Neutrophils % Lymphocytes % (Manual) 2.0 L Monocytes % (Manual) 1.0 Eosinophils % (Manual) 1.0 Metamyelocytes % Nucleated RBC % 5.0 H Seg Neutrophils # Man 1.9 Band Neutrophils # 0.0 Lymphocytes # (Manual) 0.0 L Abs React Lymphs (Man) 0.0 Monocytes # (Manual) 0.0 Eosinophils # (Manual) 0.0 Basophils # (Manual) 0.0 Metamyelocytes # 0.0 Myelocytes # 0.0 Promyelocytes # 0.0 Blast Cells # 0.0 WBC Morphology Not Reportable Hypersegmented Neuts Not Reportable Hyposegmented Neuts Not Reportable Hypogranular Neuts Not Reportable Smudge Cells Not Reportable Toxic Granulation Not Reportable Toxic Vacuolation Not Reportable Dohle Bodies Not Reportable Pelger-Huet Anomaly Not Reportable Javon Rods Not Reportable Platelet Estimate Consistent w auto Clumped Platelets Not Reportable Plt Clumps, EDTA Not Reportable Large Platelets Not Reportable Giant Platelets Not Reportable Platelet Satelliting Not Reportable Plt Morphology Comment Not Reportable RBC Morphology Not Reportable Dimorphic RBCs Not Reportable Polychromasia Not Reportable Hypochromasia Not Reportable Poikilocytosis Not Reportable Anisocytosis 1+ Microcytosis Not Reportable Macrocytosis Not Reportable Spherocytes Not Reportable Pappenheimer Bodies Not Reportable Sickle Cells Not Reportable Target Cells Not Reportable Tear Drop Cells Not Reportable Ovalocytes Not Reportable Helmet Cells Not Reportable Arora-Colon Bodies Not Reportable [place] Rings Not Reportable Cofield Cells Not Reportable Bite Cells Not Reportable Crenated Cell Not Reportable Elliptocytes Not Reportable Acanthocytes (Spur) Not Reportable Rouleaux Not Reportable Hemoglobin C Crystals Not Reportable Schistocytes Not Reportable Malaria parasites Not Reportable Lit Bodies Not Reportable Hem Pathologist Commnt No Sodium 136 L Potassium 3.8 Chloride 100.7 Carbon Dioxide 28 Anion Gap 11 BUN 10 Creatinine 0.4 L Estimated GFR > 60 BUN/Creatinine Ratio 25 Glucose 73 L POC Glucose 53 L Calcium 6.4 L Phosphorus 1.50 L Magnesium 1.10 L Total Bilirubin < 0.20 AST 34 ALT 162 H Alkaline Phosphatase 278 H Total Protein 5.5 L Albumin 1.6 L Albumin/Globulin Ratio 0.4 Miscellaneous Test Medications & Allergies - Medications Allergies/Adverse Reactions: Allergies No Known Allergies Allergy (Verified 10/14/20 21:11) Home Medications: Home Medications Medication Instructions Recorded Confirmed Last Taken Type No Known Home Medications [No 10/11/20 10/11/20 Unknown History Reported Home Medications] Active Medications: Generic Name Dose Route Start Last Admin Trade Name Freq PRN Reason Stop Dose Admin Acetaminophen 650 mg 10/10/20 19:46 10/24/20 09:47 Acetaminophen 325 Mg Tab PO 650 mg Q4H PRN Administration Pain MILD(1-3)/Fever >100.5/KINNEY Acetaminophen 650 mg 10/25/20 11:20 Acetaminophen 325 Mg Tab PO Q4H PRN Pain, Mild (1-3) Albuterol 2.5 mg 10/10/20 19:46 Albuterol 2.5 Mg/3 Ml Nebu IH Q4HRT PRN Shortness Of Breath Artificial Tears 2 drops 10/20/20 18:29 10/23/20 15:47 Hypromellose 0.5% Ophth Soln 15 Ml OU 2 drops Q4H PRN Administration Dry Eye(s) Aspirin 81 mg 10/18/20 15:00 10/25/20 09:45 Aspirin Ec 81 Mg Tab PO 81 mg QDAY THEE Administration Benzocaine/Menthol 1 each 10/19/20 17:49 10/25/20 09:45 Benzocaine/Menthol Lozenge MM 1 each Q2HR PRN Administration Sore Throat Calcium Carbonate/Glycine 1,250 mg 10/24/20 22:00 10/25/20 09:45 Calcium Carbonate 1250 Mg Tab PO 1,250 mg BID THEE Administration Carvedilol 3.125 mg 10/17/20 22:00 10/25/20 09:45 Carvedilol 3.125 Mg Tab PO 3.125 mg BID THEE Administration Diphenhydramine HCl 25 mg 10/25/20 11:22 Diphenhydramine 50 Mg/Ml Vial IV Q6H PRN Itching Sodium Chloride 1,000 mls @ 125 mls/hr 10/12/20 11:00 10/23/20 22:17 Nacl 0.45% 1000 Ml IV 125 mls/hr DIRECT THEE Administration Daptomycin 560 mg/ Sodium 100 mls @ 200 mls/hr 10/15/20 12:30 10/24/20 12:40 Chloride IV 11/01/20 12:59 200 mls/hr Q24H THEE Administration Protocol Sodium Chloride 500 mls @ 0 mls/hr 10/25/20 11:17 Nacl 0.9% 500 Ml IV 10/26/20 11:16 ONCE NR As Directed Lisinopril 2.5 mg 10/18/20 10:00 10/25/20 09:44 Lisinopril 5 Mg Tab PO 2.5 mg QDAY THEE Administration Magnesium Oxide 400 mg 10/22/20 10:00 10/25/20 09:45 Magnesium Oxide 400 Mg Tab PO 400 mg QDAY THEE Administration Ondansetron HCl 4 mg 10/10/20 19:46 Ondansetron 4 Mg/2 Ml Inj IV Q8H PRN Nausea And Vomiting Phenol 1 spray 10/15/20 14:54 10/18/20 21:53 Phenol 1.4% 177 Ml Bottle MM 1 spray PRN PRN Administration Sore Throat Sodium Chloride 10 ml 10/10/20 22:00 10/25/20 09:45 Sodium Chloride 0.9% 10 Ml Flush Syringe IV 10 ml BID THEE Administration Sodium Chloride 10 ml 10/10/20 19:46 Sodium Chloride 0.9% 10 Ml Flush Syringe IV PRN PRN LINE FLUSH Spironolactone 25 mg 10/18/20 15:00 10/25/20 09:44 Spironolactone 25 Mg Tab PO 25 mg QDAY THEE Administration
--- NOTE | 2020-10-25 14:28 | Progress Note ---
Assessment and Plan Cultures: SARS CoV2 PCR: Negative HIV: Negative 10/10/2020 blood culture: VRE 2 out of 4 bottles 10/10/2020 urine culture: Magali 10/14/2020 blood culture no growth today 10/14/2020 blood culture: GPC 3 of 4 10/18/2020 blood culture: No growth today A/P: 55-year-old male with diabetes, malnutrition, resident of an assisted living facility was brought into the emergency room with complaints of sore throat and back pain: #VRE bacteremia: Very unclear source. ?recent T10-T12 fusion and L1-L2 surgery (noted surgical sutures on his back, pt is not able to elaborate, only reported surgery was done at [facility]. FLORESITA negative. Repeat blood cx 10/14 positive. Repeat blood cx 10/[address] shows a bone cage and fixation from T10-T12, chronic pathologic fracture L5. No obvious discitis, osteomyelitis, abscess. MRI no abscess, discitis, osteomyelitis +compression deformities at several levels, mainly L5. #UTI: Urine culture grew Magali. Renal ultrasound with mild right pelvic caliectasis and echogenic right kidney. #Bilateral pneumonia: Resolved. #Pancytopenia: suspect multiple myeloma. CT with multifocal lucent lesions, L5 pathologic fracture. Baseline WBC is unknown. HIV negative x 2 . Severe anemia now receiving blood transfusions. #NELSY: Renally dose antibiotics. Resolved. #Transaminitis: With elevation of alkaline phosphatase. RUQ ultrasound ordered #Chronic malnutrition; BMI of 16.1. HIV neg x 2. #Headache, double vision: resolved. CT head unremarkable. Recs: -Request records from [facility] -Continue daptomycin at 8 mg/kg daily -Cannot do linezolid due to pancytopenia -Completed ceftriaxone, azithromycin for pneumonia -Anticipate to d/c on daptomycin 600 mg IV daily total 14 days till 11/01/2020. Order sent to case assistant. Unfortunately as the VRE is resistant to both vancomycin and penicillins, and patient unable to tolerate Zyvox with pancytopenia daptomycin is the only treatment option available. -s/p bone marrow biopsy. Appreciate heme/onc involvement in the case. Likely has multiple myeloma. Ophelia De Luna MD [facility] ([facility] O: [phone] F: [phone] Subjective Date of service: 10/25/20 Principal diagnosis: Altered sensorium Interval history: Afebrile, worsening leukopenia. No other issues. Objective - Exam Narrative Exam: General appearance: Alert in NAD cachetic Eyes: anicteric sclerae, moist conjunctivae; no lid-lag; PERRLA HENT: Normocephalic, Atraumatic; normal external ears, nares open, oropharynx limited Neck: supple, tracheal midline, no JVD Lungs: Diminished breath sound bilaterally CV: RRR no murmur Abdomen: Nontender Extremities: left toes tenderness Skin: mid and lower back sutures parallel to the spine Psych: no agitated Neuro: alert and oriented x 3. Moving all extermities - Constitutional Vitals: Vital Signs Temp Pulse Resp BP Pulse Ox 98.1 F 86 16 135/87 99 10/25/20 04:33 10/24/20 21:28 10/25/20 04:33 10/25/20 04:33 10/24/20 21:28 Temperature -Last 24 Hours Temperature 98.1 F Temperature 98.0 F Temperature 98.2 F - Labs CBC & Chem 7: 10/25/20 06:46 10/25/20 06:46 Labs: Abnormal lab results 10/22/20 10/24/20 10/24/20 Range/Units Unknown 13:50 13:50 WBC 2.9 L (4.5-11.0) K/mm3 RBC 2.28 L (3.65-5.03) M/mm3 Hgb 7.3 L (11.8-15.2) gm/dl Hct 20.7 L (35.5-45.6) % MCHC 35 H (32-34) % RDW 17.2 H (13.2-15.2) % Plt Count 116 L (140-440) K/mm3 Seg Neuts % (Manual) 94.0 H (40.0-70.0) % Lymphocytes % (Manual) 1.0 L (13.4-35.0) % Nucleated RBC % 8.0 H (0.0-0.9) % Lymphocytes # (Manual) 0.0 L (1.2-5.4) K/mm3 Sodium 135 L (137-145) mmol/L Creatinine 0.5 L (0.8-1.3) mg/dL Glucose 153 H (75-100) mg/dL POC Glucose (70-105) mg/dL Calcium 5.9 L* (8.4-10.2) mg/dL Phosphorus (2.5-4.5) mg/dL Magnesium (1.7-2.3) mg/dL AST 45 H (5-40) units/L ALT 192 H (7-56) units/L Alkaline Phosphatase 321 H (35-129) units/L Total Protein 5.6 L (6.3-8.2) g/dL Albumin 1.8 L (3.9-5) g/dL Miscellaneous Test Flexitest 1 H 10/24/20 10/25/20 10/25/20 Range/Units 16:44 06:46 06:46 WBC 2.0 L (4.5-11.0) K/mm3 RBC 2.26 L (3.65-5.03) M/mm3 Hgb 7.1 L (11.8-15.2) gm/dl Hct 20.9 L (35.5-45.6) % MCHC (32-34) % RDW 17.9 H (13.2-15.2) % Plt Count 111 L (140-440) K/mm3 Seg Neuts % (Manual) 96.0 H (40.0-70.0) % Lymphocytes % (Manual) 2.0 L (13.4-35.0) % Nucleated RBC % 5.0 H (0.0-0.9) % Lymphocytes # (Manual) 0.0 L (1.2-5.4) K/mm3 Sodium 136 L (137-145) mmol/L Creatinine 0.4 L (0.8-1.3) mg/dL Glucose 73 L (75-100) mg/dL POC Glucose 131 H (70-105) mg/dL Calcium 6.4 L (8.4-10.2) mg/dL Phosphorus 1.50 L (2.5-4.5) mg/dL Magnesium 1.10 L (1.7-2.3) mg/dL AST (5-40) units/L ALT 162 H (7-56) units/L Alkaline Phosphatase 278 H (35-129) units/L Total Protein 5.5 L (6.3-8.2) g/dL Albumin 1.6 L (3.9-5) g/dL Miscellaneous Test 10/25/20 Range/Units 08:13 WBC (4.5-11.0) K/mm3 RBC (3.65-5.03) M/mm3 Hgb (11.8-15.2) gm/dl Hct (35.5-45.6) % MCHC (32-34) % RDW (13.2-15.2) % Plt Count (140-440) K/mm3 Seg Neuts % (Manual) (40.0-70.0) % Lymphocytes % (Manual) (13.4-35.0) % Nucleated RBC % (0.0-0.9) % Lymphocytes # (Manual) (1.2-5.4) K/mm3 Sodium (137-145) mmol/L Creatinine (0.8-1.3) mg/dL Glucose (75-100) mg/dL POC Glucose 53 L (70-105) mg/dL Calcium (8.4-10.2) mg/dL Phosphorus (2.5-4.5) mg/dL Magnesium (1.7-2.3) mg/dL AST (5-40) units/L ALT (7-56) units/L Alkaline Phosphatase (35-129) units/L Total Protein (6.3-8.2) g/dL Albumin (3.9-5) g/dL Miscellaneous Test
--- NOTE | 2020-10-25 18:29 | Progress Note ---
Assessment and Plan Assessment and Plan Assessment and plan: --Sepsis due to persistent bacteremia Current Visit: Yes Status: Acute Continue daptomycin per ID FLORESITA negative for endocarditis --VRE bacteremia; Current Visit: Yes Status: Acute Unclear source/recent spinal surgery T10-T12, L1-L2, details not available Records requested from [facility] Unable to treat with linezolid secondary due to thrombocytopenia. ID recommended daptomycin for total 14 days ending 11/01/2020 Dapto is only choice of medication, and no other alternatives per ID Discussed with ID as well as case management --Multiple myeloma Current Visit: Yes Status: Acute Management per hematology Status post bone marrow biopsy Closely monitor --Hypocalcemia; Current Visit: Yes Status: Acute Replenished with calcium gluconate, and oral supplements Closely monitor levels --Hypophosphatemia; Current Visit: Yes Status: Acute Closely monitor electrolytes and adjust as needed --Hypomagnesemia; Current Visit: Yes Status: Acute Closely monitor electrolytes and replenish as needed --Pancytopenia; Current Visit: Yes Status: Acute probably due to underlying HIV/sepsis/persistent bacteremia Treat the underlying cause Hematology consult requested --Anemia; Hb 6.4 -8.0 Current Visit: Yes Status: Acute Received 1 unit PRBC transfusion check H&H, transfuse additional as needed. Hematology consult --History of recent spinal surgery: at [facility] Current Visit: Yes Status: chr T10 T12, L1-L2 surgery, surgical sutures on the back Wound care, continue antibiotics, request records from [facility] --Acute systolic CHF/ EF 20 to 25% Current Visit: Yes Status: Acute antifailure medication with diuretic, beta-blockers, LALITHA inhibitors, input output monitoring, low-sodium diet,fluid restriction. Cardiology consult noted and appreciated --UTI/ur cultures grew Magali Current Visit: Yes Status: Acute Continue Diflucan , supportive care/ --Acute kidney injury (NELSY) due to ATN Current Visit: Yes Status: Acute Resolved, closely monitor renal function Avoid nephrotoxins -- Severe protein calorie malnutrition Current Visit: Yes Status: Acute Albumin 1.7 nutrition supplements ,, nutrition consult --Pneumonia Current Visit: Yes Status: Acute Completed 5 days of Rocephin and Zithromax -- COVID-19 negative Current Visit: Yes Status: Acute Coronavirus PCR negative -- DVT prophylaxis Current Visit: Yes Status: Acute SCDs bilateral lower extremities while in bed, patient is ambulatory Subjective Date of service: 10/25/20 Principal diagnosis: Altered sensorium Interval history: The patient is a 55-year-old male with diabetes, malnutrition, resident of an assisted living facility was brought into the emergency room with complaints of sore throat and back pain. Chest x-ray showed bilateral pneumonia with labs showing evidence of acute kidney injury. Patient afebrile on admission, also not hypoxic. Labs showed leukopenia, hyperkalemia, creatinine 2.5, ferritin 08/17/2007, CRP 5.6, LDH 233, CRP 5.6 10/16/2020; sepsis secondary to VRE bacteremia, UTI and pneumonia Continue current antibiotics per ID, contact isolation due to VRE 10/17/2020; patient is more alert and awake today, feels better CT abdomen and pelvis findings noted continue current antibiotics Physical therapy, Occupational Therapy as tolerated 10/18/2020; cardiology evaluations appreciated FLORESITA negative for endocarditis, cardiology started goal-directed CHF treatment 10/19/2020; persistent bacteremia, FLORESITA negative for endocarditis Continue ID cardiology recommendations Patient complains of some sore throat, Cepacol throat spray and Cepacol lozenges 10/20/2020; anemia, hemoglobin 6.4, transfuse 1 unit PRBC Closely monitor H&H transfuse additional PRBC as needed Pancytopenia, hematology consult inpatient versus outpatient 10/21/2020; patient's hemoglobin increased to 8.0 Severe hypophosphatemia, hypomagnesemia replenished Also consulted pot sander Dr. Yusuf Koehler 10/22/2020; hematology evaluation noted and appreciated bone marrow biopsy requested And work-up for multiple myeloma in process 10/23/2020; continue current management, disposition per ID and hematology 10/24/2020; multiple myeloma management per hematology Persistent sepsis VRE, management per ID, long-term antibiotics Stop date 11/01/202010/25 Same condition Objective - Constitutional General appearance: Present: no acute distress, well-nourished - EENT Eyes: PERRL, EOM intact ENT: hearing intact, clear oral mucosa Ears: bilateral: normal - Neck Neck: supple, normal ROM - Respiratory Respiratory effort: normal Respiratory: bilateral: CTA - Breasts Breasts: normal - Cardiovascular Heart rate: 78 Rhythm: regular Heart Sounds: Present: S1 & S2. Absent: gallop, rub Extremities: pulses intact, No edema, normal color, Full ROM - Gastrointestinal General gastrointestinal: Present: soft, non-tender, non-distended, normal bowel sounds - Genitourinary Male genitourinary: normal - Integumentary Integumentary: clear, warm, dry - Musculoskeletal Musculoskeletal: 1, strength equal bilaterally - Neurologic Neurologic: moves all extremities - Psychiatric Psychiatric: memory intact, appropriate mood/affect, intact judgment & insight - Labs CBC & Chem 7: 10/27/20 07:53 10/25/20 06:46 Labs: Abnormal lab results 10/24/20 10/25/20 10/25/20 Range/Units 13:50 06:46 06:46 WBC 2.0 L (4.5-11.0) K/mm3 RBC 2.26 L (3.65-5.03) M/mm3 Hgb 7.1 L (11.8-15.2) gm/dl Hct 20.9 L (35.5-45.6) % RDW 17.9 H (13.2-15.2) % Plt Count 111 L (140-440) K/mm3 Seg Neuts % (Manual) 94.0 H 96.0 H (40.0-70.0) % Lymphocytes % (Manual) 1.0 L 2.0 L (13.4-35.0) % Nucleated RBC % 8.0 H 5.0 H (0.0-0.9) % Lymphocytes # (Manual) 0.0 L 0.0 L (1.2-5.4) K/mm3 Sodium 136 L (137-145) mmol/L Creatinine 0.4 L (0.8-1.3) mg/dL Glucose 73 L (75-100) mg/dL POC Glucose (70-105) mg/dL Calcium 6.4 L (8.4-10.2) mg/dL Phosphorus 1.50 L (2.5-4.5) mg/dL Magnesium 1.10 L (1.7-2.3) mg/dL ALT 162 H (7-56) units/L Alkaline Phosphatase 278 H (35-129) units/L Total Protein 5.5 L (6.3-8.2) g/dL Albumin 1.6 L (3.9-5) g/dL Crossmatch 10/25/20 10/25/20 Range/Units 08:13 13:20 WBC (4.5-11.0) K/mm3 RBC (3.65-5.03) M/mm3 Hgb (11.8-15.2) gm/dl Hct (35.5-45.6) % RDW (13.2-15.2) % Plt Count (140-440) K/mm3 Seg Neuts % (Manual) (40.0-70.0) % Lymphocytes % (Manual) (13.4-35.0) % Nucleated RBC % (0.0-0.9) % Lymphocytes # (Manual) (1.2-5.4) K/mm3 Sodium (137-145) mmol/L Creatinine (0.8-1.3) mg/dL Glucose (75-100) mg/dL POC Glucose 53 L (70-105) mg/dL Calcium (8.4-10.2) mg/dL Phosphorus (2.5-4.5) mg/dL Magnesium (1.7-2.3) mg/dL ALT (7-56) units/L Alkaline Phosphatase (35-129) units/L Total Protein (6.3-8.2) g/dL Albumin (3.9-5) g/dL Crossmatch See Detail
[2020-10-25] MEDS: ACETAMINOPHEN 325 MG TAB PO PRN (18:49)
--- NOTE | 2020-10-26 08:05 | Progress Note ---
Assessment and Plan Dilated Cardiomyopathy, uncertain duration LVEF 20-25% by echo this admission Severe Anemia Bacteremia FLORESITA done this admission reports no evidence of vegetations Pneumonia negative COVID 19 test Malnutrition and dysphagia Suspected multiple myeloma Recommendations: Continue GDMT for dilated cardiomyopathy as tolerated. No new cardiac recommendations Dysphagia management per primary team Subjective Date of service: 10/26/20 Principal diagnosis: Altered sensorium Interval history: Patient complains of dysphagia. Patient denies chest pain or shortness of breath. Objective Vital Signs Temp Pulse Resp BP Pulse Ox 10/26/20 05:43 98.3 F 89 18 123/84 96 10/25/20 22:29 98.8 F 84 18 115/74 98 10/25/20 22:05 98.0 F 87 18 123/74 98 10/25/20 21:28 98.1 F 84 18 110/67 99 10/25/20 21:00 98.9 F 86 18 119/77 98 10/25/20 20:29 98.3 F 84 18 126/84 98 10/25/20 19:35 98.7 F 98 H 18 132/86 98 10/25/20 18:35 98.6 F 81 20 110/69 99 10/25/20 13:10 98.8 F 87 19 107/67 96 - Physical Examination General: No Apparent Distress, Cachectic HEENT: Positive: PERRL Neck: Positive: trachea midline Cardiac: Positive: Reg Rate and Rhythm Lungs: Positive: Normal Exam Neuro: Positive: Weakness Abdomen: Positive: Soft, Active Bowel Sounds Skin: Positive: Clear Extremities: Absent: edema - Labs and Meds Cardiac Enzymes 10/25/20 Range/Units 06:46 AST 34 (5-40) units/L Comprehensive Metabolic Panel 10/25/20 Range/Units 06:46 Sodium 136 L (137-145) mmol/L Potassium 3.8 (3.6-5.0) mmol/L Chloride 100.7 (98-107) mmol/L Carbon Dioxide 28 (22-30) mmol/L BUN 10 (9-20) mg/dL Creatinine 0.4 L (0.8-1.3) mg/dL Glucose 73 L (75-100) mg/dL Calcium 6.4 L (8.4-10.2) mg/dL AST 34 (5-40) units/L ALT 162 H (7-56) units/L Alkaline Phosphatase 278 H (35-129) units/L Total Protein 5.5 L (6.3-8.2) g/dL Albumin 1.6 L (3.9-5) g/dL
[2020-10-26 09:30] LABS: Hematocrit 26.8 % (35.5-45.6); Hemoglobin 9.2 gm/dl (11.8-15.2); Mean Corpuscular HGB Conc 34 % (32-34); Mean Corpuscular Volume 92 fl (84-94); Platelet Count 100 K/mm3 (140-440); Red Blood Count 2.91 M/mm3 (3.65-5.03); Red Cell Distribution Width 16.9 % (13.2-15.2)
[2020-10-26] MEDS: MAGNESIUM OXIDE 400 MG TAB PO SCH (10:03)
[2020-10-26] MEDS: SPIRONOLACTONE 25 MG TAB PO SCH (10:03)
[2020-10-26] MEDS: LISINOPRIL 5 MG TAB PO SCH (10:03)
[2020-10-26] MEDS: ASPIRIN EC 81 MG TAB PO SCH (10:03)
[2020-10-26] MEDS: CALCIUM CARBONATE 1250 MG TAB PO SCH ×2 (10:03→21:43)
[2020-10-26] MEDS: carvediloL 3.125 MG TAB PO SCH ×2 (10:03→21:54)
[2020-10-26 11:30] LABS: Band Neutrophils # (Manual) 0.2 K/mm3; Total Cells Counted 100
[2020-10-26 11:31] LABS: Target Cells Few
[2020-10-26 11:34] LABS: Hypochromasia Few
[2020-10-26 11:35] LABS: Platelet Estimate Consistent w Auto
[2020-10-26] MEDS: BENZOCAINE/MENTHOL LOZENGE MM PRN (13:14)
--- NOTE | 2020-10-26 15:58 | Progress Note ---
Assessment and Plan Assessment and Plan --Sepsis due to persistent bacteremia Current Visit: Yes Status: Acute Continue daptomycin per ID FLORESITA negative for endocarditis --VRE bacteremia; Current Visit: Yes Status: Acute Unclear source/recent spinal surgery T10-T12, L1-L2, details not available Records requested from [facility] Unable to treat with linezolid secondary due to thrombocytopenia. ID recommended daptomycin for total 14 days ending 11/01/2020 Dapto is only choice of medication, and no other alternatives per ID Discussed with ID as well as case management --Multiple myeloma Current Visit: Yes Status: Acute Management per hematology Status post bone marrow biopsy Closely monitor --Hypocalcemia; Current Visit: Yes Status: Acute Replenished with calcium gluconate, and oral supplements Closely monitor levels --Hypophosphatemia; Current Visit: Yes Status: Acute Closely monitor electrolytes and adjust as needed --Hypomagnesemia; Current Visit: Yes Status: Acute Closely monitor electrolytes and replenish as needed --Pancytopenia; Current Visit: Yes Status: Acute probably due to underlying HIV/sepsis/persistent bacteremia Treat the underlying cause Hematology consult requested --Anemia; Hb 6.4 -8.0 Current Visit: Yes Status: Acute Received 1 unit PRBC transfusion check H&H, transfuse additional as needed. Hematology consult --History of recent spinal surgery: at [facility] Current Visit: Yes Status: chr T10 T12, L1-L2 surgery, surgical sutures on the back Wound care, continue antibiotics, request records from [facility] --Acute systolic CHF/ EF 20 to 25% Current Visit: Yes Status: Acute antifailure medication with diuretic, beta-blockers, LALITHA inhibitors, input output monitoring, low-sodium diet,fluid restriction. Cardiology consult noted and appreciated --UTI/ur cultures grew Magali Current Visit: Yes Status: Acute Continue Diflucan , supportive care/ --Acute kidney injury (NELSY) due to ATN Current Visit: Yes Status: Acute Resolved, closely monitor renal function Avoid nephrotoxins -- Severe protein calorie malnutrition Current Visit: Yes Status: Acute Albumin 1.7 nutrition supplements ,, nutrition consult --Pneumonia Current Visit: Yes Status: Acute Completed 5 days of Rocephin and Zithromax -- COVID-19 negative Current Visit: Yes Status: Acute Coronavirus PCR negative -- DVT prophylaxis Current Visit: Yes Status: Acute SCDs bilateral lower extremities while in bed, patient is ambulatory Subjective Date of service: 10/26/20 Principal diagnosis: Multiple myeloma Interval history: The patient is a 55-year-old male with diabetes, malnutrition, resident of an assisted living facility was brought into the emergency room with complaints of sore throat and back pain. Chest x-ray showed bilateral pneumonia with labs showing evidence of acute kidney injury. Patient afebrile on admission, also not hypoxic. Labs showed leukopenia, hyperkalemia, creatinine 2.5, ferritin 08/17/2007, CRP 5.6, LDH 233, CRP 5.6 10/16/2020; sepsis secondary to VRE bacteremia, UTI and pneumonia Continue current antibiotics per ID, contact isolation due to VRE 10/17/2020; patient is more alert and awake today, feels better CT abdomen and pelvis findings noted continue current antibiotics Physical therapy, Occupational Therapy as tolerated 10/18/2020; cardiology evaluations appreciated FLORESITA negative for endocarditis, cardiology started goal-directed CHF treatment 10/19/2020; persistent bacteremia, FLORESITA negative for endocarditis Continue ID cardiology recommendations Patient complains of some sore throat, Cepacol throat spray and Cepacol lozenges 10/20/2020; anemia, hemoglobin 6.4, transfuse 1 unit PRBC Closely monitor H&H transfuse additional PRBC as needed Pancytopenia, hematology consult inpatient versus outpatient 10/21/2020; patient's hemoglobin increased to 8.0 Severe hypophosphatemia, hypomagnesemia replenished Also consulted labor relations consultant Dr. Yusuf Koehler 10/22/2020; hematology evaluation noted and appreciated bone marrow biopsy requested And work-up for multiple myeloma in process 10/23/2020; continue current management, disposition per ID and hematology 10/24/2020; multiple myeloma management per hematology Persistent sepsis VRE, management per ID, long-term antibiotics Stop date 11/01/202010/25 Same condition 10/26 Same condition Objective - Constitutional Vitals: Vital Signs - 12hr 10/26/20 10/26/20 05:43 10:48 Temperature 98.3 F 99.6 F Pulse Rate 89 103 H Respiratory 18 18 Rate Blood Pressure 123/84 116/76 O2 Sat by Pulse 96 97 Oximetry General appearance: Present: no acute distress, well-nourished - EENT Eyes: PERRL, EOM intact ENT: hearing intact, clear oral mucosa Ears: bilateral: normal - Neck Neck: supple, normal ROM - Respiratory Respiratory effort: normal Respiratory: bilateral: CTA - Breasts Breasts: normal - Cardiovascular Rhythm: regular Heart Sounds: Present: S1 & S2. Absent: gallop, rub Extremities: pulses intact, No edema, normal color, Full ROM - Gastrointestinal General gastrointestinal: Present: soft, non-tender, non-distended, normal bowel sounds - Genitourinary Male genitourinary: normal - Integumentary Integumentary: clear, warm, dry - Musculoskeletal Musculoskeletal: 1, strength equal bilaterally - Neurologic Neurologic: moves all extremities - Psychiatric Psychiatric: memory intact, appropriate mood/affect, intact judgment & insight - Labs CBC & Chem 7: 10/27/20 07:53 10/25/20 06:46 Labs: Abnormal lab results 10/20/20 10/23/20 10/25/20 Range/Units 06:26 05:12 13:20 WBC (4.5-11.0) K/mm3 RBC (3.65-5.03) M/mm3 Hgb (11.8-15.2) gm/dl Hct (35.5-45.6) % RDW (13.2-15.2) % Plt Count (140-440) K/mm3 Seg Neuts % (Manual) (40.0-70.0) % Nucleated RBC % (0.0-0.9) % Lymphocytes # (Manual) (1.2-5.4) K/mm3 POC Glucose (70-105) mg/dL Crck-5-[id number] 3.88 H (<=2.51) mg/L Crossmatch See Detail See Detail 10/25/20 10/26/20 Range/Units 21:16 08:51 WBC 2.1 L (4.5-11.0) K/mm3 RBC 2.91 L (3.65-5.03) M/mm3 Hgb 9.2 L (11.8-15.2) gm/dl Hct 26.8 L (35.5-45.6) % RDW 16.9 H (13.2-15.2) % Plt Count 100 L (140-440) K/mm3 Seg Neuts % (Manual) 89.0 H (40.0-70.0) % Nucleated RBC % 8.0 H (0.0-0.9) % Lymphocytes # (Manual) 0.0 L (1.2-5.4) K/mm3 POC Glucose 125 H (70-105) mg/dL Ewhf-2-Pdklkcnwtflcm (<=2.51) mg/L Crossmatch
[2020-10-26] MEDS: ACETAMINOPHEN 325 MG TAB PO PRN (22:01)
[2020-10-27 07:25] LABS: Abnormal Protein Band 1 2.4 g/dL; Albumin 1.8 g/dL (3.8-4.8); Gamma Globulin 0.3 g/dL (0.8-1.7)
[2020-10-27 08:14] LABS: Hematocrit 26.8 % (35.5-45.6); Mean Corpuscular HGB Conc 34 % (32-34); Mean Corpuscular Volume 93 fl (84-94); Red Blood Count 2.89 M/mm3 (3.65-5.03); Red Cell Distribution Width 17.2 % (13.2-15.2)
[2020-10-27 09:05] LABS: Platelet Count 87 K/mm3 (140-440)
[2020-10-27] MEDS: MAGNESIUM OXIDE 400 MG TAB PO SCH (09:32)
[2020-10-27] MEDS: ASPIRIN EC 81 MG TAB PO SCH (09:32)
[2020-10-27] MEDS: SPIRONOLACTONE 25 MG TAB PO SCH (09:32)
[2020-10-27] MEDS: carvediloL 3.125 MG TAB PO SCH ×2 (09:33→22:25)
[2020-10-27] MEDS: CALCIUM CARBONATE 1250 MG TAB PO SCH ×2 (09:33→22:26)
[2020-10-27] MEDS: LISINOPRIL 5 MG TAB PO SCH (09:34)
--- NOTE | 2020-10-27 15:15 | Progress Note ---
Assessment and Plan Assessment and Plan --Sepsis due to persistent bacteremia Current Visit: Yes Status: Acute Continue daptomycin per ID FLORESITA negative for endocarditis --VRE bacteremia; Current Visit: Yes Status: Acute Unclear source/recent spinal surgery T10-T12, L1-L2, details not available Records requested from [facility] Unable to treat with linezolid secondary due to thrombocytopenia. ID recommended daptomycin for total 14 days ending 11/01/2020 Dapto is only choice of medication, and no other alternatives per ID Discussed with ID as well as case management --Multiple myeloma Current Visit: Yes Status: Acute Management per hematology Status post bone marrow biopsy Closely monitor --Hypocalcemia; Current Visit: Yes Status: Acute Replenished with calcium gluconate, and oral supplements Closely monitor levels --Hypophosphatemia; Current Visit: Yes Status: Acute Closely monitor electrolytes and adjust as needed --Hypomagnesemia; Current Visit: Yes Status: Acute Closely monitor electrolytes and replenish as needed --Pancytopenia; Current Visit: Yes Status: Acute probably due to underlying HIV/sepsis/persistent bacteremia Treat the underlying cause Hematology consult requested --Anemia; Hb 6.4 -8.0 Current Visit: Yes Status: Acute Received 1 unit PRBC transfusion check H&H, transfuse additional as needed. Hematology consult --History of recent spinal surgery: at [facility] Current Visit: Yes Status: chr T10 T12, L1-L2 surgery, surgical sutures on the back Wound care, continue antibiotics, request records from [facility] --Acute systolic CHF/ EF 20 to 25% Current Visit: Yes Status: Acute antifailure medication with diuretic, beta-blockers, LALITHA inhibitors, input output monitoring, low-sodium diet,fluid restriction. Cardiology consult noted and appreciated --UTI/ur cultures grew Magali Current Visit: Yes Status: Acute Continue Diflucan , supportive care/ --Acute kidney injury (NELSY) due to ATN Current Visit: Yes Status: Acute Resolved, closely monitor renal function Avoid nephrotoxins -- Severe protein calorie malnutrition Current Visit: Yes Status: Acute Albumin 1.7 nutrition supplements ,, nutrition consult --Pneumonia Current Visit: Yes Status: Acute Completed 5 days of Rocephin and Zithromax -- COVID-19 negative Current Visit: Yes Status: Acute Coronavirus PCR negative -- DVT prophylaxis Current Visit: Yes Status: Acute SCDs bilateral lower extremities while in bed, patient is ambulatory Subjective Date of service: 10/27/20 Principal diagnosis: Multiple Myeloma Interval history: The patient is a 55-year-old male with diabetes, malnutrition, resident of an assisted living facility was brought into the emergency room with complaints of sore throat and back pain. Chest x-ray showed bilateral pneumonia with labs showing evidence of acute kidney injury. Patient afebrile on admission, also not hypoxic. Labs showed leukopenia, hyperkalemia, creatinine 2.5, ferritin 08/17/2007, CRP 5.6, LDH 233, CRP 5.6 10/16/2020; sepsis secondary to VRE bacteremia, UTI and pneumonia Continue current antibiotics per ID, contact isolation due to VRE 10/17/2020; patient is more alert and awake today, feels better CT abdomen and pelvis findings noted continue current antibiotics Physical therapy, Occupational Therapy as tolerated 10/18/2020; cardiology evaluations appreciated FLORESITA negative for endocarditis, cardiology started goal-directed CHF treatment 10/19/2020; persistent bacteremia, FLORESITA negative for endocarditis Continue ID cardiology recommendations Patient complains of some sore throat, Cepacol throat spray and Cepacol lozenges 10/20/2020; anemia, hemoglobin 6.4, transfuse 1 unit PRBC Closely monitor H&H transfuse additional PRBC as needed Pancytopenia, hematology consult inpatient versus outpatient 10/21/2020; patient's hemoglobin increased to 8.0 Severe hypophosphatemia, hypomagnesemia replenished Also consulted manager medical device Dr. Yusuf Koehler 10/22/2020; hematology evaluation noted and appreciated bone marrow biopsy requested And work-up for multiple myeloma in process 10/23/2020; continue current management, disposition per ID and hematology 10/24/2020; multiple myeloma management per hematology Persistent sepsis VRE, management per ID, long-term antibiotics Stop date 11/01/202010/25 Same condition 10/26 Same condition 10/27 Same condition Objective - Constitutional Vitals: Vital Signs - 12hr 10/27/20 10/27/20 05:14 12:36 Temperature 98.6 F 98.2 F Pulse Rate 97 H 101 H Respiratory 18 20 Rate Blood Pressure 97/64 90/63 O2 Sat by Pulse 97 99 Oximetry General appearance: Present: no acute distress, well-nourished - EENT Eyes: PERRL, EOM intact ENT: hearing intact, clear oral mucosa Ears: bilateral: normal - Neck Neck: supple, normal ROM - Respiratory Respiratory effort: normal Respiratory: bilateral: CTA - Breasts Breasts: normal - Cardiovascular Heart rate: 78 Rhythm: regular Heart Sounds: Present: S1 & S2. Absent: gallop, rub Extremities: pulses intact, No edema, normal color, Full ROM - Gastrointestinal General gastrointestinal: Present: soft, non-tender, non-distended, normal bowel sounds - Genitourinary Male genitourinary: normal - Integumentary Integumentary: clear, warm, dry - Musculoskeletal Musculoskeletal: 1, strength equal bilaterally - Neurologic Neurologic: moves all extremities - Psychiatric Psychiatric: memory intact, appropriate mood/affect, intact judgment & insight - Labs CBC & Chem 7: 10/27/20 07:53 10/25/20 06:46 Labs: Abnormal lab results 10/22/20 10/27/20 Range/Units 08:59 07:53 WBC 1.7 L* (4.5-11.0) K/mm3 RBC 2.89 L (3.65-5.03) M/mm3 Hgb 9.0 L (11.8-15.2) gm/dl Hct 26.8 L (35.5-45.6) % RDW 17.2 H (13.2-15.2) % Plt Count 87 L (140-440) K/mm3 Serum Total Protein 5.9 L (6.1-8.1) g/dL Albumin 1.8 L (3.8-4.8) g/dL Beta Globulins 2.8 H (0.2-0.5) g/dL Gamma Globulins 0.3 L (0.8-1.7) g/dL Abnorm Protein Band 1 2.4 H g/dL PEP Interpretation see below H
--- NOTE | 2020-10-27 20:19 | Progress Note ---
Assessment and Plan Dilated Cardiomyopathy, uncertain duration LVEF 20-25% by echo this admission Pancytopenia Bacteremia FLORESITA done this admission reports no evidence of vegetations Pneumonia negative COVID 19 test Malnutrition and dysphagia Suspected multiple myeloma Recommendations: Continue GDMT for dilated cardiomyopathy as tolerated. No new cardiac recommendations Prognosis is guarded Subjective Date of service: 10/27/20 Principal diagnosis: Altered sensorium Interval history: No cardiac events overnight Patient is not on tele Objective Vital Signs Temp Pulse Pulse Resp Resp BP BP 10/27/20 16:00 98.9 F 100 H 18 95/63 10/27/20 12:36 98.2 F 101 H 20 90/63 10/27/20 05:14 98.6 F 97 H 18 97/64 10/26/20 23:01 18 10/26/20 22:01 18 10/26/20 21:54 90 125/80 10/26/20 21:40 18 10/26/20 21:00 99.7 F H 90 80 18 125/80 Pulse Ox 10/27/20 16:00 98 10/27/20 12:36 99 10/27/20 05:14 97 10/26/20 23:01 10/26/20 22:01 10/26/20 21:54 10/26/20 21:40 10/26/20 21:00 - Physical Examination General: No Apparent Distress, Cachectic HEENT: Positive: PERRL Neck: Positive: trachea midline Cardiac: Positive: Reg Rate and Rhythm Lungs: Positive: Normal Exam Neuro: Positive: Weakness Abdomen: Positive: Soft, Active Bowel Sounds Skin: Positive: Clear Extremities: Absent: edema - Labs and Meds CBC 10/27/20 Range/Units 07:53 WBC 1.7 L* (4.5-11.0) K/mm3 RBC 2.89 L (3.65-5.03) M/mm3 Hgb 9.0 L (11.8-15.2) gm/dl Hct 26.8 L (35.5-45.6) % Plt Count 87 L (140-440) K/mm3 Comprehensive Metabolic Panel 10/22/20 Range/Units 08:59 Albumin 1.8 L (3.8-4.8) g/dL
[2020-10-28] MEDS: MAGNESIUM OXIDE 400 MG TAB PO SCH (09:44)
[2020-10-28] MEDS: SPIRONOLACTONE 25 MG TAB PO SCH (09:44)
[2020-10-28] MEDS: LISINOPRIL 5 MG TAB PO SCH (09:44)
[2020-10-28] MEDS: carvediloL 3.125 MG TAB PO SCH ×2 (09:44→21:45)
[2020-10-28] MEDS: ASPIRIN EC 81 MG TAB PO SCH (09:44)
[2020-10-28] MEDS: CALCIUM CARBONATE 1250 MG TAB PO SCH ×2 (09:45→21:36)
[2020-10-28] MEDS: BENZOCAINE/MENTHOL LOZENGE MM PRN (09:45)
[2020-10-28] MEDS ORDERED: SODIUM CHLORIDE 0.9% 500 ML 500 ML IV SCH (10:00)
[2020-10-28] MEDS ORDERED: SODIUM CHLORIDE 0.9% 1000 ML 500 ML IV ONE (10:21)
[2020-10-28] MEDS ORDERED: SODIUM CHLORIDE 0.9% 500 ML 500 ML ONE (10:21)
--- NOTE | 2020-10-28 10:45 | Progress Note ---
Assessment and Plan - Patient Problems (1) Dilated cardiomyopathy Current Visit: Yes Status: Acute Plan to address problem: We will continue guideline directed medical therapy for chronic left ventricular systolic failure. Subjective Date of service: 10/28/20 Principal diagnosis: Altered sensorium Interval history: Patient is comfortable, no acute distress, no new cardiac complaints. Objective Vital Signs Temp Pulse Resp BP Pulse Ox 10/28/20 05:07 98.5 F 98 H 18 95/58 97 10/27/20 22:25 103 H 101/61 10/27/20 22:24 100.2 F H 103 H 20 101/61 95 10/27/20 16:00 98.9 F 100 H 18 95/63 98 10/27/20 12:36 98.2 F 101 H 20 90/63 99 - Physical Examination General: No Apparent Distress, Cachectic HEENT: Positive: PERRL Neck: Positive: trachea midline Cardiac: Positive: Reg Rate and Rhythm Lungs: Positive: Decreased Breath Sounds Neuro: Positive: Weakness Abdomen: Positive: Soft, Active Bowel Sounds Skin: Positive: Clear Extremities: Absent: edema
[2020-10-28] MEDS: ACETAMINOPHEN 325 MG TAB PO PRN (11:10)
--- NOTE | 2020-10-28 14:24 | Progress Note ---
Assessment and Plan Cultures: SARS CoV2 PCR: Negative HIV: Negative 10/10/2020 blood culture: VRE 2 out of 4 bottles 10/10/2020 urine culture: Magali 10/14/2020 blood culture no growth today 10/14/2020 blood culture: GPC 3 of 4 10/18/2020 blood culture: No growth today A/P: 55-year-old male with diabetes, malnutrition, resident of an assisted living facility was brought into the emergency room with complaints of sore throat and back pain: #VRE bacteremia: Very unclear source. ?recent T10-T12 fusion and L1-L2 surgery (noted surgical sutures on his back, pt is not able to elaborate, only reported surgery was done at [facility]. FLORESITA negative. Repeat blood cx 10/14 positive. Repeat blood cx 10/[address] shows a bone cage and fixation from T10-T12, chronic pathologic fracture L5. No obvious discitis, osteomyelitis, abscess. MRI no abscess, discitis, osteomyelitis +compression deformities at several levels, mainly L5. #UTI: Urine culture grew Magali. Renal ultrasound with mild right pelvic caliectasis and echogenic right kidney. #Bilateral pneumonia: Resolved. #Pancytopenia: suspect multiple myeloma. CT with multifocal lucent lesions, L5 pathologic fracture. Baseline WBC is unknown. HIV negative x 2 . Severe anemia now receiving blood transfusions. #NELSY: Renally dose antibiotics. Resolved. #Transaminitis: With elevation of alkaline phosphatase. RUQ ultrasound ordered #Chronic malnutrition; BMI of 16.1. HIV neg x 2. #Headache, double vision: resolved. CT head unremarkable. Recs: -Request records from [facility] -Continue daptomycin at 8 mg/kg daily -Cannot do linezolid due to pancytopenia -Completed ceftriaxone, azithromycin for pneumonia -Anticipate to d/c on daptomycin 600 mg IV daily total 14 days till 11/01/2020. Order sent to [facility] and case maker. Unfortunately as the VRE is resistant to both vancomycin and penicillins, and patient unable to tolerate Zyvox with pancytopenia daptomycin is the only treatment option available. -s/p bone marrow biopsy. Appreciate heme/onc involvement in the case. Likely has multiple myeloma. -Low grade temps likely related to his MM G. Marisol De Luna MD [facility] O: [phone] F: [phone] Subjective Date of service: 10/28/20 Principal diagnosis: Altered sensorium Interval history: Afebrile, T-max 100.2 worsening leukopenia now 1.7. Objective - Exam Narrative Exam: General appearance: Alert in NAD cachetic Eyes: anicteric sclerae, moist conjunctivae; no lid-lag; PERRLA HENT: Normocephalic, Atraumatic; normal external ears, nares open Neck: supple, tracheal midline, no JVD Lungs: Diminished breath sound bilaterally CV: RRR no murmur Abdomen: Nontender Extremities: left toes tenderness Skin: mid and lower back sutures parallel to the spine Psych: no agitated Neuro: alert and oriented x 3. Moving all extermities - Constitutional Vitals: Vital Signs Temp Pulse Resp BP Pulse Ox 98.0 F 92 H 19 101/66 100 10/28/20 11:43 10/28/20 11:43 10/28/20 11:43 10/28/20 11:43 10/28/20 11:43 Temperature -Last 24 Hours Temperature 98.0 F Temperature 98.4 F Temperature 98.5 F Temperature 100.2 F Temperature 98.9 F - Labs CBC & Chem 7: 10/27/20 07:53 10/25/20 06:46
--- NOTE | 2020-10-28 14:32 | Hem/Onc Progress Note ---
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, L spine tumor no specific T spine tumor described\ kappa 986 k/l ratio 298 SPEP tiny M-spike, no BHARAT BMBx prelim-hypocellular; pending final interpretation IMP: presumed multiple myeloma --this is likely the main reason he is sick immunocompromised-presumed pneumonia low WBC related to bone marrow dysfunction good enough candidate for anti-myeloma therapy, needs it soon recent severe anemia due to multiple myeloma; RBC transfusion dependence REC/PLAN: await final bone marrow biopsy interp no transfusion today receiving IV Abx for presumed pneumonia off steroids needs in-person heme/onc after discharge Active Medications Daptomycin 500 mg/ Sodium (Chloride) 100 mls @ 200 mls/hr IV Q24H THEE; Protocol Stop: 11/01/20 12:29 Last Admin: 10/28/20 11:11 Dose: 200 mls/hr Documented by: Laboratory Last Values WBC 1.7 K/mm3 (4.5-11.0) L* 10/27/20 07:53 Hgb 9.0 gm/dl (11.8-15.2) L 10/27/20 07:53 Hct 26.8 % (35.5-45.6) L 10/27/20 07:53 Plt Count 87 K/mm3 (140-440) L 10/27/20 07:53 Creatinine 0.4 mg/dL (0.8-1.3) L 10/25/20 06:46 Crossmatch See Detail 10/25/20 13:20 Objective - Constitutional Vitals: Last Vital Signs Temp 98.0 F 10/28/20 11:43 Pulse 92 H 10/28/20 11:43 Resp 19 10/28/20 11:43 BP 101/66 10/28/20 11:43 Pulse Ox 100 10/28/20 11:43 Medications & Allergies - Medications Allergies/Adverse Reactions: Allergies No Known Allergies Allergy (Verified 10/14/20 21:11) Home Medications: Home Medications Medication Instructions Recorded Confirmed Last Taken Type No Known Home Medications [No 10/11/20 10/11/20 Unknown History Reported Home Medications] Active Medications: Generic Name Dose Route Start Last Admin Trade Name Freq PRN Reason Stop Dose Admin Acetaminophen 650 mg 10/10/20 19:46 10/28/20 11:10 Acetaminophen 325 Mg Tab PO 650 mg Q4H PRN Administration Pain MILD(1-3)/Fever >100.5/KINNEY Albuterol 2.5 mg 10/10/20 19:46 Albuterol 2.5 Mg/3 Ml Nebu IH Q4HRT PRN Shortness Of Breath Artificial Tears 2 drops 10/20/20 18:29 10/23/20 15:47 Hypromellose 0.5% Ophth Soln 15 Ml OU 2 drops Q4H PRN Administration Dry Eye(s) Aspirin 81 mg 10/18/20 15:00 10/28/20 09:44 Aspirin Ec 81 Mg Tab PO 81 mg QDAY THEE Administration Benzocaine/Menthol 1 each 10/19/20 17:49 10/28/20 09:45 Benzocaine/Menthol Lozenge MM 1 each Q2HR PRN Administration Sore Throat Calcium Carbonate/Glycine 1,250 mg 10/24/20 22:00 10/28/20 09:45 Calcium Carbonate 1250 Mg Tab PO 1,250 mg BID THEE Administration Carvedilol 3.125 mg 10/17/20 22:00 10/28/20 09:44 Carvedilol 3.125 Mg Tab PO Not Given BID THEE Diphenhydramine HCl 25 mg 10/25/20 11:22 Diphenhydramine 50 Mg/Ml Vial IV Q6H PRN premed for RBC or plt transfus Sodium Chloride 1,000 mls @ 125 mls/hr 10/12/20 11:00 10/23/20 22:17 Nacl 0.45% 1000 Ml IV 125 mls/hr DIRECT THEE Administration Daptomycin 500 mg/ Sodium 100 mls @ 200 mls/hr 10/27/20 12:00 10/28/20 11:11 Chloride IV 11/01/20 12:29 200 mls/hr Q24H THEE Administration Protocol Lisinopril 2.5 mg 10/18/20 10:00 10/28/20 09:44 Lisinopril 5 Mg Tab PO Not Given QDAY THEE Magnesium Oxide 400 mg 10/22/20 10:00 10/28/20 09:44 Magnesium Oxide 400 Mg Tab PO 400 mg QDAY THEE Administration Ondansetron HCl 4 mg 10/10/20 19:46 Ondansetron 4 Mg/2 Ml Inj IV Q8H PRN Nausea And Vomiting Phenol 1 spray 10/15/20 14:54 10/18/20 21:53 Phenol 1.4% 177 Ml Bottle MM 1 spray PRN PRN Administration Sore Throat Sodium Chloride 10 ml 10/10/20 22:00 10/28/20 09:45 Sodium Chloride 0.9% 10 Ml Flush Syringe IV 10 ml BID THEE Administration Sodium Chloride 10 ml 10/10/20 19:46 Sodium Chloride 0.9% 10 Ml Flush Syringe IV PRN PRN LINE FLUSH Spironolactone 25 mg 10/18/20 15:00 10/28/20 09:44 Spironolactone 25 Mg Tab PO 25 mg QDAY THEE Administration
--- NOTE | 2020-10-29 07:37 | Progress Note ---
Assessment and Plan - Patient Problems (1) Multiple Myeloma Dr Koehler F/u appreciated per Dr Koehler "DATA REVIEWED BELOW bone survey c/w multiple myeloma rib tumors and 6cm R scapula tumor, L spine tumor no specific T spine tumor described\\ kappa 986 k/l ratio 298 SPEP tiny M-spike, no BHARAT BMBx prelim-hypocellular; pending final interpretation IMP: presumed multiple myeloma --this is likely the main reason he is sick immunocompromised-presumed pneumonia low WBC related to bone marrow dysfunction good enough candidate for anti-myeloma therapy, needs it soon recent severe anemia due to multiple myeloma; RBC transfusion dependence REC/PLAN: await final bone marrow biopsy interp no transfusion today receiving IV Abx for presumed pneumonia off steroids needs in-person heme/onc after discharge"d resuscitation therapy, IV antibiotic therapy, urinalysis, chest x-ray, blood cultures. Continue IV fluids (2) Acute kidney injury (NELSY) with acute tubular necrosis (ATN) Current Visit: Yes Status: Acute Plan to address problem: IV fluids for now Started on IV half-normal saline at 125 cc an hour Vasomotor nephropathy/ATN Recheck BUN/creatinine tomorrow bun/cr 93/2.5 to 61/1.5 Rpt BMP --Hypocalcemia; Current Visit: Yes Status: Acute Replenished with calcium gluconate, and oral supplements Closely monitor levels --Hypophosphatemia; Current Visit: Yes Status: Acute Closely monitor electrolytes and adjust as needed --Hypomagnesemia; Current Visit: Yes Status: Acute Closely monitor electrolytes and replenish as needed --Pancytopenia; Current Visit: Yes Status: Acute probably due to underlying HIV/sepsis/persistent bacteremia Treat the underlying cause Hematology consult requested --Anemia; Hb 6.4 -8.0 Current Visit: Yes Status: Acute Received 1 unit PRBC transfusion check H&H, transfuse additional as needed. Hematology consult --History of recent spinal surgery: at [facility] Current Visit: Yes Status: chr T10 T12, L1-L2 surgery, surgical sutures on the back Wound care, continue antibiotics, request records from [facility] --Acute systolic CHF/ EF 20 to 25% Current Visit: Yes Status: Acute antifailure medication with diuretic, beta-blockers, LALITHA inhibitors, input output monitoring, low-sodium diet,fluid restriction. Cardiology consult noted and appreciated --UTI/ur cultures grew Magali Current Visit: Yes Status: Acute Continue Diflucan , supportive care/ -- Severe protein calorie malnutrition Current Visit: Yes Status: Acute Albumin 1.7 nutrition supplements ,, nutrition consult --Pneumonia Current Visit: Yes Status: Acute Completed 5 days of Rocephin and Zithromax -- COVID-19 negative Current Visit: Yes Status: Acute Coronavirus PCR negative -- DVT prophylaxis Current Visit: Yes Status: Acute SCDs bilateral lower extremities while in bed, patient is ambulatory Subjective Date of service: 10/28/20 Principal diagnosis: Altered sensorium Interval history: The patient is a 55-year-old male with diabetes, malnutrition, resident of an assisted living facility was brought into the emergency room with complaints of sore throat and back pain. Chest x-ray showed bilateral pneumonia with labs showing evidence of acute kidney injury. Patient afebrile on admission, also not hypoxic. Labs showed leukopenia, hyperkalemia, creatinine 2.5, ferritin 08/17/2007, CRP 5.6, LDH 233, CRP 5.6 10/11/2020 Covid test was negative 10/12/2020 Patient more alert and oriented Afebrile Objective - Constitutional Vitals: Vital Signs - 12hr 10/28/20 10/28/20 10/29/20 21:42 21:45 01:07 Temperature 97.6 F 98.5 F Pulse Rate 97 H 96 H 103 H Respiratory 16 20 Rate Blood Pressure 110/75 110/75 94/63 O2 Sat by Pulse 98 96 Oximetry - Labs CBC & Chem 7: 10/27/20 07:53 10/25/20 06:46
[2020-10-29] MEDS: carvediloL 3.125 MG TAB PO SCH (09:24)
[2020-10-29] MEDS: SPIRONOLACTONE 25 MG TAB PO SCH (09:24)
[2020-10-29] MEDS: ASPIRIN EC 81 MG TAB PO SCH (09:25)
[2020-10-29] MEDS: MAGNESIUM OXIDE 400 MG TAB PO SCH (09:26)
[2020-10-29] MEDS: CALCIUM CARBONATE 1250 MG TAB PO SCH ×2 (09:26→22:23)
[2020-10-29] MEDS: LISINOPRIL 5 MG TAB PO SCH (09:27)
--- NOTE | 2020-10-29 09:40 | Progress Note ---
Assessment and Plan Dilated Cardiomyopathy, uncertain duration LVEF 20-25% by echo this admission Severe Anemia Bacteremia FLORESITA done this admission reports no evidence of vegetations Pneumonia negative COVID 19 test Malnutrition Suspected multiple myeloma Continue GDMT for dilated cardiomyopathy as tolerated. Otherwise, conservative cardiac management. Subjective Date of service: 10/29/20 Principal diagnosis: Multiple Myeloma Interval history: Patient denies unusual shortness of breath, palpitations and chest pain. Blood pressure is low, systolic of 86. Objective Vital Signs Temp Pulse Resp BP Pulse Ox 10/29/20 09:24 105 H 86/52 10/29/20 01:07 98.5 F 103 H 20 94/63 96 10/28/20 21:45 97.6 F 96 H 110/75 10/28/20 21:42 97 H 16 110/75 98 10/28/20 16:48 97.7 F 102 H 19 98/64 100 10/28/20 11:43 98.0 F 92 H 19 101/66 100 10/28/20 11:15 98.4 F 98 H 16 103/66 97 10/28/20 09:49 87/51 - Physical Examination General: No Apparent Distress, Cachectic HEENT: Positive: PERRL Neck: Positive: trachea midline Cardiac: Positive: Reg Rate and Rhythm Lungs: Positive: Decreased Breath Sounds Neuro: Positive: Weakness Abdomen: Positive: Soft Extremities: Absent: edema
[2020-10-29] MEDS: guaiFENesin 100 MG/5 ML ORAL LIQD PO PRN ×2 (13:27→22:28)
--- NOTE | 2020-10-29 13:39 | Progress Note ---
Assessment and Plan Cultures: SARS CoV2 PCR: Negative HIV: Negative 10/10/2020 blood culture: VRE 2 out of 4 bottles 10/10/2020 urine culture: Magali 10/14/2020 blood culture no growth today 10/14/2020 blood culture: GPC 3 of 4 10/18/2020 blood culture: No growth today A/P: 55-year-old male with diabetes, malnutrition, resident of an assisted living facility was brought into the emergency room with complaints of sore throat and back pain: #VRE bacteremia: Very unclear source. ?recent T10-T12 fusion and L1-L2 surgery (noted surgical sutures on his back, pt is not able to elaborate, only reported surgery was done at [facility]. FLORESITA negative. Repeat blood cx 10/14 positive. Repeat blood cx 10/[address] shows a bone cage and fixation from T10-T12, chronic pathologic fracture L5. No obvious discitis, osteomyelitis, abscess. MRI no abscess, discitis, osteomyelitis +compression deformities at several levels, mainly L5. #UTI: Urine culture grew Magali. Renal ultrasound with mild right pelvic caliectasis and echogenic right kidney. #Bilateral pneumonia: Resolved. #Pancytopenia: suspect multiple myeloma. CT with multifocal lucent lesions, L5 pathologic fracture. Baseline WBC is unknown. HIV negative x 2 . Severe anemia now receiving blood transfusions. #NELSY: Renally dose antibiotics. Resolved. #Transaminitis: With elevation of alkaline phosphatase. RUQ ultrasound ordered #Chronic malnutrition; BMI of 16.1. HIV neg x 2. #Headache, double vision: resolved. CT head unremarkable. Recs: -Request records from [facility] -Continue daptomycin at 8 mg/kg daily -Cannot do linezolid due to pancytopenia -Completed ceftriaxone, azithromycin for pneumonia -Anticipate to d/c on daptomycin 600 mg IV daily total 14 days till 11/01/2020. Order sent to outpatient case manager. Unfortunately as the VRE is resistant to both vancomycin and penicillins, and patient unable to tolerate Zyvox with pancytopenia daptomycin is the only treatment option available. -s/p bone marrow biopsy. Appreciate heme/onc involvement in the case. Likely has multiple myeloma. -Low grade temps likely related to his MM ID will sign off for now. Please call with any new questions. Ophelia De Luna MD [facility] ([facility]) O: [phone] F: [phone] Subjective Date of service: 10/29/20 Principal diagnosis: Multiple Myeloma Interval history: Afebrile still, no new issues. Objective - Exam Narrative Exam: General appearance: Alert in NAD cachetic Eyes: anicteric sclerae, moist conjunctivae; no lid-lag; PERRLA HENT: Normocephalic, Atraumatic; normal external ears, nares open Neck: supple, tracheal midline, no JVD Lungs: Diminished breath sound bilaterally CV: RRR no murmur Abdomen: Nontender Extremities: left toes tenderness Skin: mid and lower back sutures parallel to the spine Psych: no agitated Neuro: alert and oriented x 3. Moving all extermities - Constitutional Vitals: Vital Signs Temp Pulse Resp BP Pulse Ox 98.4 F 98 H 18 110/70 99 10/29/20 11:31 10/29/20 11:31 10/29/20 11:31 10/29/20 11:31 10/29/20 11:31 Temperature -Last 24 Hours Temperature 98.4 F Temperature 98.7 F Temperature 98.5 F Temperature 97.6 F Temperature 97.7 F - Labs CBC & Chem 7: 10/27/20 07:53 10/25/20 06:46
--- NOTE | 2020-10-29 18:29 | Progress Note ---
Assessment and Plan Assessment and plan: --Sepsis due to persistent bacteremia Current Visit: Yes Status: Acute Continue daptomycin per ID, stop date 11/01/2020 FLORESITA negative for endocarditis --VRE bacteremia; Current Visit: Yes Status: Acute Unclear source/recent spinal surgery T10-T12, L1-L2, details not available Records requested from [facility] Unable to treat with linezolid secondary due to thrombocytopenia. ID recommended daptomycin for total 14 days ending 11/01/2020 Dapto is only choice of medication, and no other alternatives per ID Discussed with ID as well as case management -- Multiple Myeloma: Current Visit: Yes Status: Acute Management hem/onc per Dr Koehler bone survey c/w multiple myeloma rib tumors and 6cm R scapula tumor, L spine tumor no specific T spine tumor described kappa 986 k/l ratio 298 SPEP tiny M-spike, no BHARAT BMBx prelim-hypocellular; pending final interpretation presumed multiple myeloma [main cause of patient sickness] immunocompromised-presumed pneumonia low WBC related to bone marrow dysfunction good enough candidate for anti-myeloma therapy, needs it soon recent severe anemia due to multiple myeloma; RBC transfusion dependence Advised; await final bone marrow biopsy interp Transfusion as needed receiving IV Abx for presumed pneumonia off steroids Patient will follow heme-onc upon discharge for resuscitation therapy, IV antibiotic therapy, urinalysis, chest x-ray, blood cultures. Continue IV fluids --Acute kidney injury (NELSY) with acute tubular necrosis (ATN) Current Visit: Yes Status: Acute Plan to address problem: Resolved, renal function within normal level Monitor renal function avoid nephrotoxins Gentle hydration --Hypocalcemia; Current Visit: Yes Status: Acute Replenished with calcium gluconate, and oral supplements Closely monitor levels --Hypophosphatemia; Current Visit: Yes Status: Acute Closely monitor electrolytes and adjust as needed --Hypomagnesemia; Current Visit: Yes Status: Acute Closely monitor electrolytes and replenish as needed --Pancytopenia; Current Visit: Yes Status: Acute probably due to underlying HIV/sepsis/persistent bacteremia Treat the underlying cause Hematology consult requested --Anemia; Hb 6.4 -8.0 Current Visit: Yes Status: Acute Received 1 unit PRBC transfusion check H&H, transfuse additional as needed. Hematology consult --History of recent spinal surgery: at [facility] Current Visit: Yes Status: chr T10 T12, L1-L2 surgery, surgical sutures on the back Wound care, continue antibiotics, request records from [facility] --Acute systolic CHF/ EF 20 to 25% Current Visit: Yes Status: Acute antifailure medication with diuretic, beta-blockers, LALITHA inhibitors, input output monitoring, low-sodium diet,fluid restriction. Cardiology consult noted and appreciated --UTI/ur cultures grew Magali Current Visit: Yes Status: Acute Continue Diflucan , supportive care/ -- Severe protein calorie malnutrition Current Visit: Yes Status: Acute Albumin 1.7 nutrition supplements ,, nutrition consult --Pneumonia Current Visit: Yes Status: Acute Completed 5 days of Rocephin and Zithromax -- COVID-19 negative Current Visit: Yes Status: Acute Coronavirus PCR negative -- DVT prophylaxis Current Visit: Yes Status: Acute SCDs bilateral lower extremities while in bed, patient is ambulatory Closely monitor the patient and adjust management as needed Plan of care reviewed with the patient and his nurse Yarn Polishing Machine Operator recommendations noted and appreciated Brief history: and daily hospital course: The patient is a 55-year-old male with diabetes, malnutrition, resident of an assisted living facility was brought into the emergency room with complaints of sore throat and back pain. Chest x-ray showed bilateral pneumonia with labs showing evidence of acute kidney injury. Patient afebrile on admission, also not hypoxic. Labs showed leukopenia, hyperkalemia, creatinine 2.5, ferritin , CRP 5.6, LDH 233, CRP 5.6 10/16/2020; sepsis secondary to VRE bacteremia, UTI and pneumonia Continue current antibiotics per ID, contact isolation due to VRE 10/17/2020; patient is more alert and awake today, feels better CT abdomen and pelvis findings noted continue current antibiotics Physical therapy, Occupational Therapy as tolerated 10/18/2020; cardiology evaluations appreciated FLORESITA negative for endocarditis, cardiology started goal-directed CHF treatment 10/19/2020; persistent bacteremia, FLORESITA negative for endocarditis Continue ID cardiology recommendations Patient complains of some sore throat, Cepacol throat spray and Cepacol lozenges 10/20/2020; anemia, hemoglobin 6.4, transfuse 1 unit PRBC Closely monitor H&H transfuse additional PRBC as needed Pancytopenia, hematology consult inpatient versus outpatient 10/21/2020; patient's hemoglobin increased to 8.0 Severe hypophosphatemia, hypomagnesemia replenished Also consulted vp celebrity services Dr. Yusuf Koehler 10/22/2020; hematology evaluation noted and appreciated bone marrow biopsy requested And work-up for multiple myeloma in process 10/23/2020; continue current management, disposition per ID and hematology 10/24/2020; multiple myeloma management per hematology Persistent sepsis VRE, management per ID, long-term antibiotics Stop date 11/01/202010/25--10/28; clinically no change same condition 10/29/20; patient continues daptomycin stop date 11/01/2020 Multiple myeloma work-up in progress, appreciate heme-onc input Recommend outpatient follow-up with hematology oncology for further evaluation and management upon discharge History Interval history: I have seen and examined the patient at the bedside Patient's chart and medications reviewed Patient feels slightly better However looks chronically ill looking cachectic Vital signs noted Patient is on long-term antibiotics daptomycin For persistent sepsis due to VRE Vital signs noted Hospitalist Physical - Constitutional Vitals: Temp Pulse Resp BP Pulse Ox 98.4 F 98 H 18 110/70 99 10/29/20 11:31 10/29/20 11:31 10/29/20 11:31 10/29/20 11:31 10/29/20 11:31 General appearance: Present: no acute distress, cachectic, disheveled, other (Chronically ill looking cachectic) - EENT Eyes: Present: PERRL, EOM intact - Neck Neck: Present: supple, normal ROM - Respiratory Respiratory effort: normal Respiratory: bilateral: diminished, negative: rales, rhonchi, wheezing - Cardiovascular Rhythm: regular Heart Sounds: Present: S1 & S2 - Extremities Extremities: no ischemia, No edema - Abdominal General gastrointestinal: soft, non-tender, non-distended, normal bowel sounds - Integumentary Integumentary: Present: clear, warm - Psychiatric Psychiatric: appropriate mood/affect, cooperative - Neurologic Neurologic: CNII-XII intact, moves all extremities Results - Labs CBC & Chem 7: 10/27/20 07:53 10/25/20 06:46 Labs: Laboratory Last Values WBC 1.7 K/mm3 (4.5-11.0) L* 10/27/20 07:53 RBC 2.89 M/mm3 (3.65-5.03) L 10/27/20 07:53 Hgb 9.0 gm/dl (11.8-15.2) L 10/27/20 07:53 Hct 26.8 % (35.5-45.6) L 10/27/20 07:53 MCV 93 fl (84-94) 10/27/20 07:53 MCH 31 pg (28-32) 10/27/20 07:53 MCHC 34 % (32-34) 10/27/20 07:53 RDW 17.2 % (13.2-15.2) H 10/27/20 07:53 Plt Count 87 K/mm3 (140-440) L 10/27/20 07:53 Lymph % (Auto) 10.1 % (13.4-35.0) L 10/11/20 05:40 [place] % (Auto) 1.4 % (0.0-7.3) 10/11/20 05:40 Eos % (Auto) 1.6 % (0.0-4.3) 10/11/20 05:40 Baso % (Auto) 0.5 % (0.0-1.8) 10/11/20 05:40 Lymph # (Auto) 0.1 K/mm3 (1.2-5.4) L 10/11/20 05:40 [place] # (Auto) 0.0 K/mm3 (0.0-0.8) 10/11/20 05:40 Eos # (Auto) 0.0 K/mm3 (0.0-0.4) 10/11/20 05:40 Baso # (Auto) 0.0 K/mm3 (0.0-0.1) 10/11/20 05:40 Add Manual Diff Complete 10/26/20 08:51 Total Counted 100 10/26/20 08:51 Seg Neutrophils % Habilitation Worker 10/25/20 06:46 Seg Neuts % (Manual) 89.0 % (40.0-70.0) H 10/26/20 08:51 Band Neutrophils % 8.0 % 10/26/20 08:51 Lymphocytes % (Manual) 2.0 % (13.4-35.0) L 10/25/20 06:46 Monocytes % (Manual) 1.0 % (0.0-7.3) 10/26/20 08:51 Eosinophils % (Manual) 1.0 % (0.0-4.3) 10/26/20 08:51 Basophils % (Manual) 1.0 % (0.0-1.8) 10/10/20 16:31 Metamyelocytes % 1.0 % 10/26/20 08:51 Nucleated RBC % 8.0 % (0.0-0.9) H 10/26/20 08:51 Seg Neutrophils # 1.1 K/mm3 (1.8-7.7) L 10/11/20 05:40 Seg Neutrophils # Man 1.9 K/mm3 (1.8-7.7) 10/26/20 08:51 Band Neutrophils # 0.2 K/mm3 10/26/20 08:51 Lymphocytes # (Manual) 0.0 K/mm3 (1.2-5.4) L 10/26/20 08:51 Abs React Lymphs (Man) 0.0 K/mm3 10/26/20 08:51 Monocytes # (Manual) 0.0 K/mm3 (0.0-0.8) 10/26/20 08:51 Eosinophils # (Manual) 0.0 K/mm3 (0.0-0.4) 10/26/20 08:51 Basophils # (Manual) 0.0 K/mm3 (0.0-0.1) 10/26/20 08:51 Metamyelocytes # 0.0 K/mm3 10/26/20 08:51 Myelocytes # 0.0 K/mm3 10/26/20 08:51 Promyelocytes # 0.0 K/mm3 10/26/20 08:51 Blast Cells # 0.0 K/mm3 10/26/20 08:51 WBC Morphology Not Reportable 10/26/20 08:51 Hypersegmented Neuts Not Reportable 10/26/20 08:51 Hyposegmented Neuts Not Reportable 10/26/20 08:51 Hypogranular Neuts Not Reportable 10/26/20 08:51 Smudge Cells Not Reportable 10/26/20 08:51 Toxic Granulation Not Reportable 10/26/20 08:51 Toxic Vacuolation Not Reportable 10/26/20 08:51 Dohle Bodies Not Reportable 10/26/20 08:51 Pelger-Huet Anomaly Not Reportable 10/26/20 08:51 Javon Rods Not Reportable 10/26/20 08:51 Platelet Estimate Consistent w auto 10/26/20 08:51 Clumped Platelets Not Reportable 10/26/20 08:51 Plt Clumps, EDTA Not Reportable 10/26/20 08:51 Large Platelets Not Reportable 10/26/20 08:51 Giant Platelets Not Reportable 10/26/20 08:51 Platelet Satelliting Not Reportable 10/26/20 08:51 Plt Morphology Comment Not Reportable 10/26/20 08:51 RBC Morphology Not Reportable 10/26/20 08:51 Dimorphic RBCs Not Reportable 10/26/20 08:51 Polychromasia Not Reportable 10/26/20 08:51 Hypochromasia Few 10/26/20 08:51 Poikilocytosis Not Reportable 10/26/20 08:51 Anisocytosis Not Reportable 10/26/20 08:51 Microcytosis Not Reportable 10/26/20 08:51 Macrocytosis Not Reportable 10/26/20 08:51 Spherocytes Not Reportable 10/26/20 08:51 Pappenheimer Bodies Not Reportable 10/26/20 08:51 Sickle Cells Not Reportable 10/26/20 08:51 Target Cells Few 10/26/20 08:51 Tear Drop Cells Not Reportable 10/26/20 08:51 Ovalocytes Not Reportable 10/26/20 08:51 Helmet Cells Not Reportable 10/26/20 08:51 Arora-Edith Endave Bodies Not Reportable 10/26/20 08:51 [place] Rings Not Reportable 10/26/20 08:51 Auberry Cells Not Reportable 10/26/20 08:51 Bite Cells Not Reportable 10/26/20 08:51 Crenated Cell Not Reportable 10/26/20 08:51 Elliptocytes Few 10/26/20 08:51 Acanthocytes (Spur) Not Reportable 10/26/20 08:51 Rouleaux Not Reportable 10/26/20 08:51 Hemoglobin C Crystals Not Reportable 10/26/20 08:51 Schistocytes Not Reportable 10/26/20 08:51 Malaria parasites Not Reportable 10/26/20 08:51 Lit Bodies Not Reportable 10/26/20 08:51 Hem Pathologist Commnt No 10/26/20 08:51 PT 13.2 Sec. (12.2-14.9) 10/22/20 09:09 INR 1.01 (0.87-1.13) 10/22/20 09:09 APTT 26.8 Sec. (24.2-36.6) 10/22/20 09:09 D-Dimer 2351.86 ng/mlDDU (0-234) H 10/10/20 17:54 Sodium 136 mmol/L (137-145) L 10/25/20 06:46 Potassium 3.8 mmol/L (3.6-5.0) 10/25/20 06:46 Chloride 100.7 mmol/L (98-107) 10/25/20 06:46 Carbon Dioxide 28 mmol/L (22-30) 10/25/20 06:46 Anion Gap 11 mmol/L 10/25/20 06:46 BUN 10 mg/dL (9-20) 10/25/20 06:46 Creatinine 0.4 mg/dL (0.8-1.3) L 10/25/20 06:46 Estimated GFR > 60 ml/min 10/25/20 06:46 BUN/Creatinine Ratio 25 % 10/25/20 06:46 Glucose 73 mg/dL (75-100) L 10/25/20 06:46 POC Glucose 88 mg/dL (70-105) 10/28/20 11:42 Calcium 6.4 mg/dL (8.4-10.2) L 10/25/20 06:46 Phosphorus 1.50 mg/dL (2.5-4.5) L 10/25/20 06:46 Magnesium 1.10 mg/dL (1.7-2.3) L 10/25/20 06:46 Ferritin 2608.0 ng/mL (30.0-300.0) H 10/10/20 17:54 Total Bilirubin < 0.20 mg/dL (0.1-1.2) 10/25/20 06:46 AST 34 units/L (5-40) 10/25/20 06:46 ALT 162 units/L (7-56) H 10/25/20 06:46 Alkaline Phosphatase 278 units/L (35-129) H 10/25/20 06:46 Lactate Dehydrogenase 233 units/L (91-180) H 10/10/20 17:54 Total Creatine Kinase 49 units/L (55-170) L 10/23/20 05:12 C-Reactive Protein 0.40 mg/dL (0.00-1.30) 10/16/20 17:23 Serum Total Protein 5.9 g/dL (6.1-8.1) L 10/22/20 08:59 Total Protein 5.5 g/dL (6.3-8.2) L 10/25/20 06:46 Albumin 1.6 g/dL (3.9-5) L 10/25/20 06:46 Albumin/Globulin Ratio 0.4 % 10/25/20 06:46 Oepss-6-Hfmutnsvx 0.3 g/dL (0.2-0.3) 10/22/20 08:59 Ufyli-6-Rddqpqjzs 0.6 g/dL (0.5-0.9) 10/22/20 08:59 Beta Globulins 2.8 g/dL (0.2-0.5) H 10/22/20 08:59 Wycm-0-Tjpyumsnukftq 3.88 mg/L (<=2.51) H 10/23/20 05:12 Gamma Globulins 0.3 g/dL (0.8-1.7) L 10/22/20 08:59 Abnorm Protein Band 1 2.4 g/dL H 10/22/20 08:59 Abnorm Protein Band 2 see below 10/22/20 08:59 PEP Interpretation see below H 10/22/20 08:59 Procalcitonin 0.61 ng/mL (<0.15) 10/14/20 14:54 Urine Color Yellow (Yellow) 10/11/20 Unknown Urine Turbidity Cloudy (Clear) 10/11/20 Unknown Urine pH 5.0 (5.0-7.0) 10/11/20 Unknown Ur Specific [place] 1.019 (1.003-1.030) 10/11/20 Unknown Urine Protein 30 mg/dl mg/dL (Negative) 10/11/20 Unknown Urine Glucose (UA) Neg mg/dL (Negative) 10/11/20 Unknown Urine Ketones Neg mg/dL (Negative) 10/11/20 Unknown Urine Blood Sm (Negative) 10/11/20 Unknown Urine Nitrite Neg (Negative) 10/11/20 Unknown Urine Bilirubin Neg (Negative) 10/11/20 Unknown Urine Urobilinogen < 2.0 mg/dL (<2.0) 10/11/20 Unknown Ur Leukocyte Esterase Tr (Negative) 10/11/20 Unknown Urine WBC (Auto) 36.0 /HPF (0.0-6.0) H 10/11/20 Unknown Urine RBC (Auto) 129.0 /HPF (0.0-6.0) 10/11/20 Unknown U Epithel Cells (Auto) 1.0 /HPF (0-13.0) 10/11/20 Unknown Urine Bacteria (Auto) 2+ /HPF (Negative) 10/11/20 Unknown Urine Mucus Few /HPF 10/11/20 Unknown Urine Yeast (Budding) 2+ /HPF 10/11/20 Unknown Coronavirus (PCR) Negative (Negative) 10/21/20 10:00 HIV 1&2 Antibody Rapid Non react (Non React) 10/16/20 17:23 HIV P24 Antigen Non react (Non React) 10/16/20 17:23 Miscellaneous Test Flexitest 1 H 10/22/20 Unknown Blood Type B POSITIVE 10/25/20 13:20 Antibody Screen Negative 10/25/20 13:20 Crossmatch See Detail 10/25/20 13:20 Medina/IV: Voiding Method Indwelling Catheter Active Medications - Current Medications Current Medications: Generic Name Dose Route Start Last Admin Trade Name Freq PRN Reason Stop Dose Admin Acetaminophen 650 mg 10/10/20 19:46 10/28/20 11:10 Acetaminophen 325 Mg Tab PO 650 mg Q4H PRN Administration Pain MILD(1-3)/Fever >100.5/KINNEY Albuterol 2.5 mg 10/10/20 19:46 Albuterol 2.5 Mg/3 Ml Nebu IH Q4HRT PRN Shortness Of Breath Artificial Tears 2 drops 10/20/20 18:29 10/23/20 15:47 Hypromellose 0.5% Ophth Soln 15 Ml OU 2 drops Q4H PRN Administration Dry Eye(s) Aspirin 81 mg 10/18/20 15:00 10/29/20 09:25 Aspirin Ec 81 Mg Tab PO 81 mg QDAY THEE Administration Benzocaine/Menthol 1 each 10/19/20 17:49 10/28/20 09:45 Benzocaine/Menthol Lozenge MM 1 each Q2HR PRN Administration Sore Throat Calcium Carbonate/Glycine 1,250 mg 10/24/20 22:00 10/29/20 09:26 Calcium Carbonate 1250 Mg Tab PO 1,250 mg BID THEE Administration Carvedilol 3.125 mg 10/17/20 22:00 10/29/20 09:24 Carvedilol 3.125 Mg Tab PO Not Given BID THEE Diphenhydramine HCl 25 mg 10/25/20 11:22 Diphenhydramine 50 Mg/Ml Vial IV Q6H PRN premed for RBC or plt transfus Guaifenesin 200 mg 10/29/20 12:09 10/29/20 13:27 Guaifenesin 100 Mg/5 Ml Oral Liqd PO 200 mg Q4H PRN Administration Cough Sodium Chloride 1,000 mls @ 125 mls/hr 10/12/20 11:00 10/23/20 22:17 Nacl 0.45% 1000 Ml IV 125 mls/hr DIRECT THEE Administration Daptomycin 500 mg/ Sodium 100 mls @ 200 mls/hr 10/27/20 12:00 10/29/20 12:00 Chloride IV 11/01/20 12:29 200 mls/hr Q24H THEE Administration Protocol Lisinopril 2.5 mg 10/18/20 10:00 10/29/20 09:27 Lisinopril 5 Mg Tab PO Not Given QDAY THEE Magnesium Oxide 400 mg 10/22/20 10:00 10/29/20 09:26 Magnesium Oxide 400 Mg Tab PO 400 mg QDAY THEE Administration Ondansetron HCl 4 mg 10/10/20 19:46 Ondansetron 4 Mg/2 Ml Inj IV Q8H PRN Nausea And Vomiting Phenol 1 spray 10/15/20 14:54 10/18/20 21:53 Phenol 1.4% 177 Ml Bottle MM 1 spray PRN PRN Administration Sore Throat Sodium Chloride 10 ml 10/10/20 22:00 10/29/20 09:26 Sodium Chloride 0.9% 10 Ml Flush Syringe IV 10 ml BID THEE Administration Sodium Chloride 10 ml 10/10/20 19:46 Sodium Chloride 0.9% 10 Ml Flush Syringe IV PRN PRN LINE FLUSH Spironolactone 25 mg 10/18/20 15:00 10/29/20 09:24 Spironolactone 25 Mg Tab PO Not Given QDAY THEE Nutrition/Malnutrition Assess - Dietary Evaluation Nutrition/Malnutrition Findings: Nutrition Notes Start: 10/11/20 12:16 Freq: Status: Active Protocol: Document 10/29/20 12:48 MK (Rec: 10/29/20 12:51 MK [id number]) Nutrition Notes Initial or Follow up Reassessment Current Diagnosis Acute Kidney Injury,Diabetes Other Pertinent Diagnosis SIRS, pneu Current Diet Consistent Carbohydrate Diet + Glucerna Labs/Tests No new labs Pertinent Medications Mag-Ox Oscal Height 5 ft 6 in Weight 73.2 kg [place] Body Weight (kg) 64.54 BMI 26.0 Weight Status Appropriate Subjective/Other Information FU for intakes. Pt reports eating 100% of breakfast and 50% of dinner last night. Pt drinking 100% of only 2 ONS. Percent of energy/protein needs met: 82%/95% Burn Absent Trauma Absent GI Symptoms None Current % PO Fair (50-74%) Minimum of two criteria Yes Body Fat Depletion Moderate depletion (severe) Protein-Calorie Malnutrition Severe #1 Nutrition Diagnosis Malnutrition Diagnosis Progress(for reassessment Continues documentation) Is patient on ventilator? No Is Patient Ambulatory and/or Out of Bed Yes REE-([facility]-ambulatory/OOB) [ 1949.675 [id number]] Kcal/Kg value to use for calculation 30 Approximate Energy Requirements Using 2196 kcal/Kg Calculation Used for Recommendations Kcal/kg Additional Notes Pro needs 1.2-1.5g/k-104g /day Fluid needs 1ml/kcal Nutrition Intervention Change Diet Order: Continue current diet order Add Supplement/Snack (indicate name/kcal Glucerna BID /protein ) Provides kCal: 440 Provides Protein (gm) 20 Goal #1 PO intake of meals plus ONS to meet 75-100% energy and pro needs Goal #2 Wt maintenance and/or gain Follow-Up By: 11/01/20 Additional Comments FU for stable intakes
[2020-10-30] MEDS: carvediloL 3.125 MG TAB PO SCH ×3 (01:27→22:39)
[2020-10-30 08:14] LABS: Hematocrit 24.6 % (35.5-45.6); Hemoglobin 8.3 gm/dl (11.8-15.2); Mean Corpuscular HGB Conc 34 % (32-34); Mean Corpuscular Volume 94 fl (84-94); Red Blood Count 2.63 M/mm3 (3.65-5.03); Red Cell Distribution Width 17.8 % (13.2-15.2)
[2020-10-30 08:27] LABS: Platelet Count 77 K/mm3 (140-440)
[2020-10-30 08:33] LABS: Alanine Aminotransferase 75 units/L (7-56); Albumin 2.1 g/dL (3.9-5); Blood Urea Nitrogen 10 mg/dL (9-20); Calcium 7.1 mg/dL (8.4-10.2); Hemolysis Index 30
[2020-10-30 08:37] LABS: BUN/Creatinine Ratio 17
--- NOTE | 2020-10-30 09:09 | Progress Note ---
Assessment and Plan Dilated Cardiomyopathy, uncertain duration LVEF 20-25% by echo this admission Severe Anemia Bacteremia FLORESITA done this admission reports no evidence of vegetations Pneumonia negative COVID 19 test Malnutrition Suspected multiple myeloma Continue GDMT for dilated cardiomyopathy as tolerated. Otherwise, conservative cardiac management. Subjective Date of service: 10/30/20 Principal diagnosis: Multiple Myeloma Interval history: No interval cardiac changes. Objective Vital Signs Temp Pulse Resp Resp Resp BP Pulse Ox 10/30/20 04:39 98.4 F 96 H 120/85 98 10/29/20 22:13 98.2 F 103 H 20 109/73 98 10/29/20 22:00 17 17 10/29/20 16:57 98.3 F 96 H 18 102/68 99 10/29/20 11:31 98.4 F 98 H 18 110/70 99 10/29/20 09:24 105 H 86/52 - Physical Examination General: No Apparent Distress, Cachectic HEENT: Positive: PERRL Neck: Positive: trachea midline Cardiac: Positive: Reg Rate and Rhythm Lungs: Positive: Decreased Breath Sounds Neuro: Positive: Weakness Extremities: Absent: edema - Labs and Meds Cardiac Enzymes 10/30/20 Range/Units 07:53 AST 25 (5-40) units/L CBC 10/30/20 Range/Units 07:53 WBC 1.5 L* (4.5-11.0) K/mm3 RBC 2.63 L (3.65-5.03) M/mm3 Hgb 8.3 L (11.8-15.2) gm/dl Hct 24.6 L (35.5-45.6) % Plt Count 77 L (140-440) K/mm3 Comprehensive Metabolic Panel 10/30/20 Range/Units 07:53 Sodium 133 L (137-145) mmol/L Potassium 3.9 (3.6-5.0) mmol/L Chloride 100.3 (98-107) mmol/L Carbon Dioxide 23 (22-30) mmol/L BUN 10 (9-20) mg/dL Creatinine 0.6 L (0.8-1.3) mg/dL Glucose 67 L (75-100) mg/dL Calcium 7.1 L (8.4-10.2) mg/dL AST 25 (5-40) units/L ALT 75 H (7-56) units/L Alkaline Phosphatase 247 H (35-129) units/L Total Protein 6.9 (6.3-8.2) g/dL Albumin 2.1 L (3.9-5) g/dL
[2020-10-30] MEDS: MAGNESIUM OXIDE 400 MG TAB PO SCH (10:01)
[2020-10-30] MEDS: ASPIRIN EC 81 MG TAB PO SCH (10:01)
[2020-10-30] MEDS: CALCIUM CARBONATE 1250 MG TAB PO SCH ×2 (10:03→22:40)
[2020-10-30] MEDS: SPIRONOLACTONE 25 MG TAB PO SCH (10:04)
[2020-10-30] MEDS: LISINOPRIL 5 MG TAB PO SCH (10:04)
--- NOTE | 2020-10-30 11:08 | Progress Note ---
Assessment and Plan Assessment and plan: --Pancytopenia; Current Visit: Yes Status: Acute probably due to underlying Multiple myeloma, sepsis HIV test x2 negative Treat the underlying cause Hematology consult requested --Leukopenia; Current Visit: Yes Status: Acute. Filgrastim subcu 1 dose Hematology following Closely monitor --Sepsis due to persistent bacteremia Current Visit: Yes Status: Acute Continue daptomycin per ID, stop date 11/01/2020 FLORESITA negative for endocarditis --VRE bacteremia; Current Visit: Yes Status: Acute Unclear source/recent spinal surgery T10-T12, L1-L2, details not available Records requested from [facility] Unable to treat with linezolid secondary due to thrombocytopenia. ID recommended daptomycin for total 14 days ending 11/01/2020 Dapto is only choice of medication, and no other alternatives per ID Discussed with ID as well as case management -- Multiple Myeloma: Current Visit: Yes Status: Acute Management hem/onc per Dr Koehler bone survey c/w multiple myeloma rib tumors and 6cm R scapula tumor, L spine tumor no specific T spine tumor described kappa 986 k/l ratio 298 SPEP tiny M-spike, no BHARAT BMBx prelim-hypocellular; pending final interpretation presumed multiple myeloma [main cause of patient sickness] immunocompromised-presumed pneumonia low WBC related to bone marrow dysfunction good enough candidate for anti-myeloma therapy, needs it soon recent severe anemia due to multiple myeloma; RBC transfusion dependence Advised; await final bone marrow biopsy interp Transfusion as needed receiving IV Abx for presumed pneumonia off steroids Patient will follow heme-onc upon discharge for resuscitation therapy, IV antibiotic therapy, urinalysis, chest x-ray, blood cultures. Continue IV fluids --Acute kidney injury (NELSY) with acute tubular necrosis (ATN) Current Visit: Yes Status: Acute Plan to address problem: Resolved, renal function within normal level Monitor renal function avoid nephrotoxins Gentle hydration --Hypocalcemia; Current Visit: Yes Status: Acute Replenished with calcium gluconate, and oral supplements Closely monitor levels --Hypophosphatemia; Current Visit: Yes Status: Acute Closely monitor electrolytes and adjust as needed --Hypomagnesemia; Current Visit: Yes Status: Acute Closely monitor electrolytes and replenish as needed --Anemia; Hb 6.4 -8.0 Current Visit: Yes Status: Acute Received 1 unit PRBC transfusion check H&H, transfuse additional as needed. Hematology consult --History of recent spinal surgery: at [facility] Current Visit: Yes Status: chr T10 T12, L1-L2 surgery, surgical sutures on the back Wound care, continue antibiotics, request records from [facility] --Acute systolic CHF/ EF 20 to 25% Current Visit: Yes Status: Acute antifailure medication with diuretic, beta-blockers, LALITHA inhibitors, input output monitoring, low-sodium diet,fluid restriction. Cardiology consult noted and appreciated --UTI/ur cultures grew Magali Current Visit: Yes Status: Acute Continue Diflucan , supportive care/ -- Severe protein calorie malnutrition Current Visit: Yes Status: Acute Albumin 1.7 nutrition supplements ,, nutrition consult --Pneumonia Current Visit: Yes Status: Acute Completed 5 days of Rocephin and Zithromax -- COVID-19 negative Current Visit: Yes Status: Acute Coronavirus PCR negative -- DVT prophylaxis Current Visit: Yes Status: Acute SCDs bilateral lower extremities while in bed, patient is ambulatory Closely monitor the patient and adjust management as needed Plan of care reviewed with the patient and his nurse Home Health Scheduler recommendations noted and appreciated Brief history: Daily hospital course: The patient is a 55-year-old male with diabetes, malnutrition, resident of an assisted living facility was brought into the emergency room with complaints of sore throat and back pain. Chest x-ray showed bilateral pneumonia with labs showing evidence of acute kidney injury. Patient afebrile on admission, also not hypoxic. Labs showed leukopenia, hyperkalemia, creatinine 2.5, ferritin 08/17/2007, CRP 5.6, LDH 233, CRP 5.6 10/16/2020; sepsis secondary to VRE bacteremia, UTI and pneumonia Continue current antibiotics per ID, contact isolation due to VRE 10/17/2020; patient is more alert and awake today, feels better CT abdomen and pelvis findings noted continue current antibiotics Physical therapy, Occupational Therapy as tolerated 10/18/2020; cardiology evaluations appreciated FLORESITA negative for endocarditis, cardiology started goal-directed CHF treatment 10/19/2020; persistent bacteremia, FLORESITA negative for endocarditis Continue ID cardiology recommendations Patient complains of some sore throat, Cepacol throat spray and Cepacol lozenges 10/20/2020; anemia, hemoglobin 6.4, transfuse 1 unit PRBC Closely monitor H&H transfuse additional PRBC as needed Pancytopenia, hematology consult inpatient versus outpatient 10/21/2020; patient's hemoglobin increased to 8.0 Severe hypophosphatemia, hypomagnesemia replenished Also consulted support staff Dr. Yusuf Koehler 10/22/2020; hematology evaluation noted and appreciated bone marrow biopsy requested And work-up for multiple myeloma in process 10/23/2020; continue current management, disposition per ID and hematology 10/24/2020; multiple myeloma management per hematology Persistent sepsis VRE, management per ID, long-term antibiotics Stop date 11/01/202010/25--10/28; clinically no change same condition 10/29/20; patient continues daptomycin stop date 11/01/2020 Multiple myeloma work-up in progress, appreciate heme-onc input Recommend outpatient follow-up with hematology oncology for further evaluation and management upon discharge 10/30; severe leukopenia, give 1 dose of filgrastim subcu Hematology following, closely monitor Neutropenia precautions as needed Patient is critically ill guarded prognosis History Interval history: I have seen and examined the patient at the bedside Patient's chart and medications reviewed Patient looks chronically ill, severe leukopenia Vital signs noted Hospitalist Physical - Constitutional Vitals: Temp Pulse Resp BP Pulse Ox 98.4 F 100 H 20 96/56 98 10/30/20 10:59 10/30/20 09:58 10/29/20 22:13 10/30/20 10:04 10/30/20 09:58 General appearance: Present: no acute distress, cachectic, disheveled, other (Chronically ill looking cachectic) - EENT Eyes: Present: PERRL, EOM intact - Neck Neck: Present: supple, normal ROM - Respiratory Respiratory effort: normal Respiratory: bilateral: diminished, negative: rales, rhonchi, wheezing - Cardiovascular Rhythm: regular Heart Sounds: Present: S1 & S2 - Extremities Extremities: no ischemia, No edema - Abdominal General gastrointestinal: soft, non-tender, non-distended, normal bowel sounds - Integumentary Integumentary: Present: clear, warm - Psychiatric Psychiatric: appropriate mood/affect, cooperative - Neurologic Neurologic: CNII-XII intact, moves all extremities Results - Labs CBC & Chem 7: 10/31/20 11:23 10/31/20 04:41 Labs: Laboratory Last Values WBC 1.5 K/mm3 (4.5-11.0) L* 10/30/20 07:53 RBC 2.63 M/mm3 (3.65-5.03) L 10/30/20 07:53 Hgb 8.3 gm/dl (11.8-15.2) L 10/30/20 07:53 Hct 24.6 % (35.5-45.6) L 10/30/20 07:53 MCV 94 fl (84-94) 10/30/20 07:53 MCH 32 pg (28-32) 10/30/20 07:53 MCHC 34 % (32-34) 10/30/20 07:53 RDW 17.8 % (13.2-15.2) H 10/30/20 07:53 Plt Count 77 K/mm3 (140-440) L 10/30/20 07:53 Lymph % (Auto) 10.1 % (13.4-35.0) L 10/11/20 05:40 [place] % (Auto) 1.4 % (0.0-7.3) 10/11/20 05:40 Eos % (Auto) 1.6 % (0.0-4.3) 10/11/20 05:40 Baso % (Auto) 0.5 % (0.0-1.8) 10/11/20 05:40 Lymph # (Auto) 0.1 K/mm3 (1.2-5.4) L 10/11/20 05:40 [place] # (Auto) 0.0 K/mm3 (0.0-0.8) 10/11/20 05:40 Eos # (Auto) 0.0 K/mm3 (0.0-0.4) 10/11/20 05:40 Baso # (Auto) 0.0 K/mm3 (0.0-0.1) 10/11/20 05:40 Add Manual Diff Complete 10/26/20 08:51 Total Counted 100 10/26/20 08:51 Seg Neutrophils % Seat Cover Cutter 10/25/20 06:46 Seg Neuts % (Manual) 89.0 % (40.0-70.0) H 10/26/20 08:51 Band Neutrophils % 8.0 % 10/26/20 08:51 Lymphocytes % (Manual) 2.0 % (13.4-35.0) L 10/25/20 06:46 Monocytes % (Manual) 1.0 % (0.0-7.3) 10/26/20 08:51 Eosinophils % (Manual) 1.0 % (0.0-4.3) 10/26/20 08:51 Basophils % (Manual) 1.0 % (0.0-1.8) 10/10/20 16:31 Metamyelocytes % 1.0 % 10/26/20 08:51 Nucleated RBC % 8.0 % (0.0-0.9) H 10/26/20 08:51 Seg Neutrophils # 1.1 K/mm3 (1.8-7.7) L 10/11/20 05:40 Seg Neutrophils # Man 1.9 K/mm3 (1.8-7.7) 10/26/20 08:51 Band Neutrophils # 0.2 K/mm3 10/26/20 08:51 Lymphocytes # (Manual) 0.0 K/mm3 (1.2-5.4) L 10/26/20 08:51 Abs React Lymphs (Man) 0.0 K/mm3 10/26/20 08:51 Monocytes # (Manual) 0.0 K/mm3 (0.0-0.8) 10/26/20 08:51 Eosinophils # (Manual) 0.0 K/mm3 (0.0-0.4) 10/26/20 08:51 Basophils # (Manual) 0.0 K/mm3 (0.0-0.1) 10/26/20 08:51 Metamyelocytes # 0.0 K/mm3 10/26/20 08:51 Myelocytes # 0.0 K/mm3 10/26/20 08:51 Promyelocytes # 0.0 K/mm3 10/26/20 08:51 Blast Cells # 0.0 K/mm3 10/26/20 08:51 WBC Morphology Not Reportable 10/26/20 08:51 Hypersegmented Neuts Not Reportable 10/26/20 08:51 Hyposegmented Neuts Not Reportable 10/26/20 08:51 Hypogranular Neuts Not Reportable 10/26/20 08:51 Smudge Cells Not Reportable 10/26/20 08:51 Toxic Granulation Not Reportable 10/26/20 08:51 Toxic Vacuolation Not Reportable 10/26/20 08:51 Dohle Bodies Not Reportable 10/26/20 08:51 Pelger-Huet Anomaly Not Reportable 10/26/20 08:51 Javon Rods Not Reportable 10/26/20 08:51 Platelet Estimate Consistent w auto 10/26/20 08:51 Clumped Platelets Not Reportable 10/26/20 08:51 Plt Clumps, EDTA Not Reportable 10/26/20 08:51 Large Platelets Not Reportable 10/26/20 08:51 Giant Platelets Not Reportable 10/26/20 08:51 Platelet Satelliting Not Reportable 10/26/20 08:51 Plt Morphology Comment Not Reportable 10/26/20 08:51 RBC Morphology Not Reportable 10/26/20 08:51 Dimorphic RBCs Not Reportable 10/26/20 08:51 Polychromasia Not Reportable 10/26/20 08:51 Hypochromasia Few 10/26/20 08:51 Poikilocytosis Not Reportable 10/26/20 08:51 Anisocytosis Not Reportable 10/26/20 08:51 Microcytosis Not Reportable 10/26/20 08:51 Macrocytosis Not Reportable 10/26/20 08:51 Spherocytes Not Reportable 10/26/20 08:51 Pappenheimer Bodies Not Reportable 10/26/20 08:51 Sickle Cells Not Reportable 10/26/20 08:51 Target Cells Few 10/26/20 08:51 Tear Drop Cells Not Reportable 10/26/20 08:51 Ovalocytes Not Reportable 10/26/20 08:51 Helmet Cells Not Reportable 10/26/20 08:51 [place] Bodies Not Reportable 10/26/20 08:51 [place] Rings Not Reportable 10/26/20 08:51 Edna Cells Not Reportable 10/26/20 08:51 Bite Cells Not Reportable 10/26/20 08:51 Crenated Cell Not Reportable 10/26/20 08:51 Elliptocytes Few 10/26/20 08:51 Acanthocytes (Spur) Not Reportable 10/26/20 08:51 Rouleaux Not Reportable 10/26/20 08:51 Hemoglobin C Crystals Not Reportable 10/26/20 08:51 Schistocytes Not Reportable 10/26/20 08:51 Malaria parasites Not Reportable 10/26/20 08:51 Lit Bodies Not Reportable 10/26/20 08:51 Hem Pathologist Commnt No 10/26/20 08:51 PT 13.2 Sec. (12.2-14.9) 10/22/20 09:09 INR 1.01 (0.87-1.13) 10/22/20 09:09 APTT 26.8 Sec. (24.2-36.6) 10/22/20 09:09 D-Dimer 2351.86 ng/mlDDU (0-234) H 10/10/20 17:54 Sodium 133 mmol/L (137-145) L 10/30/20 07:53 Potassium 3.9 mmol/L (3.6-5.0) 10/30/20 07:53 Chloride 100.3 mmol/L (98-107) 10/30/20 07:53 Carbon Dioxide 23 mmol/L (22-30) 10/30/20 07:53 Anion Gap 14 mmol/L 10/30/20 07:53 BUN 10 mg/dL (9-20) 10/30/20 07:53 Creatinine 0.6 mg/dL (0.8-1.3) L 10/30/20 07:53 Estimated GFR > 60 ml/min 10/30/20 07:53 BUN/Creatinine Ratio 17 % 10/30/20 07:53 Glucose 67 mg/dL (75-100) L 10/30/20 07:53 POC Glucose 117 mg/dL (70-105) H 10/29/20 22:15 Calcium 7.1 mg/dL (8.4-10.2) L 10/30/20 07:53 Phosphorus 1.50 mg/dL (2.5-4.5) L 10/25/20 06:46 Magnesium 1.30 mg/dL (1.7-2.3) L 10/30/20 07:53 Ferritin 2608.0 ng/mL (30.0-300.0) H 10/10/20 17:54 Total Bilirubin 0.30 mg/dL (0.1-1.2) 10/30/20 07:53 AST 25 units/L (5-40) 10/30/20 07:53 ALT 75 units/L (7-56) H 10/30/20 07:53 Alkaline Phosphatase 247 units/L (35-129) H 10/30/20 07:53 Lactate Dehydrogenase 233 units/L (91-180) H 10/10/20 17:54 Total Creatine Kinase 49 units/L (55-170) L 10/23/20 05:12 C-Reactive Protein 0.40 mg/dL (0.00-1.30) 10/16/20 17:23 Serum Total Protein 5.9 g/dL (6.1-8.1) L 10/22/20 08:59 Total Protein 6.9 g/dL (6.3-8.2) 10/30/20 07:53 Albumin 2.1 g/dL (3.9-5) L 10/30/20 07:53 Albumin/Globulin Ratio 0.4 % 10/30/20 07:53 Fvvhe-1-Nbccxswvu 0.3 g/dL (0.2-0.3) 10/22/20 08:59 Soggh-0-Nyqehsfhe 0.6 g/dL (0.5-0.9) 10/22/20 08:59 Beta Globulins 2.8 g/dL (0.2-0.5) H 10/22/20 08:59 Qfpc-1-Pgmvfnibgqhvl 3.88 mg/L (<=2.51) H 10/23/20 05:12 Gamma Globulins 0.3 g/dL (0.8-1.7) L 10/22/20 08:59 Abnorm Protein Band 1 2.4 g/dL H 10/22/20 08:59 Abnorm Protein Band 2 see below 10/22/20 08:59 PEP Interpretation see below H 10/22/20 08:59 Procalcitonin 0.61 ng/mL (<0.15) 10/14/20 14:54 Urine Color Yellow (Yellow) 10/11/20 Unknown Urine Turbidity Cloudy (Clear) 10/11/20 Unknown Urine pH 5.0 (5.0-7.0) 10/11/20 Unknown Ur Specific [place] 1.019 (1.003-1.030) 10/11/20 Unknown Urine Protein 30 mg/dl mg/dL (Negative) 10/11/20 Unknown Urine Glucose (UA) Neg mg/dL (Negative) 10/11/20 Unknown Urine Ketones Neg mg/dL (Negative) 10/11/20 Unknown Urine Blood Sm (Negative) 10/11/20 Unknown Urine Nitrite Neg (Negative) 10/11/20 Unknown Urine Bilirubin Neg (Negative) 10/11/20 Unknown Urine Urobilinogen < 2.0 mg/dL (<2.0) 10/11/20 Unknown Ur Leukocyte Esterase Tr (Negative) 10/11/20 Unknown Urine WBC (Auto) 36.0 /HPF (0.0-6.0) H 10/11/20 Unknown Urine RBC (Auto) 129.0 /HPF (0.0-6.0) 10/11/20 Unknown U Epithel Cells (Auto) 1.0 /HPF (0-13.0) 10/11/20 Unknown Urine Bacteria (Auto) 2+ /HPF (Negative) 10/11/20 Unknown Urine Mucus Few /HPF 10/11/20 Unknown Urine Yeast (Budding) 2+ /HPF 10/11/20 Unknown Coronavirus (PCR) Negative (Negative) 10/21/20 10:00 HIV 1&2 Antibody Rapid Non react (Non React) 10/16/20 17:23 HIV P24 Antigen Non react (Non React) 10/16/20 17:23 Miscellaneous Test Flexitest 1 H 10/22/20 Unknown Blood Type B POSITIVE 10/25/20 13:20 Antibody Screen Negative 10/25/20 13:20 Crossmatch See Detail 10/25/20 13:20 [place]/IV: Voiding Method Indwelling Catheter Active Medications - Current Medications Current Medications: Generic Name Dose Route Start Last Admin Trade Name Freq PRN Reason Stop Dose Admin Acetaminophen 650 mg 10/10/20 19:46 10/28/20 11:10 Acetaminophen 325 Mg Tab PO 650 mg Q4H PRN Administration Pain MILD(1-3)/Fever >100.5/KINNEY Albuterol 2.5 mg 10/10/20 19:46 Albuterol 2.5 Mg/3 Ml Nebu IH Q4HRT PRN Shortness Of Breath Artificial Tears 2 drops 10/20/20 18:29 10/23/20 15:47 Hypromellose 0.5% Ophth Soln 15 Ml OU 2 drops Q4H PRN Administration Dry Eye(s) Aspirin 81 mg 10/18/20 15:00 10/30/20 10:01 Aspirin Ec 81 Mg Tab PO 81 mg QDAY THEE Administration Benzocaine/Menthol 1 each 10/19/20 17:49 10/28/20 09:45 Benzocaine/Menthol Lozenge MM 1 each Q2HR PRN Administration Sore Throat Calcium Carbonate/Glycine 1,250 mg 10/24/20 22:00 10/30/20 10:03 Calcium Carbonate 1250 Mg Tab PO 1,250 mg BID THEE Administration Carvedilol 3.125 mg 10/17/20 22:00 10/30/20 10:04 Carvedilol 3.125 Mg Tab PO Not Given BID THEE Diphenhydramine HCl 25 mg 10/25/20 11:22 Diphenhydramine 50 Mg/Ml Vial IV Q6H PRN premed for RBC or plt transfus Guaifenesin 200 mg 10/29/20 12:09 10/29/20 22:28 Guaifenesin 100 Mg/5 Ml Oral Liqd PO 200 mg Q4H PRN Administration Cough Sodium Chloride 1,000 mls @ 125 mls/hr 10/12/20 11:00 10/23/20 22:17 Nacl 0.45% 1000 Ml IV 125 mls/hr DIRECT THEE Administration Daptomycin 500 mg/ Sodium 100 mls @ 200 mls/hr 10/27/20 12:00 10/29/20 12:00 Chloride IV 11/01/20 12:29 200 mls/hr Q24H THEE Administration Protocol Lisinopril 2.5 mg 10/18/20 10:00 10/30/20 10:04 Lisinopril 5 Mg Tab PO Not Given QDAY THEE Magnesium Oxide 400 mg 10/22/20 10:00 10/30/20 10:01 Magnesium Oxide 400 Mg Tab PO 400 mg QDAY THEE Administration Ondansetron HCl 4 mg 10/10/20 19:46 Ondansetron 4 Mg/2 Ml Inj IV Q8H PRN Nausea And Vomiting Phenol 1 spray 10/15/20 14:54 10/18/20 21:53 Phenol 1.4% 177 Ml Bottle MM 1 spray PRN PRN Administration Sore Throat Sodium Chloride 10 ml 10/10/20 22:00 10/30/20 10:01 Sodium Chloride 0.9% 10 Ml Flush Syringe IV 10 ml BID THEE Administration Sodium Chloride 10 ml 10/10/20 19:46 Sodium Chloride 0.9% 10 Ml Flush Syringe IV PRN PRN LINE FLUSH Spironolactone 25 mg 10/18/20 15:00 10/30/20 10:04 Spironolactone 25 Mg Tab PO Not Given QDAY THEE Nutrition/Malnutrition Assess - Dietary Evaluation Nutrition/Malnutrition Findings: Nutrition Notes Start: 10/11/20 12:16 Freq: Status: Active Protocol: Document 10/29/20 12:48 MK (Rec: 10/29/20 12:51 MK [id number]) Nutrition Notes Initial or Follow up Reassessment Current Diagnosis Acute Kidney Injury,Diabetes Other Pertinent Diagnosis SIRS, pneu Current Diet Consistent Carbohydrate Diet + Glucerna Labs/Tests No new labs Pertinent Medications Mag-Ox [place] Height 5 ft 6 in Weight 73.2 kg [place] Body Weight (kg) 64.54 BMI 26.0 Weight Status Appropriate Subjective/Other Information FU for intakes. Pt reports eating 100% of breakfast and 50% of dinner last night. Pt drinking 100% of only 2 ONS. Percent of energy/protein needs met: 82%/95% Burn Absent Trauma Absent GI Symptoms None Current % PO Fair (50-74%) Minimum of two criteria Yes Body Fat Depletion Moderate depletion (severe) Protein-Calorie Malnutrition Severe #1 Nutrition Diagnosis Malnutrition Diagnosis Progress(for reassessment Continues documentation) Is patient on ventilator? No Is Patient Ambulatory and/or Out of Bed Yes REE-([facility]-ambulatory/OOB) [ 1949.675 [id number]] Kcal/Kg value to use for calculation 30 Approximate Energy Requirements Using 2196 kcal/Kg Calculation Used for Recommendations Kcal/kg Additional Notes Pro needs 1.2-1.5g/k-104g /day Fluid needs 1ml/kcal Nutrition Intervention Change Diet Order: Continue current diet order Add Supplement/Snack (indicate name/kcal Glucerna BID /protein ) Provides kCal: 440 Provides Protein (gm) 20 Goal #1 PO intake of meals plus ONS to meet 75-100% energy and pro needs Goal #2 Wt maintenance and/or gain Follow-Up By: 11/01/20 Additional Comments FU for stable intakes
[2020-10-30] MEDS: guaiFENesin 100 MG/5 ML ORAL LIQD PO PRN (14:51)
[2020-10-30] MEDS ORDERED: TBO-FILGRASTIM 300 MCG/0.5 ML SUB-Q ONE (18:32)
[2020-10-30 19:06] LABS: Band Neutrophils # (Manual) 0.1 K/mm3; Total Cells Counted 100
[2020-10-30 19:07] LABS: Platelet Estimate Consistent w Auto
[2020-10-31 05:39] LABS: Blood Urea Nitrogen 11 mg/dL (9-20); Calcium 7.4 mg/dL (8.4-10.2); Hemolysis Index 6
[2020-10-31 05:41] LABS: BUN/Creatinine Ratio 22
[2020-10-31] MEDS: ASPIRIN EC 81 MG TAB PO SCH (09:47)
[2020-10-31] MEDS: MAGNESIUM OXIDE 400 MG TAB PO SCH (09:47)
[2020-10-31] MEDS: carvediloL 3.125 MG TAB PO SCH ×2 (09:47→21:11)
[2020-10-31] MEDS: LISINOPRIL 5 MG TAB PO SCH (09:48)
[2020-10-31] MEDS: SPIRONOLACTONE 25 MG TAB PO SCH (09:48)
[2020-10-31] MEDS: guaiFENesin 100 MG/5 ML ORAL LIQD PO PRN ×2 (09:54→18:13)
[2020-10-31 11:47] LABS: Basophils % (Auto) 0.2 % (0.0-1.8); Eosinophils # (Auto) 0.1 K/mm3 (0.0-0.4); Eosinophils % (Auto) 3.7 % (0.0-4.3); Hematocrit 23.7 % (35.5-45.6); Hemoglobin 8.1 gm/dl (11.8-15.2); Lymphocytes # (Auto) 0.4 K/mm3 (1.2-5.4); Mean Corpuscular HGB Conc 34 % (32-34); Mean Corpuscular Volume 93 fl (84-94); Red Blood Count 2.54 M/mm3 (3.65-5.03); Red Cell Distribution Width 17.8 % (13.2-15.2)
[2020-10-31 11:51] LABS: Platelet Count 65 K/mm3 (140-440)
[2020-10-31] MEDS: CALCIUM CARBONATE 1250 MG TAB PO SCH ×2 (12:42→21:11)
--- NOTE | 2020-10-31 15:14 | Progress Note ---
Assessment and Plan Assessment and plan: SARS CoV2 PCR: Negative HIV: Negative 10/10/2020 blood culture: VRE 2 out of 4 bottles 10/10/2020 urine culture: Magali 10/14/2020 blood culture no growth today 10/14/2020 blood culture: GPC 3 of 4 10/18/2020 blood culture: No growth today --HIV testx 2 negative --Pancytopenia; Current Visit: Yes Status: Acute probably due to underlying Due to multiple myeloma, sepsis Treat the underlying cause Hematology consult requested --Leukopenia; Current Visit: Yes Status: Acute. Received filgrastim subcu 1 dose yesterday Give 1 more dose today, Closely monitor Hematology following --Sepsis due to persistent bacteremia Current Visit: Yes Status: Acute Continue daptomycin per ID, stop date 11/01/2020 FLORESITA negative for endocarditis --VRE bacteremia; Current Visit: Yes Status: Acute Unclear source/recent spinal surgery T10-T12, L1-L2, details not available Records requested from [facility] Unable to treat with linezolid secondary due to thrombocytopenia. ID recommended daptomycin for total 14 days ending 11/01/2020 Dapto is only choice of medication, and no other alternatives per ID Discussed with ID as well as case management -- Multiple Myeloma: Current Visit: Yes Status: Acute Management hem/onc per Dr Koehler bone survey c/w multiple myeloma rib tumors and 6cm R scapula tumor, L spine tumor no specific T spine tumor described kappa 986 k/l ratio 298 SPEP tiny M-spike, no BHARAT BMBx prelim-hypocellular; pending final interpretation presumed multiple myeloma [main cause of patient sickness] immunocompromised-presumed pneumonia low WBC related to bone marrow dysfunction good enough candidate for anti-myeloma therapy, needs it soon recent severe anemia due to multiple myeloma; RBC transfusion dependence Advised; await final bone marrow biopsy interp Transfusion as needed receiving IV Abx for presumed pneumonia off steroids Patient will follow heme-onc upon discharge for resuscitation therapy, IV antibiotic therapy, urinalysis, chest x-ray, blood cultures. Continue IV fluids --Acute kidney injury (NELSY) with acute tubular necrosis (ATN) Current Visit: Yes Status: Acute Plan to address problem: Resolved, renal function within normal level Monitor renal function avoid nephrotoxins Gentle hydration --Hypocalcemia; Current Visit: Yes Status: Acute Replenished with calcium gluconate, and oral supplements Closely monitor levels --Hypophosphatemia; Current Visit: Yes Status: Acute Closely monitor electrolytes and adjust as needed --Hypomagnesemia; Current Visit: Yes Status: Acute Closely monitor electrolytes and replenish as needed --Anemia; Hb 6.4 -8.0 Current Visit: Yes Status: Acute Received 1 unit PRBC transfusion check H&H, transfuse additional as needed. Hematology consult --History of recent spinal surgery: at [facility] Current Visit: Yes Status: chr T10 T12, L1-L2 surgery, surgical sutures on the back Wound care, continue antibiotics, request records from [facility] --Acute systolic CHF/ EF 20 to 25% Current Visit: Yes Status: Acute antifailure medication with diuretic, beta-blockers, LALITHA inhibitors, input output monitoring, low-sodium diet,fluid restriction. Cardiology consult noted and appreciated --UTI/ur cultures grew Magali Current Visit: Yes Status: Acute Continue Diflucan , supportive care/ -- Severe protein calorie malnutrition Current Visit: Yes Status: Acute Albumin 1.7 nutrition supplements ,, nutrition consult --Pneumonia Current Visit: Yes Status: Acute Completed 5 days of Rocephin and Zithromax -- COVID-19 negative Current Visit: Yes Status: Acute Coronavirus PCR negative -- DVT prophylaxis Current Visit: Yes Status: Acute SCDs bilateral lower extremities while in bed, patient is ambulatory Closely monitor the patient and adjust management as needed Plan of care reviewed with the patient and his nurse Flame Channeler recommendations noted and appreciated Brief history: Daily hospital course: The patient is a 55-year-old male with diabetes, malnutrition, resident of an assisted living facility was brought into the emergency room with complaints of sore throat and back pain. Chest x-ray showed bilateral pneumonia with labs showing evidence of acute kidney injury. Patient afebrile on admission, also not hypoxic. Labs showed leukopenia, hyperkalemia, creatinine 2.5, ferritin 08/17/2007, CRP 5.6, LDH 233, CRP 5.6 10/16/2020; sepsis secondary to VRE bacteremia, UTI and pneumonia Continue current antibiotics per ID, contact isolation due to VRE 10/17/2020; patient is more alert and awake today, feels better CT abdomen and pelvis findings noted continue current antibiotics Physical therapy, Occupational Therapy as tolerated 10/18/2020; cardiology evaluations appreciated FLORESITA negative for endocarditis, cardiology started goal-directed CHF treatment 10/19/2020; persistent bacteremia, FLORESITA negative for endocarditis Continue ID cardiology recommendations Patient complains of some sore throat, Cepacol throat spray and Cepacol lozenges 10/20/2020; anemia, hemoglobin 6.4, transfuse 1 unit PRBC Closely monitor H&H transfuse additional PRBC as needed Pancytopenia, hematology consult inpatient versus outpatient 10/21/2020; patient's hemoglobin increased to 8.0 Severe hypophosphatemia, hypomagnesemia replenished Also consulted talent associate Dr. Yusuf Koehler 10/22/2020; hematology evaluation noted and appreciated bone marrow biopsy requested And work-up for multiple myeloma in process 10/23/2020; continue current management, disposition per ID and hematology 10/24/2020; multiple myeloma management per hematology Persistent sepsis VRE, management per ID, long-term antibiotics Stop date 11/01/202010/25--10/28; clinically no change same condition 10/29/20; patient continues daptomycin stop date 11/01/2020 Multiple myeloma work-up in progress, appreciate heme-onc input Recommend outpatient follow-up with hematology oncology for further evaluation and management upon discharge 10/30; severe leukopenia, give 1 dose of filgrastim subcu Hematology following, closely monitor Neutropenia precautions as needed Patient is critically ill guarded prognosis History Interval history: I have seen and examined the patient at the bedside Patient's chart and medications reviewed Pancytopenia due to severe sepsis and multiple myeloma Mild improvement of leukocytes after receiving Neupogen Patient looks chronically ill and cachectic Vital signs noted Hospitalist Physical - Constitutional Vitals: Temp Pulse Resp BP Pulse Ox 97.8 F 99 H 18 100/66 99 10/31/20 05:42 10/31/20 09:48 10/31/20 05:42 10/31/20 09:48 10/31/20 05:42 General appearance: Present: no acute distress, cachectic, disheveled, other (Chronically ill looking cachectic) - EENT Eyes: Present: PERRL, EOM intact - Neck Neck: Present: supple, normal ROM - Respiratory Respiratory: bilateral: diminished, negative: rales, rhonchi, wheezing - Cardiovascular Rhythm: regular Heart Sounds: Present: S1 & S2 - Extremities Extremities: no ischemia, No edema - Abdominal General gastrointestinal: soft, non-tender, non-distended - Integumentary Integumentary: Present: clear, warm - Psychiatric Psychiatric: appropriate mood/affect - Neurologic Neurologic: moves all extremities Results - Labs CBC & Chem 7: 10/31/20 11:23 10/31/20 04:41 Labs: Laboratory Last Values WBC 2.7 K/mm3 (4.5-11.0) L 10/31/20 11:23 RBC 2.54 M/mm3 (3.65-5.03) L 10/31/20 11:23 Hgb 8.1 gm/dl (11.8-15.2) L 10/31/20 11:23 Hct 23.7 % (35.5-45.6) L 10/31/20 11:23 MCV 93 fl (84-94) 10/31/20 11:23 MCH 32 pg (28-32) 10/31/20 11: MCHC 34 % (32-34) 10/31/20 11:23 RDW 17.8 % (13.2-15.2) H 10/31/20 11:23 Plt Count 65 K/mm3 (140-440) L 10/31/20 11:23 Lymph % (Auto) 13.0 % (13.4-35.0) L 10/31/20 11:23 [place] % (Auto) 1.0 % (0.0-7.3) 10/31/20 11:23 Eos % (Auto) 3.7 % (0.0-4.3) 10/31/20 11:23 Baso % (Auto) 0.2 % (0.0-1.8) 10/31/20 11:23 Lymph # (Auto) 0.4 K/mm3 (1.2-5.4) L 10/31/20 11:23 [place] # (Auto) 0.0 K/mm3 (0.0-0.8) 10/31/20 11: Eos # (Auto) 0.1 K/mm3 (0.0-0.4) 10/31/20 11:23 Baso # (Auto) 0.0 K/mm3 (0.0-0.1) 10/31/20 11:23 Add Manual Diff Complete 10/30/20 07:53 Total Counted 100 10/30/20 07:53 Seg Neutrophils % 82.1 % (40.0-70.0) H 10/31/20 11:23 Seg Neuts % (Manual) 80.0 % (40.0-70.0) H 10/30/20 07:53 Band Neutrophils % 4.0 % 10/30/20 07:53 Lymphocytes % (Manual) 11.0 % (13.4-35.0) L 10/30/20 07:53 Monocytes % (Manual) 1.0 % (0.0-7.3) 10/30/20 07:53 Eosinophils % (Manual) 4.0 % (0.0-4.3) 10/30/20 07:53 Basophils % (Manual) 1.0 % (0.0-1.8) 10/10/20 16:31 Metamyelocytes % 1.0 % 10/26/20 08:51 Nucleated RBC % Not Reportable 10/30/20 07:53 Seg Neutrophils # 2.3 K/mm3 (1.8-7.7) 10/31/20 11:23 Seg Neutrophils # Man 1.2 K/mm3 (1.8-7.7) L 10/30/20 07:53 Band Neutrophils # 0.1 K/mm3 10/30/20 07:53 Lymphocytes # (Manual) 0.2 K/mm3 (1.2-5.4) L 10/30/20 07:53 Abs React Lymphs (Man) 0.0 K/mm3 10/30/20 07:53 Monocytes # (Manual) 0.0 K/mm3 (0.0-0.8) 10/30/20 07:53 Eosinophils # (Manual) 0.1 K/mm3 (0.0-0.4) 10/30/20 07:53 Basophils # (Manual) 0.0 K/mm3 (0.0-0.1) 10/30/20 07:53 Metamyelocytes # 0.0 K/mm3 10/30/20 07:53 Myelocytes # 0.0 K/mm3 10/30/20 07:53 Promyelocytes # 0.0 K/mm3 10/30/20 07:53 Blast Cells # 0.0 K/mm3 10/30/20 07:53 WBC Morphology Not Reportable 10/30/20 07:53 Hypersegmented Neuts Not Reportable 10/30/20 07:53 Hyposegmented Neuts Not Reportable 10/30/20 07:53 Hypogranular Neuts Not Reportable 10/30/20 07:53 Smudge Cells Not Reportable 10/30/20 07:53 Toxic Granulation Not Reportable 10/30/20 07:53 Toxic Vacuolation Not Reportable 10/30/20 07:53 Dohle Bodies Not Reportable 10/30/20 07:53 Pelger-Huet Anomaly Not Reportable 10/30/20 07:53 Javon Rods Not Reportable 10/30/20 07:53 Platelet Estimate Consistent w auto 10/30/20 07:53 Clumped Platelets Not Reportable 10/30/20 07:53 Plt Clumps, EDTA Not Reportable 10/30/20 07:53 Large Platelets Not Reportable 10/30/20 07:53 Giant Platelets Not Reportable 10/30/20 07:53 Platelet Satelliting Not Reportable 10/30/20 07:53 Plt Morphology Comment Not Reportable 10/30/20 07:53 RBC Morphology Not Reportable 10/30/20 07:53 Dimorphic RBCs Not Reportable 10/30/20 07:53 Polychromasia Not Reportable 10/30/20 07:53 Hypochromasia Not Reportable 10/30/20 07:53 Poikilocytosis Not Reportable 10/30/20 07:53 Anisocytosis Not Reportable 10/30/20 07:53 Microcytosis Not Reportable 10/30/20 07:53 Macrocytosis Not Reportable 10/30/20 07:53 Spherocytes Not Reportable 10/30/20 07:53 Pappenheimer Bodies Not Reportable 10/30/20 07:53 Sickle Cells Not Reportable 10/30/20 07:53 Target Cells Not Reportable 10/30/20 07:53 Tear Drop Cells Not Reportable 10/30/20 07:53 Ovalocytes Not Reportable 10/30/20 07:53 Helmet Cells Not Reportable 10/30/20 07:53 [place] Bodies Not Reportable 10/30/20 07:53 [place] Rings Not Reportable 10/30/20 07:53 Edna Cells Not Reportable 10/30/20 07:53 Bite Cells Not Reportable 10/30/20 07:53 Crenated Cell Not Reportable 10/30/20 07:53 Elliptocytes Not Reportable 10/30/20 07:53 Acanthocytes (Spur) Not Reportable 10/30/20 07:53 Rouleaux Not Reportable 10/30/20 07:53 Hemoglobin C Crystals Not Reportable 10/30/20 07:53 Schistocytes Not Reportable 10/30/20 07:53 Malaria parasites Not Reportable 10/30/20 07:53 Lit Bodies Not Reportable 10/30/20 07:53 Hem Pathologist Commnt No 10/30/20 07:53 PT 13.2 Sec. (12.2-14.9) 10/22/20 09:09 INR 1.01 (0.87-1.13) 10/22/20 09:09 APTT 26.8 Sec. (24.2-36.6) 10/22/20 09:09 D-Dimer 2351.86 ng/mlDDU (0-234) H 10/10/20 17:54 Sodium 129 mmol/L (137-145) L 10/31/20 04:41 Potassium 4.0 mmol/L (3.6-5.0) 10/31/20 04:41 Chloride 96.2 mmol/L (98-107) L 10/31/20 04:41 Carbon Dioxide 24 mmol/L (22-30) 10/31/20 04:41 Anion Gap 13 mmol/L 10/31/20 04:41 BUN 11 mg/dL (9-20) 10/31/20 04:41 Creatinine 0.5 mg/dL (0.8-1.3) L 10/31/20 04:41 Estimated GFR > 60 ml/min 10/31/20 04:41 BUN/Creatinine Ratio 22 % 10/31/20 04:41 Glucose 66 mg/dL (75-100) L 10/31/20 04:41 POC Glucose 117 mg/dL (70-105) H 10/29/20 22:15 Calcium 7.4 mg/dL (8.4-10.2) L 10/31/20 04:41 Phosphorus 1.50 mg/dL (2.5-4.5) L 10/25/20 06:46 Magnesium 1.30 mg/dL (1.7-2.3) L 10/31/20 11:23 Ferritin 2608.0 ng/mL (30.0-300.0) H 10/10/20 17:54 Total Bilirubin 0.30 mg/dL (0.1-1.2) 10/30/20 07:53 AST 25 units/L (5-40) 10/30/20 07:53 ALT 75 units/L (7-56) H 10/30/20 07:53 Alkaline Phosphatase 247 units/L (35-129) H 10/30/20 07:53 Lactate Dehydrogenase 233 units/L (91-180) H 10/10/20 17:54 Total Creatine Kinase 49 units/L (55-170) L 10/23/20 05:12 C-Reactive Protein 0.40 mg/dL (0.00-1.30) 10/16/20 17:23 Serum Total Protein 5.9 g/dL (6.1-8.1) L 10/22/20 08:59 Total Protein 6.9 g/dL (6.3-8.2) 10/30/20 07:53 Albumin 2.1 g/dL (3.9-5) L 10/30/20 07:53 Albumin/Globulin Ratio 0.4 % 10/30/20 07:53 Anran-5-Anztezssh 0.3 g/dL (0.2-0.3) 10/22/20 08:59 Bplnf-9-Ysfqqkdpy 0.6 g/dL (0.5-0.9) 10/22/20 08:59 Beta Globulins 2.8 g/dL (0.2-0.5) H 10/22/20 08:59 Nqfb-1-Pnmslmlduukpe 3.88 mg/L (<=2.51) H 10/23/20 05:12 Gamma Globulins 0.3 g/dL (0.8-1.7) L 10/22/20 08:59 Abnorm Protein Band 1 2.4 g/dL H 10/22/20 08:59 Abnorm Protein Band 2 see below 10/22/20 08:59 PEP Interpretation see below H 10/22/20 08:59 Procalcitonin 0.61 ng/mL (<0.15) 10/14/20 14:54 Urine Color Yellow (Yellow) 10/11/20 Unknown Urine Turbidity Cloudy (Clear) 10/11/20 Unknown Urine pH 5.0 (5.0-7.0) 10/11/20 Unknown Ur Specific [place] 1.019 (1.003-1.030) 10/11/20 Unknown Urine Protein 30 mg/dl mg/dL (Negative) 10/11/20 Unknown Urine Glucose (UA) Neg mg/dL (Negative) 10/11/20 Unknown Urine Ketones Neg mg/dL (Negative) 10/11/20 Unknown Urine Blood Sm (Negative) 10/11/20 Unknown Urine Nitrite Neg (Negative) 10/11/20 Unknown Urine Bilirubin Neg (Negative) 10/11/20 Unknown Urine Urobilinogen < 2.0 mg/dL (<2.0) 10/11/20 Unknown Ur Leukocyte Esterase Tr (Negative) 10/11/20 Unknown Urine WBC (Auto) 36.0 /HPF (0.0-6.0) H 10/11/20 Unknown Urine RBC (Auto) 129.0 /HPF (0.0-6.0) 10/11/20 Unknown U Epithel Cells (Auto) 1.0 /HPF (0-13.0) 10/11/20 Unknown Urine Bacteria (Auto) 2+ /HPF (Negative) 10/11/20 Unknown Urine Mucus Few /HPF 10/11/20 Unknown Urine Yeast (Budding) 2+ /HPF 10/11/20 Unknown Coronavirus (PCR) Negative (Negative) 10/21/20 10:00 HIV 1&2 Antibody Rapid Non react (Non React) 10/16/20 17:23 HIV P24 Antigen Non react (Non React) 10/16/20 17:23 Miscellaneous Test Flexitest 1 H 10/22/20 Unknown Blood Type B POSITIVE 10/25/20 13:20 Antibody Screen Negative 10/25/20 13:20 Crossmatch See Detail 10/25/20 13:20 [place]/IV: Voiding Method Indwelling Catheter Active Medications - Current Medications Current Medications: Generic Name Dose Route Start Last Admin Trade Name Freq PRN Reason Stop Dose Admin Acetaminophen 650 mg 10/10/20 19:46 10/28/20 11:10 Acetaminophen 325 Mg Tab PO 650 mg Q4H PRN Administration Pain MILD(1-3)/Fever >100.5/KINNEY Albuterol 2.5 mg 10/10/20 19:46 Albuterol 2.5 Mg/3 Ml Nebu IH Q4HRT PRN Shortness Of Breath Artificial Tears 2 drops 10/20/20 18:29 10/23/20 15:47 Hypromellose 0.5% Ophth Soln 15 Ml OU 2 drops Q4H PRN Administration Dry Eye(s) Aspirin 81 mg 10/18/20 15:00 10/31/20 09:47 Aspirin Ec 81 Mg Tab PO 81 mg QDAY THEE Administration Benzocaine/Menthol 1 each 10/19/20 17:49 10/28/20 09:45 Benzocaine/Menthol Lozenge MM 1 each Q2HR PRN Administration Sore Throat Calcium Carbonate/Glycine 1,250 mg 10/24/20 22:00 10/31/20 12:42 Calcium Carbonate 1250 Mg Tab PO 1,250 mg BID THEE Administration Carvedilol 3.125 mg 10/17/20 22:00 10/31/20 09:47 Carvedilol 3.125 Mg Tab PO 3.125 mg BID THEE Administration Diphenhydramine HCl 25 mg 10/25/20 11:22 Diphenhydramine 50 Mg/Ml Vial IV Q6H PRN premed for RBC or plt transfus Guaifenesin 200 mg 10/29/20 12:09 10/31/20 09:54 Guaifenesin 100 Mg/5 Ml Oral Liqd PO 200 mg Q4H PRN Administration Cough Sodium Chloride 1,000 mls @ 125 mls/hr 10/12/20 11:00 10/23/20 22:17 Nacl 0.45% 1000 Ml IV 125 mls/hr DIRECT THEE Administration Daptomycin 500 mg/ Sodium 100 mls @ 200 mls/hr 10/27/20 12:00 10/31/20 12:42 Chloride IV 11/01/20 12:29 200 mls/hr Q24H THEE Administration Protocol Lisinopril 2.5 mg 10/18/20 10:00 10/31/20 09:48 Lisinopril 5 Mg Tab PO 2.5 mg QDAY THEE Administration Magnesium Oxide 400 mg 10/22/20 10:00 10/31/20 09:47 Magnesium Oxide 400 Mg Tab PO 400 mg QDAY THEE Administration Ondansetron HCl 4 mg 10/10/20 19:46 Ondansetron 4 Mg/2 Ml Inj IV Q8H PRN Nausea And Vomiting Phenol 1 spray 10/15/20 14:54 10/18/20 21:53 Phenol 1.4% 177 Ml Bottle MM 1 spray PRN PRN Administration Sore Throat Sodium Chloride 10 ml 10/10/20 22:00 10/31/20 09:50 Sodium Chloride 0.9% 10 Ml Flush Syringe IV 10 ml BID THEE Administration Sodium Chloride 10 ml 10/10/20 19:46 Sodium Chloride 0.9% 10 Ml Flush Syringe IV PRN PRN LINE FLUSH Spironolactone 25 mg 10/18/20 15:00 10/31/20 09:48 Spironolactone 25 Mg Tab PO 25 mg QDAY THEE Administration Nutrition/Malnutrition Assess - Dietary Evaluation Nutrition/Malnutrition Findings: Nutrition Notes Start: 10/11/20 12:16 Freq: Status: Active Protocol: Document 10/29/20 12:48 (Rec: 10/29/20 12:51 [id number]) Nutrition Notes Initial or Follow up Reassessment Current Diagnosis Acute Kidney Injury,Diabetes Other Pertinent Diagnosis SIRS, pneu Current Diet Consistent Carbohydrate Diet + Glucerna Labs/Tests No new labs Pertinent Medications Mag-Ox Oscal Height 5 ft 6 in Weight 73.2 kg [place] Body Weight (kg) 64.54 BMI 26.0 Weight Status Appropriate Subjective/Other Information FU for intakes. Pt reports eating 100% of breakfast and 50% of dinner last night. Pt drinking 100% of only 2 ONS. Percent of energy/protein needs met: 82%/95% Burn Absent Trauma Absent GI Symptoms None Current % PO Fair (50-74%) Minimum of two criteria Yes Body Fat Depletion Moderate depletion (severe) Protein-Calorie Malnutrition Severe #1 Nutrition Diagnosis Malnutrition Diagnosis Progress(for reassessment Continues documentation) Is patient on ventilator? No Is Patient Ambulatory and/or Out of Bed Yes REE-([place]-St. Jeor-ambulatory/OOB) [ 1949.675 [id number]] Kcal/Kg value to use for calculation 30 Approximate Energy Requirements Using 2196 kcal/Kg Calculation Used for Recommendations Kcal/kg Additional Notes Pro needs 1.2-1.5g/k-104g /day Fluid needs 1ml/kcal Nutrition Intervention Change Diet Order: Continue current diet order Add Supplement/Snack (indicate name/kcal Glucerna BID /protein ) Provides kCal: 440 Provides Protein (gm) 20 Goal #1 PO intake of meals plus ONS to meet 75-100% energy and pro needs Goal #2 Wt maintenance and/or gain Follow-Up By: 11/01/20 Additional Comments FU for stable intakes
--- NOTE | 2020-10-31 18:00 | Progress Note ---
Assessment and Plan - Patient Problems (1) Dilated cardiomyopathy Current Visit: Yes Status: Acute Plan to address problem: We will continue guideline directed medical therapy for chronic left ventricular systolic failure. Subjective Date of service: 10/31/20 Principal diagnosis: Multiple Myeloma Interval history: Patient is comfortable, no cardiac complaints, no acute distress. Objective Vital Signs Temp Pulse Resp BP Pulse Ox 10/31/20 09:48 99 H 100/66 10/31/20 09:47 99 H 100/66 10/31/20 05:42 97.8 F 99 H 18 110/71 99 10/30/20 22:39 100 H 112/77 10/30/20 22:00 18 100 10/30/20 21:59 98.3 F 104 H 18 107/80 97 - Physical Examination General: No Apparent Distress, Cachectic HEENT: Positive: PERRL Neck: Positive: trachea midline Cardiac: Positive: Reg Rate and Rhythm Lungs: Positive: Decreased Breath Sounds Neuro: Positive: Weakness Abdomen: Positive: Soft Skin: Positive: Clear Extremities: Absent: edema - Labs and Meds CBC 10/31/20 Range/Units 11:23 WBC 2.7 L (4.5-11.0) K/mm3 RBC 2.54 L (3.65-5.03) M/mm3 Hgb 8.1 L (11.8-15.2) gm/dl Hct 23.7 L (35.5-45.6) % Plt Count 65 L (140-440) K/mm3 Lymph # (Auto) 0.4 L (1.2-5.4) K/mm3 [place] # (Auto) 0.0 (0.0-0.8) K/mm3 Eos # (Auto) 0.1 (0.0-0.4) K/mm3 Baso # (Auto) 0.0 (0.0-0.1) K/mm3 Comprehensive Metabolic Panel 10/31/20 Range/Units 04:41 Sodium 129 L (137-145) mmol/L Potassium 4.0 (3.6-5.0) mmol/L Chloride 96.2 L (98-107) mmol/L Carbon Dioxide 24 (22-30) mmol/L BUN 11 (9-20) mg/dL Creatinine 0.5 L (0.8-1.3) mg/dL Glucose 66 L (75-100) mg/dL Calcium 7.4 L (8.4-10.2) mg/dL
[2020-10-31] MEDS ORDERED: TBO-FILGRASTIM 300 MCG/0.5 ML SUB-Q ONE (18:33)
[2020-11-01 06:31] LABS: Hemoglobin 7.9 gm/dl (11.8-15.2); Mean Corpuscular HGB Conc 34 % (32-34); Mean Corpuscular Volume 92 fl (84-94); Red Cell Distribution Width 17.3 % (13.2-15.2)
[2020-11-01 06:42] LABS: Platelet Count 58 K/mm3 (140-440)
[2020-11-01 06:48] LABS: Blood Urea Nitrogen 13 mg/dL (9-20); Calcium 7.5 mg/dL (8.4-10.2); Hemolysis Index 3
[2020-11-01 06:50] LABS: BUN/Creatinine Ratio 22
[2020-11-01 08:33] LABS: Band Neutrophils # (Manual) 0.1 K/mm3; RBC Morphology Normal; Total Cells Counted 50
[2020-11-01 08:34] LABS: Platelet Estimate Consistent w Auto
--- NOTE | 2020-11-01 08:40 | Progress Note ---
Assessment and Plan Assessment and plan: SARS CoV2 PCR: Negative HIV: Negative 10/10/2020 blood culture: VRE 2 out of 4 bottles 10/10/2020 urine culture: Magali 10/14/2020 blood culture no growth today 10/14/2020 blood culture: GPC 3 of 4 10/18/2020 blood culture: No growth today --HIV test x 2 negative --Hypomagnesemia; replenished with 4 g of mag self IV Monitor electrolytes --Pancytopenia; Current Visit: Yes Status: Acute probably due to underlying multiple myeloma, sepsis Treat the underlying cause Telemetry hematology following Patient will follow with his private compounder sterile products upon discharge --Leukopenia; Current Visit: Yes Status: Acute. Received filgrastim subcu 1 dose yesterday Give 1 more dose today, Closely monitor Telemetry hematology following --Sepsis due to persistent bacteremia Current Visit: Yes Status: Acute Continue daptomycin per ID, stop date 11/01/2020 FLORESITA negative for endocarditis Last dose of daptomycin today per ID --VRE bacteremia; Current Visit: Yes Status: Acute Unclear source/recent spinal surgery T10-T12, L1-L2, details not available Records requested from [facility] Unable to treat with linezolid secondary due to thrombocytopenia. ID recommended daptomycin for total 14 days last dose today ending 11/01/2020 Discussed with ID as well as case management -- Multiple Myeloma: Current Visit: Yes Status: Acute Management hem/onc per Dr Koehler bone survey c/w multiple myeloma rib tumors and 6cm R scapula tumor, L spine tumor no specific T spine tumor described kappa 986 k/l ratio 298 SPEP tiny M-spike, no BHARAT BMBx prelim-hypocellular; pending final interpretation presumed multiple myeloma [main cause of patient sickness] immunocompromised-presumed pneumonia low WBC related to bone marrow dysfunction good enough candidate for anti-myeloma therapy, needs it soon recent severe anemia due to multiple myeloma; RBC transfusion dependence Advised; await final bone marrow biopsy interp Transfusion as needed receiving IV Abx for presumed pneumonia off steroids Patient will follow heme-onc upon discharge for resuscitation therapy, IV antibiotic therapy, urinalysis, chest x-ray, blood cultures. Continue IV fluids --Acute kidney injury (NELSY) with acute tubular necrosis (ATN) Current Visit: Yes Status: Acute Resolved, renal function within normal level --Hypocalcemia; Current Visit: Yes Status: Acute Replenished with calcium gluconate, and oral supplements Closely monitor levels --Hypophosphatemia; Current Visit: Yes Status: Acute Closely monitor electrolytes and adjust as needed --Hypomagnesemia; Current Visit: Yes Status: Acute Closely monitor electrolytes and replenish as needed --Anemia; Hb 6.4 -8.0 Current Visit: Yes Status: Acute Received 1 unit PRBC transfusion check H&H, transfuse additional as needed. Hematology consult --History of recent spinal surgery: at [facility] Current Visit: Yes Status: chr T10 T12, L1-L2 surgery, surgical sutures on the back Wound care, continue antibiotics, request records from [facility] --Acute systolic CHF/ EF 20 to 25% Current Visit: Yes Status: Acute antifailure medication with diuretic, beta-blockers, LALITHA inhibitors, input output monitoring, low-sodium diet,fluid restriction. Cardiology consult noted and appreciated --UTI/ur cultures grew Magali Current Visit: Yes Status: Acute Continue Diflucan , supportive care/ -- Severe protein calorie malnutrition Current Visit: Yes Status: Acute Albumin 1.7 nutrition supplements ,, nutrition consult --Pneumonia Current Visit: Yes Status: Acute Completed 5 days of Rocephin and Zithromax -- COVID-19 negative Current Visit: Yes Status: Acute Coronavirus PCR negative -- DVT prophylaxis Current Visit: Yes Status: Acute SCDs bilateral lower extremities while in bed, patient is ambulatory Closely monitor the patient and adjust management as needed Plan of care reviewed with the patient and his nurse Remote Ruby On Rails Developer recommendations noted and appreciated Brief history: Daily hospital course: The patient is a 55-year-old male with diabetes, malnutrition, resident of an assisted living facility was brought into the emergency room with complaints of sore throat and back pain. Chest x-ray showed bilateral pneumonia with labs showing evidence of acute kidney injury. Patient afebrile on admission, also not hypoxic. Labs showed leukopenia, hyperkalemia, creatinine 2.5, ferritin 08/17/2007, CRP 5.6, LDH 233, CRP 5.6 10/16/2020; sepsis secondary to VRE bacteremia, UTI and pneumonia Continue current antibiotics per ID, contact isolation due to VRE 10/17/2020; patient is more alert and awake today, feels better CT abdomen and pelvis findings noted continue current antibiotics Physical therapy, Occupational Therapy as tolerated 10/18/2020; cardiology evaluations appreciated FLORESITA negative for endocarditis, cardiology started goal-directed CHF treatment 10/19/2020; persistent bacteremia, FLORESITA negative for endocarditis Continue ID cardiology recommendations Patient complains of some sore throat, Cepacol throat spray and Cepacol lozenges 10/20/2020; anemia, hemoglobin 6.4, transfuse 1 unit PRBC Closely monitor H&H transfuse additional PRBC as needed Pancytopenia, hematology consult inpatient versus outpatient 10/21/2020; patient's hemoglobin increased to 8.0 Severe hypophosphatemia, hypomagnesemia replenished Also consulted compounder sterile products Dr. Yusuf Koehler 10/22/2020; hematology evaluation noted and appreciated bone marrow biopsy requested And work-up for multiple myeloma in process 10/23/2020; continue current management, disposition per ID and hematology 10/24/2020; multiple myeloma management per hematology Persistent sepsis VRE, management per ID, long-term antibiotics Stop date 11/01/202010/25--10/28; clinically no change same condition 10/29/20; patient continues daptomycin stop date 11/01/2020 Multiple myeloma work-up in progress, appreciate heme-onc input Recommend outpatient follow-up with hematology oncology for further evaluation and management upon discharge 10/30; severe leukopenia, give 1 dose of filgrastim subcu Hematology following, closely monitor Neutropenia precautions as needed Patient is critically ill guarded prognosis 10/31; patient will receive 1 more dose of filgrastim today Closely monitor RBC WBC and platelets Patient needs to see compounder sterile products upon discharge 11/01;Hypomagnesemia, replenish per protocol, last dose of daptomycin DC planning per case management Initially discharged the patient however personal long-term requested quintero PCR Discharge held, continue current management Possible discharge tomorrow personal-long-term tomorrow evening if Covid test is negative History Interval history: Patient was being discharged initially However in the last minute personal long-term requested Covid test Discharge held and quintero PCR requested Patient chronically ill looking cachectic Vital signs noted Hospitalist Physical - Constitutional Vitals: Temp Pulse Resp BP Pulse Ox 98.2 F 102 H 15 90/55 99 11/01/20 05:09 11/01/20 05:09 11/01/20 05:09 11/01/20 05:09 11/01/20 05:09 General appearance: Present: no acute distress, cachectic, disheveled, other (Chronically ill looking cachectic) - EENT Eyes: Present: PERRL, EOM intact - Neck Neck: Present: supple, normal ROM - Respiratory Respiratory effort: normal Respiratory: bilateral: diminished, negative: rales, rhonchi, wheezing - Cardiovascular Rhythm: regular Heart Sounds: Present: S1 & S2 - Extremities Extremities: no ischemia, No edema - Abdominal General gastrointestinal: soft, non-tender, non-distended, normal bowel sounds - Integumentary Integumentary: Present: clear, warm - Psychiatric Psychiatric: appropriate mood/affect, cooperative - Neurologic Neurologic: CNII-XII intact, moves all extremities Results - Labs CBC & Chem 7: 11/01/20 05:48 11/01/20 05:48 Labs: Laboratory Last Values WBC 2.3 K/mm3 (4.5-11.0) L 11/01/20 05:48 RBC 2.50 M/mm3 (3.65-5.03) L 11/01/20 05:48 Hgb 7.9 gm/dl (11.8-15.2) L 11/01/20 05:48 Hct 23.0 % (35.5-45.6) L 11/01/20 05:48 MCV 92 fl (84-94) 11/01/20 05:48 MCH 32 pg (28-32) 11/01/20 05:48 MCHC 34 % (32-34) 11/01/20 05:48 RDW 17.3 % (13.2-15.2) H 11/01/20 05:48 Plt Count 58 K/mm3 (140-440) L 11/01/20 05:48 Lymph % (Auto) 13.0 % (13.4-35.0) L 10/31/20 11:23 [place] % (Auto) 1.0 % (0.0-7.3) 10/31/20 11:23 Eos % (Auto) 3.7 % (0.0-4.3) 10/31/20 11:23 Baso % (Auto) 0.2 % (0.0-1.8) 10/31/20 11:23 Lymph # (Auto) 0.4 K/mm3 (1.2-5.4) L 10/31/20 11:23 [place] # (Auto) 0.0 K/mm3 (0.0-0.8) 10/31/20 11:23 Eos # (Auto) 0.1 K/mm3 (0.0-0.4) 10/31/20 11:23 Baso # (Auto) 0.0 K/mm3 (0.0-0.1) 10/31/20 11:23 Add Manual Diff Complete 11/01/20 05:48 Total Counted 50 11/01/20 05:48 Seg Neutrophils % 82.1 % (40.0-70.0) H 10/31/20 11:23 Seg Neuts % (Manual) 82.0 % (40.0-70.0) H 11/01/20 05:48 Band Neutrophils % 4.0 % 11/01/20 05:48 Lymphocytes % (Manual) 12.0 % (13.4-35.0) L 11/01/20 05:48 Monocytes % (Manual) 2.0 % (0.0-7.3) 11/01/20 05:48 Eosinophils % (Manual) 4.0 % (0.0-4.3) 10/30/20 07:53 Basophils % (Manual) 1.0 % (0.0-1.8) 10/10/20 16:31 Metamyelocytes % 1.0 % 10/26/20 08:51 Nucleated RBC % Not Reportable 11/01/20 05:48 Seg Neutrophils # 2.3 K/mm3 (1.8-7.7) 10/31/20 11:23 Seg Neutrophils # Man 1.9 K/mm3 (1.8-7.7) 11/01/20 05:48 Band Neutrophils # 0.1 K/mm3 11/01/20 05:48 Lymphocytes # (Manual) 0.3 K/mm3 (1.2-5.4) L 11/01/20 05:48 Abs React Lymphs (Man) 0.0 K/mm3 11/01/20 05:48 Monocytes # (Manual) 0.0 K/mm3 (0.0-0.8) 11/01/20 05:48 Eosinophils # (Manual) 0.0 K/mm3 (0.0-0.4) 11/01/20 05:48 Basophils # (Manual) 0.0 K/mm3 (0.0-0.1) 11/01/20 05:48 Metamyelocytes # 0.0 K/mm3 11/01/20 05:48 Myelocytes # 0.0 K/mm3 11/01/20 05:48 Promyelocytes # 0.0 K/mm3 11/01/20 05:48 Blast Cells # 0.0 K/mm3 11/01/20 05:48 WBC Morphology Not Reportable 11/01/20 05:48 Hypersegmented Neuts Not Reportable 11/01/20 05:48 Hyposegmented Neuts Not Reportable 11/01/20 05:48 Hypogranular Neuts Not Reportable 11/01/20 05:48 Smudge Cells Not Reportable 11/01/20 05:48 Toxic Granulation Not Reportable 11/01/20 05:48 Toxic Vacuolation Not Reportable 11/01/20 05:48 Dohle Bodies Not Reportable 11/01/20 05:48 Pelger-Huet Anomaly Not Reportable 11/01/20 05:48 Javon Rods Not Reportable 11/01/20 05:48 Platelet Estimate Consistent w auto 11/01/20 05:48 Clumped Platelets Not Reportable 11/01/20 05:48 Plt Clumps, EDTA Not Reportable 11/01/20 05:48 Large Platelets Not Reportable 11/01/20 05:48 Giant Platelets Not Reportable 11/01/20 05:48 Platelet Satelliting Not Reportable 11/01/20 05:48 Plt Morphology Comment Not Reportable 11/01/20 05:48 RBC Morphology Normal 11/01/20 05:48 Dimorphic RBCs Not Reportable 11/01/20 05:48 Polychromasia Not Reportable 11/01/20 05:48 Hypochromasia Not Reportable 11/01/20 05:48 Poikilocytosis Not Reportable 11/01/20 05:48 Anisocytosis Not Reportable 11/01/20 05:48 Microcytosis Not Reportable 11/01/20 05:48 Macrocytosis Not Reportable 11/01/20 05:48 Spherocytes Not Reportable 11/01/20 05:48 Pappenheimer Bodies Not Reportable 11/01/20 05:48 Sickle Cells Not Reportable 11/01/20 05:48 Target Cells Not Reportable 11/01/20 05:48 Tear Drop Cells Not Reportable 11/01/20 05:48 Ovalocytes Not Reportable 11/01/20 05:48 Helmet Cells Not Reportable 11/01/20 05:48 [place] Bodies Not Reportable 11/01/20 05:48 [place] Rings Not Reportable 11/01/20 05:48 Edna Cells Not Reportable 11/01/20 05:48 Bite Cells Not Reportable 11/01/20 05:48 Crenated Cell Not Reportable 11/01/20 05:48 Elliptocytes Not Reportable 11/01/20 05:48 Acanthocytes (Spur) Not Reportable 11/01/20 05:48 Rouleaux Not Reportable 11/01/20 05:48 Hemoglobin C Crystals Not Reportable 11/01/20 05:48 Schistocytes Not Reportable 11/01/20 05:48 Malaria parasites Not Reportable 11/01/20 05:48 Lit Bodies Not Reportable 11/01/20 05:48 Hem Pathologist Commnt No 11/01/20 05:48 PT 13.2 Sec. (12.2-14.9) 10/22/20 09:09 INR 1.01 (0.87-1.13) 10/22/20 09:09 APTT 26.8 Sec. (24.2-36.6) 10/22/20 09:09 D-Dimer 2351.86 ng/mlDDU (0-234) H 10/10/20 17:54 Sodium 131 mmol/L (137-145) L 11/01/20 05:48 Potassium 4.3 mmol/L (3.6-5.0) 11/01/20 05:48 Chloride 96.7 mmol/L (98-107) L 11/01/20 05:48 Carbon Dioxide 23 mmol/L (22-30) 11/01/20 05:48 Anion Gap 16 mmol/L 11/01/20 05:48 BUN 13 mg/dL (9-20) 11/01/20 05:48 Creatinine 0.6 mg/dL (0.8-1.3) L 11/01/20 05:48 Estimated GFR > 60 ml/min 11/01/20 05:48 BUN/Creatinine Ratio 22 % 11/01/20 05:48 Glucose 77 mg/dL (75-100) 11/01/20 05:48 POC Glucose 117 mg/dL (70-105) H 10/29/20 22:15 Calcium 7.5 mg/dL (8.4-10.2) L 11/01/20 05:48 Phosphorus 2.60 mg/dL (2.5-4.5) 11/01/20 05:48 Magnesium 1.40 mg/dL (1.7-2.3) L 11/01/20 05:48 Ferritin 2608.0 ng/mL (30.0-300.0) H 10/10/20 17:54 Total Bilirubin 0.30 mg/dL (0.1-1.2) 10/30/20 07:53 AST 25 units/L (5-40) 10/30/20 07:53 ALT 75 units/L (7-56) H 10/30/20 07:53 Alkaline Phosphatase 247 units/L (35-129) H 10/30/20 07:53 Lactate Dehydrogenase 233 units/L (91-180) H 10/10/20 17:54 Total Creatine Kinase 49 units/L (55-170) L 10/23/20 05:12 C-Reactive Protein 0.40 mg/dL (0.00-1.30) 10/16/20 17:23 Serum Total Protein 5.9 g/dL (6.1-8.1) L 10/22/20 08:59 Total Protein 6.9 g/dL (6.3-8.2) 10/30/20 07:53 Albumin 2.1 g/dL (3.9-5) L 10/30/20 07:53 Albumin/Globulin Ratio 0.4 % 10/30/20 07:53 Sqzbs-6-Huhftbemd 0.3 g/dL (0.2-0.3) 10/22/20 08:59 Hshsm-0-Tpypmvslx 0.6 g/dL (0.5-0.9) 10/22/20 08:59 Beta Globulins 2.8 g/dL (0.2-0.5) H 10/22/20 08:59 Plvt-9-Szosqnjqtbnos 3.88 mg/L (<=2.51) H 10/23/20 05:12 Gamma Globulins 0.3 g/dL (0.8-1.7) L 10/22/20 08:59 Abnorm Protein Band 1 2.4 g/dL H 10/22/20 08:59 Abnorm Protein Band 2 see below 10/22/20 08:59 PEP Interpretation see below H 10/22/20 08:59 Procalcitonin 0.61 ng/mL (<0.15) 10/14/20 14:54 Urine Color Yellow (Yellow) 10/11/20 Unknown Urine Turbidity Cloudy (Clear) 10/11/20 Unknown Urine pH 5.0 (5.0-7.0) 10/11/20 Unknown Ur Specific [place] [employer] 1.019 (1.003-1.030) 10/11/20 Unknown Urine Protein 30 mg/dl mg/dL (Negative) 10/11/20 Unknown Urine Glucose (UA) Neg mg/dL (Negative) 10/11/20 Unknown Urine Ketones Neg mg/dL (Negative) 10/11/20 Unknown Urine Blood Sm (Negative) 10/11/20 Unknown Urine Nitrite Neg (Negative) 10/11/20 Unknown Urine Bilirubin Neg (Negative) 10/11/20 Unknown Urine Urobilinogen < 2.0 mg/dL (<2.0) 10/11/20 Unknown Ur Leukocyte Esterase Tr (Negative) 10/11/20 Unknown Urine WBC (Auto) 36.0 /HPF (0.0-6.0) H 10/11/20 Unknown Urine RBC (Auto) 129.0 /HPF (0.0-6.0) 10/11/20 Unknown U Epithel Cells (Auto) 1.0 /HPF (0-13.0) 10/11/20 Unknown Urine Bacteria (Auto) 2+ /HPF (Negative) 10/11/20 Unknown Urine Mucus Few /HPF 10/11/20 Unknown Urine Yeast (Budding) 2+ /HPF 10/11/20 Unknown Coronavirus (PCR) Negative (Negative) 10/21/20 10:00 HIV 1&2 Antibody Rapid Non react (Non React) 10/16/20 17:23 HIV P24 Antigen Non react (Non React) 10/16/20 17:23 Miscellaneous Test Flexitest 1 H 10/22/20 Unknown Blood Type B POSITIVE 10/25/20 13:20 Antibody Screen Negative 10/25/20 13:20 Crossmatch See Detail 10/25/20 13:20 [place]/IV: Voiding Method Indwelling Catheter Active Medications - Current Medications Current Medications: Generic Name Dose Route Start Last Admin Trade Name Freq PRN Reason Stop Dose Admin Acetaminophen 650 mg 10/10/20 19:46 10/28/20 11:10 Acetaminophen 325 Mg Tab PO 650 mg Q4H PRN Administration Pain MILD(1-3)/Fever >100.5/KINNEY Albuterol 2.5 mg 10/10/20 19:46 Albuterol 2.5 Mg/3 Ml Nebu IH Q4HRT PRN Shortness Of Breath Artificial Tears 2 drops 10/20/20 18:29 10/23/20 15:47 Hypromellose 0.5% Ophth Soln 15 Ml OU 2 drops Q4H PRN Administration Dry Eye(s) Aspirin 81 mg 10/18/20 15:00 10/31/20 09:47 Aspirin Ec 81 Mg Tab PO 81 mg QDAY THEE Administration Benzocaine/Menthol 1 each 10/19/20 17:49 10/28/20 09:45 Benzocaine/Menthol Lozenge MM 1 each Q2HR PRN Administration Sore Throat Calcium Carbonate/Glycine 1,250 mg 10/24/20 22:00 10/31/20 21:11 Calcium Carbonate 1250 Mg Tab PO 1,250 mg BID THEE Administration Carvedilol 3.125 mg 10/17/20 22:00 10/31/20 21:11 Carvedilol 3.125 Mg Tab PO 3.125 mg BID THEE Administration Diphenhydramine HCl 25 mg 10/25/20 11:22 Diphenhydramine 50 Mg/Ml Vial IV Q6H PRN premed for RBC or plt transfus Guaifenesin 200 mg 10/29/20 12:09 10/31/20 18:13 Guaifenesin 100 Mg/5 Ml Oral Liqd PO 200 mg Q4H PRN Administration Cough Sodium Chloride 1,000 mls @ 125 mls/hr 10/12/20 11:00 10/23/20 22:17 Nacl 0.45% 1000 Ml IV 125 mls/hr DIRECT THEE Administration Daptomycin 500 mg/ Sodium 100 mls @ 200 mls/hr 10/27/20 12:00 10/31/20 12:42 Chloride IV 11/01/20 12:29 200 mls/hr Q24H THEE Administration Protocol Lisinopril 2.5 mg 10/18/20 10:00 10/31/20 09:48 Lisinopril 5 Mg Tab PO 2.5 mg QDAY THEE Administration Magnesium Oxide 400 mg 10/22/20 10:00 10/31/20 09:47 Magnesium Oxide 400 Mg Tab PO 400 mg QDAY THEE Administration Ondansetron HCl 4 mg 10/10/20 19:46 Ondansetron 4 Mg/2 Ml Inj IV Q8H PRN Nausea And Vomiting Phenol 1 spray 10/15/20 14:54 10/18/20 21:53 Phenol 1.4% 177 Ml Bottle MM 1 spray PRN PRN Administration Sore Throat Sodium Chloride 10 ml 10/10/20 22:00 10/31/20 21:12 Sodium Chloride 0.9% 10 Ml Flush Syringe IV 10 ml BID THEE Administration Sodium Chloride 10 ml 10/10/20 19:46 Sodium Chloride 0.9% 10 Ml Flush Syringe IV PRN PRN LINE FLUSH Spironolactone 25 mg 10/18/20 15:00 10/31/20 09:48 Spironolactone 25 Mg Tab PO 25 mg QDAY THEE Administration Nutrition/Malnutrition Assess - Dietary Evaluation Nutrition/Malnutrition Findings: Nutrition Notes Start: 10/11/20 12:16 Freq: Status: Active Protocol: Document 10/29/20 12:48 (Rec: 10/29/20 12:51 [email or web address]) Nutrition Notes Initial or Follow up Reassessment Current Diagnosis Acute Kidney Injury,Diabetes Other Pertinent Diagnosis SIRS, pneu Current Diet Consistent Carbohydrate Diet + Glucerna Labs/Tests No new labs Pertinent Medications Mag-Ox [place] Height 5 ft 6 in Weight 73.2 kg [place] Body Weight (kg) 64.54 BMI 26.0 Weight Status Appropriate Subjective/Other Information FU for intakes. Pt reports eating 100% of breakfast and 50% of dinner last night. Pt drinking 100% of only 2 ONS. Percent of energy/protein needs met: 82%/95% Burn Absent Trauma Absent GI Symptoms None Current % PO Fair (50-74%) Minimum of two criteria Yes Body Fat Depletion Moderate depletion (severe) Protein-Calorie Malnutrition Severe #1 Nutrition Diagnosis Malnutrition Diagnosis Progress(for reassessment Continues documentation) Is patient on ventilator? No Is Patient Ambulatory and/or Out of Bed Yes REE-([place]-St. Jeor-ambulatory/OOB) [ 1949.675 [id number]] Kcal/Kg value to use for calculation 30 Approximate Energy Requirements Using 2196 kcal/Kg Calculation Used for Recommendations Kcal/kg Additional Notes Pro needs 1.2-1.5g/k-104g /day Fluid needs 1ml/kcal Nutrition Intervention Change Diet Order: Continue current diet order Add Supplement/Snack (indicate name/kcal Glucerna BID /protein ) Provides kCal: 440 Provides Protein (gm) 20 Goal #1 PO intake of meals plus ONS to meet 75-100% energy and pro needs Goal #2 Wt maintenance and/or gain Follow-Up By: 11/01/20 Additional Comments FU for stable intakes
[2020-11-01] MEDS ORDERED: MAGNESIUM SULFATE 4 GM/100 ML BAG IV ONE (09:00)
--- NOTE | 2020-11-01 09:18 | Progress Note ---
Assessment and Plan Dilated Cardiomyopathy, uncertain duration LVEF 20-25% by echo this admission Severe Anemia Bacteremia FLORESITA done this admission reports no evidence of vegetations Pneumonia negative COVID 19 test Malnutrition Suspected multiple myeloma Continue GDMT for dilated cardiomyopathy as tolerated. Otherwise, conservative cardiac management. Subjective Date of service: 11/01/20 Principal diagnosis: Multiple Myeloma Interval history: No interval cardiac changes. Objective Vital Signs Temp Pulse Resp BP Pulse Ox 11/01/20 05:09 98.2 F 102 H 15 90/55 99 10/31/20 22:40 98.7 F 97 H 15 108/75 98 10/31/20 17:11 98.9 F 99 H 16 100/71 100 10/31/20 09:48 99 H 100/66 10/31/20 09:47 99 H 100/66 - Physical Examination General: No Apparent Distress, Cachectic HEENT: Positive: PERRL Neck: Positive: trachea midline Cardiac: Positive: Reg Rate and Rhythm Lungs: Positive: Decreased Breath Sounds Neuro: Positive: Weakness Abdomen: Positive: Soft Extremities: Absent: edema - Labs and Meds CBC 10/31/20 11/01/20 Range/Units 11:23 05:48 WBC 2.7 L 2.3 L (4.5-11.0) K/mm3 RBC 2.54 L 2.50 L (3.65-5.03) M/mm3 Hgb 8.1 L 7.9 L (11.8-15.2) gm/dl Hct 23.7 L 23.0 L (35.5-45.6) % Plt Count 65 L 58 L (140-440) K/mm3 Lymph # (Auto) 0.4 L (1.2-5.4) K/mm3 [place] # (Auto) 0.0 (0.0-0.8) K/mm3 Eos # (Auto) 0.1 (0.0-0.4) K/mm3 Baso # (Auto) 0.0 (0.0-0.1) K/mm3 Comprehensive Metabolic Panel 11/01/20 Range/Units 05:48 Sodium 131 L (137-145) mmol/L Potassium 4.3 (3.6-5.0) mmol/L Chloride 96.7 L (98-107) mmol/L Carbon Dioxide 23 (22-30) mmol/L BUN 13 (9-20) mg/dL Creatinine 0.6 L (0.8-1.3) mg/dL Glucose 77 (75-100) mg/dL Calcium 7.5 L (8.4-10.2) mg/dL
[2020-11-01] MEDS: ASPIRIN EC 81 MG TAB PO SCH (10:29)
[2020-11-01] MEDS: SPIRONOLACTONE 25 MG TAB PO SCH (10:29)
[2020-11-01] MEDS: MAGNESIUM OXIDE 400 MG TAB PO SCH (10:29)
[2020-11-01] MEDS: CALCIUM CARBONATE 1250 MG TAB PO SCH ×2 (10:30→22:19)
[2020-11-01] MEDS: carvediloL 3.125 MG TAB PO SCH ×2 (10:30→22:19)
[2020-11-01] MEDS: LISINOPRIL 5 MG TAB PO SCH (10:30)
--- NOTE | 2020-11-01 16:10 | Discharge Summary ---
Providers - Providers Date of Admission: 10/10/20 19:47 Date of discharge: 11/01/20 Attending physician: SEUN ALVAREZ 10/11/20 10:21 Consult to Dietitian/Nutrition [CONS] Routine Physician Instructions: Reason For Exam: Reason for Consult: Malnutrition 10/11/20 10:35 Consult to Physician [CONS] Routine Comment: Consulting Provider: CARLY MELENDEZ Physician Instructions: Reason For Exam: Covid PUI 10/12/20 11:05 Physical Therapy Evaluation and Treat [CONS] Routine Comment: Physical therapy daily Reason For Exam: Severe debility 10/16/20 16:12 Consult to Wound/ET Nurse [CONS] Routine Reason For Exam: wound eval 10/16/20 16:52 Consult to Physician [CONS] Routine Comment: Consulting Provider: JOSE LUIS CAMPBELL Physician Instructions: Reason For Exam: Ac Syst CHF EF 20-25%/sepsis/FLORESITA r/o endocarditis 10/18/20 14:26 Consult to Case Management [CONS] Stat Services Needed at Discharge: Other Notified:: information resources manager Additional Physician Instructions: [facility] ([facility]) [address] [place] [address] OUTPATIENT PARENTERAL ANTIBIOTIC THERAPY (OPAT) ORDERS Diagnoses: VRE bacteremia Administer: daptomycin 600 mg IV daily total 14 days till 11/01/2020 Remove PICC line after last dose unless otherwise instructed. Line: Maintain IV access with weekly dressing changes and locks per protocol. Labs: Every Wednesday CBC, AST, ALT, Creatinine, CPK. Please fax results to [phone] and call [phone] for critical lab results. María Lay MD Infectious Diseases Ncr Operator [facility] ([facility]) O: [phone] F: [phone] 10/21/20 16:42 Consult to Physician [CONS] Routine Comment: Consulting Provider: RYAN KOEHLER Physician Instructions: Reason For Exam: Pancytopenia/anemia/? Multiple myeloma 10/28/20 10:42 Consult to Wound/ET Nurse [CONS] Routine Reason For Exam: wound eval pf back/ left side 10/28/20 14:44 Consult to Case Management [CONS] Routine Services Needed at Discharge: Other Notified:: cm Additional Physician Instructions: heme/onc in-person referral for multiple myeloma Primary care physician: [employer] Hospitalization Condition: Fair Hospital course: 55 YO Male Assisted Living Facility Resident with DM, Severe Malnutrition, who is nonverbal, and communicated by writing presents to ED for evaluation. Patient reports "sore throat and back pain". EMS was notified by assisted living facility staff. Upon arrival the patient was found to be in distress and subsequently transported to [facility] for further care and evaluation of the aforementioned symptoms. The patient was seen and evaluated in the emergency department. All lab and imaging studies reviewed. Patient underwent chest x- ray and was found to have bilateral pneumonia, acidosis, and acute kidney injury. Patient admitted to medical floor and initiated on pneumonia protocol as well as coronavirus protocol. No further history is obtainable. No prior admission for review. No medication listed at time of admission for reconciliation. No reports of fever, chills, chest pain, palpitations, productive cough, skin rash, recent ill contacts, or known exposure to COVID-19 as per assisted-living facility staff. Patient is able to maintain his airway without difficulty and has a positive gag reflex. Patient was initially evaluated admitted symptomatically managed, noted to have sepsis with persistent VRE 2 out of 4 bottles, evaluated by ID, received daptomycin, And completed the treatment today, patient also had pancytopenia, hematology oncologist evaluate the patient, recommended outpatient Hematology oncology [id number] evaluation and management Patient received filgrastim and blood transfusion with mild improvement Patient had acute versus acute on chronic systolic congestive heart failure with ejection fraction of 20 to 25%, evaluated by cardiology Managed appropriately. With antifailure medications. Patient also has severe protein calorie malnutrition due to underlying disease process And is chronically ill looking cachectic and emaciated on nutrition supplements Today he is comfortable generalized weakness, vital signs reviewed Hemodynamically stable for discharge to personal retirement with hospice Patient is hemodynamically stable, with guarded prognosis Discharge diagnosis: SARS CoV2 PCR: Negative HIV: Negative 10/10/2020 blood culture: VRE 2 out of 4 bottles 10/10/2020 urine culture: Magali 10/14/2020 blood culture no growth today 10/14/2020 blood culture: GPC 3 of 4 10/18/2020 blood culture: No growth today --HIV test x 2 negative --Hypomagnesemia; replenished with 4 g of mag self IV Monitor electrolytes --Pancytopenia; Current Visit: Yes Status: Acute probably due to underlying multiple myeloma, sepsis Treat the underlying cause Telemetry hematology following Patient will follow with his private health safety instructor upon discharge --Leukopenia; Current Visit: Yes Status: Acute. Received filgrastim subcu 1 dose yesterday Give 1 more dose today, Closely monitor Telemetry hematology following --Sepsis due to persistent bacteremia Current Visit: Yes Status: Acute Continue daptomycin per ID, stop date 11/01/2020 FLORESITA negative for endocarditis Last dose of daptomycin today per ID --VRE bacteremia; Current Visit: Yes Status: Acute Unclear source/recent spinal surgery T10-T12, L1-L2, details not available Records requested from [facility] Unable to treat with linezolid secondary due to thrombocytopenia. ID recommended daptomycin for total 14 days last dose today ending 11/01/2020 Discussed with ID as well as case management -- Multiple Myeloma: Current Visit: Yes Status: Acute Management hem/onc per Dr Koehler bone survey c/w multiple myeloma rib tumors and 6cm R scapula tumor, L spine tumor no specific T spine tumor described kappa 986 k/l ratio 298 SPEP tiny M-spike, no BHARAT BMBx prelim-hypocellular; pending final interpretation presumed multiple myeloma [main cause of patient sickness] immunocompromised-presumed pneumonia low WBC related to bone marrow dysfunction good enough candidate for anti-myeloma therapy, needs it soon recent severe anemia due to multiple myeloma; RBC transfusion dependence Advised; await final bone marrow biopsy interp Transfusion as needed receiving IV Abx for presumed pneumonia off steroids Patient will follow heme-onc upon discharge for resuscitation therapy, IV antibiotic therapy, urinalysis, chest x-ray, blood cultures. Continue IV fluids --Acute kidney injury (NELSY) with acute tubular necrosis (ATN) Current Visit: Yes Status: Acute Resolved, renal function within normal level --Hypocalcemia; Current Visit: Yes Status: Acute Replenished with calcium gluconate, and oral supplements Closely monitor levels --Hypophosphatemia; Current Visit: Yes Status: Acute Closely monitor electrolytes and adjust as needed --Hypomagnesemia; Current Visit: Yes Status: Acute Closely monitor electrolytes and replenish as needed --Anemia; Hb 6.4 -8.0 Current Visit: Yes Status: Acute Received 1 unit PRBC transfusion check H&H, transfuse additional as needed. Hematology consult --History of recent spinal surgery: at [facility] Current Visit: Yes Status: chr T10 T12, L1-L2 surgery, surgical sutures on the back Wound care, continue antibiotics, request records from [facility] --Acute systolic CHF/ EF 20 to 25% Current Visit: Yes Status: Acute antifailure medication with diuretic, beta-blockers, LALITHA inhibitors, input output monitoring, low-sodium diet,fluid restriction. Cardiology consult noted and appreciated --UTI/ur cultures grew Magali Current Visit: Yes Status: Acute Continue Diflucan , supportive care/ -- Severe protein calorie malnutrition Current Visit: Yes Status: Acute Albumin 1.7 nutrition supplements ,, nutrition consult --Pneumonia Current Visit: Yes Status: Acute Completed 5 days of Rocephin and Zithromax -- COVID-19 negative Current Visit: Yes Status: Acute Coronavirus PCR negative -- DVT prophylaxis Current Visit: Yes Status: Acute SCDs bilateral lower extremities while in bed, patient is ambulatory Patient advised to follow hematology oncology for further evaluation and management Disposition: DC/TX-70 ANOTHER TYPE HLTHCARE Final Discharge Diagnosis (Prints w/discharge instructions): Pancytopenia. Newly diagnosed multiple myeloma. Pneumonia completed treatment. Severe protein calorie malnutrition. UTI completed treatment. COVID-19 negative. Acute on chronic systolic congestive heart failure EF 20 to 25%. VRE bacteremia completed treatment. Anemia requiring blood transfusion. Acute kidney injury resolved. History of recent spinal surgery. Hypocalcemia/hypomagnesemia/hyponatremia. HIV x2 - negative Time spent for discharge: 35 min Core Measure Documentation - Palliative Care Palliative Care/ Comfort Measures: Hospice Care - Core Measures Any of the following diagnoses?: none Exam - Constitutional Vitals: Temp Pulse Resp BP Pulse Ox 98.7 F 104 H 20 94/63 99 11/01/20 11:37 11/01/20 11:37 11/01/20 11:37 11/01/20 11:37 11/01/20 11:37 General appearance: Present: no acute distress, cachectic, disheveled, other (Emaciated) - EENT Eyes: Present: PERRL, EOM intact - Neck Neck: Present: supple, normal ROM - Respiratory Respiratory effort: normal Respiratory: bilateral: diminished, negative: rales, rhonchi, wheezing - Cardiovascular Rhythm: regular Heart Sounds: Present: S1 & S2 - Extremities Extremities: no ischemia, No edema - Abdominal General gastrointestinal: Present: soft, non-tender, non-distended, normal bowel sounds - Integumentary Integumentary: Present: clear, warm - Musculoskeletal Musculoskeletal: strength equal bilaterally, generalized weakness - Psychiatric Psychiatric: appropriate mood/affect, cooperative - Neurologic Neurologic: CNII-XII intact, moves all extremities Plan Activity: advance as tolerated, fall precautions Diet: regular Special Instructions: physical therapy, occupational therapy Additional Instructions: If you have worsening symptoms contact MD or go to emergency room. Is to see private health safety instructor/oncologist for further evaluation and management of multiple myeloma Follow up with: PRIMARY CARE, [Primary Care Provider] - 3-5 Days SHUKRI OBANDO MD [Staff Physician] - 7 Days JOSE LUIS CAMPBELL MD [Staff Physician] - 7 Days Forms: Work/School Release Form Prescriptions: Spironolactone [Aldactone] 25 mg PO QDAY #30 tablet Phenol 1.4% [Chloraseptic] 1 spray MM PRN PRN #1 bottle PRN Reason: Sore Throat carvediloL [Coreg] 3.125 mg PO BID #60 tablet Hypromellose [Isopto Tears 0.5%] 2 drops OU Q4H PRN #1 bottle PRN Reason: Dry Eye(S) Magnesium Oxide [Mag-Ox] 400 mg PO QDAY #10 tablet Calcium Carbonate [Oscal 1250MG TAB] 1,250 mg PO BID #30 tablet guaiFENesin [Robitussin] 200 mg PO Q4H PRN #14 oral.liqd PRN Reason: Cough lisinopriL [Zestril TAB] 2.5 mg PO QDAY #30 tablet
[2020-11-02] MEDS: MAGNESIUM OXIDE 400 MG TAB PO SCH (10:31)
[2020-11-02] MEDS: ASPIRIN EC 81 MG TAB PO SCH (10:31)
[2020-11-02] MEDS: CALCIUM CARBONATE 1250 MG TAB PO SCH ×2 (10:32→22:41)
[2020-11-02] MEDS: SPIRONOLACTONE 25 MG TAB PO SCH (10:39)
[2020-11-02] MEDS: carvediloL 3.125 MG TAB PO SCH ×2 (10:39→22:41)
[2020-11-02] MEDS: LISINOPRIL 5 MG TAB PO SCH (10:40)
--- NOTE | 2020-11-02 12:58 | Progress Note ---
Assessment and Plan Assessment and plan: --Quintero PCR test positive 11/02/2020 [negative Covid test on 10/11/2020 and 10/21/2020] --HIV test x 2 negative and --Hypomagnesemia; replenished with 4 g of mag self IV Monitor electrolytes --Pancytopenia; Current Visit: Yes Status: Acute probably due to underlying multiple myeloma, sepsis Treat the underlying cause Telemetry hematology following Patient will follow with his private spray painter upon discharge --Leukopenia; Current Visit: Yes Status: Acute. Received filgrastim subcu 1 dose yesterday Give 1 more dose today, Closely monitor Telemetry hematology following --Sepsis due to persistent bacteremia Current Visit: Yes Status: Acute Continue daptomycin per ID, stop date 11/01/2020 FLORESITA negative for endocarditis Last dose of daptomycin today per ID --VRE bacteremia; Current Visit: Yes Status: Acute Unclear source/recent spinal surgery T10-T12, L1-L2, details not available Records requested from [facility] Unable to treat with linezolid secondary due to thrombocytopenia. ID recommended daptomycin for total 14 days last dose today ending 11/01/2020 Discussed with ID as well as case management -- Multiple Myeloma: Current Visit: Yes Status: Acute Management hem/onc per Dr Koehler bone survey c/w multiple myeloma rib tumors and 6cm R scapula tumor, L spine tumor no specific T spine tumor described kappa 986 k/l ratio 298 SPEP tiny M-spike, no BHARAT BMBx prelim-hypocellular; pending final interpretation presumed multiple myeloma [main cause of patient sickness] immunocompromised-presumed pneumonia low WBC related to bone marrow dysfunction good enough candidate for anti-myeloma therapy, needs it soon recent severe anemia due to multiple myeloma; RBC transfusion dependence Advised; await final bone marrow biopsy interp Transfusion as needed receiving IV Abx for presumed pneumonia off steroids Patient will follow heme-onc upon discharge for resuscitation therapy, IV antibiotic therapy, urinalysis, chest x-ray, blood cultures. Continue IV fluids --Acute kidney injury (NELSY) with acute tubular necrosis (ATN) Current Visit: Yes Status: Acute Resolved, renal function within normal level --Hypocalcemia; Current Visit: Yes Status: Acute Replenished with calcium gluconate, and oral supplements Closely monitor levels --Hypophosphatemia; Current Visit: Yes Status: Acute Closely monitor electrolytes and adjust as needed --Hypomagnesemia; Current Visit: Yes Status: Acute Closely monitor electrolytes and replenish as needed --Anemia; Hb 6.4 -8.0 Current Visit: Yes Status: Acute Received 1 unit PRBC transfusion check H&H, transfuse additional as needed. Hematology consult --History of recent spinal surgery: at [facility] Current Visit: Yes Status: chr T10 T12, L1-L2 surgery, surgical sutures on the back Wound care, continue antibiotics, request records from [facility] --Acute systolic CHF/ EF 20 to 25% Current Visit: Yes Status: Acute antifailure medication with diuretic, beta-blockers, LALITHA inhibitors, input output monitoring, low-sodium diet,fluid restriction. Cardiology consult noted and appreciated --UTI/ur cultures grew Magali Current Visit: Yes Status: Acute Continue Diflucan , supportive care/ -- Severe protein calorie malnutrition Current Visit: Yes Status: Acute Albumin 1.7 nutrition supplements ,, nutrition consult --Pneumonia Current Visit: Yes Status: Acute Completed 5 days of Rocephin and Zithromax -- COVID-19 negative Current Visit: Yes Status: Acute Coronavirus PCR negative -- DVT prophylaxis Current Visit: Yes Status: Acute SCDs bilateral lower extremities while in bed, patient is ambulatory Closely monitor the patient and adjust management as needed Plan of care reviewed with the patient and his nurse Couture Dressmaker recommendations noted and appreciated Brief history: Daily hospital course: The patient is a 55-year-old male with diabetes, malnutrition, resident of an assisted living facility was brought into the emergency room with complaints of sore throat and back pain. Chest x-ray showed bilateral pneumonia with labs showing evidence of acute kidney injury. Patient afebrile on admission, also not hypoxic. Labs showed leukopenia, hyperkalemia, creatinine 2.5, ferritin 08/17/2007, CRP 5.6, LDH 233, CRP 5.6 10/16/2020; sepsis secondary to VRE bacteremia, UTI and pneumonia Continue current antibiotics per ID, contact isolation due to VRE 10/17/2020; patient is more alert and awake today, feels better CT abdomen and pelvis findings noted continue current antibiotics Physical therapy, Occupational Therapy as tolerated 10/18/2020; cardiology evaluations appreciated FLORESITA negative for endocarditis, cardiology started goal-directed CHF treatment 10/19/2020; persistent bacteremia, FLORESITA negative for endocarditis Continue ID cardiology recommendations Patient complains of some sore throat, Cepacol throat spray and Cepacol lozenges 10/20/2020; anemia, hemoglobin 6.4, transfuse 1 unit PRBC Closely monitor H&H transfuse additional PRBC as needed Pancytopenia, hematology consult inpatient versus outpatient 10/21/2020; patient's hemoglobin increased to 8.0 Severe hypophosphatemia, hypomagnesemia replenished Also consulted spray painter Dr. Yusuf Koehler 10/22/2020; hematology evaluation noted and appreciated bone marrow biopsy requested And work-up for multiple myeloma in process 10/23/2020; continue current management, disposition per ID and hematology 10/24/2020; multiple myeloma management per hematology Persistent sepsis VRE, management per ID, long-term antibiotics Stop date 11/01/202010/25--10/28; clinically no change same condition 10/29/20; patient continues daptomycin stop date 11/01/2020 Multiple myeloma work-up in progress, appreciate heme-onc input Recommend outpatient follow-up with hematology oncology for further evaluation and management upon discharge 10/30; severe leukopenia, give 1 dose of filgrastim subcu Hematology following, closely monitor Neutropenia precautions as needed Patient is critically ill guarded prognosis 10/31; patient will receive 1 more dose of filgrastim today Closely monitor RBC WBC and platelets Patient needs to see spray painter upon discharge 11/01;Hypomagnesemia, replenish per protocol, last dose of daptomycin DC planning per case management Initially discharged the patient however personal fdc requested quintero PCR Discharge held, continue current management Possible discharge tomorrow personal-fdc tomorrow evening if Covid test is negative 11/02; patient's Covid test is positive, will reconsult ID Continue isolation, check room air and ambulatory O2 sats Consider dexamethasone and remdesivir if needed Patient is supposed to be discharged to personal fdc today We will hold the discharge History Interval history: I have seen and examined the patient at the bedside Patient is angry and upset that he is not being discharged Patient's DC was held yesterday for Covid test Quintero PCR test today is positive Discharge is held Vital signs noted Hospitalist Physical - Constitutional Vitals: Temp Pulse Resp BP Pulse Ox 98.4 F 88 20 92/64 99 11/02/20 10:41 11/02/20 10:40 11/02/20 10:40 11/02/20 10:40 11/02/20 10:40 General appearance: Present: no acute distress, cachectic, disheveled, other (Chronically ill looking cachectic) - EENT Eyes: Present: PERRL, EOM intact - Neck Neck: Present: supple, normal ROM - Respiratory Respiratory effort: normal Respiratory: bilateral: diminished, negative: rales, rhonchi, wheezing - Cardiovascular Rhythm: regular Heart Sounds: Present: S1 & S2 - Extremities Extremities: no ischemia, No edema - Abdominal General gastrointestinal: soft, non-tender, non-distended, normal bowel sounds - Integumentary Integumentary: Present: clear, warm - Psychiatric Psychiatric: appropriate mood/affect, cooperative - Neurologic Neurologic: CNII-XII intact, moves all extremities Results - Labs CBC & Chem 7: 11/01/20 05:48 11/01/20 05:48 Labs: Laboratory Last Values WBC 2.3 K/mm3 (4.5-11.0) L 11/01/20 05:48 RBC 2.50 M/mm3 (3.65-5.03) L 11/01/20 05:48 Hgb 7.9 gm/dl (11.8-15.2) L 11/01/20 05:48 Hct 23.0 % (35.5-45.6) L 11/01/20 05:48 MCV 92 fl (84-94) 11/01/20 05:48 MCH 32 pg (28-32) 11/01/20 05:48 MCHC 34 % (32-34) 11/01/20 05:48 RDW 17.3 % (13.2-15.2) H 11/01/20 05:48 Plt Count 58 K/mm3 (140-440) L 11/01/20 05:48 Lymph % (Auto) 13.0 % (13.4-35.0) L 10/31/20 11:23 [place] % (Auto) 1.0 % (0.0-7.3) 10/31/20 11:23 Eos % (Auto) 3.7 % (0.0-4.3) 10/31/20 11:23 Baso % (Auto) 0.2 % (0.0-1.8) 10/31/20 11:23 Lymph # (Auto) 0.4 K/mm3 (1.2-5.4) L 10/31/20 11:23 [place] # (Auto) 0.0 K/mm3 (0.0-0.8) 10/31/20 11:23 Eos # (Auto) 0.1 K/mm3 (0.0-0.4) 10/31/20 11:23 Baso # (Auto) 0.0 K/mm3 (0.0-0.1) 10/31/20 11:23 Add Manual Diff Complete 11/01/20 05:48 Total Counted 50 11/01/20 05:48 Seg Neutrophils % 82.1 % (40.0-70.0) H 10/31/20 11:23 Seg Neuts % (Manual) 82.0 % (40.0-70.0) H 11/01/20 05:48 Band Neutrophils % 4.0 % 11/01/20 05:48 Lymphocytes % (Manual) 12.0 % (13.4-35.0) L 11/01/20 05:48 Monocytes % (Manual) 2.0 % (0.0-7.3) 11/01/20 05:48 Eosinophils % (Manual) 4.0 % (0.0-4.3) 10/30/20 07:53 Basophils % (Manual) 1.0 % (0.0-1.8) 10/10/20 16:31 Metamyelocytes % 1.0 % 10/26/20 08:51 Nucleated RBC % Not Reportable 11/01/20 05:48 Seg Neutrophils # 2.3 K/mm3 (1.8-7.7) 10/31/20 11:23 Seg Neutrophils # Man 1.9 K/mm3 (1.8-7.7) 11/01/20 05:48 Band Neutrophils # 0.1 K/mm3 11/01/20 05:48 Lymphocytes # (Manual) 0.3 K/mm3 (1.2-5.4) L 11/01/20 05:48 Abs React Lymphs (Man) 0.0 K/mm3 11/01/20 05:48 Monocytes # (Manual) 0.0 K/mm3 (0.0-0.8) 11/01/20 05:48 Eosinophils # (Manual) 0.0 K/mm3 (0.0-0.4) 11/01/20 05:48 Basophils # (Manual) 0.0 K/mm3 (0.0-0.1) 11/01/20 05:48 Metamyelocytes # 0.0 K/mm3 11/01/20 05:48 Myelocytes # 0.0 K/mm3 11/01/20 05:48 Promyelocytes # 0.0 K/mm3 11/01/20 05:48 Blast Cells # 0.0 K/mm3 11/01/20 05:48 WBC Morphology Not Reportable 11/01/20 05:48 Hypersegmented Neuts Not Reportable 11/01/20 05:48 Hyposegmented Neuts Not Reportable 11/01/20 05:48 Hypogranular Neuts Not Reportable 11/01/20 05:48 Smudge Cells Not Reportable 11/01/20 05:48 Toxic Granulation Not Reportable 11/01/20 05:48 Toxic Vacuolation Not Reportable 11/01/20 05:48 Dohle Bodies Not Reportable 11/01/20 05:48 Pelger-Huet Anomaly Not Reportable 11/01/20 05:48 Javon Rods Not Reportable 11/01/20 05:48 Platelet Estimate Consistent w auto 11/01/20 05:48 Clumped Platelets Not Reportable 11/01/20 05:48 Plt Clumps, EDTA Not Reportable 11/01/20 05:48 Large Platelets Not Reportable 11/01/20 05:48 Giant Platelets Not Reportable 11/01/20 05:48 Platelet Satelliting Not Reportable 11/01/20 05:48 Plt Morphology Comment Not Reportable 11/01/20 05:48 RBC Morphology Normal 11/01/20 05:48 Dimorphic RBCs Not Reportable 11/01/20 05:48 Polychromasia Not Reportable 11/01/20 05:48 Hypochromasia Not Reportable 11/01/20 05:48 Poikilocytosis Not Reportable 11/01/20 05:48 Anisocytosis Not Reportable 11/01/20 05:48 Microcytosis Not Reportable 11/01/20 05:48 Macrocytosis Not Reportable 11/01/20 05:48 Spherocytes Not Reportable 11/01/20 05:48 Pappenheimer Bodies Not Reportable 11/01/20 05:48 Sickle Cells Not Reportable 11/01/20 05:48 Target Cells Not Reportable 11/01/20 05:48 Tear Drop Cells Not Reportable 11/01/20 05:48 Ovalocytes Not Reportable 11/01/20 05:48 Helmet Cells Not Reportable 11/01/20 05:48 [place] Bodies Not Reportable 11/01/20 05:48 [place] Rings Not Reportable 11/01/20 05:48 [place] Cells Not Reportable 11/01/20 05:48 Bite Cells Not Reportable 11/01/20 05:48 Crenated Cell Not Reportable 11/01/20 05:48 Elliptocytes Not Reportable 11/01/20 05:48 Acanthocytes (Spur) Not Reportable 11/01/20 05:48 Rouleaux Not Reportable 11/01/20 05:48 Hemoglobin C Crystals Not Reportable 11/01/20 05:48 Schistocytes Not Reportable 11/01/20 05:48 Malaria parasites Not Reportable 11/01/20 05:48 Lit Bodies Not Reportable 11/01/20 05:48 Hem Pathologist Commnt No 11/01/20 05:48 PT 13.2 Sec. (12.2-14.9) 10/22/20 09:09 INR 1.01 (0.87-1.13) 10/22/20 09:09 APTT 26.8 Sec. (24.2-36.6) 10/22/20 09:09 D-Dimer 2351.86 ng/mlDDU (0-234) H 10/10/20 17:54 Sodium 131 mmol/L (137-145) L 11/01/20 05:48 Potassium 4.3 mmol/L (3.6-5.0) 11/01/20 05:48 Chloride 96.7 mmol/L (98-107) L 11/01/20 05:48 Carbon Dioxide 23 mmol/L (22-30) 11/01/20 05:48 Anion Gap 16 mmol/L 11/01/20 05:48 BUN 13 mg/dL (9-20) 11/01/20 05:48 Creatinine 0.6 mg/dL (0.8-1.3) L 11/01/20 05:48 Estimated GFR > 60 ml/min 11/01/20 05:48 BUN/Creatinine Ratio 22 % 11/01/20 05:48 Glucose 77 mg/dL (75-100) 11/01/20 05:48 POC Glucose 117 mg/dL (70-105) H 10/29/20 22:15 Calcium 7.5 mg/dL (8.4-10.2) L 11/01/20 05:48 Phosphorus 2.60 mg/dL (2.5-4.5) 11/01/20 05:48 Magnesium 1.40 mg/dL (1.7-2.3) L 11/01/20 05:48 Ferritin 2608.0 ng/mL (30.0-300.0) H 10/10/20 17:54 Total Bilirubin 0.30 mg/dL (0.1-1.2) 10/30/20 07:53 AST 25 units/L (5-40) 10/30/20 07:53 ALT 75 units/L (7-56) H 10/30/20 07:53 Alkaline Phosphatase 247 units/L (35-129) H 10/30/20 07:53 Lactate Dehydrogenase 233 units/L (91-180) H 10/10/20 17:54 Total Creatine Kinase 49 units/L (55-170) L 10/23/20 05:12 C-Reactive Protein 0.40 mg/dL (0.00-1.30) 10/16/20 17:23 Serum Total Protein 5.9 g/dL (6.1-8.1) L 10/22/20 08:59 Total Protein 6.9 g/dL (6.3-8.2) 10/30/20 07:53 Albumin 2.1 g/dL (3.9-5) L 10/30/20 07:53 Albumin/Globulin Ratio 0.4 % 10/30/20 07:53 Csysj-7-Udfbnahma 0.3 g/dL (0.2-0.3) 10/22/20 08:59 Jyqht-2-Hhgrncoai 0.6 g/dL (0.5-0.9) 10/22/20 08:59 Beta Globulins 2.8 g/dL (0.2-0.5) H 10/22/20 08:59 Glvc-0-Teticmtheueyx 3.88 mg/L (<=2.51) H 10/23/20 05:12 Gamma Globulins 0.3 g/dL (0.8-1.7) L 10/22/20 08:59 Abnorm Protein Band 1 2.4 g/dL H 10/22/20 08:59 Abnorm Protein Band 2 see below 10/22/20 08:59 PEP Interpretation see below H 10/22/20 08:59 Procalcitonin 0.61 ng/mL (<0.15) 10/14/20 14:54 Urine Color Yellow (Yellow) 10/11/20 Unknown Urine Turbidity Cloudy (Clear) 10/11/20 Unknown Urine pH 5.0 (5.0-7.0) 10/11/20 Unknown Ur Specific [place] 1.019 (1.003-1.030) 10/11/20 Unknown Urine Protein 30 mg/dl mg/dL (Negative) 10/11/20 Unknown Urine Glucose (UA) Neg mg/dL (Negative) 10/11/20 Unknown Urine Ketones Neg mg/dL (Negative) 10/11/20 Unknown Urine Blood Sm (Negative) 10/11/20 Unknown Urine Nitrite Neg (Negative) 10/11/20 Unknown Urine Bilirubin Neg (Negative) 10/11/20 Unknown Urine Urobilinogen < 2.0 mg/dL (<2.0) 10/11/20 Unknown Ur Leukocyte Esterase Tr (Negative) 10/11/20 Unknown Urine WBC (Auto) 36.0 /HPF (0.0-6.0) H 10/11/20 Unknown Urine RBC (Auto) 129.0 /HPF (0.0-6.0) 10/11/20 Unknown U Epithel Cells (Auto) 1.0 /HPF (0-13.0) 10/11/20 Unknown Urine Bacteria (Auto) 2+ /HPF (Negative) 10/11/20 Unknown Urine Mucus Few /HPF 10/11/20 Unknown Urine Yeast (Budding) 2+ /HPF 10/11/20 Unknown Coronavirus (PCR) Negative (Negative) 10/21/20 10:00 HIV 1&2 Antibody Rapid Non react (Non React) 10/16/20 17:23 HIV P24 Antigen Non react (Non React) 10/16/20 17:23 Miscellaneous Test Flexitest 1 H 10/22/20 Unknown Blood Type B POSITIVE 10/25/20 13:20 Antibody Screen Negative 10/25/20 13:20 Crossmatch See Detail 10/25/20 13:20 [place]/IV: Voiding Method Indwelling Catheter Active Medications - Current Medications Current Medications: Generic Name Dose Route Start Last Admin Trade Name Freq PRN Reason Stop Dose Admin Acetaminophen 650 mg 10/10/20 19:46 10/28/20 11:10 Acetaminophen 325 Mg Tab PO 650 mg Q4H PRN Administration Pain MILD(1-3)/Fever >100.5/KINNEY Albuterol 2.5 mg 10/10/20 19:46 Albuterol 2.5 Mg/3 Ml Nebu IH Q4HRT PRN Shortness Of Breath Artificial Tears 2 drops 10/20/20 18:29 10/23/20 15:47 Hypromellose 0.5% Ophth Soln 15 Ml OU 2 drops Q4H PRN Administration Dry Eye(s) Aspirin 81 mg 10/18/20 15:00 11/02/20 10:31 Aspirin Ec 81 Mg Tab PO 81 mg QDAY THEE Administration Benzocaine/Menthol 1 each 10/19/20 17:49 10/28/20 09:45 Benzocaine/Menthol Lozenge MM 1 each Q2HR PRN Administration Sore Throat Calcium Carbonate/Glycine 1,250 mg 10/24/20 22:00 11/02/20 10:32 Calcium Carbonate 1250 Mg Tab PO 1,250 mg BID THEE Administration Carvedilol 3.125 mg 10/17/20 22:00 11/02/20 10:39 Carvedilol 3.125 Mg Tab PO Not Given BID THEE Diphenhydramine HCl 25 mg 10/25/20 11:22 Diphenhydramine 50 Mg/Ml Vial IV Q6H PRN premed for RBC or plt transfus Guaifenesin 200 mg 10/29/20 12:09 10/31/20 18:13 Guaifenesin 100 Mg/5 Ml Oral Liqd PO 200 mg Q4H PRN Administration Cough Sodium Chloride 1,000 mls @ 125 mls/hr 10/12/20 11:00 10/23/20 22:17 Nacl 0.45% 1000 Ml IV 125 mls/hr DIRECT THEE Administration Lisinopril 2.5 mg 10/18/20 10:00 11/02/20 10:40 Lisinopril 5 Mg Tab PO Not Given QDAY THEE Magnesium Oxide 400 mg 10/22/20 10:00 11/02/20 10:31 Magnesium Oxide 400 Mg Tab PO 400 mg QDAY THEE Administration Ondansetron HCl 4 mg 10/10/20 19:46 Ondansetron 4 Mg/2 Ml Inj IV Q8H PRN Nausea And Vomiting Phenol 1 spray 10/15/20 14:54 10/18/20 21:53 Phenol 1.4% 177 Ml Bottle MM 1 spray PRN PRN Administration Sore Throat Sodium Chloride 10 ml 10/10/20 22:00 11/02/20 10:40 Sodium Chloride 0.9% 10 Ml Flush Syringe IV 10 ml BID THEE Administration Sodium Chloride 10 ml 10/10/20 19:46 Sodium Chloride 0.9% 10 Ml Flush Syringe IV PRN PRN LINE FLUSH Spironolactone 25 mg 10/18/20 15:00 11/02/20 10:39 Spironolactone 25 Mg Tab PO Not Given QDAY [facility] Nutrition/Malnutrition Assess - Dietary Evaluation Nutrition/Malnutrition Findings: Nutrition Notes Start: 10/11/20 12:16 Freq: Status: Active Protocol: Document 11/01/20 13:10 (Rec: 11/01/20 13:12 [email or web address]) Nutrition Notes Initial or Follow up Reassessment Current Diagnosis Acute Kidney Injury,Diabetes Other Pertinent Diagnosis SIRS, pneu Current Diet Consistent Carbohydrate Diet + Glucerna Labs/Tests Na 131 Mg 1.4 Pertinent Medications Mag-Ox Oscal Height 5 ft 6 in Weight 57 kg Usual Body Weight 105 kg Dig[place] Body Weight (kg) 64.54 BMI 20.2 Weight change and time frame 46% wt loss in 2 months, per pt report Weight Status Appropriate Subjective/Other Information FU for intakes. Pt reports eating 100% of meals and ONS. Percent of energy/protein needs met: 100%/100% Burn Absent Trauma Absent Current % PO Good (75-100%) Minimum of two criteria Yes Interpretation of Weight Loss (severe) >5% in 1 month Body Fat Depletion Moderate depletion (severe) Protein-Calorie Malnutrition Severe #1 Nutrition Diagnosis Malnutrition As Evidenced by Signs and Symptoms fat wasting and dx of severe malnutrition, >5% wt loss in 1 month Diagnosis Progress(for reassessment Continues documentation) Is patient on ventilator? No Is Patient Ambulatory and/or Out of Bed Yes REE-([place]-St. Jeor-ambulatory/OOB) [ 1739.075 [id number]] Kcal/Kg value to use for calculation 38 Approximate Energy Requirements Using 2166 kcal/Kg Calculation Used for Recommendations Kcal/kg Additional Notes Pro needs 1.2-1.5g/k-104g /day Fluid needs 1ml/kcal Nutrition Intervention Change Diet Order: Continue current diet order Add Supplement/Snack (indicate name/kcal Glucerna BID /protein ) Provides kCal: 440 Provides Protein (gm) 20 Goal #1 PO intake of meals plus ONS to meet 75-100% energy and pro needs Goal #2 Wt maintenance and/or gain Follow-Up By: 11/08/20 Additional Comments FU for stable intakes
[2020-11-02] MEDS: guaiFENesin 100 MG/5 ML ORAL LIQD PO PRN (18:45)
[2020-11-03 05:42] LABS: Hematocrit 23.2 % (35.5-45.6); Hemoglobin 7.8 gm/dl (11.8-15.2); Mean Corpuscular HGB Conc 34 % (32-34); Mean Corpuscular Volume 93 fl (84-94); Red Cell Distribution Width 17.5 % (13.2-15.2)
[2020-11-03 06:02] LABS: Alanine Aminotransferase 46 units/L (7-56); Albumin 2.3 g/dL (3.9-5); Blood Urea Nitrogen 12 mg/dL (9-20); Calcium 7.8 mg/dL (8.4-10.2); Hemolysis Index 2
[2020-11-03 06:11] LABS: BUN/Creatinine Ratio 20
[2020-11-03 06:15] LABS: Platelet Count 58 K/mm3 (140-440)
[2020-11-03] MEDS: ACETAMINOPHEN 325 MG TAB PO PRN (06:15)
--- NOTE | 2020-11-03 08:21 | Progress Note ---
Assessment and Plan Assessment and plan: --Quintero PCR test positive 11/02/2020 Current Visit: Yes Status: Acute. [negative Covid test, 10/11/2020, 10/21/2020] Contact and droplet isolation Patient on room air saturating well Prone position Check inflammatory markers Reconsult ID,Hold discharge Immunocompromised patient --HIV test x 2 negative --Hypomagnesemia; replenished with 4 g of mag self IV Monitor electrolytes --Pancytopenia; Current Visit: Yes Status: Acute WBC 1.7 hemoglobin 7.8 platelets 58 Hematology following will give 1 dose of Neupogen today multiple myeloma, sepsis, Treat the underlying cause Telemetry hematology recommend the patient to see outpatient project construction manager For further evaluation and management --Leukopenia; Current Visit: Yes Status: Acute. Received filgrastim subcu 1 dose yesterday Give 1 more dose today, Closely monitor Telemetry hematology following --Sepsis due to persistent bacteremia Current Visit: Yes Status: Acute Continue daptomycin per ID, stop date 11/01/2020 FLORESITA negative for endocarditis Last dose of daptomycin today per ID --VRE bacteremia; Current Visit: Yes Status: Acute Unclear source/recent spinal surgery T10-T12, L1-L2, details not available Records requested from [facility] Unable to treat with linezolid secondary due to thrombocytopenia. ID recommended daptomycin for total 14 days last dose today ending 11/01/2020 Discussed with ID as well as case management -- Multiple Myeloma: Current Visit: Yes Status: Acute Management hem/onc per Dr Koehler bone survey c/w multiple myeloma rib tumors and 6cm R scapula tumor, L spine tumor no specific T spine tumor described kappa 986 k/l ratio 298 SPEP tiny M-spike, no BHARAT BMBx prelim-hypocellular; pending final interpretation presumed multiple myeloma [main cause of patient sickness] immunocompromised-presumed pneumonia low WBC related to bone marrow dysfunction good enough candidate for anti-myeloma therapy, needs it soon recent severe anemia due to multiple myeloma; RBC transfusion dependence Advised; await final bone marrow biopsy interp Transfusion as needed receiving IV Abx for presumed pneumonia off steroids Patient will follow heme-onc upon discharge for resuscitation therapy, IV antibiotic therapy, urinalysis, chest x-ray, blood cultures. Continue IV fluids --Acute kidney injury (NELSY) with acute tubular necrosis (ATN) Current Visit: Yes Status: Acute Resolved, renal function within normal level --Hypocalcemia; Current Visit: Yes Status: Acute Replenished with calcium gluconate, and oral supplements Closely monitor levels --Hypophosphatemia; Current Visit: Yes Status: Acute Closely monitor electrolytes and adjust as needed --Hypomagnesemia; Current Visit: Yes Status: Acute Closely monitor electrolytes and replenish as needed --Anemia; Hb 6.4 -8.0 Current Visit: Yes Status: Acute Received 1 unit PRBC transfusion check H&H, transfuse additional as needed. Hematology consult --History of recent spinal surgery: at [facility] Current Visit: Yes Status: chr T10 T12, L1-L2 surgery, surgical sutures on the back Wound care, continue antibiotics, request records from [facility] --Acute systolic CHF/ EF 20 to 25% Current Visit: Yes Status: Acute antifailure medication with diuretic, beta-blockers, LALITHA inhibitors, input output monitoring, low-sodium diet,fluid restriction. Cardiology consult noted and appreciated --UTI/ur cultures grew Magali Current Visit: Yes Status: Acute Completed Diflucan x3 doses per ID -- Severe protein calorie malnutrition Current Visit: Yes Status: Acute Albumin 1.7 nutrition supplements ,, nutrition consult --Pneumonia Current Visit: Yes Status: Acute Completed 5 days of Rocephin and Zithromax -- DVT prophylaxis Current Visit: Yes Status: Acute SCDs bilateral lower extremities while in bed, patient is ambulatory Patient is severely ill with multiple medical problems, immunocompromised multiple myeloma Pancytopenia, Covid positive state, very poor prognosis Multiple social issues, homeless, no resources DC planning per case management and patient is stable Closely monitor the patient and adjust management as needed Plan of care reviewed with the patient and his nurse Ear Pull Machine Operator recommendations noted and appreciated Brief history: Daily hospital course: The patient is a 55-year-old male with diabetes, malnutrition, resident of an assisted living facility was brought into the emergency room with complaints of sore throat and back pain. Chest x-ray showed bilateral pneumonia with labs showing evidence of acute kidney injury. Patient afebrile on admission, also not hypoxic. Labs showed leukopenia, hyperkalemia, creatinine 2.5, ferritin 08/17/2007, CRP 5.6, LDH 233, CRP 5.6 10/16/2020; sepsis secondary to VRE bacteremia, UTI and pneumonia Continue current antibiotics per ID, contact isolation due to VRE 10/17/2020; patient is more alert and awake today, feels better CT abdomen and pelvis findings noted continue current antibiotics Physical therapy, Occupational Therapy as tolerated 10/18/2020; cardiology evaluations appreciated FLORESITA negative for endocarditis, cardiology started goal-directed CHF treatment 10/19/2020; persistent bacteremia, FLORESITA negative for endocarditis Continue ID cardiology recommendations Patient complains of some sore throat, Cepacol throat spray and Cepacol lozenges 10/20/2020; anemia, hemoglobin 6.4, transfuse 1 unit PRBC Closely monitor H&H transfuse additional PRBC as needed Pancytopenia, hematology consult inpatient versus outpatient 10/21/2020; patient's hemoglobin increased to 8.0 Severe hypophosphatemia, hypomagnesemia replenished Also consulted project construction manager Dr. Yusuf Koehler 10/22/2020; hematology evaluation noted and appreciated bone marrow biopsy requested And work-up for multiple myeloma in process 10/23/2020; continue current management, disposition per ID and hematology 10/24/2020; multiple myeloma management per hematology Persistent sepsis VRE, management per ID, long-term antibiotics Stop date 11/01/202010/25--10/28; clinically no change same condition 10/29/20; patient continues daptomycin stop date 11/01/2020 Multiple myeloma work-up in progress, appreciate heme-onc input Recommend outpatient follow-up with hematology oncology for further evaluation and management upon discharge 10/30; severe leukopenia, give 1 dose of filgrastim subcu Hematology following, closely monitor Neutropenia precautions as needed Patient is critically ill guarded prognosis 10/31; patient will receive 1 more dose of filgrastim today Closely monitor RBC WBC and platelets Patient needs to see project construction manager upon discharge 11/01;Hypomagnesemia, replenish per protocol, last dose of daptomycin DC planning per case management Initially discharged the patient however personal group home requested quintero PCR Discharge held, continue current management Possible discharge tomorrow personal-group home tomorrow evening if Covid test is negative 11/02; patient's Covid test is positive, will reconsult ID Continue isolation, check room air and ambulatory O2 sats Consider dexamethasone and remdesivir if needed Patient is supposed to be discharged to personal group home today We will hold the discharge 11/03; patient immunocompromised, COVID-19 positive reported 11/02/2020 Multiple myeloma, pancytopenia WBC 1.7 hemoglobin 7.8 platelets 58 Hematology following will give 1 dose of Neupogen today History Interval history: I have seen and examined the patient at the bedside Patient's chart and medications reviewed Patient is on room , no hypoxia Chronically ill looking cachectic Pancytopenia Vital signs reviewed Hospitalist Physical - Constitutional Vitals: Temp Pulse Resp BP Pulse Ox 97.7 F 95 H 18 97/63 100 11/03/20 05:23 11/03/20 05:23 11/03/20 05:23 11/03/20 05:23 11/03/20 05:23 General appearance: Present: mild distress, cachectic, disheveled, other (Chronically ill looking cachectic) - EENT Eyes: Present: PERRL, EOM intact - Neck Neck: Present: supple, normal ROM - Respiratory Respiratory effort: normal Respiratory: bilateral: diminished, rhonchi, negative: rales, wheezing - Cardiovascular Rhythm: regular Heart Sounds: Present: S1 & S2 - Extremities Extremities: no ischemia, No edema - Abdominal General gastrointestinal: soft, non-tender, non-distended, normal bowel sounds - Integumentary Integumentary: Present: clear, warm - Psychiatric Psychiatric: appropriate mood/affect, cooperative - Neurologic Neurologic: moves all extremities Results - Labs CBC & Chem 7: 11/03/20 04:36 11/03/20 04:36 Labs: Laboratory Last Values WBC 1.7 K/mm3 (4.5-11.0) L* 11/03/20 04:36 RBC 2.50 M/mm3 (3.65-5.03) L 11/03/20 04:36 Hgb 7.8 gm/dl (11.8-15.2) L 11/03/20 04:36 Hct 23.2 % (35.5-45.6) L 11/03/20 04:36 MCV 93 fl (84-94) 11/03/20 04:36 MCH 31 pg (28-32) 11/03/20 04:36 MCHC 34 % (32-34) 11/03/20 04:36 RDW 17.5 % (13.2-15.2) H 11/03/20 04:36 Plt Count 58 K/mm3 (140-440) L 11/03/20 04:36 Lymph % (Auto) 13.0 % (13.4-35.0) L 10/31/20 11:23 Cocke % (Auto) 1.0 % (0.0-7.3) 10/31/20 11:23 Eos % (Auto) 3.7 % (0.0-4.3) 10/31/20 11:23 Baso % (Auto) 0.2 % (0.0-1.8) 10/31/20 11:23 Lymph # (Auto) 0.4 K/mm3 (1.2-5.4) L 10/31/20 11:23 Cocke # (Auto) 0.0 K/mm3 (0.0-0.8) 10/31/20 11:23 Eos # (Auto) 0.1 K/mm3 (0.0-0.4) 10/31/20 11:23 Baso # (Auto) 0.0 K/mm3 (0.0-0.1) 10/31/20 11:23 Add Manual Diff Complete 11/01/20 05:48 Total Counted 50 11/01/20 05:48 Seg Neutrophils % 82.1 % (40.0-70.0) H 10/31/20 11:23 Seg Neuts % (Manual) 82.0 % (40.0-70.0) H 11/01/20 05:48 Band Neutrophils % 4.0 % 11/01/20 05:48 Lymphocytes % (Manual) 12.0 % (13.4-35.0) L 11/01/20 05:48 Monocytes % (Manual) 2.0 % (0.0-7.3) 11/01/20 05:48 Eosinophils % (Manual) 4.0 % (0.0-4.3) 10/30/20 07:53 Basophils % (Manual) 1.0 % (0.0-1.8) 10/10/20 16:31 Metamyelocytes % 1.0 % 10/26/20 08:51 Nucleated RBC % Not Reportable 11/01/20 05:48 Seg Neutrophils # 2.3 K/mm3 (1.8-7.7) 10/31/20 11:23 Seg Neutrophils # Man 1.9 K/mm3 (1.8-7.7) 11/01/20 05:48 Band Neutrophils # 0.1 K/mm3 11/01/20 05:48 Lymphocytes # (Manual) 0.3 K/mm3 (1.2-5.4) L 11/01/20 05:48 Abs React Lymphs (Man) 0.0 K/mm3 11/01/20 05:48 Monocytes # (Manual) 0.0 K/mm3 (0.0-0.8) 11/01/20 05:48 Eosinophils # (Manual) 0.0 K/mm3 (0.0-0.4) 11/01/20 05:48 Basophils # (Manual) 0.0 K/mm3 (0.0-0.1) 11/01/20 05:48 Metamyelocytes # 0.0 K/mm3 11/01/20 05:48 Myelocytes # 0.0 K/mm3 11/01/20 05:48 Promyelocytes # 0.0 K/mm3 11/01/20 05:48 Blast Cells # 0.0 K/mm3 11/01/20 05:48 WBC Morphology Not Reportable 11/01/20 05:48 Hypersegmented Neuts Not Reportable 11/01/20 05:48 Hyposegmented Neuts Not Reportable 11/01/20 05:48 Hypogranular Neuts Not Reportable 11/01/20 05:48 Smudge Cells Not Reportable 11/01/20 05:48 Toxic Granulation Not Reportable 11/01/20 05:48 Toxic Vacuolation Not Reportable 11/01/20 05:48 Dohle Bodies Not Reportable 11/01/20 05:48 Pelger-Huet Anomaly Not Reportable 11/01/20 05:48 Javon Rods Not Reportable 11/01/20 05:48 Platelet Estimate Consistent w auto 11/01/20 05:48 Clumped Platelets Not Reportable 11/01/20 05:48 Plt Clumps, EDTA Not Reportable 11/01/20 05:48 Large Platelets Not Reportable 11/01/20 05:48 Giant Platelets Not Reportable 11/01/20 05:48 Platelet Satelliting Not Reportable 11/01/20 05:48 Plt Morphology Comment Not Reportable 11/01/20 05:48 RBC Morphology Normal 11/01/20 05:48 Dimorphic RBCs Not Reportable 11/01/20 05:48 Polychromasia Not Reportable 11/01/20 05:48 Hypochromasia Not Reportable 11/01/20 05:48 Poikilocytosis Not Reportable 11/01/20 05:48 Anisocytosis Not Reportable 11/01/20 05:48 Microcytosis Not Reportable 11/01/20 05:48 Macrocytosis Not Reportable 11/01/20 05:48 Spherocytes Not Reportable 11/01/20 05:48 Pappenheimer Bodies Not Reportable 11/01/20 05:48 Sickle Cells Not Reportable 11/01/20 05:48 Target Cells Not Reportable 11/01/20 05:48 Tear Drop Cells Not Reportable 11/01/20 05:48 Ovalocytes Not Reportable 11/01/20 05:48 Helmet Cells Not Reportable 11/01/20 05:48 [place] Bodies Not Reportable 11/01/20 05:48 [place] Rings Not Reportable 11/01/20 05:48 [place] Cells Not Reportable 11/01/20 05:48 Bite Cells Not Reportable 11/01/20 05:48 Crenated Cell Not Reportable 11/01/20 05:48 Elliptocytes Not Reportable 11/01/20 05:48 Acanthocytes (Spur) Not Reportable 11/01/20 05:48 Rouleaux Not Reportable 11/01/20 05:48 Hemoglobin C Crystals Not Reportable 11/01/20 05:48 Schistocytes Not Reportable 11/01/20 05:48 Malaria parasites Not Reportable 11/01/20 05:48 Lit Bodies Not Reportable 11/01/20 05:48 Hem Pathologist Commnt No 11/01/20 05:48 PT 13.2 Sec. (12.2-14.9) 10/22/20 09:09 INR 1.01 (0.87-1.13) 10/22/20 09:09 APTT 26.8 Sec. (24.2-36.6) 10/22/20 09:09 D-Dimer 2351.86 ng/mlDDU (0-234) H 10/10/20 17:54 Sodium 131 mmol/L (137-145) L 11/03/20 04:36 Potassium 4.0 mmol/L (3.6-5.0) 11/03/20 04:36 Chloride 96.6 mmol/L (98-107) L 11/03/20 04:36 Carbon Dioxide 25 mmol/L (22-30) 11/03/20 04:36 Anion Gap 13 mmol/L 11/03/20 04:36 BUN 12 mg/dL (9-20) 11/03/20 04:36 Creatinine 0.6 mg/dL (0.8-1.3) L 11/03/20 04:36 Estimated GFR > 60 ml/min 11/03/20 04:36 BUN/Creatinine Ratio 20 % 11/03/20 04:36 Glucose 75 mg/dL (75-100) 11/03/20 04:36 POC Glucose 117 mg/dL (70-105) H 10/29/20 22:15 Calcium 7.8 mg/dL (8.4-10.2) L 11/03/20 04:36 Phosphorus 2.50 mg/dL (2.5-4.5) 11/03/20 04:36 Magnesium 1.70 mg/dL (1.7-2.3) 11/03/20 04:36 Ferritin 2608.0 ng/mL (30.0-300.0) H 10/10/20 17:54 Total Bilirubin 0.30 mg/dL (0.1-1.2) 11/03/20 04:36 AST 20 units/L (5-40) 11/03/20 04:36 ALT 46 units/L (7-56) 11/03/20 04:36 Alkaline Phosphatase 252 units/L (35-129) H 11/03/20 04:36 Lactate Dehydrogenase 233 units/L (91-180) H 10/10/20 17:54 Total Creatine Kinase 49 units/L (55-170) L 10/23/20 05:12 C-Reactive Protein 0.40 mg/dL (0.00-1.30) 10/16/20 17:23 Serum Total Protein 5.9 g/dL (6.1-8.1) L 10/22/20 08:59 Total Protein 8.2 g/dL (6.3-8.2) 11/03/20 04:36 Albumin 2.3 g/dL (3.9-5) L 11/03/20 04:36 Albumin/Globulin Ratio 0.4 % 11/03/20 04:36 Sfjca-4-Jywygbwek 0.3 g/dL (0.2-0.3) 10/22/20 08:59 Inniy-5-Emjmaordo 0.6 g/dL (0.5-0.9) 10/22/20 08:59 Beta Globulins 2.8 g/dL (0.2-0.5) H 10/22/20 08:59 Hnkt-5-Cftvxsnstngdz 3.88 mg/L (<=2.51) H 10/23/20 05:12 Gamma Globulins 0.3 g/dL (0.8-1.7) L 10/22/20 08:59 Abnorm Protein Band 1 2.4 g/dL H 10/22/20 08:59 Abnorm Protein Band 2 see below 10/22/20 08:59 PEP Interpretation see below H 10/22/20 08:59 Procalcitonin 0.61 ng/mL (<0.15) 10/14/20 14:54 Urine Color Yellow (Yellow) 10/11/20 Unknown Urine Turbidity Cloudy (Clear) 10/11/20 Unknown Urine pH 5.0 (5.0-7.0) 10/11/20 Unknown Ur Specific Petros 1.019 (1.003-1.030) 10/11/20 Unknown Urine Protein 30 mg/dl mg/dL (Negative) 10/11/20 Unknown Urine Glucose (UA) Neg mg/dL (Negative) 10/11/20 Unknown Urine Ketones Neg mg/dL (Negative) 10/11/20 Unknown Urine Blood Sm (Negative) 10/11/20 Unknown Urine Nitrite Neg (Negative) 10/11/20 Unknown Urine Bilirubin Neg (Negative) 10/11/20 Unknown Urine Urobilinogen < 2.0 mg/dL (<2.0) 10/11/20 Unknown Ur Leukocyte Esterase Tr (Negative) 10/11/20 Unknown Urine WBC (Auto) 36.0 /HPF (0.0-6.0) H 10/11/20 Unknown Urine RBC (Auto) 129.0 /HPF (0.0-6.0) 10/11/20 Unknown U Epithel Cells (Auto) 1.0 /HPF (0-13.0) 10/11/20 Unknown Urine Bacteria (Auto) 2+ /HPF (Negative) 10/11/20 Unknown Urine Mucus Few /HPF 10/11/20 Unknown Urine Yeast (Budding) 2+ /HPF 10/11/20 Unknown Coronavirus (PCR) Positive (Negative) A 11/01/20 Unknown HIV 1&2 Antibody Rapid Non react (Non React) 10/16/20 17:23 HIV P24 Antigen Non react (Non React) 10/16/20 17:23 Miscellaneous Test Flexitest 1 H 10/22/20 Unknown Blood Type B POSITIVE 10/25/20 13:20 Antibody Screen Negative 10/25/20 13:20 Crossmatch See Detail 10/25/20 13:20 [place]/IV: Voiding Method Indwelling Catheter Active Medications - Current Medications Current Medications: Generic Name Dose Route Start Last Admin Trade Name Freq PRN Reason Stop Dose Admin Acetaminophen 650 mg 10/10/20 19:46 11/03/20 06:15 Acetaminophen 325 Mg Tab PO 650 mg Q4H PRN Administration Pain MILD(1-3)/Fever >100.5/KINNEY Albuterol 2.5 mg 10/10/20 19:46 Albuterol 2.5 Mg/3 Ml Nebu IH Q4HRT PRN Shortness Of Breath Artificial Tears 2 drops 10/20/20 18:29 10/23/20 15:47 Hypromellose 0.5% Ophth Soln 15 Ml OU 2 drops Q4H PRN Administration Dry Eye(s) Aspirin 81 mg 10/18/20 15:00 11/02/20 10:31 Aspirin Ec 81 Mg Tab PO 81 mg QDAY THEE Administration Benzocaine/Menthol 1 each 10/19/20 17:49 10/28/20 09:45 Benzocaine/Menthol Lozenge MM 1 each Q2HR PRN Administration Sore Throat Calcium Carbonate/Glycine 1,250 mg 10/24/20 22:00 11/02/20 22:41 Calcium Carbonate 1250 Mg Tab PO 1,250 mg BID THEE Administration Carvedilol 3.125 mg 10/17/20 22:00 11/02/20 22:41 Carvedilol 3.125 Mg Tab PO 3.125 mg BID THEE Administration Diphenhydramine HCl 25 mg 10/25/20 11:22 Diphenhydramine 50 Mg/Ml Vial IV Q6H PRN premed for RBC or plt transfus Guaifenesin 200 mg 10/29/20 12:09 11/02/20 18:45 Guaifenesin 100 Mg/5 Ml Oral Liqd PO 200 mg Q4H PRN Administration Cough Sodium Chloride 1,000 mls @ 125 mls/hr 10/12/20 11:00 10/23/20 22:17 Nacl 0.45% 1000 Ml IV 125 mls/hr DIRECT THEE Administration Lisinopril 2.5 mg 10/18/20 10:00 11/02/20 10:40 Lisinopril 5 Mg Tab PO Not Given QDAY THEE Magnesium Oxide 400 mg 10/22/20 10:00 11/02/20 10:31 Magnesium Oxide 400 Mg Tab PO 400 mg QDAY THEE Administration Ondansetron HCl 4 mg 10/10/20 19:46 Ondansetron 4 Mg/2 Ml Inj IV Q8H PRN Nausea And Vomiting Phenol 1 spray 10/15/20 14:54 10/18/20 21:53 Phenol 1.4% 177 Ml Bottle MM 1 spray PRN PRN Administration Sore Throat Sodium Chloride 10 ml 10/10/20 22:00 11/02/20 22:41 Sodium Chloride 0.9% 10 Ml Flush Syringe IV 10 ml BID THEE Administration Sodium Chloride 10 ml 10/10/20 19:46 Sodium Chloride 0.9% 10 Ml Flush Syringe IV PRN PRN LINE FLUSH Spironolactone 25 mg 10/18/20 15:00 11/02/20 10:39 Spironolactone 25 Mg Tab PO Not Given QDAY THEE Nutrition/Malnutrition Assess - Dietary Evaluation Nutrition/Malnutrition Findings: Nutrition Notes Start: 10/11/20 12:16 Freq: Status: Active Protocol: Document 11/01/20 13:10 (Rec: 11/01/20 13:12 [email or web address]) Nutrition Notes Initial or Follow up Reassessment Current Diagnosis Acute Kidney Injury,Diabetes Other Pertinent Diagnosis SIRS, pneu Current Diet Consistent Carbohydrate Diet + Glucerna Labs/Tests Na 131 Mg 1.4 Pertinent Medications Mag-Ox Oscal Height 5 ft 6 in Weight 57 kg Usual Body Weight 105 kg [place] Body Weight (kg) 64.54 BMI 20.2 Weight change and time frame 46% wt loss in 2 months, per pt report Weight Status Appropriate Subjective/Other Information FU for intakes. Pt reports eating 100% of meals and ONS. Percent of energy/protein needs met: 100%/100% Burn Absent Trauma Absent Current % PO Good (75-100%) Minimum of two criteria Yes Interpretation of Weight Loss (severe) >5% in 1 month Body Fat Depletion Moderate depletion (severe) Protein-Calorie Malnutrition Severe #1 Nutrition Diagnosis Malnutrition As Evidenced by Signs and Symptoms fat wasting and dx of severe malnutrition, >5% wt loss in 1 month Diagnosis Progress(for reassessment Continues documentation) Is patient on ventilator? No Is Patient Ambulatory and/or Out of Bed Yes REE-([place]-ambulatory/OOB) [ 1739.075 [id number]] Kcal/Kg value to use for calculation 38 Approximate Energy Requirements Using 2166 kcal/Kg Calculation Used for Recommendations Kcal/kg Additional Notes Pro needs 1.2-1.5g/k-104g /day Fluid needs 1ml/kcal Nutrition Intervention Change Diet Order: Continue current diet order Add Supplement/Snack (indicate name/kcal Glucerna BID /protein ) Provides kCal: 440 Provides Protein (gm) 20 Goal #1 PO intake of meals plus ONS to meet 75-100% energy and pro needs Goal #2 Wt maintenance and/or gain Follow-Up By: 11/08/20 Additional Comments FU for stable intakes
--- NOTE | 2020-11-03 09:31 | XRay Report ---
XR chest 1V ap INDICATION / CLINICAL INFORMATION: COVID-19/evaluate for pneumonia COMPARISON: X-ray 10/10/[address] from 10/17/2020 FINDINGS: SUPPORT DEVICES: None. HEART / MEDIASTINUM: No significant abnormality. LUNGS / PLEURA: There is a left midlung zone opacity which corresponds to a left anterior fifth rib l esion with soft tissue extension as seen on prior CT chest. Costophrenic sulci are sharp. No pneumoth orax. ADDITIONAL FINDINGS: Unchanged left scapular lesion. Unchanged rib fractures. IMPRESSION: 1. No significant change. 2. Left midlung zone opacity is related to a rib lesion with soft tissue extension. Signer Name: Richard Perez MD Signed: 11/03/2020 9:26 AM Workstation Name: [id number]
[2020-11-03] MEDS ORDERED: TBO-FILGRASTIM 480 MCG/0.8 ML SUB-Q NR (10:00)
[2020-11-03] MEDS ORDERED: TBO-FILGRASTIM 300 MCG/0.5 ML SUB-Q NR (10:00)
[2020-11-03 10:14] LABS: Monocytes % (Manual) 1.3 % (0.0-7.3); Total Cells Counted 78
[2020-11-03 10:16] LABS: Anisocytosis Few; Hypochromasia Few; Platelet Estimate Consistent w Auto
[2020-11-03] MEDS: CALCIUM CARBONATE 1250 MG TAB PO SCH ×2 (11:06→22:26)
[2020-11-03] MEDS: ASPIRIN EC 81 MG TAB PO SCH (11:07)
[2020-11-03] MEDS: MAGNESIUM OXIDE 400 MG TAB PO SCH (11:07)
[2020-11-03] MEDS: SPIRONOLACTONE 25 MG TAB PO SCH (11:08)
[2020-11-03] MEDS: carvediloL 3.125 MG TAB PO SCH ×2 (11:08→22:29)
[2020-11-03] MEDS: LISINOPRIL 5 MG TAB PO SCH (11:09)
--- NOTE | 2020-11-03 11:15 | Progress Note ---
Assessment and Plan Dilated Cardiomyopathy, uncertain duration LVEF 20-25% by echo this admission Severe Anemia Bacteremia FLORESITA done this admission reports no evidence of vegetations COVID 19 infection Malnutrition Multiple myeloma Continue GDMT for dilated cardiomyopathy as tolerated. Otherwise, conservative cardiac management. Subjective Date of service: 11/03/20 Principal diagnosis: Multiple Myeloma Interval history: Pt covid PCR positive Objective Vital Signs Temp Pulse Resp BP Pulse Ox 11/03/20 11:09 98 H 90/62 11/03/20 11:08 98 H 90/62 11/03/20 10:48 98 H 18 90/62 100 11/03/20 05:23 97.7 F 95 H 18 97/63 100 11/02/20 21:59 99.0 F 105 H 18 99/58 97 11/02/20 17:06 98.9 F 103 H 18 103/66 99 - Physical Examination Narrative exam: Not examined due to COVID status - Labs and Meds Cardiac Enzymes 11/03/20 Range/Units 04:36 AST 20 (5-40) units/L CBC 11/03/20 Range/Units 04:36 WBC 1.7 L* (4.5-11.0) K/mm3 RBC 2.50 L (3.65-5.03) M/mm3 Hgb 7.8 L (11.8-15.2) gm/dl Hct 23.2 L (35.5-45.6) % Plt Count 58 L (140-440) K/mm3 Comprehensive Metabolic Panel 11/03/20 Range/Units 04:36 Sodium 131 L (137-145) mmol/L Potassium 4.0 (3.6-5.0) mmol/L Chloride 96.6 L (98-107) mmol/L Carbon Dioxide 25 (22-30) mmol/L BUN 12 (9-20) mg/dL Creatinine 0.6 L (0.8-1.3) mg/dL Glucose 75 (75-100) mg/dL Calcium 7.8 L (8.4-10.2) mg/dL AST 20 (5-40) units/L ALT 46 (7-56) units/L Alkaline Phosphatase 252 H (35-129) units/L Total Protein 8.2 (6.3-8.2) g/dL Albumin 2.3 L (3.9-5) g/dL
[2020-11-03 14:40] LABS: C-Reactive Protein 1.9 mg/dL (0.00-1.30)
[2020-11-03] MEDS: guaiFENesin 100 MG/5 ML ORAL LIQD PO PRN (22:31)
[2020-11-04 04:53] LABS: Hematocrit 21.7 % (35.5-45.6); Hemoglobin 7.4 gm/dl (11.8-15.2); Mean Corpuscular HGB Conc 34 % (32-34); Mean Corpuscular Volume 93 fl (84-94); Red Blood Count 2.34 M/mm3 (3.65-5.03); Red Cell Distribution Width 17.7 % (13.2-15.2)
[2020-11-04 05:00] LABS: Platelet Count 54 K/mm3 (140-440)
[2020-11-04 06:10] LABS: Total Cells Counted 100
[2020-11-04 06:11] LABS: Anisocytosis 1+; Band Neutrophils # (Manual) 0.2 K/mm3; Hypochromasia Few
[2020-11-04 06:12] LABS: Platelet Estimate Consistent w Auto
--- NOTE | 2020-11-04 10:31 | Progress Note ---
Assessment and Plan Assessment and plan: --Quintero PCR test positive 11/02/2020 Current Visit: Yes Status: Acute. [negative Covid test, 10/11/2020, 10/21/2020] Contact and droplet isolation Patient on room air saturating well Prone position Check inflammatory markers Reconsult ID,Hold discharge Immunocompromised patient --HIV test x 2 negative --Hypomagnesemia; replenished with 4 g of mag self IV Monitor electrolytes --Pancytopenia; Current Visit: Yes Status: Acute WBC 1.7 hemoglobin 7.8 platelets 58 Hematology following will give 1 dose of Neupogen today multiple myeloma, sepsis, Treat the underlying cause Telemetry hematology recommend the patient to see outpatient contract accountant For further evaluation and management --Leukopenia; Current Visit: Yes Status: Acute. Received filgrastim subcu 1 dose yesterday Give 1 more dose today, Closely monitor Telemetry hematology following --Sepsis due to persistent bacteremia Current Visit: Yes Status: Acute Continue daptomycin per ID, stop date 11/01/2020 FLORESITA negative for endocarditis Last dose of daptomycin today per ID --VRE bacteremia; completed treatment Current Visit: Yes Status: Acute Unclear source/recent spinal surgery T10-T12, L1-L2, details not available Records requested from [facility] Unable to treat with linezolid secondary due to thrombocytopenia. ID recommended daptomycin for total 14 days last dose 11/01/2020 -- Multiple Myeloma: Current Visit: Yes Status: Acute Management hem/onc per Dr Koehler bone survey c/w multiple myeloma rib tumors and 6cm R scapula tumor, L spine tumor no specific T spine tumor described kappa 986 k/l ratio 298 SPEP tiny M-spike, no BHARAT BMBx prelim-hypocellular; pending final interpretation presumed multiple myeloma [main cause of patient sickness] immunocompromised-presumed pneumonia low WBC related to bone marrow dysfunction good enough candidate for anti-myeloma therapy, needs it soon recent severe anemia due to multiple myeloma; RBC transfusion dependence Advised; await final bone marrow biopsy interp Transfusion as needed receiving IV Abx for presumed pneumonia off steroids Patient will follow heme-onc upon discharge for --Acute kidney injury (NELSY) with acute tubular necrosis (ATN) Current Visit: Yes Status: Acute Resolved, renal function within normal level --Hypocalcemia; Current Visit: Yes Status: Acute Replenished with calcium gluconate, and oral supplements Closely monitor levels --Hypophosphatemia; Current Visit: Yes Status: Acute Closely monitor electrolytes and adjust as needed --Hypomagnesemia; Current Visit: Yes Status: Acute Closely monitor electrolytes and replenish as needed --Anemia; Hb 6.4 -8.0 Current Visit: Yes Status: Acute Received 1 unit PRBC transfusion check H&H, transfuse additional as needed. Hematology consult --History of recent spinal surgery: at [facility] Current Visit: Yes Status: chr T10 T12, L1-L2 surgery, surgical sutures on the back Wound care, continue antibiotics, request records from [facility] --Acute systolic CHF/ EF 20 to 25% Current Visit: Yes Status: Acute antifailure medication with diuretic, beta-blockers, LALITHA inhibitors, input output monitoring, low-sodium diet,fluid restriction. Cardiology consult noted and appreciated --UTI/ur cultures grew Magali Current Visit: Yes Status: Acute Completed Diflucan x3 doses per ID -- Severe protein calorie malnutrition Current Visit: Yes Status: Acute Albumin 1.7 nutrition supplements ,, nutrition consult --Pneumonia Current Visit: Yes Status: Acute Completed 5 days of Rocephin and Zithromax -- DVT prophylaxis Current Visit: Yes Status: Acute SCDs bilateral lower extremities while in bed, patient is ambulatory Patient is severely ill with multiple medical problems, immunocompromised multiple myeloma Pancytopenia, Covid positive state, very poor prognosis Multiple social issues, homeless, no resources DC planning per case management and patient is stable Closely monitor the patient and adjust management as needed Plan of care reviewed with the patient and his nurse Band Saw Marker recommendations noted and appreciated Disposition; placement and discharge planning when stable Brief history: Daily hospital course: The patient is a 55-year-old male with diabetes, malnutrition, resident of an assisted living facility was brought into the emergency room with complaints of sore throat and back pain. Patient is persistent VRE completed antibiotics daptomycin, diagnosed with multiple myeloma , evaluated and followed by telemetry contract accountant, advised to follow outpatient contract accountant upon discharge, no positive COVID-19, pancytopenia and due to multiple myeloma, received multiple doses of Neupogen, awaiting placement DC when stable 10/16/2020; sepsis secondary to VRE bacteremia, UTI and pneumonia Continue current antibiotics per ID, contact isolation due to VRE 10/17/2020; patient is more alert and awake today, feels better CT abdomen and pelvis findings noted continue current antibiotics Physical therapy, Occupational Therapy as tolerated 10/18/2020; cardiology evaluations appreciated FLORESITA negative for endocarditis, cardiology started goal-directed CHF treatment 10/19/2020; persistent bacteremia, FLORESITA negative for endocarditis Continue ID cardiology recommendations Patient complains of some sore throat, Cepacol throat spray and Cepacol lozenges 10/20/2020; anemia, hemoglobin 6.4, transfuse 1 unit PRBC Closely monitor H&H transfuse additional PRBC as needed Pancytopenia, hematology consult inpatient versus outpatient 10/21/2020; patient's hemoglobin increased to 8.0 Severe hypophosphatemia, hypomagnesemia replenished Also ID contract accountant Dr. Yusuf Koehler 10/22/2020; hematology evaluation noted and appreciated bone marrow biopsy requested And work-up for multiple myeloma in process 10/23/2020; continue current management, disposition per ID and hematology 10/24/2020; multiple myeloma management per hematology Persistent sepsis VRE, management per ID, long-term antibiotics Stop date 11/01/202010/25--10/28; clinically no change same condition 10/29/20; patient continues daptomycin stop date 11/01/2020 Multiple myeloma work-up in progress, appreciate heme-onc input Recommend outpatient follow-up with hematology oncology for further evaluation and management upon discharge 10/30; severe leukopenia, give 1 dose of filgrastim subcu Hematology following, closely monitor Neutropenia precautions as needed Patient is critically ill guarded prognosis 10/31; patient will receive 1 more dose of filgrastim today Closely monitor RBC WBC and platelets Patient needs to see contract accountant upon discharge 11/01;Hypomagnesemia, replenish per protocol, last dose of daptomycin DC planning per case management Initially discharged the patient however [facility] requested quintero PCR Discharge held, continue current management Possible discharge tomorrow personal-prison tomorrow evening if Covid test is negative 11/02; patient's Covid test is positive, will reconsult ID Continue isolation, check room air and ambulatory O2 sats Consider dexamethasone and remdesivir if needed Patient is supposed to be discharged to [facility] today We will hold the discharge 11/03; patient immunocompromised, COVID-19 positive reported 11/02/2020 Multiple myeloma, pancytopenia WBC 1.7 hemoglobin 7.8 platelets 58 Hematology following will give 1 dose of Neupogen today 11/04; reconsulted ID, continue current managementAwaiting placement Patient needs to follow outpatient contract accountant for further evaluation and management of Multiple myeloma, social issues no payer source DC planning per case management History Interval history: I have seen and examined the patient at the bedside this morning Patient test positive COVID-19, isolation precautions and and COVID-19 protocols strictly followed Patient feels slightly better complains of some weakness Vital signs noted Hospitalist Physical - Constitutional Vitals: Temp Pulse Resp BP Pulse Ox 99.1 F 103 H 18 107/71 100 11/04/20 06:18 11/04/20 06:18 11/04/20 06:18 11/04/20 06:18 11/04/20 06:18 General appearance: Present: no acute distress, cachectic, disheveled, other (Chronically ill looking cachectic) - EENT Eyes: Present: PERRL, EOM intact - Neck Neck: Present: supple, normal ROM - Respiratory Respiratory effort: normal Respiratory: bilateral: diminished, negative: rales, rhonchi, wheezing - Cardiovascular Rhythm: regular Heart Sounds: Present: S1 & S2 - Extremities Extremities: no ischemia, No edema - Abdominal General gastrointestinal: soft, non-tender, non-distended, normal bowel sounds - Integumentary Integumentary: Present: clear, warm - Psychiatric Psychiatric: appropriate mood/affect, cooperative - Neurologic Neurologic: CNII-XII intact, moves all extremities Results - Labs CBC & Chem 7: 11/04/20 04:32 11/03/20 04:36 Labs: Laboratory Last Values WBC 2.2 K/mm3 (4.5-11.0) L 11/04/20 04:32 RBC 2.34 M/mm3 (3.65-5.03) L 11/04/20 04:32 Hgb 7.4 gm/dl (11.8-15.2) L 11/04/20 04:32 Hct 21.7 % (35.5-45.6) L 11/04/20 04:32 MCV 93 fl (84-94) 11/04/20 04:32 MCH 32 pg (28-32) 11/04/20 04:32 MCHC 34 % (32-34) 11/04/20 04:32 RDW 17.7 % (13.2-15.2) H 11/04/20 04:32 Plt Count 54 K/mm3 (140-440) L 11/04/20 04:32 Lymph % (Auto) 13.0 % (13.4-35.0) L 10/31/20 11:23 [place] % (Auto) 1.0 % (0.0-7.3) 10/31/20 11:23 Eos % (Auto) 3.7 % (0.0-4.3) 10/31/20 11:23 Baso % (Auto) 0.2 % (0.0-1.8) 10/31/20 11:23 Lymph # (Auto) 0.4 K/mm3 (1.2-5.4) L 10/31/20 11:23 [place] # (Auto) 0.0 K/mm3 (0.0-0.8) 10/31/20 11:23 Eos # (Auto) 0.1 K/mm3 (0.0-0.4) 10/31/20 11:23 Baso # (Auto) 0.0 K/mm3 (0.0-0.1) 10/31/20 11:23 Add Manual Diff Complete 11/04/20 04:32 Total Counted 100 11/04/20 04:32 Seg Neutrophils % 82.1 % (40.0-70.0) H 10/31/20 11:23 Seg Neuts % (Manual) 69.0 % (40.0-70.0) 11/04/20 04:32 Band Neutrophils % 10.0 % 11/04/20 04:32 Lymphocytes % (Manual) 17.0 % (13.4-35.0) 11/04/20 04:32 Monocytes % (Manual) 1.3 % (0.0-7.3) 11/03/20 04:36 Eosinophils % (Manual) 4.0 % (0.0-4.3) 11/04/20 04:32 Basophils % (Manual) 1.0 % (0.0-1.8) 10/10/20 16:31 Metamyelocytes % 1.0 % 10/26/20 08:51 Nucleated RBC % 1.0 % (0.0-0.9) H 11/04/20 04:32 Seg Neutrophils # 2.3 K/mm3 (1.8-7.7) 10/31/20 11:23 Seg Neutrophils # Man 1.5 K/mm3 (1.8-7.7) L 11/04/20 04:32 Band Neutrophils # 0.2 K/mm3 11/04/20 04:32 Lymphocytes # (Manual) 0.4 K/mm3 (1.2-5.4) L 11/04/20 04:32 Abs React Lymphs (Man) 0.0 K/mm3 11/04/20 04:32 Monocytes # (Manual) 0.0 K/mm3 (0.0-0.8) 11/04/20 04:32 Eosinophils # (Manual) 0.1 K/mm3 (0.0-0.4) 11/04/20 04:32 Basophils # (Manual) 0.0 K/mm3 (0.0-0.1) 11/04/20 04:32 Metamyelocytes # 0.0 K/mm3 11/04/20 04:32 Myelocytes # 0.0 K/mm3 11/04/20 04:32 Promyelocytes # 0.0 K/mm3 11/04/20 04:32 Blast Cells # 0.0 K/mm3 11/04/20 04:32 WBC Morphology Not Reportable 11/04/20 04:32 Hypersegmented Neuts Not Reportable 11/04/20 04:32 Hyposegmented Neuts Not Reportable 11/04/20 04:32 Hypogranular Neuts Not Reportable 11/04/20 04:32 Smudge Cells Not Reportable 11/04/20 04:32 Toxic Granulation Not Reportable 11/04/20 04:32 Toxic Vacuolation Not Reportable 11/04/20 04:32 Dohle Bodies Not Reportable 11/04/20 04:32 Pelger-Huet Anomaly Not Reportable 11/04/20 04:32 Javon Rods Not Reportable 11/04/20 04:32 Platelet Estimate Consistent w auto 11/04/20 04:32 Clumped Platelets Not Reportable 11/04/20 04:32 Plt Clumps, EDTA Not Reportable 11/04/20 04:32 Large Platelets Not Reportable 11/04/20 04:32 Giant Platelets Not Reportable 11/04/20 04:32 Platelet Satelliting Not Reportable 11/04/20 04:32 Plt Morphology Comment Not Reportable 11/04/20 04:32 RBC Morphology Not Reportable 11/04/20 04:32 Dimorphic RBCs Not Reportable 11/04/20 04:32 Polychromasia Not Reportable 11/04/20 04:32 Hypochromasia Few 11/04/20 04:32 Poikilocytosis Not Reportable 11/04/20 04:32 Anisocytosis 1+ 11/04/20 04:32 Microcytosis Not Reportable 11/04/20 04:32 Macrocytosis Not Reportable 11/04/20 04:32 Spherocytes Not Reportable 11/04/20 04:32 Pappenheimer Bodies Not Reportable 11/04/20 04:32 Sickle Cells Not Reportable 11/04/20 04:32 Target Cells Not Reportable 11/04/20 04:32 Tear Drop Cells Not Reportable 11/04/20 04:32 Ovalocytes Not Reportable 11/04/20 04:32 Helmet Cells Not Reportable 11/04/20 04:32 Arora-Shawmut Bodies Not Reportable 11/04/20 04:32 [place] Rings Not Reportable 11/04/20 04:32 Hawkeye Cells Not Reportable 11/04/20 04:32 Bite Cells Not Reportable 11/04/20 04:32 Crenated Cell Not Reportable 11/04/20 04:32 Elliptocytes Not Reportable 11/04/20 04:32 Acanthocytes (Spur) Not Reportable 11/04/20 04:32 Rouleaux Not Reportable 11/04/20 04:32 Hemoglobin C Crystals Not Reportable 11/04/20 04:32 Schistocytes Not Reportable 11/04/20 04:32 Malaria parasites Not Reportable 11/04/20 04:32 Lit Bodies Not Reportable 11/04/20 04:32 Hem Pathologist Commnt No 11/04/20 04:32 PT 13.2 Sec. (12.2-14.9) 10/22/20 09:09 INR 1.01 (0.87-1.13) 10/22/20 09:09 APTT 26.8 Sec. (24.2-36.6) 10/22/20 09:09 D-Dimer 874.42 ng/mlDDU (0-234) H 11/03/20 13:55 Sodium 131 mmol/L (137-145) L 11/03/20 04:36 Potassium 4.0 mmol/L (3.6-5.0) 11/03/20 04:36 Chloride 96.6 mmol/L (98-107) L 11/03/20 04:36 Carbon Dioxide 25 mmol/L (22-30) 11/03/20 04:36 Anion Gap 13 mmol/L 11/03/20 04:36 BUN 12 mg/dL (9-20) 11/03/20 04:36 Creatinine 0.6 mg/dL (0.8-1.3) L 11/03/20 04:36 Estimated GFR > 60 ml/min 11/03/20 04:36 BUN/Creatinine Ratio 20 % 11/03/20 04:36 Glucose 75 mg/dL (75-100) 11/03/20 04:36 POC Glucose 117 mg/dL (70-105) H 10/29/20 22:15 Calcium 7.8 mg/dL (8.4-10.2) L 11/03/20 04:36 Phosphorus 2.50 mg/dL (2.5-4.5) 11/03/20 04:36 Magnesium 1.70 mg/dL (1.7-2.3) 11/03/20 04:36 Ferritin 1430.0 ng/mL (30.0-300.0) H 11/03/20 13:55 Total Bilirubin 0.30 mg/dL (0.1-1.2) 11/03/20 04:36 AST 20 units/L (5-40) 11/03/20 04:36 ALT 46 units/L (7-56) 11/03/20 04:36 Alkaline Phosphatase 252 units/L (35-129) H 11/03/20 04:36 Lactate Dehydrogenase 141 units/L (91-180) 11/03/20 13:55 Total Creatine Kinase 49 units/L (55-170) L 10/23/20 05:12 C-Reactive Protein 1.90 mg/dL (0.00-1.30) H 11/03/20 13:55 Serum Total Protein 5.9 g/dL (6.1-8.1) L 10/22/20 08:59 Total Protein 8.2 g/dL (6.3-8.2) 11/03/20 04:36 Albumin 2.3 g/dL (3.9-5) L 11/03/20 04:36 Albumin/Globulin Ratio 0.4 % 11/03/20 04:36 Rlzbb-8-Dxgwytsso 0.3 g/dL (0.2-0.3) 10/22/20 08:59 Cghcz-8-Rswlbyism 0.6 g/dL (0.5-0.9) 10/22/20 08:59 Beta Globulins 2.8 g/dL (0.2-0.5) H 10/22/20 08:59 Fyij-9-Mogutmrmiaesb 3.88 mg/L (<=2.51) H 10/23/20 05:12 Gamma Globulins 0.3 g/dL (0.8-1.7) L 10/22/20 08:59 Abnorm Protein Band 1 2.4 g/dL H 10/22/20 08:59 Abnorm Protein Band 2 see below 10/22/20 08:59 PEP Interpretation see below H 10/22/20 08:59 Procalcitonin 0.61 ng/mL (<0.15) 10/14/20 14:54 Urine Color Yellow (Yellow) 10/11/20 Unknown Urine Turbidity Cloudy (Clear) 10/11/20 Unknown Urine pH 5.0 (5.0-7.0) 10/11/20 Unknown Ur Specific [place] 1.019 (1.003-1.030) 10/11/20 Unknown Urine Protein 30 mg/dl mg/dL (Negative) 10/11/20 Unknown Urine Glucose (UA) Neg mg/dL (Negative) 10/11/20 Unknown Urine Ketones Neg mg/dL (Negative) 10/11/20 Unknown Urine Blood Sm (Negative) 10/11/20 Unknown Urine Nitrite Neg (Negative) 10/11/20 Unknown Urine Bilirubin Neg (Negative) 10/11/20 Unknown Urine Urobilinogen < 2.0 mg/dL (<2.0) 10/11/20 Unknown Ur Leukocyte Esterase Tr (Negative) 10/11/20 Unknown Urine WBC (Auto) 36.0 /HPF (0.0-6.0) H 10/11/20 Unknown Urine RBC (Auto) 129.0 /HPF (0.0-6.0) 10/11/20 Unknown U Epithel Cells (Auto) 1.0 /HPF (0-13.0) 10/11/20 Unknown Urine Bacteria (Auto) 2+ /HPF (Negative) 10/11/20 Unknown Urine Mucus Few /HPF 10/11/20 Unknown Urine Yeast (Budding) 2+ /HPF 10/11/20 Unknown Coronavirus (PCR) Positive (Negative) A 11/01/20 Unknown HIV 1&2 Antibody Rapid Non react (Non React) 10/16/20 17:23 HIV P24 Antigen Non react (Non React) 10/16/20 17:23 Miscellaneous Test Flexitest 1 H 10/22/20 Unknown Blood Type B POSITIVE 10/25/20 13:20 Antibody Screen Negative 10/25/20 13:20 Crossmatch See Detail 10/25/20 13:20 Medina/IV: Voiding Method Indwelling Catheter Active Medications - Current Medications Current Medications: Generic Name Dose Route Start Last Admin Trade Name Freq PRN Reason Stop Dose Admin Acetaminophen 650 mg 10/10/20 19:46 11/03/20 06:15 Acetaminophen 325 Mg Tab PO 650 mg Q4H PRN Administration Pain MILD(1-3)/Fever >100.5/KINNEY Albuterol 2.5 mg 10/10/20 19:46 Albuterol 2.5 Mg/3 Ml Nebu IH Q4HRT PRN Shortness Of Breath Artificial Tears 2 drops 10/20/20 18:29 10/23/20 15:47 Hypromellose 0.5% Ophth Soln 15 Ml OU 2 drops Q4H PRN Administration Dry Eye(s) Aspirin 81 mg 10/18/20 15:00 11/03/20 11:07 Aspirin Ec 81 Mg Tab PO 81 mg QDAY THEE Administration Benzocaine/Menthol 1 each 10/19/20 17:49 10/28/20 09:45 Benzocaine/Menthol Lozenge MM 1 each Q2HR PRN Administration Sore Throat Calcium Carbonate/Glycine 1,250 mg 10/24/20 22:00 11/03/20 22:26 Calcium Carbonate 1250 Mg Tab PO 1,250 mg BID THEE Administration Carvedilol 3.125 mg 10/17/20 22:00 11/03/20 22:29 Carvedilol 3.125 Mg Tab PO 3.125 mg BID THEE Administration Diphenhydramine HCl 25 mg 10/25/20 11:22 Diphenhydramine 50 Mg/Ml Vial IV Q6H PRN premed for RBC or plt transfus Guaifenesin 200 mg 10/29/20 12:09 11/03/20 22:31 Guaifenesin 100 Mg/5 Ml Oral Liqd PO 200 mg Q4H PRN Administration Cough Sodium Chloride 1,000 mls @ 125 mls/hr 10/12/20 11:00 10/23/20 22:17 Nacl 0.45% 1000 Ml IV 125 mls/hr DIRECT THEE Administration Lisinopril 2.5 mg 10/18/20 10:00 11/03/20 11:09 Lisinopril 5 Mg Tab PO Not Given QDAY THEE Magnesium Oxide 400 mg 10/22/20 10:00 11/03/20 11:07 Magnesium Oxide 400 Mg Tab PO 400 mg QDAY THEE Administration Ondansetron HCl 4 mg 10/10/20 19:46 Ondansetron 4 Mg/2 Ml Inj IV Q8H PRN Nausea And Vomiting Phenol 1 spray 10/15/20 14:54 10/18/20 21:53 Phenol 1.4% 177 Ml Bottle MM 1 spray PRN PRN Administration Sore Throat Sodium Chloride 10 ml 10/10/20 22:00 11/04/20 03:46 Sodium Chloride 0.9% 10 Ml Flush Syringe IV 10 ml BID THEE Administration Sodium Chloride 10 ml 10/10/20 19:46 Sodium Chloride 0.9% 10 Ml Flush Syringe IV PRN PRN LINE FLUSH Spironolactone 25 mg 10/18/20 15:00 11/03/20 11:08 Spironolactone 25 Mg Tab PO Not Given QDAY THEE Nutrition/Malnutrition Assess - Dietary Evaluation Nutrition/Malnutrition Findings: Nutrition Notes Start: 10/11/20 12:16 Freq: Status: Active Protocol: Document 11/01/20 13:10 CHARLES (Rec: 11/01/20 13:12 CHARLES [id number]) Nutrition Notes Initial or Follow up Reassessment Current Diagnosis Acute Kidney Injury,Diabetes Other Pertinent Diagnosis SIRS, pneu Current Diet Consistent Carbohydrate Diet + Glucerna Labs/Tests Na 131 Mg 1.4 Pertinent Medications Mag-Ox Oscal Height 5 ft 6 in Weight 57 kg Usual Body Weight 105 kg Breeding Body Weight (kg) 64.54 BMI 20.2 Weight change and time frame 46% wt loss in 2 months, per pt report Weight Status Appropriate Subjective/Other Information FU for intakes. Pt reports eating 100% of meals and ONS. Percent of energy/protein needs met: 100%/100% Burn Absent Trauma Absent Current % PO Good (75-100%) Minimum of two criteria Yes Interpretation of Weight Loss (severe) >5% in 1 month Body Fat Depletion Moderate depletion (severe) Protein-Calorie Malnutrition Severe #1 Nutrition Diagnosis Malnutrition As Evidenced by Signs and Symptoms fat wasting and dx of severe malnutrition, >5% wt loss in 1 month Diagnosis Progress(for reassessment Continues documentation) Is patient on ventilator? No Is Patient Ambulatory and/or Out of Bed Yes REE-([facility]-ambulatory/OOB) [ 1739.075 [id number]] Kcal/Kg value to use for calculation 38 Approximate Energy Requirements Using 2166 kcal/Kg Calculation Used for Recommendations Kcal/kg Additional Notes Pro needs 1.2-1.5g/k-104g /day Fluid needs 1ml/kcal Nutrition Intervention Change Diet Order: Continue current diet order Add Supplement/Snack (indicate name/kcal Glucerna BID /protein ) Provides kCal: 440 Provides Protein (gm) 20 Goal #1 PO intake of meals plus ONS to meet 75-100% energy and pro needs Goal #2 Wt maintenance and/or gain Follow-Up By: 11/08/20 Additional Comments FU for stable intakes
--- NOTE | 2020-11-04 12:22 | Progress Note ---
Assessment and Plan Cultures: SARS CoV2 PCR: Negative HIV: Negative 10/10/2020 blood culture: VRE 2 out of 4 bottles 10/10/2020 urine culture: Magali 10/14/2020 blood culture no growth today 10/14/2020 blood culture: GPC 3 of 4, ID susceptibility never finalized 10/18/2020 blood culture: No growth 11/01/2020 COVID-19 PCR: Positive A/P: 55-year-old male with diabetes, malnutrition, resident of an assisted living facility was brought into the emergency room with complaints of sore throat and back pain: #COVID-19 infection: Previous tests negative, asymptomatic, test positive on 11/01/2020, was done for discharge planning. Chest x-ray without any evidence of pneumonia, remains on room air. No therapeutics indicated from COVID-19 standpoint at this time. (We don't have the mAb at this facility). #VRE bacteremia: Very unclear source. ?recent T10-T12 fusion and L1-L2 surgery (noted surgical sutures on his back, pt is not able to elaborate, only reported surgery was done at [facility]. FLORESITA negative. Repeat blood cx 10/[address] shows a bone cage and fixation from T10-T12, chronic pathologic fracture L5. No obvious discitis, osteomyelitis, abscess. MRI no abscess, discitis, osteomyeliti s +compression deformities at several levels, mainly L5. Completed 14 days of Daptomycin. #UTI: Urine culture grew Magali. Renal ultrasound with mild right pelvic caliectasis and echogenic right kidney. #Pancytopenia: suspected due to multiple myeloma. CT with multifocal lucent lesions, L5 pathologic fracture. Baseline WBC is unknown. HIV negative x 2 . Severe anemia now receiving blood transfusions. #Transaminitis: resolved #Chronic malnutrition; BMI of 16.1. HIV neg x 2. Recs: -completed Daptomycin -Remains asymptomatic on room air from COVID-19 standpoint, no therapeutics indicated currently Bryant Jane MD, FACP [facility] ([facility] O: [phone] F: [phone] Subjective Date of service: 11/04/20 Principal diagnosis: Multiple Myeloma Interval history: Patient was in the process of discharge planning, COVID-19 test was obtained which returned positive, hence infectious diseases was reconsulted. Remains afebrile and on room air, saturating 100%. Objective - Exam Narrative Exam: Physical Exam (reviewed in chart to minimize risk of transmission) Constitutional: deferred Head, Ears, Nose: deferred Eyes: deferred Neck: deferred Oral: deferred Cardiovascular: deferred Respiratory: deferred GI: deferred Musculoskeletal: deferred Skin: deferred Hem/Lymphatic: deferred Psych: deferred Neurological: deferred - Constitutional Vitals: Vital Signs Temp Pulse Resp BP Pulse Ox 99.1 F 103 H 18 107/71 100 11/04/20 06:18 11/04/20 06:18 11/04/20 06:18 11/04/20 06:18 11/04/20 06:18 Temperature -Last 24 Hours Temperature 99.1 F Temperature 99.1 F - Labs CBC & Chem 7: 11/04/20 04:32 11/03/20 04:36 Labs: Abnormal lab results 11/03/20 11/03/20 11/03/20 Range/Units 13:55 13:55 13:55 WBC (4.5-11.0) K/mm3 RBC (3.65-5.03) M/mm3 Hgb (11.8-15.2) gm/dl Hct (35.5-45.6) % RDW (13.2-15.2) % Plt Count (140-440) K/mm3 Nucleated RBC % (0.0-0.9) % Seg Neutrophils # Man (1.8-7.7) K/mm3 Lymphocytes # (Manual) (1.2-5.4) K/mm3 D-Dimer 874.42 H (0-234) ng/mlDDU Ferritin 1430.0 H (30.0-300.0) ng/mL C-Reactive Protein 1.90 H (0.00-1.30) mg/dL 11/04/20 Range/Units 04:32 WBC 2.2 L (4.5-11.0) K/mm3 RBC 2.34 L (3.65-5.03) M/mm3 Hgb 7.4 L (11.8-15.2) gm/dl Hct 21.7 L (35.5-45.6) % RDW 17.7 H (13.2-15.2) % Plt Count 54 L (140-440) K/mm3 Nucleated RBC % 1.0 H (0.0-0.9) % Seg Neutrophils # Man 1.5 L (1.8-7.7) K/mm3 Lymphocytes # (Manual) 0.4 L (1.2-5.4) K/mm3 D-Dimer (0-234) ng/mlDDU Ferritin (30.0-300.0) ng/mL C-Reactive Protein (0.00-1.30) mg/dL
--- NOTE | 2020-11-04 12:50 | Progress Note ---
Assessment and Plan - Patient Problems (1) Dilated cardiomyopathy Current Visit: Yes Status: Acute Plan to address problem: We will continue guideline directed medical therapy for chronic left ventricular systolic failure. Subjective Date of service: 11/04/20 Principal diagnosis: Multiple Myeloma Interval history: Patient is comfortable, no new cardiac complaints. Objective Vital Signs Temp Pulse Resp Resp Resp Resp BP 11/04/20 06:18 99.1 F 103 H 18 107/71 11/03/20 22:29 110 H 115/72 11/03/20 22:20 99.1 F 110 H 20 115/72 11/03/20 22:00 17 17 17 Pulse Ox 11/04/20 06:18 100 11/03/20 22:29 11/03/20 22:20 99 11/03/20 22:00 - Physical Examination General: No Apparent Distress, Cachectic HEENT: Positive: PERRL Neck: Positive: trachea midline Cardiac: Positive: Reg Rate and Rhythm Lungs: Positive: Decreased Breath Sounds Neuro: Positive: Weakness Abdomen: Positive: Soft Skin: Positive: Clear Extremities: Absent: edema - Labs and Meds Cardiac Enzymes 11/03/20 Range/Units 13:55 Lactate Dehydrogenase 141 (91-180) units/L CBC 11/04/20 Range/Units 04:32 WBC 2.2 L (4.5-11.0) K/mm3 RBC 2.34 L (3.65-5.03) M/mm3 Hgb 7.4 L (11.8-15.2) gm/dl Hct 21.7 L (35.5-45.6) % Plt Count 54 L (140-440) K/mm3
[2020-11-04] MEDS: LISINOPRIL 5 MG TAB PO SCH (13:00)
[2020-11-04] MEDS: SPIRONOLACTONE 25 MG TAB PO SCH (13:00)
[2020-11-04] MEDS: carvediloL 3.125 MG TAB PO SCH ×2 (13:05→23:10)
[2020-11-04] MEDS: MAGNESIUM OXIDE 400 MG TAB PO SCH (13:06)
[2020-11-04] MEDS: CALCIUM CARBONATE 1250 MG TAB PO SCH ×2 (13:06→23:10)
[2020-11-04] MEDS: ASPIRIN EC 81 MG TAB PO SCH (13:06)
[2020-11-04] MEDS: guaiFENesin 100 MG/5 ML ORAL LIQD PO PRN (18:41)
--- NOTE | 2020-11-05 08:45 | Discharge Summary ---
Providers - Providers Date of Admission: 10/10/20 19:47 Date of discharge: 11/13/20 Attending physician: SANDRINE ABRAHMA 10/11/20 10:21 Consult to Dietitian/Nutrition [CONS] Routine Physician Instructions: Reason For Exam: Reason for Consult: Malnutrition 10/11/20 10:35 Consult to Physician [CONS] Routine Comment: Consulting Provider: CARLY MELENDEZ Physician Instructions: Reason For Exam: Covid PUI 10/12/20 11:05 Physical Therapy Evaluation and Treat [CONS] Routine Comment: Physical therapy daily Reason For Exam: Severe debility 10/16/20 16:12 Consult to Wound/ET Nurse [CONS] Routine Reason For Exam: wound eval 10/16/20 16:52 Consult to Physician [CONS] Routine Comment: Consulting Provider: JOSE LUIS CAMPBELL Physician Instructions: Reason For Exam: Ac Syst CHF EF 20-25%/sepsis/FLORESITA r/o endocarditis 10/18/20 14:26 Consult to Case Management [CONS] Stat Services Needed at Discharge: Other Notified:: sexton helper Additional Physician Instructions: [facility] ([facility]) [address] [place] [address] OUTPATIENT PARENTERAL ANTIBIOTIC THERAPY (OPAT) ORDERS Diagnoses: VRE bacteremia Administer: daptomycin 600 mg IV daily total 14 days till 11/01/2020 Remove PICC line after last dose unless otherwise instructed. Line: Maintain IV access with weekly d ressing changes and locks per protocol. Labs: Every Wednesday CBC, AST, ALT, Creatinine, CPK. Please fax results to [phone] and call [phone] for critical lab results. María Lay MD Infectious Diseases Sign Hanger Supervisor [facility] ([facility]) O: [phone] F: [phone] 10/21/20 16:42 Consult to Physician [CONS] Routine Comment: Consulting Provider: RYAN KOEHLER Physician Instructions: Reason For Exam: Pancytopenia/anemia/? Multiple myeloma 10/28/20 10:42 Consult to Wound/ET Nurse [CONS] Routine Reason For Exam: wound eval pf back/ left side 10/28/20 14:44 Consult to Case Management [CONS] Routine Services Needed at Discharge: Other Notified:: cm Additional Physician Instructions: heme/onc in-person referral for multiple myeloma 11/03/20 08:04 Consult to Physician [CONS] Routine Comment: Consulting Provider: MELINDA DALE Physician Instructions: Reason For Exam: Reconsult/Covid 19, positive 11/02/2020 Primary care physician: CHILD DEVELOPMENT ASSOCIATE TEACHER Hospitalization Condition: Fair Hospital course: 55 YO Male Assisted Living Facility Resident with DM, Severe Malnutrition, who is nonverbal, and communicated by writing presents to ED for evaluation. Patient reports "sore throat and back pain". EMS was notified by assisted living facility staff. Upon arrival the patient was found to be in distress and subsequently transported to [facility] for further care and evaluation of the aforementioned symptoms. The patient was seen and evaluated in the emergency department. All lab and imaging studies reviewed. Patient underwent chest x-ray and was found to have bilateral pneumonia, acidosis, and acute kidney injury. Patient admitted to medical floor and initiated on pneumonia protocol as well as coronavirus protocol. No further history is obtainable. No prior admission for review. No medication listed at time of admission for reconciliation. No reports of fever, chills, chest pain, palpitations, productive cough, skin rash, recent ill contacts, or known exposure to COVID-19 as per assisted-living facility staff. Patient is able to maintain his airway without difficulty and has a positive gag reflex. Patient was initially evaluated admitted symptomatically managed, noted to have sepsis with persistent VRE 2 out of 4 bottles, evaluated by ID, received daptomycin, And completed the treatment today, patient also had pancytopenia, hematology oncologist evaluate the patient, recommended outpatient Hematology oncology [id number] evaluation and management Patient received filgrastim and blood transfusion with mild improvement Patient had acute versus acute on chronic systolic congestive heart failure with ejection fraction of 20 to 25%, evaluated by cardiology Managed appropriately. With antifailure medications. Patient also has severe protein calorie malnutrition due to underlying disease process And is chronically ill looking cachectic and emaciated on nutrition supplements He is screening COVID-19 test was positive which delayed his discharge to personal detention Patient was asymptomatic with positive COVID-19 status, inflammatory markers were stable and patient was not hypoxic, maintaining O2 sat in room air. ID recommended no additional treatment necessary Today he is comfortable generalized weakness, vital signs reviewed Hemodynamically stable for discharge to personal detention with hospice Patient is hemodynamically stable, with guarded prognosis Repeat Covid test on 11/11/2020 was negative SARS CoV2 PCR: Negative HIV: Negative 10/10/2020 blood culture: VRE 2 out of 4 bottles 10/10/2020 urine culture: Magali 10/14/2020 blood culture no growth today 10/14/2020 blood culture: GPC 3 of 4 10/18/2020 blood culture: No growth today Patient advised to follow hematology oncology for further evaluation and management Daily clinical course: Daily clinical course: 10/16/2020; sepsis secondary to VRE bacteremia, UTI and pneumonia Continue current antibiotics per ID, contact isolation due to VRE 10/17/2020; patient is more alert and awake today, feels better CT abdomen and pelvis findings noted continue current antibiotics Physical therapy, Occupational Therapy as tolerated 10/18/2020; cardiology evaluations appreciated FLORESITA negative for endocarditis, cardiology started goal-directed CHF treatment 10/19/2020; persistent bacteremia, FLORESITA negative for endocarditis Continue ID cardiology recommendations Patient complains of some sore throat, Cepacol throat spray and Cepacol lozenges 10/20/2020; anemia, hemoglobin 6.4, transfuse 1 unit PRBC Closely monitor H&H transfuse additional PRBC as needed Pancytopenia, hematology consult inpatient versus outpatient 10/21/2020; patient's hemoglobin increased to 8.0 Severe hypophosphatemia, hypomagnesemia replenished Also ID lugger Dr. Yusuf Koehler 10/22/2020; hematology evaluation noted and appreciated bone marrow biopsy requested And work-up for multiple myeloma in process 10/23/2020; continue current management, disposition per ID and hematology 10/24/2020; multiple myeloma management per hematology Persistent sepsis VRE, management per ID, long-term antibiotics Stop date 11/01/202010/25--10/28; clinically no change same condition 10/29/20; patient continues daptomycin stop date 11/01/2020 Multiple myeloma work-up in progress, appreciate heme-onc input Recommend outpatient follow-up with hematology oncology for further evaluation and management upon discharge 10/30; severe leukopenia, give 1 dose of filgrastim subcu Hematology following, closely monitor Neutropenia precautions as needed Patient is critically ill guarded prognosis 10/31; patient will receive 1 more dose of filgrastim today Closely monitor RBC WBC and platelets Patient needs to see lugger upon discharge 11/01;Hypomagnesemia, replenish per protocol, last dose of daptomycin DC planning per case management Initially discharged the patient however personal detention requested quintero PCR Discharge held, continue current management Possible discharge tomorrow personal-detention tomorrow evening if Covid test is negative 11/02; patient's Covid test is positive, will reconsult ID Continue isolation, check room air and ambulatory O2 sats Consider dexamethasone and remdesivir if needed Patient is supposed to be discharged to personal detention today We will hold the discharge 11/03; patient immunocompromised, COVID-19 positive reported 11/02/2020 Multiple myeloma, pancytopenia WBC 1.7 hemoglobin 7.8 platelets 58 Hematology following will give 1 dose of Neupogen today 11/04; reconsulted ID, continue current management, Awaiting placement Patient needs to follow outpatient lugger for further evaluation and management of Multiple myeloma, social issues no payer source DC planning per case management 11/05: Patient resting on room air, continue to follow inflammatory markers and ID recommendations. Patient will be discharged to his personal detention on onday as because he tested positive for COVID-19. Continue to provide supportive care. Follow heme-onc recommendation for the management of multiple myeloma. 11/06: Patient remains on room air, pending discharge to personal detention for Covid positive status. Continue to provide supportive care and follow clinically. Continue PT OT eval. Continue to monitor H&H and transfuse as needed. 11/07: Transfused another unit of packed RBC today per hematology recommendation. Patient remains on room air, pending discharge to personal detention. Continue to follow clinically with supportive care. 11/08: h/h stable, pending placement to [facility]. follow clinically 11/09: cont supportive care, patient remains on RA. pending discharge to personal detention. 11/10: waiting for placement. cont supportive care. 11/11: Waiting for placement, patient remains on room air, DC Medina catheter. Per clinical case manager patient can go back to the personal detention once payment has been made. Continue to follow. 11/12: Repeat Covid test is negative. Continue supportive care, patient is clinically stable. Discharge pending on placement, patient seems to be unfunded. 11/13: Clinically remains stable, discharged back to personal detention with outpatient hematology and oncology follow-up. Discharge plan and management was thoroughly discussed with the patient and he verbalized understanding. Disposition: DC/[facility] Final Discharge Diagnosis (Prints w/discharge instructions): Pancytopenia. Newly diagnosed multiple myeloma. Pneumonia completed treatment. Severe protein calorie malnutrition. UTI completed treatment. COVID-19 positive - asymptomatic. Acute on chronic systolic congestive heart failure EF 20 to 25%. VRE bacteremia completed treatment. Anemia requiring blood transfusion. Acute kidney injury resolved. History of recent spinal surgery. Hypocalcemia/hypomagnesemia/hyponatremia. HIV x2 - negative Time spent for discharge: 34 minutes Core Measure Documentation - Palliative Care Palliative Care/ Comfort Measures: Hospice Care - Core Measures Any of the following diagnoses?: none - Heart Failure Discharge Requirements LALITHA/ARB for LVSD if EF <40%: Yes Beta juan pablo at discharge: Yes Exam - Physical Exam Narrative exam: General appearance: Present: no acute distress, cachectic, disheveled, other (Chronically ill looking cachectic) - EENT Eyes: Present: PERRL, EOM intact - Neck Neck: Present: supple, normal ROM - Respiratory Respiratory effort: normal Respiratory: bilateral: diminished, negative: rales, rhonchi, wheezing - Cardiovascular Rhythm: regular Heart Sounds: Present: S1 & S2 - Extremities Extremities: no ischemia, No edema - Abdominal General gastrointestinal: soft, non-tender, non-distended, normal bowel sounds - Integumentary Integumentary: Present: clear, warm - Psychiatric Psychiatric: appropriate mood/affect, cooperative - Neurologic Neurologic: CNII-XII intact, moves all extremities - Constitutional Vitals: Temp Pulse Resp BP Pulse Ox 98.3 F 98 H 18 95/59 96 11/05/20 05:39 11/05/20 05:39 11/05/20 05:39 11/05/20 05:39 11/05/20 08:03 Plan Activity: fall precautions Diet: low fat Additional Instructions: If you have worsening symptoms contact MD or go to emergency room. patient to see private lugger/oncologist for further ev aluation and management of multiple myeloma Follow up with: JOSE LUIS CAMPBELL MD [Staff Physician] - 7 Days SHUKRI OBANDO MD [Staff Physician] - 7 Days PRIMARY CARE, [Primary Care Provider] - 3-5 Days Forms: Work/School Release Form Prescriptions: Spironolactone [Aldactone] 25 mg PO QDAY #30 tablet Phenol 1.4% [Chloraseptic] 1 spray MM PRN PRN #1 bottle PRN Reason: Sore Throat carvediloL [Coreg] 3.125 mg PO BID #60 tablet Hypromellose [Isopto Tears 0.5%] 2 drops OU Q4H PRN #1 bottle PRN Reason: Dry Eye(S) Magnesium Oxide [Mag-Ox] 400 mg PO QDAY #10 tablet Calcium Carbonate [Oscal 1250MG TAB] 1,250 mg PO BID #30 tablet guaiFENesin [Robitussin] 200 mg PO Q4H PRN #14 oral.liqd PRN Reason: Cough lisinopriL [Zestril TAB] 2.5 mg PO QDAY #30 tablet
--- NOTE | 2020-11-05 08:57 | Progress Note ---
Assessment and Plan Dilated Cardiomyopathy, uncertain duration LVEF 20-25% by echo this admission Severe Anemia Bacteremia FLORESITA done this admission reports no evidence of vegetation COVID 19 infection Malnutrition Suspected multiple myeloma Continue GDMT for dilated cardiomyopathy as tolerated. Otherwise, conservative cardiac management. Subjective Date of service: 11/05/20 Principal diagnosis: Multiple Myeloma Interval history: No interval cardiac changes. Objective Vital Signs Temp Pulse Resp BP BP Pulse Ox 11/05/20 08:03 96 11/05/20 05:39 98.3 F 98 H 18 95/59 100 11/04/20 23:10 109 H 113/72 11/04/20 23:08 98.5 F 20 113/72 11/04/20 18:14 98.9 F 112 H 20 102/67 100 11/04/20 13:05 76 107/68 11/04/20 12:00 97.6 F 76 20 106/68 100 11/04/20 10:00 99 - Physical Examination Narrative exam: Deferred due to isolation protocol. General: No Apparent Distress, Cachectic Extremities: Absent: edema
[2020-11-05 11:27] LABS: Hematocrit 21.9 % (35.5-45.6); Hemoglobin 7.4 gm/dl (11.8-15.2); Mean Corpuscular HGB Conc 34 % (32-34); Mean Corpuscular Volume 93 fl (84-94); Platelet Count 69 K/mm3 (140-440); Red Blood Count 2.34 M/mm3 (3.65-5.03); Red Cell Distribution Width 17.9 % (13.2-15.2)
[2020-11-05] MEDS: ASPIRIN EC 81 MG TAB PO SCH (11:56)
[2020-11-05] MEDS: MAGNESIUM OXIDE 400 MG TAB PO SCH (11:56)
[2020-11-05] MEDS: carvediloL 3.125 MG TAB PO SCH ×2 (11:56→22:53)
[2020-11-05] MEDS: CALCIUM CARBONATE 1250 MG TAB PO SCH ×2 (11:56→22:53)
[2020-11-05] MEDS: SPIRONOLACTONE 25 MG TAB PO SCH (11:57)
[2020-11-05] MEDS: LISINOPRIL 5 MG TAB PO SCH (11:57)
[2020-11-05 12:14] LABS: Total Cells Counted 100
[2020-11-05 12:15] LABS: Anisocytosis 1+; Platelet Estimate Consistent w Auto
--- NOTE | 2020-11-05 14:04 | Progress Note ---
Assessment and Plan Cultures: SARS CoV2 PCR: Negative HIV: Negative 10/10/2020 blood culture: VRE 2 out of 4 bottles 10/10/2020 urine culture: Magali 10/14/2020 blood culture no growth today 10/14/2020 blood culture: E.faecium 10/18/2020 blood culture: No growth 11/01/2020 COVID-19 PCR: Positive A/P: 55-year-old male with diabetes, malnutrition, resident of an assisted living facility was brought into the emergency room with complaints of sore throat and back pain: #COVID-19 infection: Previous tests negative, asymptomatic, test positive on 11/01/2020, was done for discharge planning. Chest x-ray without any evidence of pneumonia, remains on room air. No therapeutics indicated from COVID-19 sta ndpoint at this time. (We don't have the mAb at this facility). #VRE bacteremia: Very unclear source. ?recent T10-T12 fusion and L1-L2 surgery (noted surgical sutures on his back, pt is not able to elaborate, only reported surgery was done at [facility]. FLORESITA negative. Repeat blood cx 10/[address] shows a bone cage and fixation from T10-T12, chronic pathologic fracture L5. No obvious discitis, osteomyelitis, abscess. MRI no abscess, discitis, osteomyelitis +compression deformities at several levels, mainly L5. Completed 14 days of Daptomycin after bacteremia clearance. #UTI: Urine culture grew Magali. Renal ultrasound with mild right pelvic caliectasis and echogenic right kidney. #Pancytopenia: suspected due to multiple myeloma. CT with multifocal lucent lesions, L5 pathologic fracture. Baseline WBC is unknown. HIV negative x 2 . Severe anemia now receiving blood transfusions. #Transaminitis: resolved #Chronic malnutrition; BMI of 16.1. HIV neg x 2. Recs: -Remains asymptomatic on room air from COVID-19 standpoint, no therapeutics indicated currently ID will sign off. Please call with questions or any changes in clinical status. Bryant Jane MD, FACP [facility] ([facility]) O: [phone] F: [phone] Subjective Date of service: 11/05/20 Principal diagnosis: Multiple Myeloma Interval history: Remains afebrile, on room air. Objective - Exam Narrative Exam: Physical Exam (reviewed in chart to minimize risk of transmission) Constitutional: deferred Head, Ears, Nose: deferred Eyes: deferred Neck: deferred Oral: deferred Cardiovascular: deferred Respiratory: deferred GI: deferred Musculoskeletal: deferred Skin: deferred Hem/Lymphatic: deferred Psych: deferred Neurological: deferred - Constitutional Vitals: Vital Signs Temp Pulse Resp BP Pulse Ox 98.5 F 100 H 18 101/62 99 11/05/20 11:30 11/05/20 11:56 11/05/20 11:30 11/05/20 11:57 11/05/20 11:30 Temperature -Last 24 Hours Temperature 98.5 F Temperature 98.3 F Temperature 98.5 F Temperature 98.9 F - Labs CBC & Chem 7: 11/05/20 10:40 11/03/20 04:36 Labs: Abnormal lab results 11/05/20 Range/Units 10:40 WBC 3.7 L (4.5-11.0) K/mm3 RBC 2.34 L (3.65-5.03) M/mm3 Hgb 7.4 L (11.8-15.2) gm/dl Hct 21.9 L (35.5-45.6) % RDW 17.9 H (13.2-15.2) % Plt Count 69 L (140-440) K/mm3 Seg Neuts % (Manual) 92.0 H (40.0-70.0) % Lymphocytes % (Manual) 6.0 L (13.4-35.0) % Nucleated RBC % 3.0 H (0.0-0.9) % Lymphocytes # (Manual) 0.2 L (1.2-5.4) K/mm3
--- NOTE | 2020-11-05 16:50 | Progress Note ---
Assessment and Plan --COVID 19 PCR test positive 11/02/2020 [negative Covid test, 10/11/2020, 10/21/2020] Contact and droplet isolation Patient on room air saturating well Prone position Check inflammatory markers Reconsult ID,Hold discharge Immunocompromised patient --Hypomagnesemia; replenished with 4 g of mag self IV Monitor electrolytes --Pancytopenia; Hematology following, s/p 1 dose of Neupogen due to multiple myeloma, sepsis, Treat the underlying cause Telemetry hematology recommend the patient to see outpatient riprap worker For further evaluation and management --Leukopenia; Received filgrastim subcu 2 dose, Closely monitor Telemetry hematology following --Sepsis due to persistent bacteremia Treated with daptomycin per ID, stop date 11/01/2020 FLORESITA negative for endocarditis --VRE bacteremia; completed treatment Unclear source/recent spinal surgery T10-T12, L1-L2, details not available Records requested from [facility] Unable to treat with linezolid secondary due to thrombocytopenia. ID recommended daptomycin for total 14 days last dose 11/01/2020 -- Multiple Myeloma: Management hem/onc per Dr Koehler bone survey c/w multiple myeloma rib tumors and 6cm R scapula tumor, L spine tumor no specific T spine tumor described kappa 986 k/l ratio 298 SPEP tiny M-spike, no BHARAT BMBx prelim-hypocellular; pending final interpretation presumed multiple myeloma [main cause of patient sickness] immunocompromised-presumed pneumonia low WBC related to bone marrow dysfunction good enough candidate for anti-myeloma therapy, needs it soon recent severe anemia due to multiple myeloma; RBC transfusion dependence Advised; await final bone marrow biopsy interp Transfusion as needed receiving IV Abx for presumed pneumonia off steroids Patient will follow heme-onc upon discharge for --Acute kidney injury (NELSY) with acute tubular necrosis (ATN) Resolved, renal function within normal level --Hypocalcemia; Replenished with calcium gluconate, and oral supplements Closely monitor levels --Hypophosphatemia; Closely monitor electrolytes and adjust as needed --Hypomagnesemia; Closely monitor electrolytes and replenish as needed --Anemia; Hb 6.4 -8.0 Received 1 unit PRBC transfusion check H&H, transfuse additional as needed. Hematology consult --History of recent spinal surgery: at [facility] T10 T12, L1-L2 surgery, surgical sutures on the back Wound care, continue antibiotics, request records from [facility] --Acute systolic CHF/ EF 20 to 25% antifailure medication with diuretic, beta-blockers, LALITHA inhibitors, input output monitoring, low-sodium diet,fluid restriction. Cardiology consult noted and appreciated --UTI/ur cultures grew Magali Completed Diflucan x3 doses per ID -- Severe protein calorie malnutrition Albumin 1.7 nutrition supplements ,, nutrition consult --Pneumonia Completed 5 days of Rocephin and Zithromax -- DVT prophylaxis SCDs bilateral lower extremities while in bed, patient is ambulatory Patient is severely ill with multiple medical problems, immunocompromised multiple myeloma Pancytopenia, Covid positive state, very poor prognosis Multiple social issues, homeless, no resources DC planning per case management and patient is stable Closely monitor the patient and adjust management as needed Plan of care reviewed with the patient and his nurse Mortgage Loan Officer Originator recommendations noted and appreciated Disposition; placement and discharge planning when stable Brief history: The patient is a 55-year-old male with diabetes, malnutrition, resident of an assisted living facility was brought into the emergency room with complaints of sore throat and back pain. Patient is persistent VRE completed antibiotics daptomycin, diagnosed with multiple myeloma , evaluated and followed by telemetry riprap worker, advised to follow outpatient riprap worker upon discharge, no positive COVID-19, pancytopenia and due to multiple myeloma, rece ived multiple doses of Neupogen, awaiting placement DC when stable Daily clinical course: 10/16/2020; sepsis secondary to VRE bacteremia, UTI and pneumonia Continue current antibiotics per ID, contact isolation due to VRE 10/17/2020; patient is more alert and awake today, feels better CT abdomen and pelvis findings noted continue current antibiotics Physical therapy, Occupational Therapy as tolerated 10/18/2020; cardiology evaluations appreciated FLORESITA negative for endocarditis, cardiology started goal-directed CHF treatment 10/19/2020; persistent bacteremia, FLORESITA negative for endocarditis Continue ID cardiology recommendations Patient complains of some sore throat, Cepacol throat spray and Cepacol lozenges 10/20/2020; anemia, hemoglobin 6.4, transfuse 1 unit PRBC Closely monitor H&H transfuse additional PRBC as needed Pancytopenia, hematology consult inpatient versus outpatient 10/21/2020; patient's hemoglobin increased to 8.0 Severe hypophosphatemia, hypomagnesemia replenished Also ID riprap worker Dr. Yusuf Koehler 10/22/2020; hematology evaluation noted and appreciated bone marrow biopsy requested And work-up for multiple myeloma in process 10/23/2020; continue current management, disposition per ID and hematology 10/24/2020; multiple myeloma management per hematology Persistent sepsis VRE, management per ID, long-term antibiotics Stop date 11/01/202010/25--10/28; clinically no change same condition 10/29/20; patient continues daptomycin stop date 11/01/2020 Multiple myeloma work-up in progress, appreciate heme-onc input Recommend outpatient follow-up with hematology oncology for further evaluation and management upon discharge 10/30; severe leukopenia, give 1 dose of filgrastim subcu Hematology following, closely monitor Neutropenia precautions as needed Patient is critically ill guarded prognosis 10/31; patient will receive 1 more dose of filgrastim today Closely monitor RBC WBC and platelets Patient needs to see riprap worker upon discharge 11/01;Hypomagnesemia, replenish per protocol, last dose of daptomycin DC planning per case management Initially discharged the patient however [facility] requested quintero PCR Discharge held, continue current management Possible discharge tomorrow [facility] tomorrow evening if Covid test is negative 11/02; patient's Covid test is positive, will reconsult ID Continue isolation, check room air and ambulatory O2 sats Consider dexamethasone and remdesivir if needed Patient is supposed to be discharged to [facility] today We will hold the discharge 11/03; patient immunocompromised, COVID-19 positive reported 11/02/2020 Multiple myeloma, pancytopenia WBC 1.7 hemoglobin 7.8 platelets 58 Hematology following will give 1 dose of Neupogen today 11/04; reconsulted ID, continue current management, Awaiting placement Patient needs to follow outpatient riprap worker for further evaluation and management of Multiple myeloma, social issues no payer source DC planning per case management 11/05: Patient resting on room air, continue to follow inflammatory markers and ID recommendations. Patient will be [facility] to his [facility] on Wednesday as because he tested positive for COVID-19. Continue to provide supportive care. Follow heme-onc recommendation for the management of multiple myeloma. Hospitalist Physical General appearance: Present: no acute distress, cachectic, disheveled, other (Chronically ill looking cachectic) - EENT Eyes: Present: PERRL, EOM intact - Neck Neck: Present: supple, normal ROM - Respiratory Respiratory effort: normal Respiratory: bilateral: diminished, negative: rales, rhonchi, wheezing - Cardiovascular Rhythm: regular Heart Sounds: Present: S1 & S2 - Extremities Extremities: no ischemia, No edema - Abdominal General gastrointestinal: soft, non-tender, non-distended, normal bowel sounds - Integumentary Integumentary: Present: clear, warm - Psychiatric Psychiatric: appropriate mood/affect, cooperative - Neurologic Neurologic: CNII-XII intact, moves all extremities Subjective Date of service: 11/05/20 Principal diagnosis: Multiple Myeloma Interval history: Patient seen and examined. Medical records and medication list reviewed. No acute event overnight noted by the RN. Patient denies any chest pain or difficulty breathing. Patient is tolerating diet. Patient remains on room air [facility] will not accept the patient until next week Wednesday as pt is positive for COVID-19 Discussed plan of care at bedside with patient. Objective - Constitutional Vitals: Vital Signs - 12hr 11/05/20 11/05/20 11/05/20 05:39 08:03 11:30 Temperature 98.3 F 98.5 F Pulse Rate 98 H 96 H Respiratory 18 18 Rate Blood Pressure 95/59 107/68 O2 Sat by Pulse 100 96 99 Oximetry 11/05/20 11/05/20 11:56 11:57 Temperature Pulse Rate 100 H Respiratory Rate Blood Pressure 101/64 101/62 O2 Sat by Pulse Oximetry - Labs CBC & Chem 7: 11/05/20 10:40 11/03/20 04:36 Labs: Abnormal lab results 11/05/20 Range/Units 10:40 WBC 3.7 L (4.5-11.0) K/mm3 RBC 2.34 L (3.65-5.03) M/mm3 Hgb 7.4 L (11.8-15.2) gm/dl Hct 21.9 L (35.5-45.6) % RDW 17.9 H (13.2-15.2) % Plt Count 69 L (140-440) K/mm3 Seg Neuts % (Manual) 92.0 H (40.0-70.0) % Lymphocytes % (Manual) 6.0 L (13.4-35.0) % Nucleated RBC % 3.0 H (0.0-0.9) % Lymphocytes # (Manual) 0.2 L (1.2-5.4) K/mm3
--- NOTE | 2020-11-06 07:40 | Hem/Onc Progress Note ---
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 Presence of stainable iron Spine MRI T9 tumot and other smaller tumors, but no obviouis spinal cord compression Bone survey: R scapula tumor, multiple rib tujmors, R 10th rib tumor IMP: recent dx multiple myeloma likely explains most of his recent acute illness s/p steroid pulse inpatient about 2 weeks ago immunocompromised-recent presumed pneumonia and VRE bacteremia low WBC related to bone marrow dysfunction-maybe partly related to covid19 infection recent severe anemia due to multiple myeloma-- has been transfusion dependent REC/PLAN: another RBC transfusion Epoietin another steroid pulse pamidronate 30 opiate meds may be needed for pain ANTI-MYELOMA therapy is needed ANA LAURA as outpatient needs in-person heme/onc after discharge Vital Signs Temp Pulse Resp BP Pulse Ox 98.4 F 100 H 18 93/54 100 11/06/20 05:04 11/06/20 05:04 11/06/20 05:04 11/06/20 05:04 11/06/20 05:04 Temperature -Last 24 Hours Temperature 98.4 F Temperature 98 F Temperature 98.9 F Temperature 98.5 F Laboratory Last Values WBC 3.7 K/mm3 (4.5-11.0) L 11/05/20 10:40 Hgb 7.4 gm/dl (11.8-15.2) L 11/05/20 10:40 Hct 21.9 % (35.5-45.6) L 11/05/20 10:40 Plt Count 69 K/mm3 (140-440) L 11/05/20 10:40 PT 13.2 Sec. (12.2-14.9) 10/22/20 09:09 INR 1.01 (0.87-1.13) 10/22/20 09:09 APTT 26.8 Sec. (24.2-36.6) 10/22/20 09:09 Creatinine 0.6 mg/dL (0.8-1.3) L 11/03/20 04:36 Calcium 7.8 mg/dL (8.4-10.2) L 11/03/20 04:36 Magnesium 1.70 mg/dL (1.7-2.3) 11/03/20 04:36 Alkaline Phosphatase 252 units/L (35-129) H 11/03/20 04:36 Lactate Dehydrogenase 141 units/L (91-180) 11/03/20 13:55 Albumin 2.3 g/dL (3.9-5) L 11/03/20 04:36 Rvik-0-Zzyvgvxqndvjr 3.88 mg/L (<=2.51) H 10/23/20 05:12 Abnorm Protein Band 1 2.4 g/dL H 10/22/20 08:59 Crossmatch See Detail 10/25/20 13:20 Objective - Constitutional Vitals: Last Vital Signs Temp 98.4 F 11/06/20 05:04 Pulse 100 H 11/06/20 05:04 Resp 18 11/06/20 05:04 BP 93/54 11/06/20 05:04 Pulse Ox 100 11/06/20 05:04 - Labs Lab Results: Laboratory Results - last 24 hr 11/05/20 10:40 WBC 3.7 L RBC 2.34 L Hgb 7.4 L Hct 21.9 L MCV 93 MCH 31 MCHC 34 RDW 17.9 H Plt Count 69 L Add Manual Diff Complete Total Counted 100 Seg Neuts % (Manual) 92.0 H Lymphocytes % (Manual) 6.0 L Monocytes % (Manual) 1.0 Eosinophils % (Manual) 1.0 Nucleated RBC % 3.0 H Seg Neutrophils # Man 3.4 Band Neutrophils # 0.0 Lymphocytes # (Manual) 0.2 L Abs React Lymphs (Man) 0.0 Monocytes # (Manual) 0.0 Eosinophils # (Manual) 0.0 Basophils # (Manual) 0.0 Metamyelocytes # 0.0 Myelocytes # 0.0 Promyelocytes # 0.0 Blast Cells # 0.0 WBC Morphology Not Reportable Hypersegmented Neuts Not Reportable Hyposegmented Neuts Not Reportable Hypogranular Neuts Not Reportable Smudge Cells Not Reportable Toxic Granulation Not Reportable Toxic Vacuolation Not Reportable Dohle Bodies Not Reportable Pelger-Huet Anomaly Not Reportable Javon Rods Not Reportable Platelet Estimate Consistent w auto Clumped Platelets Not Reportable Plt Clumps, EDTA Not Reportable Large Platelets Not Reportable Giant Platelets Not Reportable Platelet Satelliting Not Reportable Plt Morphology Comment Not Reportable RBC Morphology Not Reportable Dimorphic RBCs Not Reportable Polychromasia Not Reportable Hypochromasia Not Reportable Poikilocytosis Not Reportable Anisocytosis 1+ Microcytosis Not Reportable Macrocytosis Not Reportable Spherocytes Not Reportable Pappenheimer Bodies Not Reportable Sickle Cells Not Reportable Target Cells Not Reportable Tear Drop Cells Not Reportable Ovalocytes Not Reportable Helmet Cells Not Reportable [place] Bodies Not Reportable [place] Rings Not Reportable Edna Cells Not Reportable Bite Cells Not Reportable Crenated Cell Not Reportable Elliptocytes Not Reportable Acanthocytes (Spur) Not Reportable Rouleaux Not Reportable Hemoglobin C Crystals Not Reportable Schistocytes Not Reportable Malaria parasites Not Reportable Lit Bodies Not Reportable Hem Pathologist Commnt No Medications & Allergies - Medications Allergies/Adverse Reactions: Allergies No Known Allergies Allergy (Verified 10/14/20 21:11) Home Medications: Home Medications Medication Instructions Recorded Confirmed Last Taken Type Calcium Carbonate [Oscal 1250MG 1,250 mg PO BID #30 tablet 11/01/20 Unknown Rx TAB] Hypromellose [Isopto Tears 0.5%] 2 drops OU Q4H PRN #1 bottle 11/01/20 Unknown Rx Magnesium Oxide [Mag-Ox] 400 mg PO QDAY #10 tablet 11/01/20 Unknown Rx Phenol 1.4% [Chloraseptic] 1 spray MM PRN PRN #1 bottle 11/01/20 Unknown Rx Spironolactone [Aldactone] 25 mg PO QDAY #30 tablet 11/01/20 Unknown Rx carvediloL [Coreg] 3.125 mg PO BID #60 tablet 11/01/20 Unknown Rx guaiFENesin [Robitussin] 200 mg PO Q4H PRN #14 oral.liqd 11/01/20 Unknown Rx lisinopriL [Zestril TAB] 2.5 mg PO QDAY #30 tablet 11/01/20 Unknown Rx Active Medications: Generic Name Dose Route Start Last Admin Trade Name Freq PRN Reason Stop Dose Admin Acetaminophen 650 mg 10/10/20 19:46 11/03/20 06:15 Acetaminophen 325 Mg Tab PO 650 mg Q4H PRN Administration Pain MILD(1-3)/Fever >100.5/KINNEY Albuterol 2.5 mg 10/10/20 19:46 Albuterol 2.5 Mg/3 Ml Nebu IH Q4HRT PRN Shortness Of Breath Artificial Tears 2 drops 10/20/20 18:29 10/23/20 15:47 Hypromellose 0.5% Ophth Soln 15 Ml OU 2 drops Q4H PRN Administration Dry Eye(s) Aspirin 81 mg 10/18/20 15:00 11/05/20 11:56 Aspirin Ec 81 Mg Tab PO 81 mg QDAY THEE Administration Benzocaine/Menthol 1 each 10/19/20 17:49 10/28/20 09:45 Benzocaine/Menthol Lozenge MM 1 each Q2HR PRN Administration Sore Throat Calcium Carbonate/Glycine 1,250 mg 10/24/20 22:00 11/05/20 22:53 Calcium Carbonate 1250 Mg Tab PO 1,250 mg BID THEE Administration Carvedilol 3.125 mg 10/17/20 22:00 11/05/20 22:53 Carvedilol 3.125 Mg Tab PO Not Given BID THEE Diphenhydramine HCl 25 mg 10/25/20 11:22 Diphenhydramine 50 Mg/Ml Vial IV Q6H PRN premed for RBC or plt transfus Guaifenesin 200 mg 10/29/20 12:09 11/04/20 18:41 Guaifenesin 100 Mg/5 Ml Oral Liqd PO 200 mg Q4H PRN Administration Cough Sodium Chloride 1,000 mls @ 125 mls/hr 10/12/20 11:00 10/23/20 22:17 Nacl 0.45% 1000 Ml IV 125 mls/hr DIRECT THEE Administration Lisinopril 2.5 mg 10/18/20 10:00 11/05/20 11:57 Lisinopril 5 Mg Tab PO Not Given QDAY THEE Magnesium Oxide 400 mg 10/22/20 10:00 11/05/20 11:56 Magnesium Oxide 400 Mg Tab PO 400 mg QDAY THEE Administration Ondansetron HCl 4 mg 10/10/20 19:46 Ondansetron 4 Mg/2 Ml Inj IV Q8H PRN Nausea And Vomiting Phenol 1 spray 10/15/20 14:54 10/18/20 21:53 Phenol 1.4% 177 Ml Bottle MM 1 spray PRN PRN Administration Sore Throat Sodium Chloride 10 ml 10/10/20 22:00 11/05/20 22:55 Sodium Chloride 0.9% 10 Ml Flush Syringe IV 10 ml BID THEE Administration Sodium Chloride 10 ml 10/10/20 19:46 Sodium Chloride 0.9% 10 Ml Flush Syringe IV PRN PRN LINE FLUSH Spironolactone 25 mg 10/18/20 15:00 11/05/20 11:57 Spironolactone 25 Mg Tab PO Not Given QDAY THEE
[2020-11-06] MEDS ORDERED: SODIUM CHLORIDE 0.9% 500 ML 500 ML IV NR (07:55)
[2020-11-06] MEDS ORDERED: diphenhydrAMINE 50 MG/ML VIAL IV PRN (07:56)
[2020-11-06] MEDS ORDERED: ACETAMINOPHEN 325 MG TAB PO PRN (07:57)
[2020-11-06 08:10] LABS: Hematocrit 21.4 % (35.5-45.6); Hemoglobin 7.2 gm/dl (11.8-15.2); Mean Corpuscular HGB Conc 34 % (32-34); Mean Corpuscular Volume 94 fl (84-94); Red Blood Count 2.29 M/mm3 (3.65-5.03); Red Cell Distribution Width 18.1 % (13.2-15.2)
[2020-11-06 08:12] LABS: Platelet Count 69 K/mm3 (140-440)
[2020-11-06] MEDS: ACYCLOVIR 200 MG CAP PO SCH ×2 (09:13→21:02)
[2020-11-06] MEDS: MAGNESIUM OXIDE 400 MG TAB PO SCH (09:14)
[2020-11-06] MEDS: ASPIRIN EC 81 MG TAB PO SCH (09:14)
[2020-11-06] MEDS: DEXAMETHASONE 4 MG TAB PO SCH (09:15)
[2020-11-06] MEDS: CALCIUM CARBONATE 1250 MG TAB PO SCH ×2 (09:16→21:01)
--- NOTE | 2020-11-06 09:21 | Progress Note ---
Assessment and Plan Dilated Cardiomyopathy, uncertain duration LVEF 20-25% by echo this admission Severe Anemia Bacteremia FLORESITA done this admission reports no evidence of vegetation COVID 19 infection Malnutrition Recent diagnosis of multiple myeloma Continue GDMT for dilated cardiomyopathy as tolerated. Otherwise, conservative cardiac management. Subjective Date of service: 11/06/20 Principal diagnosis: Multiple Myeloma Interval history: No interval cardiac changes. Objective Vital Signs Temp Pulse Resp BP BP Pulse Ox 11/06/20 05:04 98.4 F 100 H 18 93/54 100 11/05/20 22:00 98 F 102 H 18 95/61 100 11/05/20 21:06 99 11/05/20 18:36 98.9 F 100 H 16 100/65 100 11/05/20 11:57 101/62 11/05/20 11:56 100 H 101/64 11/05/20 11:30 98.5 F 96 H 18 107/68 99 11/05/20 10:00 99 - Physical Examination Narrative exam: Deferred due to isolation protocol. General: No Apparent Distress, Cachectic Extremities: Absent: edema - Labs and Meds CBC 11/05/20 11/06/20 Range/Units 10:40 06:53 WBC 3.7 L 3.8 L (4.5-11.0) K/mm3 RBC 2.34 L 2.29 L (3.65-5.03) M/mm3 Hgb 7.4 L 7.2 L (11.8-15.2) gm/dl Hct 21.9 L 21.4 L (35.5-45.6) % Plt Count 69 L 69 L (140-440) K/mm3
[2020-11-06 09:48] LABS: Total Cells Counted 100
[2020-11-06 09:49] LABS: Anisocytosis 1+; Platelet Estimate Consistent w Auto
[2020-11-06] MEDS: LISINOPRIL 5 MG TAB PO SCH (10:00)
[2020-11-06] MEDS ORDERED: PAMIDRONATE DISODIUM 30 MG in SODIUM CHLORIDE 0.9% 500 ML 500 ML IV ONE (10:00)
[2020-11-06] MEDS: FLUCONAZOLE 100 MG TAB PO SCH (10:00)
[2020-11-06] MEDS: carvediloL 3.125 MG TAB PO SCH ×3 (10:00→22:00)
[2020-11-06] MEDS: SPIRONOLACTONE 25 MG TAB PO SCH (10:00)
--- NOTE | 2020-11-06 13:14 | Progress Note ---
Assessment and Plan --COVID 19 PCR test positive on 11/01/2020 [negative Covid test, 10/11/2020, 10/21/2020] Contact and droplet isolation Patient on room air saturating well Prone position Check inflammatory markers Reconsult ID, Immunocompromised patient --Hypomagnesemia; replenished with 4 g of mag sul IV Monitor electrolytes --Pancytopenia; Hematology following, s/p 1 dose of Neupogen due to multiple myeloma, sepsis, Treat the underlying cause Telemetry hematology recommend the patient to see outpatient nanoelectronics engineer For further evaluation and management --Leukopenia; Received filgrastim subcu 2 dose, Closely monitor Telemetry hematology following --Sepsis due to persistent bacteremia Treated with daptomycin per ID, stop date 11/01/2020 FLORESITA negative for endocarditis --VRE bacteremia; completed treatment Unclear source/recent spinal surgery T10-T12, L1-L2, details not available Records requested from [facility] Unable to treat with linezolid secondary due to thrombocytopenia. ID recommended daptomycin for total 14 days last dose 11/01/2020 -- Multiple Myeloma: Management hem/onc per Dr Koehler bone survey c/w multiple myeloma rib tumors and 6cm R scapula tumor, L spine tumor no specific T spine tumor described kappa 986 k/l ratio 298 SPEP tiny M-spike, no BHARAT BMBx prelim-hypocellular; pending final interpretation presumed multiple myeloma [main cause of patient sickness] immunocompromised-presumed pneumonia low WBC related to bone marrow dysfunction good enough candidate for anti-myeloma therapy, needs it soon recent severe anemia due to multiple myeloma; RBC transfusion dependence Advised; await final bone marrow biopsy interp Transfusion as needed receiving IV Abx for presumed pneumonia off steroids Patient will follow heme-onc upon discharge for --Acute kidney injury (NELSY) with acute tubular necrosis (ATN) Resolved, renal function within normal level --Hypocalcemia; Replenished with calcium gluconate, and oral supplements Closely monitor levels --Hypophosphatemia; Closely monitor electrolytes and adjust as needed --Hypomagnesemia; Closely monitor electrolytes and replenish as needed --Anemia; Hb 6.4 -8.0 Received 1 unit PRBC transfusion check H&H, transfuse additional as needed. Hematology consult --History of recent spinal surgery: at [facility] T10 T12, L1-L2 surgery, surgical sutures on the back Wound care, continue antibiotics, request records from [facility] --Acute systolic CHF/ EF 20 to 25% antifailure medication with diuretic, beta-blockers, LALITHA inhibitors, input output monitoring, low-sodium diet,fluid restriction. Cardiology consult noted and appreciated --UTI/ur cultures grew Magali Completed Diflucan x3 doses per ID -- Severe protein calorie malnutrition Albumin 1.7 nutrition supplements ,, nutrition consult --Pneumonia Completed 5 days of Rocephin and Zithromax -- DVT prophylaxis SCDs bilateral lower extremities while in bed, patient is ambulatory Patient is severely ill with multiple medical problems, immunocompromised multip le myeloma Pancytopenia, Covid positive state, very poor prognosis Multiple social issues, homeless, no resources DC planning per case management and patient is stable Closely monitor the patient and adjust management as needed Plan of care reviewed with the patient and his nurse Warp Changer recommendations noted and appreciated Disposition; placement and discharge planning when stable Brief history: The patient is a 55-year-old male with diabetes, malnutrition, resident of an assisted living facility was brought into the emergency room with complaints of sore throat and back pain. Patient is persistent VRE completed antibiotics daptomycin, diagnosed with multiple myeloma , evaluated and followed by telemetry nanoelectronics engineer, advised to follow outpatient nanoelectronics engineer upon discharge, no positive COVID-19, pancytopenia and due to multiple myeloma, received multiple doses of Neupogen, awaiting placement DC when stable Daily clinical course: 10/16/2020; sepsis secondary to VRE bacteremia, UTI and pneumonia Continue current antibiotics per ID, contact isolation due to VRE 10/17/2020; patient is more alert and awake today, feels better CT abdomen and pelvis findings noted continue current antibiotics Physical therapy, Occupational Therapy as tolerated 10/18/2020; cardiology evaluations appreciated FLORESITA negative for endocarditis, cardiology started goal-directed CHF treatment 10/19/2020; persistent bacteremia, FLORESITA negative for endocarditis Continue ID cardiology recommendations Patient complains of some sore throat, Cepacol throat spray and Cepacol lozenges 10/20/2020; anemia, hemoglobin 6.4, transfuse 1 unit PRBC Closely monitor H&H transfuse additional PRBC as needed Pancytopenia, hematology consult inpatient versus outpatient 10/21/2020; patient's hemoglobin increased to 8.0 Severe hypophosphatemia, hypomagnesemia replenished Also ID nanoelectronics engineer Dr. Yusuf Koehler 10/22/2020; hematology evaluation noted and appreciated bone marrow biopsy requested And work-up for multiple myeloma in process 10/23/2020; continue current management, disposition per ID and hematology 10/24/2020; multiple myeloma management per hematology Persistent sepsis VRE, management per ID, long-term antibiotics Stop date 11/01/202010/25--10/28; clinically no change same condition 10/29/20; patient continues daptomycin stop date 11/01/2020 Multiple myeloma work-up in progress, appreciate heme-onc input Recommend outpatient follow-up with hematology oncology for further evaluation and management upon discharge 10/30; severe leukopenia, give 1 dose of filgrastim subcu Hematology following, closely monitor Neutropenia precautions as needed Patient is critically ill guarded prognosis 10/31; patient will receive 1 more dose of filgrastim today Closely monitor RBC WBC and platelets Patient needs to see nanoelectronics engineer upon discharge 11/01;Hypomagnesemia, replenish per protocol, last dose of daptomycin DC planning per case management Initially discharged the patient however personal senior care requested quintero PCR Discharge held, continue current management Possible discharge tomorrow personal-senior care tomorrow evening if Covid test is negative 11/02; patient's Covid test is positive, will reconsult ID Continue isolation, check room air and ambulatory O2 sats Consider dexamethasone and remdesivir if needed Patient is supposed to be discharged to personal senior care today We will hold the discharge 11/03; patient immunocompromised, COVID-19 positive reported 11/02/2020 Multiple myeloma, pancytopenia WBC 1.7 hemoglobin 7.8 platelets 58 Hematology following will give 1 dose of Neupogen today 11/04; reconsulted ID, continue current management, Awaiting placement Patient needs to follow outpatient nanoelectronics engineer for further evaluation and m anagement of Multiple myeloma, social issues no payer source DC planning per case management 11/05: Patient resting on room air, continue to follow inflammatory markers and ID recommendations. Patient will be discharged to his personal senior care on Wednesday as because he tested positive for COVID-19. Continue to provide supportive care. Follow heme-onc recommendation for the management of multiple myeloma. 11/06: Patient remains on room air, pending discharge to personal senior care for Covid positive status. Continue to provide supportive care and follow clinically. Continue PT OT eval. Continue to monitor H&H and transfuse as needed. Hospitalist Physical General appearance: Present: no acute distress, cachectic, disheveled, other (Chronically ill looking cachectic) - EENT Eyes: Present: PERRL, EOM intact - Neck Neck: Present: supple, normal ROM - Respiratory Respiratory effort: normal Respiratory: bilateral: diminished, negative: rales, rhonchi, wheezing - Cardiovascular Rhythm: regular Heart Sounds: Present: S1 & S2 - Extremities Extremities: no ischemia, No edema - Abdominal General gastrointestinal: soft, non-tender, non-distended, normal bowel sounds - Integumentary Integumentary: Present: clear, warm - Psychiatric Psychiatric: appropriate mood/affect, cooperative - Neurologic Neurologic: CNII-XII intact, moves all extremities Subjective Date of service: 11/06/20 Principal diagnosis: Multiple Myeloma Interval history: Patient seen and examined. Medical records and medication list reviewed. No acute event overnight noted by the RN. Patient denies any chest pain or difficulty breathing. Patient is tolerating diet. Patient remains on room air Personal-senior care will not accept the patient until next week Wednesday as pt is positive for COVID-19 Discussed plan of care at bedside with patient. Objective - Constitutional Vitals: Vital Signs - 12hr 11/06/20 11/06/20 05:04 11:11 Temperature 98.4 F Pulse Rate 100 H 98 H Respiratory 18 Rate Blood Pressure 93/54 [left arm] O2 Sat by Pulse 100 100 Oximetry - Labs CBC & Chem 7: 11/06/20 06:53 11/03/20 04:36 Labs: Abnormal lab results 11/06/20 Range/Units 06:53 WBC 3.8 L (4.5-11.0) K/mm3 RBC 2.29 L (3.65-5.03) M/mm3 Hgb 7.2 L (11.8-15.2) gm/dl Hct 21.4 L (35.5-45.6) % RDW 18.1 H (13.2-15.2) % Plt Count 69 L (140-440) K/mm3 Seg Neuts % (Manual) 77.0 H (40.0-70.0) % Nucleated RBC % 1.0 H (0.0-0.9) % Lymphocytes # (Manual) 0.7 L (1.2-5.4) K/mm3
[2020-11-06 15:06] LABS: C-Reactive Protein 2.1 mg/dL (0.00-1.30)
--- NOTE | 2020-11-07 08:56 | Progress Note ---
Assessment and Plan Dilated Cardiomyopathy, uncertain duration LVEF 20-25% by echo this admission Severe Anemia Bacteremia FLORESITA done this admission reports no evidence of vegetation COVID 19 infection Malnutrition Recent diagnosis of multiple myeloma Continue GDMT for dilated cardiomyopathy as tolerated. Otherwise, conservative cardiac management. Subjective Date of service: 11/07/20 Principal diagnosis: Multiple Myeloma Interval history: No interval cardiac changes. Objective Vital Signs Temp Pulse Resp BP Pulse Ox 11/07/20 04:55 97.6 F 96 H 18 131/89 96 11/07/20 04:05 98.0 F 18 128/90 11/07/20 02:18 97.6 F 95 H 18 128/89 98 11/07/20 02:04 97.8 F 92 H 18 123/87 98 11/07/20 01:33 98.3 F 96 H 18 122/89 97 11/07/20 01:19 98.0 F 95 H 18 115/86 98 11/07/20 01:06 98.5 F 85 18 113/85 98 11/07/20 00:13 98.0 F 94 H 18 130/86 100 11/06/20 18:02 98.0 F 101 H 18 126/83 99 11/06/20 13:23 98.4 F 104 H 18 109/76 100 11/06/20 11:11 98 H 100 11/06/20 10:00 20 99 - Physical Examination Narrative exam: Deferred due to isolation protocol. General: No Apparent Distress, Cachectic Neuro: Positive: Weakness Extremities: Absent: edema - Labs and Meds Cardiac Enzymes 11/06/20 Range/Units 14:06 Lactate Dehydrogenase 154 (91-180) units/L
[2020-11-07] MEDS ORDERED: EPOETIN ALFA 2,000 UNIT/1 ML VIAL SUB-Q ONE ×3 (10:00→13:00)
[2020-11-07 10:05] LABS: Basophils # (Auto) 0.1 K/mm3 (0.0-0.1); Basophils % (Auto) 2.2 % (0.0-1.8); Eosinophils % (Auto) 0.3 % (0.0-4.3); Hemoglobin 8.2 gm/dl (11.8-15.2); Lymphocytes # (Auto) 0.4 K/mm3 (1.2-5.4); Lymphocytes % (Auto) 9.7 % (13.4-35.0); Mean Corpuscular HGB Conc 34 % (32-34); Mean Corpuscular Volume 91 fl (84-94); Monocytes % (Auto) 1.1 % (0.0-7.3); Red Blood Count 2.63 M/mm3 (3.65-5.03); Red Cell Distribution Width 18.4 % (13.2-15.2)
[2020-11-07] MEDS: FLUCONAZOLE 100 MG TAB PO SCH (10:11)
[2020-11-07] MEDS: ACYCLOVIR 200 MG CAP PO SCH ×2 (10:11→21:43)
[2020-11-07] MEDS: MAGNESIUM OXIDE 400 MG TAB PO SCH (10:12)
[2020-11-07] MEDS: DEXAMETHASONE 4 MG TAB PO SCH (10:12)
[2020-11-07] MEDS: CALCIUM CARBONATE 1250 MG TAB PO SCH ×2 (10:13→21:43)
[2020-11-07] MEDS: ASPIRIN EC 81 MG TAB PO SCH (10:15)
[2020-11-07] MEDS: SPIRONOLACTONE 25 MG TAB PO SCH (10:23)
[2020-11-07] MEDS: carvediloL 3.125 MG TAB PO SCH ×2 (10:23→21:43)
[2020-11-07] MEDS: LISINOPRIL 5 MG TAB PO SCH (10:24)
[2020-11-07 10:30] LABS: Platelet Count 86 K/mm3 (140-440)
[2020-11-07 10:33] LABS: Alanine Aminotransferase 73 units/L (7-56); Albumin 2.2 g/dL (3.9-5); Blood Urea Nitrogen 18 mg/dL (9-20); Calcium 7.2 mg/dL (8.4-10.2); Hemolysis Index 8
[2020-11-07 10:38] LABS: BUN/Creatinine Ratio 36
--- NOTE | 2020-11-07 15:56 | Progress Note ---
Assessment and Plan --COVID 19 PCR test positive on 11/01/2020 [negative Covid test, 10/11/2020, 10/21/2020] Contact and droplet isolation Patient on room air saturating well Prone position Check inflammatory markers Reconsult ID, Immunocompromised patient --Hypomagnesemia; replenished with 4 g of mag sul IV Monitor electrolytes --Pancytopenia; Hematology following, s/p 1 dose of Neupogen due to multiple myeloma, sepsis, Treat the underlying cause Telemetry hematology recommend the patient to see outpatient block paver For further evaluation and management --Leukopenia; Received filgrastim subcu 2 dose, Closely monitor Telemetry hematology following --Sepsis due to persistent bacteremia Treated with daptomycin per ID, stop date 11/01/2020 FLORESITA negative for endocarditis --VRE bacteremia; completed treatment Unclear source/recent spinal surgery T10-T12, L1-L2, details not available Records requested from [facility] Unable to treat with linezolid secondary due to thrombocytopenia. ID recommended daptomycin for total 14 days last dose 11/01/2020 -- Multiple Myeloma: Management hem/onc per Dr Koehler bone survey c/w multiple myeloma rib tumors and 6cm R scapula tumor, L spine tumor no specific T spine tumor described kappa 986 k/l ratio 298 SPEP tiny M-spike, no BHARAT BMBx prelim-hypocellular; pending final interpretation presumed multiple myeloma [main cause of patient sickness] immunocompromised-presumed pneumonia low WBC related to bone marrow dysfunction good enough candidate for anti-myeloma therapy, needs it soon recent severe anemia due to multiple myeloma; RBC transfusion dependence Advised; await final bone marrow biopsy interp Transfusion as needed receiving IV Abx for presumed pneumonia off steroids Patient will follow heme-onc upon discharge for --Acute kidney injury (NELSY) with acute tubular necrosis (ATN) Resolved, renal function within normal level --Hypocalcemia; Replenished with calcium gluconate, and oral supplements Closely monitor levels --Hypophosphatemia; Closely monitor electrolytes and adjust as needed --Hypomagnesemia; Closely monitor electrolytes and replenish as needed --Anemia; Hb 6.4 -8.0 Likely due to underlying history of multiple myeloma Received 3 units PRBC transfusion check H&H, transfuse additional as needed. Hematology consult --History of recent spinal surgery: at [facility] T10 T12, L1-L2 surgery, surgical sutures on the back Wound care, continue antibiotics, request records from [facility] --Acute systolic CHF/ EF 20 to 25% antifailure medication with diuretic, beta-blockers, LALITHA inhibitors, input output monitoring, low-sodium diet,fluid restriction. Cardiology consult noted and appreciated --UTI/ur cultures grew Magali Completed Diflucan x3 doses per ID -- Severe protein calorie malnutrition Albumin 1.7 nutrition supplements ,, nutrition consult --Pneumonia Completed 5 days of Rocephin and Zithromax -- DVT prophylaxis SCDs bilateral lower extremities while in bed, patient is ambulatory Patient is severely ill with multiple medical problems, immunocompromised multiple myeloma Pancytopenia, Covid positive state, very poor prognosis Multiple social issues, homeless, no resources DC planning per case management and patient is stable Closely monitor the patient and adjust management as needed Plan of care reviewed with the patient and his nurse Pillar Worker recommendations noted and appreciated Disposition; placement and discharge planning when stable Brief history: The patient is a 55-year-old male with diabetes, malnutrition, resident of an assisted living facility was brought into the emergency room with complaints of sore throat and back pain. Patient is persistent VRE completed antibiotics daptomycin, diagnosed with multiple myeloma , evaluated and followed by telemetry block paver, advised to follow outpatient block paver upon discharge, no positive COVID-19, pancytopenia and due to multiple myeloma, received multiple doses of Neupogen, awaiting placement DC when stable Daily clinical course: 10/16/2020; sepsis secondary to VRE bacteremia, UTI and pneumonia Continue current antibiotics per ID, contact isolation due to VRE 10/17/2020; patient is more alert and awake today, feels better CT abdomen and pelvis findings noted continue current antibiotics Physical therapy, Occupational Therapy as tolerated 10/18/2020; cardiology evaluations appreciated FLORESITA negative for endocarditis, cardiology started goal-directed CHF treatment 10/19/2020; persistent bacteremia, FLORESITA negative for endocarditis Continue ID cardiology recommendations Patient complains of some sore throat, Cepacol throat spray and Cepacol lozenges 10/20/2020; anemia, hemoglobin 6.4, transfuse 1 unit PRBC Closely monitor H&H transfuse additional PRBC as needed Pancytopenia, hematology consult inpatient versus outpatient 10/21/2020; patient's hemoglobin increased to 8.0 Severe hypophosphatemia, hypomagnesemia replenished Also ID block paver Dr. Yusuf Koehler 10/22/2020; hematology evaluation noted and appreciated bone marrow biopsy requested And work-up for multiple myeloma in process 10/23/2020; continue current management, disposition per ID and hematology 10/24/2020; multiple myeloma management per hematology Persistent sepsis VRE, management per ID, long-term antibiotics Stop date 11/01/202010/25--10/28; clinically no change same condition 10/29/20; patient continues daptomycin stop date 11/01/2020 Multiple myeloma work-up in progress, appreciate heme-onc input Recommend outpatient follow-up with hematology oncology for further evaluation and management upon discharge 10/30; severe leukopenia, give 1 dose of filgrastim subcu Hematology following, closely monitor Neutropenia precautions as needed Patient is critically ill guarded prognosis 10/31; patient will receive 1 more dose of filgrastim today Closely monitor RBC WBC and platelets Patient needs to see block paver upon discharge 11/01;Hypomagnesemia, replenish per protocol, last dose of daptomycin DC planning per case management Initially discharged the patient however personal custodial requested quintero PCR Discharge held, continue current management Possible discharge tomorrow personal-custodial tomorrow evening if Covid test is negative 11/02; patient's Covid test is positive, will reconsult ID Continue isolation, check room air and ambulatory O2 sats Consider dexamethasone and remdesivir if needed Patient is supposed to be discharged to personal custodial today We will hold the discharge 11/03; patient immunocompromised, COVID-19 positive reported 11/02/2020 Multiple myeloma, pancytopenia WBC 1.7 hemoglobin 7.8 platelets 58 Hematology following will give 1 dose of Neupogen today 11/04; reconsulted ID, continue current management, Awaiting placement Patient needs to follow outpatient block paver for further evaluation and management of Multiple myeloma, social issues no payer source DC planning per case management 11/05: Patient resting on room air, continue to follow inflammatory markers and ID recommendations. Patient will be discharged to his personal custodial on Wednesday as because he tested positive for COVID-19. Continue to provide supportive care. Follow heme-onc recommendation for the management of multiple myeloma. 11/06: Patient remains on room air, pending discharge to personal custodial for Covid positive status. Continue to provide supportive care and follow clinically. Continue PT OT eval. Continue to monitor H&H and transfuse as needed. 11/07: Transfused another unit of packed RBC today per hematology recommendation. Patient remains on room air, pending discharge to personal custodial. Continue to follow clinically with supportive care. Hospitalist Physical General appearance: Present: no acute distress, cachectic, disheveled, other (Chronically ill looking cachectic) - EENT Eyes: Present: PERRL, EOM intact - Neck Neck: Present: supple, normal ROM - Respiratory Respiratory effort: normal Respiratory: bilateral: diminished, negative: rales, rhonchi, wheezing - Cardiovascular Rhythm: regular Heart Sounds: Present: S1 & S2 - Extremities Extremities: no ischemia, No edema - Abdominal General gastrointestinal: soft, non-tender, non-distended, normal bowel sounds - Integumentary Integumentary: Present: clear, warm - Psychiatric Psychiatric: appropriate mood/affect, cooperative - Neurologic Neurologic: CNII-XII intact, moves all extremities Subjective Date of service: 11/07/20 Principal diagnosis: Multiple Myeloma Interval history: Patient seen and examined. Medical records and medication list reviewed. No acute event overnight noted by the RN. Patient denies any chest pain or difficulty breathing. Patient is tolerating diet. Patient remains on room air Personal-custodial will not accept the patient until next week Wednesday as pt is positive for COVID-19 Discussed plan of care at bedside with patient. Objective - Constitutional Vitals: Vital Signs - 12hr 11/07/20 11/07/20 11/07/20 04:05 04:55 10:23 Temperature 98.0 F 97.6 F Pulse Rate 96 H 91 H Respiratory 18 18 Rate Blood Pressure 128/90 131/89 136/81 O2 Sat by Pulse 96 Oximetry 11/07/20 11/07/20 10:24 11:34 Temperature 98.7 F Pulse Rate 91 H 100 H Respiratory 20 Rate Blood Pressure 136/81 115/73 O2 Sat by Pulse 99 Oximetry - Labs CBC & Chem 7: 11/07/20 07:49 11/07/20 07:49 Labs: Abnormal lab results 10/20/20 10/25/20 11/06/20 Range/Units 06:26 13:20 14:06 RBC (3.65-5.03) M/mm3 Hgb (11.8-15.2) gm/dl Hct (35.5-45.6) % RDW (13.2-15.2) % Plt Count (140-440) K/mm3 Lymph % (Auto) (13.4-35.0) % Baso % (Auto) (0.0-1.8) % Lymph # (Auto) (1.2-5.4) K/mm3 Seg Neutrophils % (40.0-70.0) % Sodium (137-145) mmol/L Creatinine (0.8-1.3) mg/dL Calcium (8.4-10.2) mg/dL AST (5-40) units/L ALT (7-56) units/L Alkaline Phosphatase (35-129) units/L Albumin (3.9-5) g/dL Crossmatch See Detail See Detail See Detail 11/07/20 11/07/20 Range/Units 07:49 07:49 RBC 2.63 L (3.65-5.03) M/mm3 Hgb 8.2 L (11.8-15.2) gm/dl Hct 24.0 L (35.5-45.6) % RDW 18.4 H (13.2-15.2) % Plt Count 86 L (140-440) K/mm3 Lymph % (Auto) 9.7 L (13.4-35.0) % Baso % (Auto) 2.2 H (0.0-1.8) % Lymph # (Auto) 0.4 L (1.2-5.4) K/mm3 Seg Neutrophils % 86.7 H (40.0-70.0) % Sodium 135 L (137-145) mmol/L Creatinine 0.5 L (0.8-1.3) mg/dL Calcium 7.2 L (8.4-10.2) mg/dL AST 43 H (5-40) units/L ALT 73 H (7-56) units/L Alkaline Phosphatase 256 H (35-129) units/L Albumin 2.2 L (3.9-5) g/dL Crossmatch
[2020-11-07] MEDS ORDERED: diphenhydrAMINE 25 MG CAP PO PRN (23:46)
--- NOTE | 2020-11-08 09:14 | Progress Note ---
Assessment and Plan --COVID 19 PCR test positive on 11/01/2020 [negative Covid test, 10/11/2020, 10/21/2020] Contact and droplet isolation Patient on room air saturating well Prone position Check inflammatory markers Reconsult ID, Immunocompromised patient --Hypomagnesemia; replenished with 4 g of mag sul IV Monitor electrolytes --Pancytopenia; Hematology following, s/p 1 dose of Neupogen due to multiple myeloma, sepsis, Treat the underlying cause Telemetry hematology recommend the patient to see outpatient trading specialist For further evaluation and management --Leukopenia; Received filgrastim subcu 2 dose, Closely monitor Telemetry hematology following --Sepsis due to persistent bacteremia Treated with daptomycin per ID, stop date 11/01/2020 FLORESITA negative for endocarditis --VRE bacteremia; completed treatment Unclear source/recent spinal surgery T10-T12, L1-L2, details not available Records requested from [facility] Unable to treat with linezolid secondary due to thrombocytopenia. ID recommended daptomycin for total 14 days last dose 11/01/2020 -- Multiple Myeloma: Management hem/onc per Dr Koehler bone survey c/w multiple myeloma rib tumors and 6cm R scapula tumor, L spine tumor no specific T spine tumor described kappa 986 k/l ratio 298 SPEP tiny M-spike, no BHARAT BMBx prelim-hypocellular; pending final interpretation presumed multiple myeloma [main cause of patient sickness] immunocompromised-presumed pneumonia low WBC related to bone marrow dysfunction good enough candidate for anti-myeloma therapy, needs it soon recent severe anemia due to multiple myeloma; RBC transfusion dependence Advised; await final bone marrow biopsy interp Transfusion as needed receiving IV Abx for presumed pneumonia off steroids Patient will follow heme-onc upon discharge for --Acute kidney injury (NELSY) with acute tubular necrosis (ATN) Resolved, renal function within normal level --Hypocalcemia; Replenished with calcium gluconate, and oral supplements Closely monitor levels --Hypophosphatemia; Closely monitor electrolytes and adjust as needed --Hypomagnesemia; Closely monitor electrolytes and replenish as needed --Anemia; Hb 6.4 -8.0 Likely due to underlying history of multiple myeloma Received 3 units PRBC transfusion check H&H, transfuse additional as needed. Hematology consult --History of recent spinal surgery: at [facility] T10 T12, L1-L2 surgery, surgical sutures on the back Wound care, continue antibiotics, request records from [facility] --Acute systolic CHF/ EF 20 to 25% antifailure medication with diuretic, beta-blockers, LALITHA inhibitors, input output monitoring, low-sodium diet,fluid restriction. Cardiology consult noted and appreciated --UTI/ur cultures grew Magali Completed Diflucan x3 doses per ID -- Severe protein calorie malnutrition Albumin 1.7 nutrition supplements ,, nutrition consult --Pneumonia Completed 5 days of Rocephin and Zithromax -- DVT prophylaxis SCDs bilateral lower extremities while in bed, patient is ambulatory Patient is severely ill with multiple medical problems, immunocompromised multiple myeloma Pancytopenia, Covid positive state, very poor prognosis Multiple social issues, homeless, no resources DC planning per case management and patient is stable Closely monitor the patient and adjust management as needed Plan of care reviewed with the patient and his nurse Sales Advisor recommendations noted and appreciated Disposition; placement and discharge planning when stable Brief history: The patient is a 55-year-old male with diabetes, malnutrition, resident of an assisted living facility was brought into the emergency room with complaints of sore throat and back pain. Patient is persistent VRE completed antibiotics daptomycin, diagnosed with multiple myeloma , evaluated and followed by telemetry trading specialist, advised to follow outpatient trading specialist upon discharge, no positive COVID-19, pancytopenia and due to multiple myeloma, received multiple doses of Neupogen, awaiting placement DC when stable Daily clinical course: 10/16/2020; sepsis secondary to VRE bacteremia, UTI and pneumonia Continue current antibiotics per ID, contact isolation due to VRE 10/17/2020; patient is more alert and awake today, feels better CT abdomen and pelvis findings noted continue current antibiotics Physical therapy, Occupational Therapy as tolerated 10/18/2020; cardiology evaluations appreciated FLORESITA negative for endocarditis, cardiology started goal-directed CHF treatment 10/19/2020; persistent bacteremia, FLORESITA negative for endocarditis Continue ID cardiology recommendations Patient complains of some sore throat, Cepacol throat spray and Cepacol lozenges 10/20/2020; anemia, hemoglobin 6.4, transfuse 1 unit PRBC Closely monitor H&H transfuse additional PRBC as needed Pancytopenia, hematology consult inpatient versus outpatient 10/21/2020; patient's hemoglobin increased to 8.0 Severe hypophosphatemia, hypomagnesemia replenished Also ID trading specialist Dr. Yusuf Koehler 10/22/2020; hematology evaluation noted and appreciated bone marrow biopsy requested And work-up for multiple myeloma in process 10/23/2020; continue current management, disposition per ID and hematology 10/24/2020; multiple myeloma management per hematology Persistent sepsis VRE, management per ID, long-term antibiotics Stop date 11/01/202010/25--10/28; clinically no change same condition 10/29/20; patient continues daptomycin stop date 11/01/2020 Multiple myeloma work-up in progress, appreciate heme-onc input Recommend outpatient follow-up with hematology oncology for further evaluation and management upon discharge 10/30; severe leukopenia, give 1 dose of filgrastim subcu Hematology following, closely monitor Neutropenia precautions as needed Patient is critically ill guarded prognosis 10/31; patient will receive 1 more dose of filgrastim today Closely monitor RBC WBC and platelets Patient needs to see trading specialist upon discharge 11/01;Hypomagnesemia, replenish per protocol, last dose of daptomycin DC planning per case management Initially discharged the patient however personal longterm requested quintero PCR Discharge held, continue current management Possible discharge tomorrow personal-longterm tomorrow evening if Covid test is negative 11/02; patient's Covid test is positive, will reconsult ID Continue isolation, check room air and ambulatory O2 sats Consider dexamethasone and remdesivir if needed Patient is supposed to be discharged to personal longterm today We will hold the discharge 11/03; patient immunocompromised, COVID-19 positive reported 11/02/2020 Multiple myeloma, pancytopenia WBC 1.7 hemoglobin 7.8 platelets 58 Hematology following will give 1 dose of Neupogen today 11/04; reconsulted ID, continue current management, Awaiting placement Patient needs to follow outpatient trading specialist for further evaluation and management of Multiple myeloma, social issues no payer source DC planning per case management 11/05: Patient resting on room air, continue to follow inflammatory markers and ID recommendations. Patient will be discharged to his personal longterm on Wednesday as because he tested positive for COVID-19. Continue to provide supportive care. Follow heme-onc recommendation for the management of multiple myeloma. 11/06: Patient remains on room air, pending discharge to personal longterm for Covid positive status. Continue to provide supportive care and follow clinically. Continue PT OT eval. Continue to monitor H&H and transfuse as needed. 11/07: Transfused another unit of packed RBC today per hematology recommendation. Patient remains on room air, pending discharge to personal longterm. Continue to follow clinically with supportive care. 11/08: h/h stable, pending placement to [facility]. follow clinically Hospitalist Physical General appearance: Present: no acute distress, cachectic, disheveled, other (Chronically ill looking cachectic) - EENT Eyes: Present: PERRL, EOM intact - Neck Neck: Present: supple, normal ROM - Respiratory Respiratory effort: normal Respiratory: bilateral: diminished, negative: rales, rhonchi, wheezing - Cardiovascular Rhythm: regular Heart Sounds: Present: S1 & S2 - Extremities Extremities: no ischemia, No edema - Abdominal General gastrointestinal: soft, non-tender, non-distended, normal bowel sounds - Integumentary Integumentary: Present: clear, warm - Psychiatric Psychiatric: appropriate mood/affect, cooperative - Neurologic Neurologic: CNII-XII intact, moves all extremities Subjective Date of service: 11/08/20 Principal diagnosis: Multiple Myeloma Interval history: Patient seen and examined. Medical records and medication list reviewed. No acute event overnight noted by the RN. Patient denies any chest pain or difficulty breathing. Patient is tolerating diet. Patient remains on room air Personal-longterm will not accept the patient until next week Wednesday as pt is positive for COVID-19 Discussed plan of care at bedside with patient. Objective - Constitutional Vitals: Vital Signs - 12hr 11/07/20 11/08/20 21:39 05:06 Temperature 97.8 F Pulse Rate 77 Respiratory 18 Rate Blood Pressure 117/74 O2 Sat by Pulse 99 Oximetry - Labs CBC & Chem 7: 11/07/20 07:49 11/07/20 07:49 Labs: Abnormal lab results 11/07/20 11/07/20 Range/Units 07:49 07:49 RBC 2.63 L (3.65-5.03) M/mm3 Hgb 8.2 L (11.8-15.2) gm/dl Hct 24.0 L (35.5-45.6) % RDW 18.4 H (13.2-15.2) % Plt Count 86 L (140-440) K/mm3 Lymph % (Auto) 9.7 L (13.4-35.0) % Baso % (Auto) 2.2 H (0.0-1.8) % Lymph # (Auto) 0.4 L (1.2-5.4) K/mm3 Seg Neutrophils % 86.7 H (40.0-70.0) % Sodium 135 L (137-145) mmol/L Creatinine 0.5 L (0.8-1.3) mg/dL Calcium 7.2 L (8.4-10.2) mg/dL AST 43 H (5-40) units/L ALT 73 H (7-56) units/L Alkaline Phosphatase 256 H (35-129) units/L Albumin 2.2 L (3.9-5) g/dL
[2020-11-08] MEDS: FLUCONAZOLE 100 MG TAB PO SCH (10:12)
[2020-11-08] MEDS: ACYCLOVIR 200 MG CAP PO SCH ×2 (10:12→22:31)
[2020-11-08] MEDS: MAGNESIUM OXIDE 400 MG TAB PO SCH (10:13)
[2020-11-08] MEDS: ASPIRIN EC 81 MG TAB PO SCH (10:13)
[2020-11-08] MEDS: CALCIUM CARBONATE 1250 MG TAB PO SCH ×2 (10:13→22:31)
[2020-11-08] MEDS: SPIRONOLACTONE 25 MG TAB PO SCH (10:19)
[2020-11-08] MEDS: carvediloL 3.125 MG TAB PO SCH ×2 (10:19→22:32)
[2020-11-08] MEDS: LISINOPRIL 5 MG TAB PO SCH (10:20)
--- NOTE | 2020-11-08 10:23 | Progress Note ---
Assessment and Plan Dilated Cardiomyopathy, uncertain duration LVEF 20-25% by echo this admission Severe Anemia Bacteremia FLORESITA done this admission reports no evidence of vegetation COVID 19 infection Malnutrition Recent diagnosis of multiple myeloma Continue GDMT for dilated cardiomyopathy as tolerated. Otherwise, conservative cardiac management. Subjective Date of service: 11/08/20 Principal diagnosis: Multiple Myeloma Interval history: No interval cardiac changes. Objective Vital Signs Temp Pulse Resp BP Pulse Ox 11/08/20 10:20 91 H 118/70 11/08/20 10:19 91 H 118/70 11/08/20 05:06 97.8 F 77 18 99 11/07/20 21:39 117/74 11/07/20 17:47 97.9 F 89 20 117/82 100 11/07/20 11:34 98.7 F 100 H 20 115/73 99 11/07/20 10:24 91 H 136/81 11/07/20 10:23 91 H 136/81 - Physical Examination Narrative exam: Deferred due to isolation protocol. General: No Apparent Distress, Cachectic - Labs and Meds Cardiac Enzymes 11/07/20 Range/Units 07:49 AST 43 H (5-40) units/L CBC 11/07/20 Range/Units 07:49 WBC 4.5 (4.5-11.0) K/mm3 RBC 2.63 L (3.65-5.03) M/mm3 Hgb 8.2 L (11.8-15.2) gm/dl Hct 24.0 L (35.5-45.6) % Plt Count 86 L (140-440) K/mm3 Lymph # (Auto) 0.4 L (1.2-5.4) K/mm3 Comprehensive Metabolic Panel 11/07/20 Range/Units 07:49 Sodium 135 L (137-145) mmol/L Potassium 3.6 (3.6-5.0) mmol/L Chloride 99.4 (98-107) mmol/L Carbon Dioxide 23 (22-30) mmol/L BUN 18 (9-20) mg/dL Creatinine 0.5 L (0.8-1.3) mg/dL Glucose 88 (75-100) mg/dL Calcium 7.2 L (8.4-10.2) mg/dL AST 43 H (5-40) units/L ALT 73 H (7-56) units/L Alkaline Phosphatase 256 H (35-129) units/L Total Protein 7.7 (6.3-8.2) g/dL Albumin 2.2 L (3.9-5) g/dL
[2020-11-08 14:29] LABS: Hemoglobin A2 Prime SEE SCANNED RESULT; Hemoglobin Barts SEE SCANNED RESULT; Hemoglobin E SEE SCANNED RESULT; Hemoglobin G SEE SCANNED RESULT; Hemoglobin Lepore SEE SCANNED RESULT; Hemoglobin O-Arab SEE SCANNED RESULT; Sickle Solubility Test SEE SCANNED RESULT
[2020-11-08 14:30] LABS: IEF Confirm SEE SCANNED RESULT; Interpretation SEE SCANNED RESULT
[2020-11-08] MEDS: guaiFENesin 100 MG/5 ML ORAL LIQD PO PRN (23:08)
[2020-11-09] MEDS: ASPIRIN EC 81 MG TAB PO SCH (10:08)
[2020-11-09] MEDS: ACYCLOVIR 200 MG CAP PO SCH ×2 (10:08→22:04)
[2020-11-09] MEDS: MAGNESIUM OXIDE 400 MG TAB PO SCH (10:09)
[2020-11-09] MEDS: FLUCONAZOLE 100 MG TAB PO SCH (10:17)
[2020-11-09] MEDS: SPIRONOLACTONE 25 MG TAB PO SCH (10:25)
[2020-11-09] MEDS: LISINOPRIL 5 MG TAB PO SCH (10:27)
[2020-11-09] MEDS: carvediloL 3.125 MG TAB PO SCH ×2 (10:27→22:04)
[2020-11-09] MEDS: CALCIUM CARBONATE 1250 MG TAB PO SCH ×2 (12:45→22:04)
--- NOTE | 2020-11-09 15:12 | Progress Note ---
Assessment and Plan --COVID 19 PCR test positive on 11/01/2020 [negative Covid test, 10/11/2020, 10/21/2020] Contact and droplet isolation Patient on room air saturating well Prone position Check inflammatory markers Reconsult ID, Immunocompromised patient --Hypomagnesemia; replenished with 4 g of mag sul IV Monitor electrolytes --Pancytopenia; Hematology following, s/p 1 dose of Neupogen due to multiple myeloma, sepsis, Treat the underlying cause Telemetry hematology recommend the patient to see outpatient fountain helper For further evaluation and management --Leukopenia; Received filgrastim subcu 2 dose, Closely monitor Telemetry hematology following --Sepsis due to persistent bacteremia Treated with daptomycin per ID, stop date 11/01/2020 FLORESITA negative for endocarditis --VRE bacteremia; completed treatment Unclear source/recent spinal surgery T10-T12, L1-L2, details not available Records requested from [facility] Unable to treat with linezolid secondary due to thrombocytopenia. ID recommended daptomycin for total 14 days last dose 11/01/2020 -- Multiple Myeloma: Management hem/onc per Dr Koehler bone survey c/w multiple myeloma rib tumors and 6cm R scapula tumor, L spine tumor no specific T spine tumor described kappa 986 k/l ratio 298 SPEP tiny M-spike, no BHARAT BMBx prelim-hypocellular; pending final interpretation presumed multiple myeloma [main cause of patient sickness] immunocompromised-presumed pneumonia low WBC related to bone marrow dysfunction good enough candidate for anti-myeloma therapy, needs it soon recent severe anemia due to multiple myeloma; RBC transfusion dependence Advised; await final bone marrow biopsy interp Transfusion as needed receiving IV Abx for presumed pneumonia off steroids Patient will follow heme-onc upon discharge for --Acute kidney injury (NELSY) with acute tubular necrosis (ATN) Resolved, renal function within normal level --Hypocalcemia; Replenished with calcium gluconate, and oral supplements Closely monitor levels --Hypophosphatemia; Closely monitor electrolytes and adjust as needed --Hypomagnesemia; Closely monitor electrolytes and replenish as needed --Anemia; Hb 6.4 -8.0 Likely due to underlying history of multiple myeloma Received 3 units PRBC transfusion check H&H, transfuse additional as needed. Hematology consult --History of recent spinal surgery: at [facility] T10 T12, L1-L2 surgery, surgical sutures on the back Wound care, continue antibiotics, request records from [facility] --Acute systolic CHF/ EF 20 to 25% antifailure medication with diuretic, beta-blockers, LALITHA inhibitors, input output monitoring, low-sodium diet,fluid restriction. Cardiology consult noted and appreciated --UTI/ur cultures grew Magali Completed Diflucan x3 doses per ID -- Severe protein calorie malnutrition Albumin 1.7 nutrition supplements ,, nutrition consult --Pneumonia Completed 5 days of Rocephin and Zithromax -- DVT prophylaxis SCDs bilateral lower extremities while in bed, patient is ambulatory Patient is severely ill with multiple medical problems, immunocompromised multiple myeloma Pancytopenia, Covid positive state, very poor prognosis Multiple social issues, homeless, no resources DC planning per case management and patient is stable Closely monitor the patient and adjust management as needed Plan of care reviewed with the patient and his nurse Water Use Inspector recommendations noted and appreciated Disposition; placement and discharge planning when stable Brief history: The patient is a 55-year-old male with diabetes, malnutrition, resident of an assisted living facility was brought into the emergency room with complaints of sore throat and back pain. Patient is persistent VRE completed antibiotics daptomycin, diagnosed with multiple myeloma , evaluated and followed by telemetry fountain helper, advised to follow outpatient fountain helper upon discharge, no positive COVID-19, pancytopenia and due to multiple myeloma, received multiple doses of Neupogen, awaiting placement DC when stable Daily clinical course: 10/16/2020; sepsis secondary to VRE bacteremia, UTI and pneumonia Continue current antibiotics per ID, contact isolation due to VRE 10/17/2020; patient is more alert and awake today, feels better CT abdomen and pelvis findings noted continue current antibiotics Physical therapy, Occupational Therapy as tolerated 10/18/2020; cardiology evaluations appreciated FLORESITA negative for endocarditis, cardiology started goal-directed CHF treatment 10/19/2020; persistent bacteremia, FLORESITA negative for endocarditis Continue ID cardiology recommendations Patient complains of some sore throat, Cepacol throat spray and Cepacol lozenges 10/20/2020; anemia, hemoglobin 6.4, transfuse 1 unit PRBC Closely monitor H&H transfuse additional PRBC as needed Pancytopenia, hematology consult inpatient versus outpatient 10/21/2020; patient's hemoglobin increased to 8.0 Severe hypophosphatemia, hypomagnesemia replenished Also ID fountain helper Dr. Yusuf Koehler 10/22/2020; hematology evaluation noted and appreciated bone marrow biopsy requested And work-up for multiple myeloma in process 10/23/2020; continue current management, disposition per ID and hematology 10/24/2020; multiple myeloma management per hematology Persistent sepsis VRE, management per ID, long-term antibiotics Stop date 11/01/202010/25--10/28; clinically no change same condition 10/29/20; patient continues daptomycin stop date 11/01/2020 Multiple myeloma work-up in progress, appreciate heme-onc input Recommend outpatient follow-up with hematology oncology for further evaluation and management upon discharge 10/30; severe leukopenia, give 1 dose of filgrastim subcu Hematology following, closely monitor Neutropenia precautions as needed Patient is critically ill guarded prognosis 10/31; patient will receive 1 more dose of filgrastim today Closely monitor RBC WBC and platelets Patient needs to see fountain helper upon discharge 11/01;Hypomagnesemia, replenish per protocol, last dose of daptomycin DC planning per case management Initially discharged the patient however personal residential requested quintero PCR Discharge held, continue current management Possible discharge tomorrow personal-residential tomorrow evening if Covid test is negative 11/02; patient's Covid test is positive, will reconsult ID Continue isolation, check room air and ambulatory O2 sats Consider dexamethasone and remdesivir if needed Patient is supposed to be discharged to personal residential today We will hold the discharge 11/03; patient immunocompromised, COVID-19 positive reported 11/02/2020 Multiple myeloma, pancytopenia WBC 1.7 hemoglobin 7.8 platelets 58 Hematology following will give 1 dose of Neupogen today 11/04; reconsulted ID, continue current management, Awaiting placement Patient needs to follow outpatient fountain helper for further evaluation and management of Multiple myeloma, social issues no payer source DC planning per case management 11/05: Patient resting on room air, continue to follow inflammatory markers and ID recommendations. Patient will be discharged to his personal residential on Wednesday as because he tested positive for COVID-19. Continue to provide supportive care. Follow heme-onc recommendation for the management of multiple myeloma. 11/06: Patient remains on room air, pending discharge to personal residential for Covid positive status. Continue to provide supportive care and follow clinically. Continue PT OT eval. Continue to monitor H&H and transfuse as needed. 11/07: Transfused another unit of packed RBC today per hematology recommendation. Patient remains on room air, pending discharge to personal residential. Continue to follow clinically with supportive care. 11/08: h/h stable, pending placement to [facility]. follow clinically 11/09: cont supportive care, patient remains on RA. pending discharge to personal residential. Hospitalist Physical General appearance: Present: no acute distress, cachectic, disheveled, other (Chronically ill looking cachectic) - EENT Eyes: Present: PERRL, EOM intact - Neck Neck: Present: supple, normal ROM - Respiratory Respiratory effort: normal Respiratory: bilateral: diminished, negative: rales, rhonchi, wheezing - Cardiovascular Rhythm: regular Heart Sounds: Present: S1 & S2 - Extremities Extremities: no ischemia, No edema - Abdominal General gastrointestinal: soft, non-tender, non-distended, normal bowel sounds - Integumentary Integumentary: Present: clear, warm - Psychiatric Psychiatric: appropriate mood/affect, cooperative - Neurologic Neurologic: CNII-XII intact, moves all extremities Subjective Date of service: 11/09/20 Principal diagnosis: Multiple Myeloma Interval history: Patient seen and examined. Medical records and medication list reviewed. No acute event overnight noted by the RN. Patient denies any chest pain or difficulty breathing. Patient is tolerating diet. Patient remains on room air Personal-residential will not accept the patient until next week Wednesday as pt is positive for COVID-19 Discussed plan of care at bedside with patient. Objective - Constitutional Vitals: Vital Signs - 12hr 11/09/20 11/09/20 11/09/20 04:20 10:10 10:11 Temperature 98.0 F Pulse Rate 98 H 99 H 99 H Respiratory 18 Rate Blood Pressure 116/79 88/51 O2 Sat by Pulse 100 100 100 Oximetry 11/09/20 10:25 Temperature Pulse Rate Respiratory Rate Blood Pressure 88/61 O2 Sat by Pulse Oximetry - Labs CBC & Chem 7: 11/07/20 07:49 11/07/20 07:49
--- NOTE | 2020-11-09 16:44 | Progress Note ---
Assessment and Plan Dilated Cardiomyopathy, uncertain duration LVEF 20-25% by echo this admission Severe Anemia Bacteremia FLORESITA done this admission reports no evidence of vegetation COVID 19 infection Malnutrition Recent diagnosis of multiple myeloma Continue GDMT for dilated cardiomyopathy as tolerated by BP. Otherwise, conservative cardiac management. No further cardiac recommendations at this time. Will sign off. Please call with questions. Subjective Date of service: 11/09/20 Principal diagnosis: Multiple Myeloma Interval history: Patient is currently COVID-19 + status; thus, he was not seen in person to preserve PPE and limit spread of infection. No cardiac events. Not on telemetry. Did not receive lisinopril and spironolactone due to BP. Objective Vital Signs Temp Pulse Resp Resp BP BP Pulse Ox 11/09/20 10:25 88/61 11/09/20 10:11 99 H 100 11/09/20 10:10 99 H 88/51 100 11/09/20 04:20 98.0 F 98 H 18 116/79 100 11/08/20 22:26 97.3 F L 90 20 116/84 100 11/08/20 22:15 116/84 11/08/20 22:00 18 18 11/08/20 21:46 97.3 F L 90 18 100 11/08/20 17:15 98.3 F 86 18 106/65 100 Exam deferred due to COVID + status.
[2020-11-09] MEDS: oxyCODONE 5 MG TAB PO PRN ×2 (17:04→22:03)
[2020-11-09] MEDS: guaiFENesin 100 MG/5 ML ORAL LIQD PO PRN (23:58)
[2020-11-10] MEDS: MAGNESIUM OXIDE 400 MG TAB PO SCH (09:21)
[2020-11-10] MEDS: ASPIRIN EC 81 MG TAB PO SCH (09:21)
[2020-11-10] MEDS: ACYCLOVIR 200 MG CAP PO SCH ×2 (09:21→23:42)
[2020-11-10] MEDS: CALCIUM CARBONATE 1250 MG TAB PO SCH ×2 (09:21→23:46)
[2020-11-10] MEDS: SPIRONOLACTONE 25 MG TAB PO SCH (09:23)
[2020-11-10] MEDS: carvediloL 3.125 MG TAB PO SCH ×2 (09:23→23:43)
[2020-11-10] MEDS: FLUCONAZOLE 100 MG TAB PO SCH (10:00)
[2020-11-10] MEDS: LISINOPRIL 5 MG TAB PO SCH (11:06)
[2020-11-10] MEDS: oxyCODONE 5 MG TAB PO PRN (23:44)
[2020-11-11] MEDS: ACYCLOVIR 200 MG CAP PO SCH ×2 (08:00→21:46)
--- NOTE | 2020-11-11 08:54 | Progress Note ---
Assessment and Plan --COVID 19 PCR test positive on 11/01/2020 [negative Covid test, 10/11/2020, 10/21/2020] Contact and droplet isolation Patient on room air saturating well Prone position Check inflammatory markers Reconsult ID, Immunocompromised patient --Hypomagnesemia; replenished with 4 g of mag sul IV Monitor electrolytes --Pancytopenia; Hematology following, s/p 1 dose of Neupogen due to multiple myeloma, sepsis, Treat the underlying cause Telemetry hematology recommend the patient to see outpatient production foreman For further evaluation and management --Leukopenia; Received filgrastim subcu 2 dose, Closely monitor Telemetry hematology following --Sepsis due to persistent bacteremia Treated with daptomycin per ID, stop date 11/01/2020 FLORESITA negative for endocarditis --VRE bacteremia; completed treatment Unclear source/recent spinal surgery T10-T12, L1-L2, details not available Records requested from [facility] Unable to treat with linezolid secondary due to thrombocytopenia. ID recommended daptomycin for total 14 days last dose 11/01/2020 -- Multiple Myeloma: Management hem/onc per Dr Koehler bone survey c/w multiple myeloma rib tumors and 6cm R scapula tumor, L spine tumor no specific T spine tumor described kappa 986 k/l ratio 298 SPEP tiny M-spike, no BHARAT BMBx prelim-hypocellular; pending final interpretation presumed multiple myeloma [main cause of patient sickness] immunocompromised-presumed pneumonia low WBC related to bone marrow dysfunction good enough candidate for anti-myeloma therapy, needs it soon recent severe anemia due to multiple myeloma; RBC transfusion dependence Advised; await final bone marrow biopsy interp Transfusion as needed receiving IV Abx for presumed pneumonia off steroids Patient will follow heme-onc upon discharge for --Acute kidney injury (NELSY) with acute tubular necrosis (ATN) Resolved, renal function within normal level --Hypocalcemia; Replenished with calcium gluconate, and oral supplements Closely monitor levels --Hypophosphatemia; Closely monitor electrolytes and adjust as needed --Hypomagnesemia; Closely monitor electrolytes and replenish as needed --Anemia; Hb 6.4 -8.0 Likely due to underlying history of multiple myeloma Received 3 units PRBC transfusion check H&H, transfuse additional as needed. Hematology consult --History of recent spinal surgery: at [facility] T10 T12, L1-L2 surgery, surgical sutures on the back Wound care, continue antibiotics, request records from [facility] --Acute systolic CHF/ EF 20 to 25% antifailure medication with diuretic, beta-blockers, LALITHA inhibitors, input output monitoring, low-sodium diet,fluid restriction. Cardiology consult noted and appreciated --UTI/ur cultures grew Magali Completed Diflucan x3 doses per ID -- Severe protein calorie malnutrition Albumin 1.7 nutrition supplements ,, nutrition consult --Pneumonia Completed 5 days of Rocephin and Zithromax -- DVT prophylaxis SCDs bilateral lower extremities while in bed, patient is ambulatory Patient is severely ill with multiple medical problems, immunocompromised multiple myeloma Pancytopenia, Covid positive state, very poor prognosis Multiple social issues, homeless, no resources DC planning per case management and patient is stable Closely monitor the patient and adjust management as needed Plan of care reviewed with the patient and his nurse Camera Storage Clerk recommendations noted and appreciated Disposition; placement and discharge planning when stable Brief history: The patient is a 55-year-old male with diabetes, malnutrition, resident of an assisted living facility was brought into the emergency room with complaints of sore throat and back pain. Patient is persistent VRE completed antibiotics daptomycin, diagnosed with multiple myeloma , evaluated and followed by telemetry production foreman, advised to follow outpatient production foreman upon discharge, no positive COVID-19, pancytopenia and due to multiple myeloma, received multiple doses of Neupogen, awaiting placement DC when stable Daily clinical course: 10/16/2020; sepsis secondary to VRE bacteremia, UTI and pneumonia Continue current antibiotics per ID, contact isolation due to VRE 10/17/2020; patient is more alert and awake today, feels better CT abdomen and pelvis findings noted continue current antibiotics Physical therapy, Occupational Therapy as tolerated 10/18/2020; cardiology evaluations appreciated FLORESITA negative for endocarditis, cardiology started goal-directed CHF treatment 10/19/2020; persistent bacteremia, FLORESITA negative for endocarditis Continue ID cardiology recommendations Patient complains of some sore throat, Cepacol throat spray and Cepacol lozenges 10/20/2020; anemia, hemoglobin 6.4, transfuse 1 unit PRBC Closely monitor H&H transfuse additional PRBC as needed Pancytopenia, hematology consult inpatient versus outpatient 10/21/2020; patient's hemoglobin increased to 8.0 Severe hypophosphatemia, hypomagnesemia replenished Also ID production foreman Dr. Yusuf Koehler 10/22/2020; hematology evaluation noted and appreciated bone marrow biopsy requested And work-up for multiple myeloma in process 10/23/2020; continue current management, disposition per ID and hematology 10/24/2020; multiple myeloma management per hematology Persistent sepsis VRE, management per ID, long-term antibiotics Stop date 11/01/202010/25--10/28; clinically no change same condition 10/29/20; patient continues daptomycin stop date 11/01/2020 Multiple myeloma work-up in progress, appreciate heme-onc input Recommend outpatient follow-up with hematology oncology for further evaluation and management upon discharge 10/30; severe leukopenia, give 1 dose of filgrastim subcu Hematology following, closely monitor Neutropenia precautions as needed Patient is critically ill guarded prognosis 10/31; patient will receive 1 more dose of filgrastim today Closely monitor RBC WBC and platelets Patient needs to see production foreman upon discharge 11/01;Hypomagnesemia, replenish per protocol, last dose of daptomycin DC planning per case management Initially discharged the patient however [facility] requested quintero PCR Discharge held, continue current management Possible discharge tomorrow [facility] tomorrow evening if Covid test is negative 11/02; patient's Covid test is positive, will reconsult ID Continue isolation, check room air and ambulatory O2 sats Consider dexamethasone and remdesivir if needed Patient is supposed to be discharged to [facility] today We will hold the discharge 11/03; patient immunocompromised, COVID-19 positive reported 11/02/2020 Multiple myeloma, pancytopenia WBC 1.7 hemoglobin 7.8 platelets 58 Hematology following will give 1 dose of Neupogen today 11/04; reconsulted ID, continue current management, Awaiting placement Patient needs to follow outpatient production foreman for further evaluation and management of Multiple myeloma, social issues no payer source DC planning per case management 11/05: Patient resting on room air, continue to follow inflammatory markers and ID recommendations. Patient will be [facility] on Wednesday as because he tested positive for COVID-19. Continue to provide supportive care. Follow heme-onc recommendation for the management of multiple myeloma. 11/06: Patient remains on room air, pending discharge to [facility] for Covid positive status. Continue to provide supportive care and follow clinically. Continue PT OT eval. Continue to monitor H&H and transfuse as needed. 11/07: Transfused another unit of packed RBC today per hematology recommendation. Patient remains on room air, pending discharge to [facility]. Continue to follow clinically with supportive care. 11/08: h/h stable, pending placement to [facility]. follow clinically 11/09: cont supportive care, patient remains on RA. pending discharge to [facility]. 11/10: waiting for placement. cont supportive care Hospitalist Physical General appearance: Present: no acute distress, cachectic, disheveled, other (Chronically ill looking cachectic) - EENT Eyes: Present: PERRL, EOM intact - Neck Neck: Present: supple, normal ROM - Respiratory Respiratory effort: normal Respiratory: bilateral: diminished, negative: rales, rhonchi, wheezing - Cardiovascular Rhythm: regular Heart Sounds: Present: S1 & S2 - Extremities Extremities: no ischemia, No edema - Abdominal General gastrointestinal: soft, non-tender, non-distended, normal bowel sounds - Integumentary Integumentary: Present: clear, warm - Psychiatric Psychiatric: appropriate mood/affect, cooperative - Neurologic Neurologic: CNII-XII intact, moves all extremities Subjective Date of service: 11/10/20 Principal diagnosis: Multiple Myeloma Interval history: Patient seen and examined. Medical records and medication list reviewed. No acute event overnight noted by the RN. Patient denies any chest pain or difficulty breathing. Patient is tolerating diet. Patient remains on room air [facility] will not [facility] the patient until next week Wednesday as pt is positive for COVID-19 Discussed plan of care at bedside with patient. Objective - Constitutional Vitals: Vital Signs - 12hr 11/10/20 11/10/20 11/11/20 22:00 22:33 05:16 Temperature 98.4 F 98.0 F Pulse Rate 107 H Pulse Rate [ 107 H From Monitor] Respiratory 18 18 18 Rate Blood Pressure 131/74 111/75 O2 Sat by Pulse 100 100 Oximetry - Labs CBC & Chem 7: 11/07/20 07:49 11/07/20 07:49
[2020-11-11] MEDS: ASPIRIN EC 81 MG TAB PO SCH (09:34)
[2020-11-11] MEDS: LISINOPRIL 5 MG TAB PO SCH (09:34)
[2020-11-11] MEDS: MAGNESIUM OXIDE 400 MG TAB PO SCH (09:35)
[2020-11-11] MEDS: carvediloL 3.125 MG TAB PO SCH ×2 (09:35→21:47)
[2020-11-11] MEDS: SPIRONOLACTONE 25 MG TAB PO SCH (09:35)
[2020-11-11] MEDS: CALCIUM CARBONATE 1250 MG TAB PO SCH ×2 (10:00→21:46)
[2020-11-11] MEDS: FLUCONAZOLE 100 MG TAB PO SCH (10:00)
[2020-11-12] MEDS: oxyCODONE 5 MG TAB PO PRN (01:05)
[2020-11-12 06:37] LABS: Hematocrit 22.3 % (35.5-45.6); Hemoglobin 7.7 gm/dl (11.8-15.2); Mean Corpuscular HGB Conc 34 % (32-34); Mean Corpuscular Volume 91 fl (84-94); Platelet Count 222 K/mm3 (140-440); Red Blood Count 2.45 M/mm3 (3.65-5.03); Red Cell Distribution Width 18.9 % (13.2-15.2)
[2020-11-12] MEDS: ACYCLOVIR 200 MG CAP PO SCH ×2 (08:00→21:22)
[2020-11-12] MEDS: ASPIRIN EC 81 MG TAB PO SCH (10:21)
[2020-11-12] MEDS: LISINOPRIL 5 MG TAB PO SCH (10:22)
[2020-11-12] MEDS: MAGNESIUM OXIDE 400 MG TAB PO SCH (10:22)
[2020-11-12] MEDS: SPIRONOLACTONE 25 MG TAB PO SCH (10:22)
[2020-11-12] MEDS: FLUCONAZOLE 100 MG TAB PO SCH (10:22)
[2020-11-12] MEDS: CALCIUM CARBONATE 1250 MG TAB PO SCH ×2 (10:23→21:22)
[2020-11-12] MEDS: carvediloL 3.125 MG TAB PO SCH ×2 (10:23→21:23)
--- NOTE | 2020-11-12 14:10 | Progress Note ---
Assessment and Plan --COVID 19 PCR test positive on 11/01/2020 [negative Covid test, 10/11/2020, 10/21/2020] Contact and droplet isolation Patient on room air saturating well Prone position Check inflammatory markers Reconsult ID, Immunocompromised patient --Hypomagnesemia; replenished with 4 g of mag sul IV Monitor electrolytes --Pancytopenia; Hematology following, s/p 1 dose of Neupogen due to multiple myeloma, sepsis, Treat the underlying cause Telemetry hematology recommend the patient to see outpatient inspector aide For further evaluation and management --Leukopenia; Received filgrastim subcu 2 dose, Closely monitor Telemetry hematology following --Sepsis due to persistent bacteremia Treated with daptomycin per ID, stop date 11/01/2020 FLORESITA negative for endocarditis --VRE bacteremia; completed treatment Unclear source/recent spinal surgery T10-T12, L1-L2, details not available Records requested from [facility] Unable to treat with linezolid secondary due to thrombocytopenia. ID recommended daptomycin for total 14 days last dose 11/01/2020 -- Multiple Myeloma: Management hem/onc per Dr Koehler bone survey c/w multiple myeloma rib tumors and 6cm R scapula tumor, L spine tumor no specific T spine tumor described kappa 986 k/l ratio 298 SPEP tiny M-spike, no BHARAT BMBx prelim-hypocellular; pending final interpretation presumed multiple myeloma [main cause of patient sickness] immunocompromised-presumed pneumonia low WBC related to bone marrow dysfunction good enough candidate for anti-myeloma therapy, needs it soon recent severe anemia due to multiple myeloma; RBC transfusion dependence Advised; await final bone marrow biopsy interp Transfusion as needed receiving IV Abx for presumed pneumonia off steroids Patient will follow heme-onc upon discharge for --Acute kidney injury (NELSY) with acute tubular necrosis (ATN) Resolved, renal function within normal level --Hypocalcemia; Replenished with calcium gluconate, and oral supplements Closely monitor levels --Hypophosphatemia; Closely monitor electrolytes and adjust as needed --Hypomagnesemia; Closely monitor electrolytes and replenish as needed --Anemia; Hb 6.4 -8.0 Likely due to underlying history of multiple myeloma Received 3 units PRBC transfusion check H&H, transfuse additional as needed. Hematology consult --History of recent spinal surgery: at [facility] T10 T12, L1-L2 surgery, surgical sutures on the back Wound care, continue antibiotics, request records from [facility] --Acute systolic CHF/ EF 20 to 25% antifailure medication with diuretic, beta-blockers, LALITHA inhibitors, input output monitoring, low-sodium diet,fluid restriction. Cardiology consult noted and appreciated --UTI/ur cultures grew Magali Completed Diflucan x3 doses per ID -- Severe protein calorie malnutrition Albumin 1.7 nutrition supplements ,, nutrition consult --Pneumonia Completed 5 days of Rocephin and Zithromax -- DVT prophylaxis SCDs bilateral lower extremities while in bed, patient is ambulatory Patient is severely ill with multiple medical problems, immunocompromised multiple myeloma Pancytopenia, Covid positive state, very poor prognosis Multiple social issues, homeless, no resources DC planning per case management and patient is stable Closely monitor the patient and adjust management as needed Plan of care reviewed with the patient and his nurse Groover Runner recommendations noted and appreciated Disposition; placement and discharge planning when stable Brief history: The patient is a 55-year-old male with diabetes, malnutrition, resident of an assisted living facility was brought into the emergency room with complaints of sore throat and back pain. Patient is persistent VRE completed antibiotics daptomycin, diagnosed with multiple myeloma , evaluated and followed by telemetry inspector aide, advised to follow outpatient inspector aide upon discharge, no positive COVID-19, pancytopenia and due to multiple myeloma, received multiple doses of Neupogen, awaiting placement DC when stable Daily clinical course: 10/16/2020; sepsis secondary to VRE bacteremia, UTI and pneumonia Continue current antibiotics per ID, contact isolation due to VRE 10/17/2020; patient is more alert and awake today, feels better CT abdomen and pelvis findings noted continue current antibiotics Physical therapy, Occupational Therapy as tolerated 10/18/2020; cardiology evaluations appreciated FLORESITA negative for endocarditis, cardiology started goal-directed CHF treatment 10/19/2020; persistent bacteremia, FLORESITA negative for endocarditis Continue ID cardiology recommendations Patient complains of some sore throat, Cepacol throat spray and Cepacol lozenges 10/20/2020; anemia, hemoglobin 6.4, transfuse 1 unit PRBC Closely monitor H&H transfuse additional PRBC as needed Pancytopenia, hematology consult inpatient versus outpatient 10/21/2020; patient's hemoglobin increased to 8.0 Severe hypophosphatemia, hypomagnesemia replenished Also ID inspector aide Dr. Yusuf Koehler 10/22/2020; hematology evaluation noted and appreciated bone marrow biopsy requested And work-up for multiple myeloma in process 10/23/2020; continue current management, disposition per ID and hematology 10/24/2020; multiple myeloma management per hematology Persistent sepsis VRE, management per ID, long-term antibiotics Stop date 11/01/202010/25--10/28; clinically no change same condition 10/29/20; patient continues daptomycin stop date 11/01/2020 Multiple myeloma work-up in progress, appreciate heme-onc input Recommend outpatient follow-up with hematology oncology for further evaluation and management upon discharge 10/30; severe leukopenia, give 1 dose of filgrastim subcu Hematology following, closely monitor Neutropenia precautions as needed Patient is critically ill guarded prognosis 10/31; patient will receive 1 more dose of filgrastim today Closely monitor RBC WBC and platelets Patient needs to see inspector aide upon discharge 11/01;Hypomagnesemia, replenish per protocol, last dose of daptomycin DC planning per case management Initially discharged the patient however [facility] requested quintero PCR Discharge held, continue current management Possible discharge tomorrow [facility] tomorrow evening if Covid test is negative 11/02; patient's Covid test is positive, will reconsult ID Continue isolation, check room air and ambulatory O2 sats Consider dexamethasone and remdesivir if needed Patient is supposed to be discharged to [facility] today We will hold the discharge 11/03; patient immunocompromised, COVID-19 positive reported 11/02/2020 Multiple myeloma, pancytopenia WBC 1.7 hemoglobin 7.8 platelets 58 Hematology following will give 1 dose of Neupogen today 11/04; reconsulted ID, continue current management, Awaiting placement Patient needs to follow outpatient inspector aide for further evaluation and management of Multiple myeloma, social issues no payer source DC planning per case management 11/05: Patient resting on room air, continue to follow inflammatory markers and ID recommendations. Patient will be discharged to his personal [facility] on Wednesday as because he tested positive for COVID-19. Continue to provide supportive care. Follow heme-onc recommendation for the management of multiple myeloma. 11/06: Patient remains on room air, pending discharge to personal [facility] for Covid positive status. Continue to provide supportive care and follow clinically. Continue PT OT eval. Continue to monitor H&H and transfuse as needed. 11/07: Transfused another unit of packed RBC today per hematology recommendation. Patient remains on room air, pending discharge to personal retirement. Continue to follow clinically with supportive care. 11/08: h/h stable, pending placement to [facility]. follow clinically 11/09: cont supportive care, patient remains on RA. pending discharge to personal retirement. 11/10: waiting for placement. cont supportive care. 11/11: Waiting for placement, patient remains on room air DC Medina catheter. Per casework manager patient can go back to the personal retirement once payment has been made. Continue to follow. Hospitalist Physical General appearance: Present: no acute distress, cachectic, disheveled, other (Chronically ill looking cachectic) - EENT Eyes: Present: PERRL, EOM intact - Neck Neck: Present: supple, normal ROM - Respiratory Respiratory effort: normal Respiratory: bilateral: diminished, negative: rales, rhonchi, wheezing - Cardiovascular Rhythm: regular Heart Sounds: Present: S1 & S2 - Extremities Extremities: no ischemia, No edema - Abdominal General gastrointestinal: soft, non-tender, non-distended, normal bowel sounds - Integumentary Integumentary: Present: clear, warm - Psychiatric Psychiatric: appropriate mood/affect, cooperative - Neurologic Neurologic: CNII-XII intact, moves all extremities Subjective Date of service: 11/11/20 Principal diagnosis: Multiple Myeloma Interval history: Patient seen and examined. Medical records and medication list reviewed. No acute event overnight noted by the RN. Patient denies any chest pain or difficulty breathing. Patient is tolerating diet. Patient remains on room air [facility] will not accept the patient until next week Wednesday as pt is positive for COVID-19 Discussed plan of care at bedside with patient. Objective - Constitutional Vitals: Vital Signs - 12hr 11/12/20 04:51 Temperature 98.0 F Pulse Rate 99 H Respiratory 18 Rate Blood Pressure 117/77 O2 Sat by Pulse 100 Oximetry - Labs CBC & Chem 7: 11/12/20 06:12 11/07/20 07:49 Labs: Abnormal lab results 11/12/20 Range/Units 06:12 WBC 3.0 L (4.5-11.0) K/mm3 RBC 2.45 L (3.65-5.03) M/mm3 Hgb 7.7 L (11.8-15.2) gm/dl Hct 22.3 L (35.5-45.6) % RDW 18.9 H (13.2-15.2) %
[2020-11-12 14:14] LABS: Hematocrit 22.7 % (35.5-45.6); Hemoglobin 7.6 gm/dl (11.8-15.2); Mean Corpuscular HGB Conc 34 % (32-34); Mean Corpuscular Volume 93 fl (84-94); Platelet Count 238 K/mm3 (140-440); Red Blood Count 2.45 M/mm3 (3.65-5.03)
[2020-11-12 14:26] LABS: Red Cell Distribution Width 20.2 % (13.2-15.2)
--- NOTE | 2020-11-13 08:12 | Progress Note ---
Assessment and Plan --COVID 19 PCR test positive on 11/01/2020 [negative Covid test, 10/11/2020, 10/21/2020] Contact and droplet isolation Patient on room air saturating well Prone position Check inflammatory markers Reconsult ID, Immunocompromised patient --Hypomagnesemia; replenished with 4 g of mag sul IV Monitor electrolytes --Pancytopenia; Hematology following, s/p 1 dose of Neupogen due to multiple myeloma, sepsis, Treat the underlying cause Telemetry hematology recommend the patient to see outpatient electric tool repairer For further evaluation and management --Leukopenia; Received filgrastim subcu 2 dose, Closely monitor Telemetry hematology following --Sepsis due to persistent bacteremia Treated with daptomycin per ID, stop date 11/01/2020 FLORESITA negative for endocarditis --VRE bacteremia; completed treatment Unclear source/recent spinal surgery T10-T12, L1-L2, details not available Records requested from [facility] Unable to treat with linezolid secondary due to thrombocytopenia. ID recommended daptomycin for total 14 days last dose 11/01/2020 -- Multiple Myeloma: Management hem/onc per Dr Koehler bone survey c/w multiple myeloma rib tumors and 6cm R scapula tumor, L spine tumor no specific T spine tumor described kappa 986 k/l ratio 298 SPEP tiny M-spike, no BHARAT BMBx prelim-hypocellular; pending final interpretation presumed multiple myeloma [main cause of patient sickness] immunocompromised-presumed pneumonia low WBC related to bone marrow dysfunction good enough candidate for anti-myeloma therapy, needs it soon recent severe anemia due to multiple myeloma; RBC transfusion dependence Advised; await final bone marrow biopsy interp Transfusion as needed receiving IV Abx for presumed pneumonia off steroids Patient will follow heme-onc upon discharge for --Acute kidney injury (NELSY) with acute tubular necrosis (ATN) Resolved, renal function within normal level --Hypocalcemia; Replenished with calcium gluconate, and oral supplements Closely monitor levels --Hypophosphatemia; Closely monitor electrolytes and adjust as needed --Hypomagnesemia; Closely monitor electrolytes and replenish as needed --Anemia; Hb 6.4 -8.0 Likely due to underlying history of multiple myeloma Received 3 units PRBC transfusion check H&H, transfuse additional as needed. Hematology consult --History of recent spinal surgery: at [facility] T10 T12, L1-L2 surgery, surgical sutures on the back Wound care, continue antibiotics, request records from [facility] --Acute systolic CHF/ EF 20 to 25% antifailure medication with diuretic, beta-blockers, LALITHA inhibitors, input output monitoring, low-sodium diet,fluid restriction. Cardiology consult noted and appreciated --UTI/ur cultures grew Magali Completed Diflucan x3 doses per ID -- Severe protein calorie malnutrition Albumin 1.7 nutrition supplements ,, nutrition consult --Pneumonia Completed 5 days of Rocephin and Zithromax -- DVT prophylaxis SCDs bilateral lower extremities while in bed, patient is ambulatory Patient is severely ill with multiple medical problems, immunocompromised multiple myeloma Pancytopenia, Covid positive state, very poor prognosis Multiple social issues, homeless, no resources DC planning per case management and patient is stable Closely monitor the patient and adjust management as needed Plan of care reviewed with the patient and his nurse Land Acquisition Analyst recommendations noted and appreciated Disposition; placement and discharge planning when stable Brief history: The patient is a 55-year-old male with diabetes, malnutrition, resident of an assisted living facility was brought into the emergency room with complaints of sore throat and back pain. Patient is persistent VRE completed antibiotics daptomycin, diagnosed with multiple myeloma , evaluated and followed by telemetry electric tool repairer, advised to follow outpatient electric tool repairer upon discharge, no positive COVID-19, pancytopenia and due to multiple myeloma, received multiple doses of Neupogen, awaiting placement DC when stable Daily clinical course: 10/16/2020; sepsis secondary to VRE bacteremia, UTI and pneumonia Continue current antibiotics per ID, contact isolation due to VRE 10/17/2020; patient is more alert and awake today, feels better CT abdomen and pelvis findings noted continue current antibiotics Physical therapy, Occupational Therapy as tolerated 10/18/2020; cardiology evaluations appreciated FLORESITA negative for endocarditis, cardiology started goal-directed CHF treatment 10/19/2020; persistent bacteremia, FLORESITA negative for endocarditis Continue ID cardiology recommendations Patient complains of some sore throat, Cepacol throat spray and Cepacol lozenges 10/20/2020; anemia, hemoglobin 6.4, transfuse 1 unit PRBC Closely monitor H&H transfuse additional PRBC as needed Pancytopenia, hematology consult inpatient versus outpatient 10/21/2020; patient's hemoglobin increased to 8.0 Severe hypophosphatemia, hypomagnesemia replenished Also ID electric tool repairer Dr. Yusuf Koehler 10/22/2020; hematology evaluation noted and appreciated bone marrow biopsy requested And work-up for multiple myeloma in process 10/23/2020; continue current management, disposition per ID and hematology 10/24/2020; multiple myeloma management per hematology Persistent sepsis VRE, management per ID, long-term antibiotics Stop date 11/01/202010/25--10/28; clinically no change same condition 10/29/20; patient continues daptomycin stop date 11/01/2020 Multiple myeloma work-up in progress, appreciate heme-onc input Recommend outpatient follow-up with hematology oncology for further evaluation and management upon discharge 10/30; severe leukopenia, give 1 dose of filgrastim subcu Hematology following, closely monitor Neutropenia precautions as needed Patient is critically ill guarded prognosis 10/31; patient will receive 1 more dose of filgrastim today Closely monitor RBC WBC and platelets Patient needs to see electric tool repairer upon discharge 11/01;Hypomagnesemia, replenish per protocol, last dose of daptomycin DC planning per case management Initially discharged the patient however personal fci requested quintero PCR Discharge held, continue current management Possible discharge tomorrow personal-fci tomorrow evening if Covid test is negative 11/02; patient's Covid test is positive, will reconsult ID Continue isolation, check room air and ambulatory O2 sats Consider dexamethasone and remdesivir if needed Patient is supposed to be discharged to personal [facility] today We will hold the discharge 11/03; patient immunocompromised, COVID-19 positive reported 11/02/2020 Multiple myeloma, pancytopenia WBC 1.7 hemoglobin 7.8 platelets 58 Hematology following will give 1 dose of Neupogen today 11/04; reconsulted ID, continue current management, Awaiting placement Patient needs to follow outpatient electric tool repairer for further evaluation and management of Multiple myeloma, social issues no payer source DC planning per case management 11/05: Patient resting on room air, continue to follow inflammatory markers and ID recommendations. Patient will be discharged to his personal [facility] on Wednesday as because he tested positive for COVID-19. Continue to provide supportive care. Follow heme-onc recommendation for the management of multiple myeloma. 11/06: Patient remains on room air, pending discharge to personal fci for Covid positive status. Continue to provide supportive care and follow clinically. Continue PT OT eval. Continue to monitor H&H and transfuse as needed. 11/07: Transfused another unit of packed RBC today per hematology recommendation. Patient remains on room air, pending discharge to personal fci. Continue to follow clinically with supportive care. 11/08: h/h stable, pending placement to [facility]. follow clinically 11/09: cont supportive care, patient remains on RA. pending discharge to personal fci. 11/10: waiting for placement. cont supportive care. 11/11: Waiting for placement, patient remains on room air, DC Medina catheter. Per senior case manager patient can go back to the personal fci once payment has been made. Continue to follow. 11/12: Repeat Covid test is negative. Continue supportive care, patient is clinically stable. Discharge pending on placement, patient seems to be unfunded. Hospitalist Physical General appearance: Present: no acute distress, cachectic, disheveled, other ( Chronically ill looking cachectic) - EENT Eyes: Present: PERRL, EOM intact - Neck Neck: Present: supple, normal ROM - Respiratory Respiratory effort: normal Respiratory: bilateral: diminished, negative: rales, rhonchi, wheezing - Cardiovascular Rhythm: regular Heart Sounds: Present: S1 & S2 - Extremities Extremities: no ischemia, No edema - Abdominal General gastrointestinal: soft, non-tender, non-distended, normal bowel sounds - Integumentary Integumentary: Present: clear, warm - Psychiatric Psychiatric: appropriate mood/affect, cooperative - Neurologic Neurologic: CNII-XII intact, moves all extremities Subjective Date of service: 11/12/20 Principal diagnosis: Multiple Myeloma Interval history: Patient seen and examined. Medical records and medication list reviewed. No acute event overnight noted by the RN. Patient denies any chest pain or difficulty breathing. Patient is tolerating di et. Patient remains on room air, pending discharge Discussed plan of care at bedside with patient. Objective - Constitutional Vitals: Vital Signs - 12hr 11/12/20 11/13/20 22:22 04:42 Temperature 98.0 F 98.0 F Pulse Rate 104 H 94 H Respiratory 18 18 Rate Blood Pressure 109/69 121/83 O2 Sat by Pulse 100 100 Oximetry - Labs CBC & Chem 7: 11/12/20 13:34 11/07/20 07:49 Labs: Abnormal lab results 11/12/20 Range/Units 13:34 WBC 3.9 L (4.5-11.0) K/mm3 RBC 2.45 L (3.65-5.03) M/mm3 Hgb 7.6 L (11.8-15.2) gm/dl Hct 22.7 L (35.5-45.6) % RDW 20.2 H (13.2-15.2) %
[2020-11-13] MEDS: ASPIRIN EC 81 MG TAB PO SCH (10:11)
[2020-11-13] MEDS: LISINOPRIL 5 MG TAB PO SCH (10:11)
[2020-11-13] MEDS: SPIRONOLACTONE 25 MG TAB PO SCH (10:14)
[2020-11-13] MEDS: MAGNESIUM OXIDE 400 MG TAB PO SCH (10:14)
[2020-11-13] MEDS: carvediloL 3.125 MG TAB PO SCH (10:14)
[2020-11-13] MEDS: CALCIUM CARBONATE 1250 MG TAB PO SCH (10:56)
[2020-11-13 13:23] VITALS: BP 93/56
== END 2020-11-13 14:50 | disposition hospice, home (50) | DRG 177 ==
LOC: ED 15:03 → 3A 19:47 → CC1 10-11 01:35 → 3A 10-11 10:49
PROVIDERS: ADMIT Internal Medicine; ATTEND Internal Medicine
PROC: 07DR3ZX Extraction of Iliac Bone Marrow, Percutaneous Approach, Diagnostic (ICD-10-PCS; principal; 2020-10-23)
DX: U07.1 COVID-19 (principal); A41.9 Sepsis, unspecified organism; N17.0 Acute kidney failure with tubular necrosis; J18.9 Pneumonia, unspecified organism; E43 Unspecified severe protein-calorie malnutrition; I50.23 Acute on chronic systolic (congestive) heart failure; E87.2 Acidosis; D61.818 Other pancytopenia; C90.00 Multiple myeloma not having achieved remission; D84.9 Immunodeficiency, unspecified; E87.1 Hypo-osmolality and hyponatremia; I42.0 Dilated cardiomyopathy; E83.39 Other disorders of phosphorus metabolism; E83.42 Hypomagnesemia; E83.51 Hypocalcemia; D64.9 Anemia, unspecified; I95.9 Hypotension, unspecified; E87.5 Hyperkalemia; E11.9 Type 2 diabetes mellitus without complications; Z79.899 Other long term (current) drug therapy; Z79.891 Long term (current) use of opiate analgesic; Z79.01 Long term (current) use of anticoagulants; Z68.22 Body mass index [BMI] 22.0-22.9, adult; Z82.49 Family history of ischemic heart disease and other diseases of the circulatory system
CPT/HCPCS: 36415; 38222; 70360; 70450; 71045; 71260; 72100; 72157; 72158; 74177; 76705; 77074; 80048; 80053; 81001; 82232; 82550; 82728; 82947; 82962; 83615; 83735; 84100; 84132; 84145; 84165; 85007; 85014; 85018; 85025; 85027; 85379; 85610; 85730; 86140; 86850; 86900; 86901; 86920; 87040; 87076; 87086; 87186; 87806; 88305; 88311; 93005; 93306; 93312; 93320; 93325; 93970; G0378; A9575; J0456; J0610; J0696; J0878; J0885; J1170; J1447; J1815; J1885; J2270; J2405; J2430; J2704; J2920; J2930; J3370; J3475; J7030; J7040; J7050; J8540; P9016; Q9967; U0003